=== PATIENT | female | born 1935 | race Caucasian/White ===

== ENCOUNTER → 2016-05-19 | Outpatient (CLI) | payer OTHER ==
[~2016-05-19] MED LIST: AMLO-110 PO; ASPCH81X PO; CLB/200 PO; CLOP1TAB15 PO; GLIP-199 PO; INSDGI SC; LETR2TAB PO; LORA-741 PO; METO-551 PO; METO10TA PO; OLME1TAB11 PO; PRAV40TA2 PO; QUET1TAB30 PO; VENL150C56 PO; VITAMIN B12 PO
[2016-05-19 17:28] LABS: ARTERIAL BLOOD GAS BASE EXCESS 3.7 mEq/L (-9-1.8); ARTERIAL BLOOD GAS HCO3 27 mmol/L (19-24); ARTERIAL BLOOD GAS PO2 89 mm/Hg (80-95); ARTERIAL BLOOD GAS pH 7.48 (7.35-7.45)
[2016-05-19 17:55] LABS: ALLEN TEST POS (POS); O2 ADMINISTRATION ROOM AIR
[2016-05-26 04:44] LABS: ANTI-CENTROMERE AB <1.0 NEG AI (<1.0 NEG); ANTI-SS-A <1.0 NEG AI (<1.0 NEG); ANTI-SS-B <1.0 NEG AI (<1.0 NEG); DNA ds CRITHIDIA NEGATIVE (NEGATIVE); Sm Antibody <1.0 NEG AI (<1.0 NEG)
== END | disposition home or self-care (01) ==
LOC: C.LAB 16:42
PROVIDERS: ATTEND Internal Medicine Pulmonary Disease
DX: J84.10 Pulmonary fibrosis, unspecified (principal)

== ENCOUNTER → 2016-05-25 | Outpatient (CLI) | payer OTHER ==
[2016-05-25 15:25] LABS: BASO % 0.2 %; BASO ABS # 0.02 K/uL (0-0.2); COMPLETE YES; EOS % 3.6 %; HEMATOCRIT 35.2 % (37-47); IG% 1.5 %; LYMPH % 20.7 %; LYMPH ABS # 1.74 K/uL (1.2-3.4); MEAN CELL VOLUME 86.7 fL (80-100); MEAN CORPUSCULAR HEMOGLOBIN 29.1 pg (25-34); MEAN CORPUSCULAR HGB CONC 33.5 g/dl (32-36); PLATELET COUNT 353 K/uL (130-400); RED BLOOD COUNT 4.06 M/uL (4.2-5.4); WHITE BLOOD COUNT 8.39 K/uL (4.8-10.8)
[2016-05-25 15:34] LABS: ESTIMATED AVERAGE GLUCOSE 209 mg/dl; HA1C FLAG Normal (Normal)
[2016-05-25 16:06] LABS: BLOOD UREA NITROGEN 48 mg/dl (7-18); CALCIUM 10.4 mg/dl (8.5-10.1); CARBON DIOXIDE 29 mmol/L (21-32); CHLORIDE 97 mmol/L (98-107); GLUCOSE 229 mg/dl (70-99); SODIUM 137 mmol/L (136-145)
== END | disposition home or self-care (01) ==
LOC: C.LAB1850 14:43
PROVIDERS: ATTEND Internal Medicine
DX: E11.9 Type 2 diabetes mellitus without complications (principal)

== ENCOUNTER → 2016-10-10 | Outpatient (CLI) | payer OTHER ==
[2016-10-10 14:04] LABS: RATIO 96.4 mcg/mg (0-30.0)
[2016-10-10 14:26] LABS: BLOOD UREA NITROGEN 43 mg/dl (7-18); BUN/CREATININE RATIO 18.8 (10-20); CALCIUM 9.7 mg/dl (8.5-10.1); CARBON DIOXIDE 33 mmol/L (21-32); CHLORIDE 98 mmol/L (98-107); GLUCOSE 265 mg/dl (70-99); POTASSIUM 3.9 mmol/L (3.5-5.1); SODIUM 137 mmol/L (136-145)
== END | disposition home or self-care (01) ==
LOC: C.LAB1850 11:55
PROVIDERS: ATTEND Physician Assistant
DX: N18.9 Chronic kidney disease, unspecified (principal)

== ENCOUNTER → 2017-01-29 | Outpatient (CLI) | payer OTHER ==
[2017-01-29 15:06] LABS: BASO % 0.2 %; BASO ABS # 0.02 K/uL (0-0.2); COMPLETE YES; EOS % 3.2 %; IG% 1.5 %; LYMPH % 14.7 %; LYMPH ABS # 1.45 K/uL (1.2-3.4); MEAN CELL VOLUME 87.7 fL (80-100); MEAN CORPUSCULAR HEMOGLOBIN 29.8 pg (25-34); MONO % 8.4 %; PLATELET COUNT 378 K/uL (130-400); RED BLOOD COUNT 3.99 M/uL (4.2-5.4); WHITE BLOOD COUNT 9.84 K/uL (4.8-10.8)
[2017-01-29 15:17] LABS: BLOOD UREA NITROGEN 38 mg/dl (7-18); BUN/CREATININE RATIO 17.4 (10-20); CALCIUM 9.8 mg/dl (8.5-10.1); CARBON DIOXIDE 27 mmol/L (21-32); CHLORIDE 99 mmol/L (98-107); GLUCOSE 212 mg/dl (70-99); POTASSIUM 4.2 mmol/L (3.5-5.1); SODIUM 137 mmol/L (136-145)
[2017-01-30 07:12] LABS: ESTIMATED AVERAGE GLUCOSE 189 mg/dl; HA1C FLAG Normal (Normal)
== END | disposition home or self-care (01) ==
LOC: C.LAB1850 13:44
PROVIDERS: ATTEND Physician Assistant
DX: E11.22 Type 2 diabetes mellitus with diabetic chronic kidney disease (principal); N18.9 Chronic kidney disease, unspecified

== ENCOUNTER → 2017-05-10 | Outpatient (CLI) | payer OTHER ==
[~2017-05-10] MED LIST changes: +ACET-24 PO; -AMLO-110 PO; +AMLO5TAB3 PO; +ATV5X PO; +B-COCAP2 PO; +BNC/20 PO; +CELE1CAP30 PO; +CLC100 PO; +EFF75 PO; +GLIP10TA10 PO; +INSDGIPEN PO; +INSDGIPEN SC; +LDDP5 TD; +MCRK20 PO; +METO25TA56 PO; +METO50TA16 PO; +MRLP17 PO; +NITR0.4S UT; +NRN100 PO; +NUTR-7 PO; +NYSS5 PO; +NYST100033 TOP; -OLME1TAB11 PO; +PANT1TAB3 PO; +QUET5TAB PO; +RXC5 PO; +ZRX5 PO
--- NOTE | 2017-05-11 14:36 | MAMMOGRAPHY REPORT ---
BILATERAL DIGITAL SCREENING MAMMOGRAM TOMOSYNTHESIS WITH CAD: 05/10/2017 CLINICAL HISTORY: Routine screening. Patient has no complaints. TECHNIQUE: Breast tomosynthesis in addition to standard 2D mammography was performed. The right CC and left MLO views were repeated for motion. Current study was also evaluated with a Computer Aided Detection (CAD) system. COMPARISON: Comparison is made to exams dated: 03/29/2016 mammogram, 03/22/2015 mammogram, 09/17/2014 mammogram, 03/18/2014 mammogram, 03/02/2014 mammogram, and 02/03/2013 mammogram - [facility]. BREAST COMPOSITION: There are scattered areas of fibroglandular density in both breasts. FINDINGS: There are moderate vascular calcifications in the breasts. Stable benign-appearing punctat e microcalcifications in the right breast near the surgical site. No new suspicious mass, architectu ral distortion or cluster of suspicious microcalcifications is seen. IMPRESSION: ACR BI-RADS CATEGORY 1: NEGATIVE There is no mammographic evidence of malignancy. A 1 year screening mammogram is recommended. The pa tient will receive written notification of the results. Approximately 10% of breast cancers are not detected with mammography. A negative mammographic report should not delay biopsy if a clinically suggestive mass is present. Lauryn Ruiz M.D. ay/:05/10/2017 15:38:55 Ornamental Painter: Kiersten HASTINGS(Brad)(Broderick)(BD), [facility] letter sent: Normal 1/2 BI-RADS Code: ACR BI-RADS Category 1: Negative
== END | disposition home or self-care (01) ==
LOC: C.MAMM 14:28
PROVIDERS: ATTEND Internal Medicine
DX: Z12.31 Encounter for screening mammogram for malignant neoplasm of breast (principal); Z85.3 Personal history of malignant neoplasm of breast

== ENCOUNTER 2017-05-31 14:43 | Inpatient (IN) | payer OTHER ==
[~2017-05-31] VITALS: Ht 162.6 cm; Wt 70.5 kg
[~2017-05-31 14:43] MED LIST changes: -ACET-24 PO; +AMLO-110 PO; -AMLO5TAB3 PO; -ATV5X PO; -B-COCAP2 PO; -BNC/20 PO; -CELE1CAP30 PO; -CLC100 PO; -EFF75 PO; -GLIP10TA10 PO; -INSDGIPEN PO; -INSDGIPEN SC; -LDDP5 TD; -MCRK20 PO; -METO25TA56 PO; -METO50TA16 PO; -MRLP17 PO; -NITR0.4S UT; -NRN100 PO; -NUTR-7 PO; -NYSS5 PO; -NYST100033 TOP; +OLME1TAB11 PO; -PANT1TAB3 PO; -PRAV40TA2 PO; -QUET5TAB PO; -RXC5 PO; -ZRX5 PO
--- NOTE | 2017-05-31 15:18 | EMERGENCY ROOM VISIT NOTE ---
History Report prepared by Eugenie: Trev Torres Under the Supervision of: Dr. Edison Crawford M.D. First contact with patient: 15:05 Chief Complaint: FALL Stated Complaint: FALL/L-ARM PAIN History of Present Illness The patient is an 82 year old female who presents to the Emergency Room after a fall 11 hours ago. The patient states she was rocking [id number] and then fell. She reports she was on the floor for about 5 hours because she could not get up. The patient notes she is experiencing constant left shoulder pain that radiates through her left elbow, and her pain increases with movement. She states she hit her head and nose when she fell. The patient reports she experienced a headache and pain in between her shoulders at first, but they have resolved. She notes she has a history of arthritis and diabetes. The patient states she did not take her blood sugar medication this morning, but she did take it last night. She reports she is on Plavix and wears oxygen constantly. The patient notes she has a history of a cholecystectomy and a hysterectomy. She denies feeling dizzy, tripping, chest pain, shortness of breath, and abdominal pain. Source of History: patient Onset: 11 hours ago Position: shoulder (left) Timing: constant Modifying Factors (Worsening): movement Associated Symptoms: + headache (resolved), No chest pain, No SOB, No abdominal pain Note: Associated symptoms: resolved pain in between the shoulder blades Denies: feeling dizzy, tripping Review of Systems See HPI for pertinent positives and negatives. A total of ten systems were reviewed and were otherwise negative. Past Medical & Surgical Medical Problems: (1) accelerated hypertension (2) Carcinoma of breast (3) Depression (4) Fall (5) Humeral fracture (6) MAL ELI BREAST UP-OUTER (7) renal insufficiency (8) Type 2 insulindependent diabetes Family History Patient reports no known family medical history. Social History Smoking Status: Never Smoker Alcohol Use: none Drug Use: cocaine Marital Status: single, Housing Status: lives alone Occupation Status: retired Current/Historical Medications Scheduled Aspirin (Aspirin Chewable), 81 MG PO QAM Celecoxib (Celecoxib), 200 MG PO DAILY Clopidogrel (Plavix), 75 MG PO QAM Gabapentin (Gabapentin), 100 MG PO HS Glipizide (Glipizide), 10 MG PO BID Insulin Glargine (Lantus Solostar), 20 UNITS PO QAM Insulin Glargine (Lantus Solostar), 45 UNITS SC QPM Metolazone (Metolazone), 5 MG PO QAM Metoprolol Tartrate (Lopressor) (Lopressor), 50 MG PO BID Pantoprazole (Protonix), 40 MG PO DAILY Pravastatin Sodium (Pravastatin Sodium), 40 MG PO HS Quetiapine Fumarate (Seroquel), 50 MG PO HS Venlafaxine Hcl (Effexor Extended Rel), 150 MG PO QAM Vitamin B Cmplx/Vitc/Folic Ac (Nephrocaps), 1 CAP PO DAILY Scheduled PRN Lorazepam (Lorazepam), 0.5 MG PO Q6 PRN for Anxiety Venlafaxine Hcl (Effexor), 75 MG PO HS PRN for Allergies Coded Allergies: Amoxicillin (Verified Allergy, Intermediate, RASH, 12/22/15) Clavulanic Acid (Verified Allergy, Intermediate, RASH, 12/22/15) Physical Exam Vital Signs Date Time Temp Pulse Resp B/P (MAP) Pulse Ox O2 Delivery O2 Flow Rate FiO2 05/31/17 18:39 Nasal Cannula 2.0 05/31/17 18:35 100 18 168/96 98 Nasal Cannula 2.0 05/31/17 16:55 98 16 166/80 98 Room Air 05/31/17 14:56 36.9 104 18 175/86 94 Room Air Physical Exam Physical Exam GENERAL: She is oriented to person, place, and time. She appears well- developed and well-nourished. She does not appear distressed. ____ HENT: Exam performed. Head: Normocephalic and atraumatic. Right Ear: External ear normal. No mastoid tenderness. Left Ear: External ear normal. No mastoid tenderness. Mouth/Throat: The oropharynx is clear and moist. No trismus in the jaw. No dental abscesses or uvula swelling. No oropharyngeal exudate or tonsillar abscesses. ____ UPPER EXTREMITIES: RUE: Tenderness to palpation over the left clavicle, shoulder, and humerus. Limited ROM. R elbow: No tenderness to palpation to the medial or lateral epicondyle or olecranon process. Right upper extremity has full ROM and no tenderness. ___ B/l Motor and sensation intact in radial, median, and ulnar nerve distributions. Compartments softs b/l EYES: Conjunctivae and EOM are normal. Pupils are equal, round, and reactive to light. Right eye exhibits no discharge. Left eye exhibits no discharge. No scleral icterus. ____ NECK: Neck supple. No JVD present. No spinous process tenderness present. No carotid bruit present. No rigidity. No tracheal deviation and normal range of motion present.____ CV: Normal rate, regular rhythm, normal heart sounds and intact distal pulses. There is no peripheral edema. Palpable radial pulses bue. ____ PULM/CHEST: Effort normal and breath sounds normal. No respiratory distress. No stridor. She has no wheezes. She has no rales. Chest Wall: She exhibits no tenderness. ____ ABD: The abdomen is soft. Bowel sounds are normal. She has no distension. No mass is present. There is no tenderness. There is no rebound, no guarding, no Horner's sign and no tenderness at McBurney's point. Rovsig negative BACK: Tenderness to palpation to the cervical and lumbar spine. No tenderness to palpation to the thoracic spine. ____ MUSC/SKEL: Normal range of motion. There is no peripheral edema or deformity. Tenderness to palpation to the hips bilaterally. Pelvis is stable. LYMPH: No cervical adenopathy. ____ NEURO: She is alert and oriented to person, place, and time. She has normal strength. No cranial nerve deficit or sensory deficit. Coordination and gait normal. GCS eye subscore is 4. GCS verbal subscore is 5. GCS motor subscore is 6. cerebellar tests wnl. ____ SKIN: Skin is warm and dry. She is not diaphoretic. ____ PSYCH: She has a normal mood and affect. Her behavior is normal. Judgment and thought content normal. ____ Medical Decision & Procedures ER Provider Diagnostic Interpretation: Radiology results as stated below per my review and radiologist interpretation: SINGLE VIEW PELVIS CLINICAL HISTORY: Fall. FINDINGS: An AP pelvic radiograph is compared to study dated 01/21/2015 and correlated with pelvic CT dated 08/24/2008. The skeletal structures are osteopenic. No acute fracture is seen involving the hips or bony pelvis. Mild to moderate arthritic change is noted in the hips. Sclerotic change is present in the sacroiliac joints and pubic symphysis. Lumbosacral spondylosis and scoliosis is partially visualized. The overlying soft tissues are normal in appearance. Numerous pelvic phleboliths are observed. No bowel obstruction is identified. IMPRESSION: Osteopenia and degenerative change as above. There is no radiographic evidence of acute fracture involving the hips or bony pelvis. Electronically signed by: Franklin Adame M.D. 05/31/2017 5:53 PM Dictated Date/Time: 05/31/2017 5:51 PM L-SPINE MIN 4 VIEWS ROUTINE HISTORY: 82 years-old Female fall acute back pain status post fall COMPARISON: Lumbar spine radiographs 01/21/2015 TECHNIQUE: 4 views of the lumbar spine FINDINGS: Levoscoliosis of the lumbar spine has mildly progressed. There are 5 lumbar type vertebral segments. The bones appear moderately demineralized. No acute fracture or subluxation identified. No acute compression fracture is seen. Severe multilevel intervertebral disc space narrowing, endplate spurring and facet arthrosis. Atherosclerosis of the aorta. Cholecystectomy clips noted. Moderate stool volume throughout the colon. IMPRESSION: 1. Moderate bone demineralization without acute fracture or subluxation identified. 2. Severe multilevel intervertebral disc space narrowing, endplate spurring and facet arthropathy. The above report was generated using voice recognition software. It may contain grammatical, syntax or spelling errors. Electronically signed by: Jeffery Hassan M.D. 05/31/2017 5:54 PM Dictated Date/Time: 05/31/2017 5:[address] SCAN OF THE BRAIN WITHOUT IV CONTRAST CLINICAL HISTORY: Fall. COMPARISON STUDY: CT of the brain dated 11/09/2012. TECHNIQUE: Unenhanced axial CT scan of the brain is performed from the vertex to the skull base. A dose lowering technique was utilized adhering to the principles of ALARA. FINDINGS: Brain parenchyma: There are age-related involutional changes noting moderate subcortical and periventricular microangiopathic change. There is no hemorrhage, mass effect, or evidence of acute territorial ischemia by CT criteria. Miranda-white matter is preserved. No extra-axial fluid collection is seen. Ventricles, sulci, cisterns: Prominent secondary to involutional change. Intracranial vasculature: There is atherosclerotic calcification of the cavernous carotid and vertebral arteries. Calvarium: The skeletal structures are osteopenic. No depressed calvarial fracture is seen. Sinuses and mastoids: The visualized paranasal sinuses are clear. The mastoid air cells are well pneumatized. Orbits: The bony orbits are grossly intact. There are bilateral ocular lens implants. IMPRESSION: There is no hemorrhage, mass effect, or evidence of acute territorial ischemia by CT criteria. Electronically signed by: Franklin Adame M.D. 05/31/2017 4:19 PM Dictated Date/Time: 05/31/2017 4:17 PM SINGLE VIEW CHEST CLINICAL HISTORY: Fall. FINDINGS: An AP, portable, upright chest radiograph is compared to study dated 02/23/2016 and correlated with chest CT dated 04/10/2016. The examination is degraded by portable technique and patient rotation. The heart is enlarged and there is atherosclerotic calcification of the thoracic aorta. The pulmonary vasculature is noncongested. Changes of chronic digital lung disease are similar to previous. There is no convincing radiographic evidence of superimposed airspace consolidation or pleural effusion. No pneumothorax is seen. The skeletal structures are osteopenic. There is an impacted and comminuted fracture of the left humeral head and neck with numerous distracted fragments and medial distraction of the humeral shaft. IMPRESSION: 1. Cardiomegaly with changes of chronic interstitial lung disease. This is similar to previous. 2. There is no evidence of superimposed airspace consolidation or large pleural effusion. 3. There is an acute impacted and comminuted fracture of the left humeral neck as above. Electronically signed by: Franklin Adame M.D. 05/31/2017 5:49 PM Dictated Date/Time: 05/31/2017 5:46 PM CERVICAL SPINE W/O CT DOSE: 941.98 mGy.cm CLINICAL HISTORY: 82 years-old Female with fall. Acute neck injury status post fall COMPARISON: CT head of same day. TECHNIQUE: Multiple axial CT images of the cervical spine were obtained without contrast. A dose lowering technique was utilized adhering to the principles of ALARA. FINDINGS: Sclerotic lesion of the right mandibular ramus measures up to 2.0 cm in length and demonstrates no suspicious features. Multilevel advanced facet arthropathy with intervertebral disc space narrowing and prominent posterior disc osteophyte complex formation is noted. Large posterior disc osteophyte complexes are seen most notably at the C4-C5 and C5-C6 levels which appear to cause at least mild central canal narrowing. Evaluation of the central canal and neural foramina is better evaluated by MRI. No acute cervical spine fracture or subluxation identified. Bones appear moderately demineralized. Slight reversal of the normal cervical lordosis centered at C6-C7. Mastoid air cells and middle ear cavities are clear. Imaged lung apices appear clear. Atherosclerosis of the carotid bulbs bilaterally is noted. IMPRESSION: 1. No acute cervical spine fracture or subluxation. 2. Multilevel advanced facet arthropathy with discogenic degenerative changes. Large posterior disc osteophyte complex formations are seen at the C4-C5 and C5-C6 levels. 3. Indeterminate 2.0 cm sclerotic lesion of the right mandibular ramus without aggressive features identified. No associated soft tissue mass. The above report was generated using voice recognition software. It may contain grammatical, syntax or spelling errors. Electronically signed by: Jeffery Hassan M.D. 05/31/2017 4:49 PM Dictated Date/Time: 05/31/2017 4:42 PM L UPPER EXTREMITY WITHOUT HISTORY: 82 years-old Female shoulder fracture acute left shoulder pain status post fall. COMPARISON: Chest CT 04/10/2016 TECHNIQUE: Multiple axial CT images of the left upper extremity were obtained without the use of IV contrast. Coronal and sagittal reformatted images were obtained from the axial data set and were submitted for review. A dose lowering technique was used consistent with the principals of ALARA. FINDINGS: The bones appear moderately demineralized. There is an acute comminuted, displaced, impacted and angulated fracture of the proximal left humerus with fractures involving the humeral neck, greater and lesser tuberosities. There is subluxation posteriorly of the humeral head within the glenoid fossa. There is approximately 1.7 cm medial and 2.9 cm anterior displacement of the humeral neck and proximal diaphysis in relation to the humeral head. Moderate muscular and subcutaneous edema is noted about the left shoulder with associated moderate joint effusion. Vascular calcifications are noted. The study is not tailored to assess the rotator cuff or labral anatomy. The glenoid, coracoid, acromion and imaged clavicle appear intact. There are moderate degenerative changes about the left AC joint with mild to moderate glenohumeral degenerative changes. IMPRESSION: 1. Acute comminuted , displaced, impacted and angulated fracture of the proximal left humerus with fractures involving the humeral neck, greater and lesser tuberosities. No definite humeral head fracture identified. 2. Moderate bone demineralization. 3. Moderate soft tissue swelling about the left shoulder with joint effusion. The above report was generated using voice recognition software. It may contain grammatical, syntax or spelling errors. Electronically signed by: Jeffery Hassan M.D. 05/31/2017 4:38 PM Dictated Date/Time: 05/31/2017 4:31 PM LEFT ELBOW 2 VIEWS CLINICAL HISTORY: Fall with left arm pain. FINDINGS: AP and lateral views of the left elbow are obtained. No prior studies are available for comparison at the time of dictation. The skeletal structures are osteopenic. There is no radiographic evidence of fracture. The joint spaces appear maintained. A small enthesophyte arises from the lateral humeral epicondyle. There is no joint effusion. The overlying soft tissues are within normal limits. IMPRESSION: There is no radiographic evidence of left elbow fracture. Electronically signed by: Franklin Adame M.D. 05/31/2017 5:46 PM Dictated Date/Time: 05/31/2017 5:45 PM Laboratory Results 05/31/17 15:45 Red Blood Count 4.09, Mean Corpuscular Volume 87.5, Mean Corpuscular Hemoglobin 29.6, Mean Corpuscular Hemoglobin Concent 33.8, Mean Platelet Volume 9.8, Neutrophils (%) (Auto) 85.2, Lymphocytes (%) (Auto) 5.2, Monocytes (%) (Auto) 8.7, Eosinophils (%) (Auto) 0.1, Basophils (%) (Auto) 0.1, Neutrophils # (Auto) 12.99, Lymphocytes # (Auto) 0.80, Monocytes # (Auto) 1.33, Eosinophils # (Auto) 0.01, Basophils # (Auto) 0.01 05/31/17 15:45 Test 05/31/17 15:45 05/31/17 17:45 White Blood Count 15.24 K/uL (4.8-10.8) Red Blood Count 4.09 M/uL (4.2-5.4) Hemoglobin 12.1 g/dL (12.0-16.0) Hematocrit 35.8 % (37-47) Mean Corpuscular Volume 87.5 fL (80-100) Mean Corpuscular Hemoglobin 29.6 pg (25-34) Mean Corpuscular Hemoglobin Concent 33.8 g/dl (32-36) Platelet Count 377 K/uL (130-400) Mean Platelet Volume 9.8 fL (7.4-10.4) Neutrophils (%) (Auto) 85.2 % Lymphocytes (%) (Auto) 5.2 % Monocytes (%) (Auto) 8.7 % Eosinophils (%) (Auto) 0.1 % Basophils (%) (Auto) 0.1 % Neutrophils # (Auto) 12.99 K/uL (1.4-6.5) Lymphocytes # (Auto) 0.80 K/uL (1.2-3.4) Monocytes # (Auto) 1.33 K/uL (0.11-0.59) Eosinophils # (Auto) 0.01 K/uL (0-0.5) Basophils # (Auto) 0.01 K/uL (0-0.2) RDW Standard Deviation 42.9 fL (36.4-46.3) RDW Coefficient of Variation 13.4 % (11.5-14.5) Immature Granulocyte % (Auto) 0.7 % Immature Granulocyte # (Auto) 0.10 K/uL (0.00-0.02) Prothrombin Time 10.7 SECONDS (9.0-12.0) Prothromb Time International Ratio 1.0 (0.9-1.1) Activated Partial Thromboplast Time 23.1 SECONDS (21.0-31.0) Partial Thromboplastin Ratio 0.9 Anion Gap 12.0 mmol/L (3-11) Est Creatinine Clear Calc Drug Dose 17.8 ml/min Estimated GFR () 21.4 Estimated GFR (Non- 18.5 BUN/Creatinine Ratio 20.4 (10-20) Calcium Level 9.8 mg/dl (8.5-10.1) Total Bilirubin 0.5 mg/dl (0.2-1) Aspartate Amino Transf (AST/SGOT) 25 U/L (15-37) Alanine Aminotransferase (ALT/SGPT) 25 U/L (12-78) Alkaline Phosphatase 76 U/L (45-117) Total Creatine Kinase 229 U/L (26-192) Total Protein 7.7 gm/dl (6.4-8.2) Albumin 3.4 gm/dl (3.4-5.0) Globulin 4.3 gm/dl (2.5-4.0) Albumin/Globulin Ratio 0.8 (0.9-2) Beta-Hydroxybutyric Acid 1.58 mg/dL (0.2-2.81) Urine Color YELLOW Urine Appearance CLEAR (CLEAR) Urine pH 5.0 (4.5-7.5) Urine Specific [place] 1.027 (1.000-1.030) Urine Protein TRACE (NEG) Urine Glucose (UA) 3+ (NEG) Urine Ketones NEG (NEG) Urine Occult Blood NEG (NEG) Urine Nitrite NEG (NEG) Urine Bilirubin NEG (NEG) Urine Urobilinogen NEG (NEG) Urine Leukocyte Esterase NEG (NEG) Urine WBC (Auto) 0 /hpf (0-5) Urine RBC (Auto) 0-4 /hpf (0-4) Urine Hyaline Casts (Auto) 1-5 /lpf (0-5) Urine Epithelial Cells (Auto) 0-5 /lpf (0-5) Urine Bacteria (Auto) NEG (NEG) Laboratory results reviewed by me ECG Indication: back/shoulder pain (left) Rate (beats per minute): 107 Rhythm: sinus rhythm Findings: T-wave inversion (in AVL), other (MA, QRS, QTc intervals are within normal limits, left ventricular hypertrophy, no ST elevation or depression) Comparison ECG Date: 03/31/15 Change: Change: TWI in AVL are deeper Repeat EKG at 1551: Sinus rhythm with a rate of 103. MA, QRS, QTc are within normal limits. TWI in AVL. Left ventricular hypertrophy. No significant change from EKG at 1531. Patient's electrocardiogram was interpreted by me. ED Course 1508: The patient was evaluated in room A12A. A complete history and physical exam was performed. 1615: Received a call from [employer]. Patient on weathercaster film has an obvious left- sided humeral fracture. Given this and the patient's discomfort, we'll obtain CT of the upper extremity also so she does not have to be put back on the table for future CT scan. 1645: Patient alert and oriented with nondeformed C-spine with out peripheral neurological symptoms. With C-spine inlets ability passive flexion active flexion extension and lateral range of motion were performed without midline pain or peripheral neurological complaints less changes. The cervical spine was clinically cleared and collar was removed. Patient tolerated procedure well. No complications. 180: I reevaluated the patient. Her discomfort is okay when she does not move it. The patient's family reports they are not uncomfortable sending the patient home because she lives alone. They note she will fall again, and it was difficult to get to her after she fell this morning. 180: I discussed the patient's case with Dr. Garay, Orthopedic Surgery. He states the patient should be admitted to medicine, and he will be on consult. Place in ing. 181: I reevaluated the patient and performed a FAST exam. Views were obtained in the hepatorenal, subxiphoid, splenorenal, and suprapubic views. No free fluid. No cardiac effusion. 182: I discussed the patient's case with CHIEF LEARNING OFFICER on with Dr. Saeed, [facility] Hospitalist team. The patient will be evaluated for further management and care. Medical Decision Vital signs stable. Patient was admitted to medicine with consult to orthopedics for humeral neck fracture. CT head and C-spine negative. FAST negative. Medication Reconcilliation Current Medication List: was personally reviewed by me Blood Pressure Screening Patient's blood pressure: Elevated blood pressure Monitored by hospitalist. Consults Time Called: 1801 Consulting Physician: Dr. Garay, Orthopedic Surgery Returned Call: 180 I discussed the patient's case with Dr. Garay, Orthopedic Surgery. He states the patient should be admitted to medicine, and he will be on consult. Additional Consults: Time Called: 1818 Consulted Physician: Dr. Saeed [facility] Hospitalist Returned Call: [phone] Additional Comments: I discussed the patient's case with Dr. Saeed, [facility] Hospitalist. The patient will be evaluated for further management and care. Impression Primary Impression: Humeral fracture Additional Impression: Fall Scribe Attestation The scribe's documentation has been prepared under my direction and personally reviewed by me in its entirety. I confirm that the note above accurately reflects all work, treatment, procedures, and medical decision making performed by me. The chart was completed utilizing [employer] voice recognition software. Grammatical errors, random word insertions, pronoun errors, and incomplete sentences are an occasional consequence of this system due to software limitations, ambient noise, and hardware issues. Any formal questions or concerns about the content, text, or information contained within the body of this dictation should be directly addressed to the physician for clarification. Departure Information Dispostion Being Evaluated By Hospitalist Referrals Micheal Tucker M.D. (PCP) Patient Instructions My [facility] Problem Qualifiers
[2017-05-31 16:00] LABS: BASO % 0.1 %; BASO ABS # 0.01 K/uL (0-0.2); EOS % 0.1 %; EOS ABS # 0.01 K/uL (0-0.5); HEMATOCRIT 35.8 % (37-47); HEMOGLOBIN 12.1 g/dL (12.0-16.0); LYMPH % 5.2 %; MEAN CELL VOLUME 87.5 fL (80-100); MEAN CORPUSCULAR HEMOGLOBIN 29.6 pg (25-34); MEAN CORPUSCULAR HGB CONC 33.8 g/dl (32-36); MEAN PLATELET VOLUME 9.8 fL (7.4-10.4); MONO % 8.7 %; MONO ABS # 1.33 K/uL (0.11-0.59); NEUT % 85.2 %; NEUT ABS # 12.99 K/uL (1.4-6.5); PLATELET COUNT 377 K/uL (130-400); RED CELL DISTRIBUTION WIDTH CV 13.4 % (11.5-14.5); RED CELL DISTRIBUTION WIDTH SD 42.9 fL (36.4-46.3); WHITE BLOOD COUNT 15.24 K/uL (4.8-10.8)
[2017-05-31 16:10] LABS: PTT PATIENT 23.1 SECONDS (21.0-31.0)
[2017-05-31] MEDS ORDERED: QUET5TAB PO (16:16)
[2017-05-31] MEDS ORDERED: ZRX5 PO (16:16)
[2017-05-31] MEDS ORDERED: GLIP10TA10 PO (16:16)
[2017-05-31] MEDS ORDERED: NRN100 PO (16:16)
[2017-05-31] MEDS ORDERED: EFF75 PO (16:16)
[2017-05-31] MEDS ORDERED: METO50TA16 PO (16:16)
[2017-05-31] MEDS ORDERED: INSDGIPEN PO (16:16)
--- NOTE | 2017-05-31 16:21 | DIAGNOSTIC IMAGING REPORT ---
CT SCAN OF THE BRAIN WITHOUT IV CONTRAST CLINICAL HISTORY: Fall. COMPARISON STUDY: CT of the brain dated 11/09/2012. TECHNIQUE: Unenhanced axial CT scan of the brain is performed from the vertex to the skull base. A dose lowering technique was utilized adhering to the principles of ALARA. FINDINGS: Brain parenchyma: There are age-related involutional changes noting moderate subcortical and periventricular microangiopathic change. There is no hemorrhage, mass effect, or evidence of acute territorial ischemia by CT criteria. Miranda-white matter is preserved. No extra-axial fluid collection is seen. Ventricles, sulci, cisterns: Prominent secondary to involutional change. Intracranial vasculature: There is atherosclerotic calcification of the cavernous carotid and vertebral arteries. Calvarium: The skeletal structures are osteopenic. No depressed calvarial fracture is seen. Sinuses and mastoids: The visualized paranasal sinuses are clear. The mastoid air cells are well pneumatized. Orbits: The bony orbits are grossly intact. There are bilateral ocular lens implants. IMPRESSION: There is no hemorrhage, mass effect, or evidence of acute territorial ischemia by CT criteria. Electronically signed by: Franklin Adame M.D. 05/31/2017 4:19 PM Dictated Date/Time: 05/31/2017 4:17 PM
[2017-05-31] MEDS ORDERED: B-CO1CAP17 PO (16:25)
[2017-05-31] MEDS ORDERED: PANT1TAB3 PO (16:25)
[2017-05-31] MEDS ORDERED: ATV5X PO (16:25)
[2017-05-31] MEDS ORDERED: CELE1CAP30 PO (16:25)
[2017-05-31] MEDS ORDERED: INSDGIPEN SC (16:28)
[2017-05-31 16:36] LABS: ALBUMIN 3.4 gm/dl (3.4-5.0); CALCIUM 9.8 mg/dl (8.5-10.1); CREATININE 2.38 mg/dl (0.60-1.20); POTASSIUM 3.6 mmol/L (3.5-5.1); TOTAL PROTEIN 7.7 gm/dl (6.4-8.2)
--- NOTE | 2017-05-31 16:39 | DIAGNOSTIC IMAGING REPORT ---
L UPPER EXTREMITY WITHOUT HISTORY: 82 years-old Female shoulder fracture acute left shoulder pain status post fall. COMPARISON: Chest CT 04/10/2016 TECHNIQUE: Multiple axial CT images of the left upper extremity were obtained without the use of IV contrast. Coronal and sagittal reformatted images were obtained from the axial data set and were submitted for review. A dose lowering technique was used consistent with the principals of ALARA. FINDINGS: The bones appear moderately demineralized. There is an acute comminuted, displaced, impacted and angulated fracture of the proximal left humerus with fractures involving the humeral neck, greater and lesser tuberosities. There is subluxation posteriorly of the humeral head within the glenoid fossa. There is approximately 1.7 cm medial and 2.9 cm anterior displacement of the humeral neck and proximal diaphysis in relation to the humeral head. Moderate muscular and subcutaneous edema is noted about the left shoulder with associated moderate joint effusion. Vascular calcifications are noted. The study is not tailored to assess the rotator cuff or labral anatomy. The glenoid, coracoid, acromion and imaged clavicle appear intact. There are moderate degenerative changes about the left AC joint with mild to moderate glenohumeral degenerative changes. IMPRESSION: 1. Acute comminuted , displaced, impacted and angulated fracture of the proximal left humerus with fractures involving the humeral neck, greater and lesser tuberosities. No definite humeral head fracture identified. 2. Moderate bone demineralization. 3. Moderate soft tissue swelling about the left shoulder with joint effusion. The above report was generated using voice recognition software. It may contain grammatical, syntax or spelling errors. Electronically signed by: Jeffery Hassan M.D. 05/31/2017 4:38 PM Dictated Date/Time: 05/31/2017 4:31 PM
--- NOTE | 2017-05-31 16:50 | DIAGNOSTIC IMAGING REPORT ---
CERVICAL SPINE W/O CT DOSE: 941.98 mGy.cm CLINICAL HISTORY: 82 years-old Female with fall. Acute neck injury status post fall COMPARISON: CT head of same day. TECHNIQUE: Multiple axial CT images of the cervical spine were obtained without contrast. A dose lowering technique was utilized adhering to the principles of ALARA. FINDINGS: Sclerotic lesion of the right mandibular ramus measures up to 2.0 cm in length and demonstrates no suspicious features. Multilevel advanced facet arthropathy with intervertebral disc space narrowing and prominent posterior disc osteophyte complex formation is noted. Large posterior disc osteophyte complexes are seen most notably at the C4-C5 and C5-C6 levels which appear to cause at least mild central canal narrowing. Evaluation of the central canal and neural foramina is better evaluated by MRI. No acute cervical spine fracture or subluxation identified. Bones appear moderately demineralized. Slight reversal of the normal cervical lordosis centered at C6-C7. Mastoid air cells and middle ear cavities are clear. Imaged lung apices appear clear. Atherosclerosis of the carotid bulbs bilaterally is noted. IMPRESSION: 1. No acute cervical spine fracture or subluxation. 2. Multilevel advanced facet arthropathy with discogenic degenerative changes. Large posterior disc osteophyte complex formations are seen at the C4-C5 and C5-C6 levels. 3. Indeterminate 2.0 cm sclerotic lesion of the right mandibular ramus without aggressive features identified. No associated soft tissue mass. The above report was generated using voice recognition software. It may contain grammatical, syntax or spelling errors. Electronically signed by: Jeffery Hassan M.D. 05/31/2017 4:49 PM Dictated Date/Time: 05/31/2017 4:42 PM
[2017-05-31] MEDS ORDERED: PRAV40TA2 PO (16:52)
--- NOTE | 2017-05-31 17:47 | DIAGNOSTIC IMAGING REPORT ---
LEFT ELBOW 2 VIEWS CLINICAL HISTORY: Fall with left arm pain. FINDINGS: AP and lateral views of the left elbow are obtained. No prior studies are available for comparison at the time of dictation. The skeletal structures are osteopenic. There is no radiographic evidence of fracture. The joint spaces appear maintained. A small enthesophyte arises from the lateral humeral epicondyle. There is no joint effusion. The overlying soft tissues are within normal limits. IMPRESSION: There is no radiographic evidence of left elbow fracture. Electronically signed by: Franklin Adame M.D. 05/31/2017 5:46 PM Dictated Date/Time: 05/31/2017 5:45 PM
--- NOTE | 2017-05-31 17:50 | DIAGNOSTIC IMAGING REPORT ---
SINGLE VIEW CHEST CLINICAL HISTORY: Fall. FINDINGS: An AP, portable, upright chest radiograph is compared to study dated 02/23/2016 and correlated with chest CT dated 04/10/2016. The examination is degraded by portable technique and patient rotation. The heart is enlarged and there is atherosclerotic calcification of the thoracic aorta. The pulmonary vasculature is noncongested. Changes of chronic digital lung disease are similar to previous. There is no convincing radiographic evidence of superimposed airspace consolidation or pleural effusion. No pneumothorax is seen. The skeletal structures are osteopenic. There is an impacted and comminuted fracture of the left humeral head and neck with numerous distracted fragments and medial distraction of the humeral shaft. IMPRESSION: 1. Cardiomegaly with changes of chronic interstitial lung disease. This is similar to previous. 2. There is no evidence of superimposed airspace consolidation or large pleural effusion. 3. There is an acute impacted and comminuted fracture of the left humeral neck as above. Electronically signed by: Franklin Adame M.D. 05/31/2017 5:49 PM Dictated Date/Time: 05/31/2017 5:46 PM
--- NOTE | 2017-05-31 17:54 | DIAGNOSTIC IMAGING REPORT ---
SINGLE VIEW PELVIS CLINICAL HISTORY: Fall. FINDINGS: An AP pelvic radiograph is compared to study dated 01/21/2015 and correlated with pelvic CT dated 08/24/2008. The skeletal structures are osteopenic. No acute fracture is seen involving the hips or bony pelvis. Mild to moderate arthritic change is noted in the hips. Sclerotic change is present in the sacroiliac joints and pubic symphysis. Lumbosacral spondylosis and scoliosis is partially visualized. The overlying soft tissues are normal in appearance. Numerous pelvic phleboliths are observed. No bowel obstruction is identified. IMPRESSION: Osteopenia and degenerative change as above. There is no radiographic evidence of acute fracture involving the hips or bony pelvis. Electronically signed by: Franklin Adame M.D. 05/31/2017 5:53 PM Dictated Date/Time: 05/31/2017 5:51 PM
--- NOTE | 2017-05-31 17:56 | DIAGNOSTIC IMAGING REPORT ---
L-SPINE MIN 4 VIEWS ROUTINE HISTORY: 82 years-old Female fall acute back pain status post fall COMPARISON: Lumbar spine radiographs 01/21/2015 TECHNIQUE: 4 views of the lumbar spine FINDINGS: Levoscoliosis of the lumbar spine has mildly progressed. There are 5 lumbar type vertebral segments. The bones appear moderately demineralized. No acute fracture or subluxation identified. No acute compression fracture is seen. Severe multilevel intervertebral disc space narrowing, endplate spurring and facet arthrosis. Atherosclerosis of the aorta. Cholecystectomy clips noted. Moderate stool volume throughout the colon. IMPRESSION: 1. Moderate bone demineralization without acute fracture or subluxation identified. 2. Severe multilevel intervertebral disc space narrowing, endplate spurring and facet arthropathy. The above report was generated using voice recognition software. It may contain grammatical, syntax or spelling errors. Electronically signed by: Jeffery Hassan M.D. 05/31/2017 5:54 PM Dictated Date/Time: 05/31/2017 5:52 PM
[2017-05-31] MEDS ORDERED: LORAZEPAM 0.5 MG TAB PO PRN (18:30)
[2017-05-31] MEDS ORDERED: VENLAFAXINE HCL 37.5 MG TAB PO PRN (18:30)
[2017-05-31 18:39] VITALS: BMI 26.3
[2017-05-31] MEDS ORDERED: POLYETHYLENE (MIRALAX) 17 GM PACK PO PRN (19:15)
--- NOTE | 2017-05-31 19:36 | History and Physical ---
History & Physical Date & Time of Service: May 31, 2017 at 18:29 Chief Complaint: Fall/L-Arm Pain Primary Care Physician: Micheal Tucker M.D. History of Present Illness Source: patient, family Ms. Hensley had a fall this morning at about 0400. She is unsure why she fell but did not have any loc, however she did hit her head hard and had some blurred vision and headache after which has cleared at this point. She laid on the floor for about five hours. She has had chest pain at times in the past. Last weekend she had chest pain, fatigue and headache. She has not had any chest pain today. She has sob and coughing for about a year due to pulmonary fibrosis and was put on oxygen about a year ago. She normally wears 2L of oxygen. ROS Constitutional: no chills, aches, sweats or fever Respiratory: no sob,cough, sputum, or wheezing Cardiac: no chest pain, palpitations, edema, orthopnea or lightheadedness GI: no abdominal pain, nausea, vomiting, diarrhea or constipation : no dysuria or hesitancy Extremities: no joint pain or weakness Skin: no rash All other systems reviewed and negative ROS Constitutional: no chills, aches, sweats or fever Respiratory: no sob,cough, sputum, or wheezing Cardiac: no chest pain, palpitations, edema, orthopnea or lightheadedness GI: no abdominal pain, nausea, vomiting, diarrhea or constipation : no dysuria or hesitancy Extremities: no joint pain or weakness Skin: no rash All other systems reviewed and negative Pmhx: DMII with neuropathy, renal insufficiency, pulmonary fibrosis, and breast cancer Past Medical/Surgical History Family History Patient reports no known family medical history. Social History Smoking Status: Never Smoker Smokeless Tobacco Use: No Alcohol Use: none Drug Use: none Marital Status: Housing status: lives alone Occupational Status: retired (worked in schools and the university and housecleaning) Immunizations History of Influenza Vaccine: No History of Tetanus Vaccine?: Unknown History of Pneumococcal: No History of Hepatitis B Vaccine: Unknown Multi-Drug Resistant Organisms History of MDRO: No Allergies Coded Allergies: Amoxicillin (Verified Allergy, Intermediate, RASH, 12/22/15) Clavulanic Acid (Verified Allergy, Intermediate, RASH, 12/22/15) Home Medications Scheduled Aspirin (Aspirin Chewable), 81 MG PO QAM Celecoxib (Celecoxib), 200 MG PO DAILY Clopidogrel (Plavix), 75 MG PO QAM Gabapentin (Gabapentin), 100 MG PO HS Glipizide (Glipizide), 10 MG PO BID Insulin Glargine (Lantus Solostar), 20 UNITS PO QAM Insulin Glargine (Lantus Solostar), 45 UNITS SC QPM Metolazone (Metolazone), 5 MG PO QAM Metoprolol Tartrate (Lopressor) (Lopressor), 50 MG PO BID Pantoprazole (Protonix), 40 MG PO DAILY Pravastatin Sodium (Pravastatin Sodium), 40 MG PO HS Quetiapine Fumarate (Seroquel), 50 MG PO HS Venlafaxine Hcl (Effexor Extended Rel), 150 MG PO QAM Vitamin B Cmplx/Vitc/Folic Ac (Nephrocaps), 1 CAP PO DAILY Scheduled PRN Lorazepam (Lorazepam), 0.5 MG PO Q6 PRN for Anxiety Venlafaxine Hcl (Effexor), 75 MG PO HS PRN for Physical Exam Vital Signs Date Time Temp Pulse Resp B/P (MAP) Pulse Ox O2 Delivery O2 Flow Rate FiO2 05/31/17 16:55 98 16 166/80 98 Room Air 05/31/17 14:56 36.9 104 18 175/86 94 Room Air General: no distress Eyes: normal inspection, PERLL Respiratory: chest non tender, clear to auscultation, normal breath sounds, no respiratory distress, no accessory muscle use Cardiac: regular rate and rhythm, no rub or gallop, no murmur, no edema, no jvd GI/: active bowel sounds, no abd pain or tenderness, soft, non distended Extremities: unable to test left arm due to injury, right arm without drift, normal strength, legs normals strength and equal bilaterally Neuro/Psych: alert and oriented x 3, normal mood and affect Skin: normal color, dry Diagnostics Laboratory Results Results Past 24 Hours Test 05/31/17 15:45 05/31/17 17:45 Range/Units White Blood Count 15.24 4.8-10.8 K/uL Red Blood Count 4.09 4.2-5.4 M/uL Hemoglobin 12.1 12.0-16.0 g/dL Hematocrit 35.8 37-47 % Mean Corpuscular Volume 87.5 80-100 fL Mean Corpuscular Hemoglobin 29.6 25-34 pg Mean Corpuscular Hemoglobin Concent 33.8 32-36 g/dl Platelet Count 377 130-400 K/uL Mean Platelet Volume 9.8 7.4-10.4 fL Neutrophils (%) (Auto) 85.2 % Lymphocytes (%) (Auto) 5.2 % Monocytes (%) (Auto) 8.7 % Eosinophils (%) (Auto) 0.1 % Basophils (%) (Auto) 0.1 % Neutrophils # (Auto) 12.99 1.4-6.5 K/uL Lymphocytes # (Auto) 0.80 1.2-3.4 K/uL Monocytes # (Auto) 1.33 0.11-0.59 K/uL Eosinophils # (Auto) 0.01 0-0.5 K/uL Basophils # (Auto) 0.01 0-0.2 K/uL RDW Standard Deviation 42.9 36.4-46.3 fL RDW Coefficient of Variation 13.4 11.5-14.5 % Immature Granulocyte % (Auto) 0.7 % Immature Granulocyte # (Auto) 0.10 0.00-0.02 K/uL Prothrombin Time 10.7 9.0-12.0 SECONDS Prothromb Time International Ratio 1.0 0.9-1.1 Activated Partial Thromboplast Time 23.1 21.0-31.0 SECONDS Partial Thromboplastin Ratio 0.9 Sodium Level 132 136-145 mmol/L Potassium Level 3.6 3.5-5.1 mmol/L Chloride Level 94 98-107 mmol/L Carbon Dioxide Level 26 21-32 mmol/L Anion Gap 12.0 3-11 mmol/L Blood Urea Nitrogen 49 7-18 mg/dl Creatinine 2.38 0.60-1.20 mg/dl Est Creatinine Clear Calc Drug Dose 17.8 ml/min Estimated GFR () 21.4 Estimated GFR (Non- 18.5 BUN/Creatinine Ratio 20.4 10-20 Random Glucose 409 70-99 mg/dl Calcium Level 9.8 8.5-10.1 mg/dl Total Bilirubin 0.5 0.2-1 mg/dl Aspartate Amino Transf (AST/SGOT) 25 15-37 U/L Alanine Aminotransferase (ALT/SGPT) 25 12-78 U/L Alkaline Phosphatase 76 45-117 U/L Total Creatine Kinase 229 26-192 U/L Troponin I 0.020 0-0.045 ng/ml Total Protein 7.7 6.4-8.2 gm/dl Albumin 3.4 3.4-5.0 gm/dl Globulin 4.3 2.5-4.0 gm/dl Albumin/Globulin Ratio 0.8 0.9-2 Beta-Hydroxybutyric Acid 1.58 0.2-2.81 mg/dL Urine Color YELLOW Urine Appearance CLEAR CLEAR Urine pH 5.0 4.5-7.5 Urine Specific [place] 1.027 1.000-1.030 Urine Protein TRACE NEG Urine Glucose (UA) 3+ NEG Urine Ketones NEG NEG Urine Occult Blood NEG NEG Urine Nitrite NEG NEG Urine Bilirubin NEG NEG Urine Urobilinogen NEG NEG Urine Leukocyte Esterase NEG NEG Urine WBC (Auto) 0 0-5 /hpf Urine RBC (Auto) 0-4 0-4 /hpf Urine Hyaline Casts (Auto) 1-5 0-5 /lpf Urine Epithelial Cells (Auto) 0-5 0-5 /lpf Urine Bacteria (Auto) NEG NEG Diagnostic Radiology CT SCAN OF THE BRAIN WITHOUT IV CONTRAST CLINICAL HISTORY: Fall. COMPARISON STUDY: CT of the brain dated 11/09/2012. TECHNIQUE: Unenhanced axial CT scan of the brain is performed from the vertex to the skull base. A dose lowering technique was utilized adhering to the principles of ALARA. FINDINGS: Brain parenchyma: There are age-related involutional changes noting moderate subcortical and periventricular microangiopathic change. There is no hemorrhage, mass effect, or evidence of acute territorial ischemia by CT criteria. Miranda-white matter is preserved. No extra-axial fluid collection is seen. Ventricles, sulci, cisterns: Prominent secondary to involutional change. Intracranial vasculature: There is atherosclerotic calcification of the cavernous carotid and vertebral arteries. Calvarium: The skeletal structures are osteopenic. No depressed calvarial fracture is seen. Sinuses and mastoids: The visualized paranasal sinuses are clear. The mastoid air cells are well pneumatized. Orbits: The bony orbits are grossly intact. There are bilateral ocular lens implants. IMPRESSION: There is no hemorrhage, mass effect, or evidence of acute territorial ischemia by CT criteria. EKG Possible Left atrial enlargement Left ventricular hypertrophy with repolarization abnormality Possible Inferior infarct , age undetermined Abnormal ECG When compared with ECG of 28-MAR-2015 16:14, ST now depressed in Lateral leads Inverted T waves have replaced nonspecific T wave abnormality in Lateral leads Confirmed by MIKHAIL RUIZ ([id number]) on 05/31/2017 6:29:28 PM Impression Assessment and Plan Resident Physician Supervision Note: Ms. Hensley is an 82 year old woman here for fall resulting in left humeral neck fracture Left humeral neck fracture/fall - admit tele - trend troponins, ekg with cp - consult ortho - npo after mn - patient has an RCRI of 3 putting her at 11% risk of major cardiac event during surgery - consulted cardiology for preop evaluation - last echo 2012 - repeat ordered - sling per ortho rec - pain control - morphine and acetaminophen prn - PT/OT DM II with hyperglycemia - Patient did not take any diabetic medications today due to her fall - 45 units insulin glargine now - BSGs appear suboptimally managed with A1c 8.5 in March - bsgs ac & hs, ss, home lantus doses - may need to be increased based on response - hold sulfonylurea and metformin for now Pulmonary fibrosis - 2L NC at home - titrate per protocol - CXR negative for acute process Renal insufficiency - Creat 2.38 - baseline appears to be around 2.3 - avoid nephrotoxic drugs. Dispo - patient lives by herself and has had falls in the past - will likely require rehab at discharge Quin DNR SCDs Pt evaluated independently. I discussed the case with the SENIOR TECHNICAL ANALYST and agree with the findings and plan as documented in the note. Any exceptions or clarifications are listed here: 82 y/o F Hx DM, CKD, pulmonary fibrosis dependent on 2l home 02 Presents following a fall W/O LOC - sustained a L humeral fracture OE AAO x 3 S1,2 R Poor air movement - no crackles or wheezing NT, ND No CCE P: Pt will likely require surgical repair as is intermed risk We have requested a cadriology consult therefore Fibrosis - clinically at baseline Placed on SS for DM Creat is at baseline - maintain hydration alejandra-op Pending cardio eval Documented By: Gelacio Saeed Advanced Directives Existing Advance Directive: No Existing Living Will: Yes Existing Power of [employer] Program Coordinator: No Existing Health Care Proxy: No Resuscitation Status DO NOT RESUSCITATE
[2017-05-31] MEDS ORDERED: DEXTROSE 50% 50 ML SYR IV PRN (20:15)
[2017-05-31] MEDS ORDERED: GLUCAGON FOR INJ 1 MG VIAL SQ PRN (20:15)
[2017-05-31] MEDS ORDERED: GLUCOSE 40% GEL 15 GM TUBE PO PRN (20:15)
[2017-05-31] MEDS ORDERED: GLUCOSE 10 TABS/TUBE PO PRN (20:15)
[2017-05-31 20:51] VITALS: BP 161/84; PULSE 97; TEMP 36.9; O2SAT 99
[2017-05-31] MEDS ORDERED: LANTUS PER UNIT CHARGE SC ONE (21:00)
[2017-05-31] MEDS ORDERED: PNEUMOCOCCAL ADMINISTRATION CHARGE ONE (21:00)
[2017-05-31] MEDS ORDERED: PNEUMOCOCCAL POLYSACCHARIDES 25 MCG/0.5 ML VIAL/SYR IM. ONE (21:00)
[2017-05-31] MEDS: QUETIAPINE FUMARATE 25 MG TAB PO SCH (21:05)
[2017-05-31] MEDS: PRAVASTATIN SOD 40 MG TAB PO SCH (21:05)
[2017-05-31] MEDS: METOPROLOL TARTRATE 50 MG TAB PO SCH (21:05)
[2017-05-31] MEDS: GABAPENTIN 100 MG CAP PO SCH (21:06)
[2017-05-31] MEDS: INSULIN ASPART 100 UNITS/ML 3 ML PEN SC SCH (21:07)
[2017-05-31] MEDS ORDERED: INSULIN GLARGINE SOLOSTAR 100 UNITS/ML 3 ML PEN SC STA (21:42)
[2017-05-31] MEDS ORDERED: ASPIRIN 81 MG CHEW PO STA (22:55)
[2017-05-31 23:39] VITALS: BP 107/69; PULSE 85; TEMP 36.9; O2SAT 96
[2017-05-31] MEDS: ACETAMINOPHEN 325 MG TAB PO PRN (23:43)
[2017-06-01] VITALS (8 sets, daily range): BP systolic 118–143; BP diastolic 73–81; PULSE 70–88; TEMP 36.5–37; O2SAT 96–100; Ht 162.6 cm; Wt 70.5 kg
--- NOTE | 2017-06-01 02:26 | Progress Note ---
Progress Note Date of Service Jun 01, 2017. Progress Note informed of elevated troponin,repeat pending ASA 325 mg administered and am dose of ASa and plavix held ( in case patient is acceptable candidate for surgery) no interval evolution of EKG was appreciated, deferred addition of heparin IV as unsure if patient will undergo surgery tomorrow considering results - consult [facility] and echo is already in place, on BB and statin; repeat EKG in am - Metolazone held preop
[2017-06-01 04:21] LABS: HEMATOCRIT 34.1 % (37-47); HEMOGLOBIN 11.4 g/dL (12.0-16.0); MEAN CELL VOLUME 88.1 fL (80-100); MEAN CORPUSCULAR HEMOGLOBIN 29.5 pg (25-34); MEAN CORPUSCULAR HGB CONC 33.4 g/dl (32-36); PLATELET COUNT 336 K/uL (130-400); RED CELL DISTRIBUTION WIDTH CV 13.5 % (11.5-14.5); WHITE BLOOD COUNT 10.49 K/uL (4.8-10.8)
[2017-06-01 04:48] LABS: CALCIUM 9.3 mg/dl (8.5-10.1); CREATININE 2.61 mg/dl (0.60-1.20); POTASSIUM 3.2 mmol/L (3.5-5.1)
--- NOTE | 2017-06-01 07:35 | Progress Note ---
Subjective Date of Service: Jun 01, 2017. Subjective despite her admission and fracture the pt actually looks much better than her chart, given baseline chronic hypoxic lung disease from pulmonary fibrosis and her elevated troponin with concern for type 2 OK plus acute renal failure she has opted to decline shoulder replacement surgery at this time, perhaps in the future when her operative risk reduces she may reconsider, but will attempt to heal and rehab before making that decision her pain control is good, no further chest pain Problem List Medical Problems: (1) Mood disorder Status: Acute (2) Suicidal ideation Status: Acute Review of Systems Constitutional: No fever, No chills, No weakness, No fatigue Respiratory: No cough, No shortness of breath, No dyspnea on exertion Cardiac: No chest pain, No PND, No edema Abdomen: No pain, No nausea, No diarrhea Musculoskeletal: + joint pain, + muscle pain, + swelling Neurologic: + weakness, No memory loss, No paralysis Psychiatric: No depression symptoms, No anhedonism Objective Vital Signs Date Time Temp Pulse Resp B/P (MAP) Pulse Ox O2 Delivery O2 Flow Rate FiO2 06/01/17 04:30 99 Nasal Cannula 2.0 06/01/17 03:21 36.6 76 16 119/73 (88) 99 2.0 06/01/17 00:01 96 Nasal Cannula 2.0 05/31/17 23:39 36.9 85 18 107/69 (82) 96 2.0 05/31/17 20:51 36.9 97 22 161/84 (109) 99 Nasal Cannula 2.0 05/31/17 20:26 101 18 148/79 98 05/31/17 20:09 101 18 148/79 98 Nasal Cannula 2.0 05/31/17 18:39 Nasal Cannula 2.0 05/31/17 18:35 100 18 168/96 98 Nasal Cannula 2.0 05/31/17 16:55 98 16 166/80 98 Room Air 05/31/17 14:56 36.9 104 18 175/86 94 Room Air Physical Exam General Appearance: WD/WN, + mild distress Eyes: normal inspection, sclerae normal Respiratory/Chest: chest non-tender, no respiratory distress, + rales Cardiovascular: regular rate, rhythm, no murmur Abdomen: normal bowel sounds, non tender, soft Extremities: + pertinent finding (left arm in sling, swelling to shoulder tender to touch, preserved distal sensation and abduction of thumb) Laboratory Results Last 24 Hours Test 05/31/17 14:50 05/31/17 15:45 05/31/17 17:45 05/31/17 21:02 Bedside Glucose 395 mg/dl 263 mg/dl White Blood Count 15.24 K/uL Red Blood Count 4.09 M/uL Hemoglobin 12.1 g/dL Hematocrit 35.8 % Mean Corpuscular Volume 87.5 fL Mean Corpuscular Hemoglobin 29.6 pg Mean Corpuscular Hemoglobin Concent 33.8 g/dl Platelet Count 377 K/uL Mean Platelet Volume 9.8 fL Neutrophils (%) (Auto) 85.2 % Lymphocytes (%) (Auto) 5.2 % Monocytes (%) (Auto) 8.7 % Eosinophils (%) (Auto) 0.1 % Basophils (%) (Auto) 0.1 % Neutrophils # (Auto) 12.99 K/uL Lymphocytes # (Auto) 0.80 K/uL Monocytes # (Auto) 1.33 K/uL Eosinophils # (Auto) 0.01 K/uL Basophils # (Auto) 0.01 K/uL RDW Standard Deviation 42.9 fL RDW Coefficient of Variation 13.4 % Immature Granulocyte % (Auto) 0.7 % Immature Granulocyte # (Auto) 0.10 K/uL Prothrombin Time 10.7 SECONDS Prothromb Time International Ratio 1.0 Activated Partial Thromboplast Time 23.1 SECONDS Partial Thromboplastin Ratio 0.9 Sodium Level 132 mmol/L Potassium Level 3.6 mmol/L Chloride Level 94 mmol/L Carbon Dioxide Level 26 mmol/L Anion Gap 12.0 mmol/L Blood Urea Nitrogen 49 mg/dl Creatinine 2.38 mg/dl Est Creatinine Clear Calc Drug Dose 17.8 ml/min Estimated GFR () 21.4 Estimated GFR (Non- 18.5 BUN/Creatinine Ratio 20.4 Random Glucose 409 mg/dl Calcium Level 9.8 mg/dl Total Bilirubin 0.5 mg/dl Aspartate Amino Transf (AST/SGOT) 25 U/L Alanine Aminotransferase (ALT/SGPT) 25 U/L Alkaline Phosphatase 76 U/L Total Creatine Kinase 229 U/L Troponin I 0.020 ng/ml Total Protein 7.7 gm/dl Albumin 3.4 gm/dl Globulin 4.3 gm/dl Albumin/Globulin Ratio 0.8 Beta-Hydroxybutyric Acid 1.58 mg/dL Urine Color YELLOW Urine Appearance CLEAR Urine pH 5.0 Urine Specific [place] 1.027 Urine Protein TRACE Urine Glucose (UA) 3+ Urine Ketones NEG Urine Occult Blood NEG Urine Nitrite NEG Urine Bilirubin NEG Urine Urobilinogen NEG Urine Leukocyte Esterase NEG Urine WBC (Auto) 0 /hpf Urine RBC (Auto) 0-4 /hpf Urine Hyaline Casts (Auto) 1-5 /lpf Urine Epithelial Cells (Auto) 0-5 /lpf Urine Bacteria (Auto) NEG Test 05/31/17 21:49 06/01/17 03:42 06/01/17 06:42 Troponin I 0.512 ng/ml 0.806 ng/ml White Blood Count 10.49 K/uL Red Blood Count 3.87 M/uL Hemoglobin 11.4 g/dL Hematocrit 34.1 % Mean Corpuscular Volume 88.1 fL Mean Corpuscular Hemoglobin 29.5 pg Mean Corpuscular Hemoglobin Concent 33.4 g/dl RDW Standard Deviation 43.0 fL RDW Coefficient of Variation 13.5 % Platelet Count 336 K/uL Mean Platelet Volume 10.0 fL Sodium Level 136 mmol/L Potassium Level 3.2 mmol/L Chloride Level 97 mmol/L Carbon Dioxide Level 30 mmol/L Anion Gap 9.0 mmol/L Blood Urea Nitrogen 55 mg/dl Creatinine 2.61 mg/dl Est Creatinine Clear Calc Drug Dose 16.2 ml/min Estimated GFR () 19.2 Estimated GFR (Non- 16.6 BUN/Creatinine Ratio 21.2 Random Glucose 228 mg/dl Calcium Level 9.3 mg/dl Bedside Glucose 192 mg/dl Assessment and Plan 82 F with fall and traumatic left humeral fracture, baseline pulmonary fibrosis , chronic hypoxic respiratory failure, now also acute on chronic renal failure, and elevated troponin with intermittent chest pain while laying on ground after fall Left humeral neck fracture/fall - consult ortho - patient has an RCRI of 3 putting her at 11% risk of major cardiac event during surgery - consulted cardiology for preop evaluation - last echo 2012 - repeat pending - sling per ortho rec, ortho and pt have discussed surgical risk and opted for conservative treatment at this time - pain control - morphine and acetaminophen prn - PT/OT elevated Troponin, cardiology eval, likely also influenced by renal failure, trending up will continue to follow, supplement oxygen, metoprolol, aspirin was held for concern for surgery but will likely not given rise in troponin DM II with hyperglycemia, A1c 8.5 in March. did not take meds on day of admission - bsgs ac & hs, ssi, home lantus monitor for toxic affects - hold sulfonylurea and metformin for now Pulmonary fibrosis- 2L NC at home - titrate per protocol - CXR negative for acute process Acute on chronic renal failure stage 3, likely had some dehydration while laying on floor, hydrate and follow, care with med dosing Dispo - patient lives by herself and has had falls in the past - will likely require rehab at discharge DNR SCDs
[2017-06-01] MEDS ORDERED: ASPIRIN 81 MG CHEW PO SCH (09:00)
[2017-06-01] MEDS ORDERED: CLOPIDOGREL BISULFATE 75 MG TAB PO SCH ×2 (09:00)
[2017-06-01] MEDS ORDERED: ASPIRIN 81 MG ECTAB PO SCH (09:00)
[2017-06-01] MEDS ORDERED: CeleBREX 200 MG CAP PO SCH (09:00)
[2017-06-01] MEDS ORDERED: METOLAZONE 5 MG TAB PO SCH (09:00)
[2017-06-01] MEDS ORDERED: PERFLUTREN LIPID MICROSPHERE (DEFINITY) IV ONE (09:22)
[2017-06-01] MEDS: VENLAFAXINE HCL XR 150 MG CAPXR PO SCH (09:32)
[2017-06-01] MEDS: NEPHROCAPS PO SCH (09:33)
[2017-06-01] MEDS: PANTOprazole SOD 40 MG TAB PO SCH (09:33)
[2017-06-01] MEDS: METOPROLOL TARTRATE 50 MG TAB PO SCH ×2 (09:33→21:28)
[2017-06-01] MEDS: INSULIN ASPART 100 UNITS/ML 3 ML PEN SC SCH ×4 (09:35→21:30)
--- NOTE | 2017-06-01 10:31 | ECHOCARDIOGRAM REPORT ---
*NOTICE TO RECEIVING REPUBLICAN AGENCY This information is strictly Confidential and protected under [place] law. [place] law prohibits you from making any further disclosure of this information unless further disclosure is expressly permitted by the written consent of the person to whom it pertains or is authorized by law. A general authorization for the release of medical or other information is not sufficient for this purpose. Hospital accepts no responsibility if the information is made available to any other person, INCLUDING THE PATIENT. Interpretation Summary * Name: JULES LEW Study Date: 06/01/2017 07:55 AM BP: 119/73 mmHg * Patient Location: C.2T\S\E219\S\1 HR: 74 * : 1935 (M/d/yyyy) Gender: Female Height: 64 in * Age: 82 yrs Ethnicity: CA Weight: 153 lb * Ordering Physician: Edwina Reagan * Referring Physician: Self, Referred * Performed By: Josseline Smith RDCS * * Reason For Study: Evaluation for surgery * BSA: 1.7 m2 * -- Conclusions -- * 1. Low-normal left ventricular size with hyperdynamic systolic function. EF > 70%. No regional wall motion abnormalities. Mild to moderate concentric left ventricular hypertrophy. Type 1 diastolic dysfunction. * 2. Mild biatrial dilation. * 3. Sclerotic aortic valve without significant stenosis. * 4. There is moderate to severe mitral annular calcification. * 5. Technically difficult study, enhanced with IV Definity. * 6. No significant change from prior study on 11/10/2012. Procedure Details * A complete two-dimensional transthoracic echocardiogram was performed (2D, M-mode, Doppler and color flow Doppler). * A contrast injection of Definity was performed to improve assessment of LV function. * Contrast was injected into an intravenous site in the right arm. * One vial of Definity ultrasound contrast was diluted in normal saline to a total volume of 10 ml. A total of '2' ml of solution was administered during imaging. * Lot # [id number] of Definity utilized for procedure. * Expiration date MAY 25. * The attending nurse who injected the contrast agent was Shirley Diaz RN. Left Ventricle * Low-normal left ventricular size with hyperdynamic systolic function. EF > 70%. No regional wall motion abnormalities. Mild to moderate concentric left ventricular hypertrophy. Type 1 diastolic dysfunction. Right Ventricle * The right ventricle is not well visualized. * The right ventricular systolic function is normal as assessed by tricuspid annular plane systolic excursion (TAPSE) (normal >1.5 cm). Atria * The left atrium is mildly dilated. * The right atrium is mildly dilated. * There is no evidence of atrial septal defect, but resolution does not allow assessment for a patent foramen ovale. Mitral Valve * There is moderate to severe mitral annular calcification. * There is no mitral valve stenosis. * Significant mitral regurgitation is absent. Tricuspid Valve * The tricuspid valve is not well visualized, but is grossly normal. * There is no tricuspid stenosis. * There is trace tricuspid regurgitation. Aortic Valve * The aortic valve is trileaflet. * Sclerotic aortic valve without significant stenosis. * Trace aortic regurgitation. Pulmonic Valve * The pulmonary valve is inadequately visualized, but the Doppler data is adequate for interpretation. * There is no pulmonic valvular stenosis. * Trace pulmonic valvular regurgitation. Great Vessels * The aortic root is normal size. * Ascending aorta of normal dimension Pericardium/Pleural * There is no pericardial effusion. Great Vessels * Normal inferior vena cava size and collapsability with sniff indicates a normal right atrial pressure of 3 mmHg MMode 2D Measurements and Calculations IVSd 1.4 cm LVIDd 3.3 cm LVIDs 2.0 cm LVPWd 1.2 cm IVS/LVPW 1.1 FS 39.7 % EDV(Teich) 45.7 ml ESV(Teich) 13.0 ml EF(Teich) 71.5 % EDV(cubed) 37.5 ml ESV(cubed) 8.2 ml EF(cubed) 78.1 % LV mass(C)d 141.1 grams LV mass(C)dI 80.8 grams/m\S\2 SV(Teich) 32.7 ml SI(Teich) 18.7 ml/m\S\2 SV(cubed) 29.3 ml SI(cubed) 16.8 ml/m\S\2 Ao root diam 3.0 cm Ao root area 7.0 cm\S\2 ACS 0.96 cm LA dimension 2.8 cm asc Aorta Diam 2.9 cm LA/Ao 0.94 Doppler Measurements and Calculations MV E max cinthia 80.4 cm/sec MV A max cinthia 128.0 cm/sec MV E/A 0.63 MV dec time 0.42 sec Ao V2 max 104.1 cm/sec Ao max PG 4.3 mmHg Ao max PG (full) 2.7 mmHg LV V1 max PG 1.7 mmHg LV V1 max 64.5 cm/sec PA V2 max 78.7 cm/sec PA max PG 2.5 mmHg PA acc slope 634.7 cm/sec\S\2 PA acc time 0.10 sec PA pr(Accel) 34.6 mmHg
[2017-06-01] MEDS: INSULIN GLARGINE SOLOSTAR 100 UNITS/ML 3 ML PEN SQ SCH (14:01)
--- NOTE | 2017-06-01 14:54 | CARDIOLOGY CONSULTATION ---
DATE OF CONSULTATION: 06/01/2017 TIME: 13:42 p.m. CONSULTING PHYSICIAN: NILSON Rodriguez REASON FOR CONSULTATION: Cardiac preoperative evaluation. HISTORY OF PRESENT ILLNESS: Ms. Hensley is a pleasant 82-year-old female who follows regularly with Dr. Tucker, her PCP, who was admitted to [facility] on 05/31/2017 after falling and fracturing her proximal left humerus involving the humeral neck, and greater and lesser tuberosities. She has a history significant for type 2 diabetes, hypertension, dyslipidemia and pulmonary fibrosis on supplemental oxygen 2 liters via nasal cannula. Yesterday while walking, she fell and apparently laid on the floor for approximately 5 hours. She does not exactly know why she fell, but she denies any loss of consciousness. She landed on her left arm and also hit her head and torso. While lying on the floor, she had a dull substernal chest discomfort that lasted approximately 10 minutes and then spontaneously resolved. She recalls that there was no associated shortness of breath or any other radiation of the pain. She has had this pain intermittently for approximately 1 year and has noted it while lying in bed. It has not been associated with exertion and typically resolves within 5 minutes. Following the fall, she also had a headache, which has since resolved. She was diagnosed with the left humeral fracture and is awaiting orthopedic evaluation. It has not yet been decided if she requires surgery. She has not had any further chest discomfort since her hospitalization. She denies palpitations, edema, syncope, near syncope, melena, hematochezia, hematuria, or other bleeding. She lives a rather sedentary lifestyle. REVIEW OF SYSTEMS: As above and review of systems is otherwise negative/unremarkable. PAST MEDICAL HISTORY: 1. Pulmonary fibrosis on 2 liters per nasal cannula supplemental oxygen. 2. Hypertension. 3. Type 2 diabetes. 4. Dyslipidemia. 5. Breast cancer, status post lumpectomy. 6. Benign intention tremor. 7. Chronic kidney disease. 8. Stroke several years ago. FAMILY HISTORY: Mother had coronary artery disease diagnosed in her 70s. No known premature CAD. SOCIAL HISTORY: She is a . She has children. She denies tobacco or alcohol abuse. She lives in an apartment independently. She walks with a cane or walker. PHYSICAL EXAMINATION: VITAL SIGNS: Temperature 36.8 degrees, heart rate 70 beats per minute, respiratory rate 18, blood pressure 118/81 mmHg, and oxygen saturation 99% on 1.5 liters per nasal cannula. Weight 67.7 kg. GENERAL: No acute distress. She is alert. HEENT: Anicteric sclerae. NECK: No appreciable JVD. No bruits. Normal carotid upstrokes bilaterally. CARDIAC EXAMINATION: PMI was not palpable. There was no ventricular heave. Regular, normal S1 and S2. There are no audible murmurs, rubs or gallops. LUNGS: Clear to auscultation bilaterally without wheezes, rales or rhonchi. ABDOMEN: Soft, nontender, and nondistended. Normoactive bowel sounds. No bruits noted. EXTREMITIES: No cyanosis or pitting edema. 2+ radial pulses bilaterally. 2+ dorsalis pedis pulses bilaterally. PSYCHIATRIC: Affect appears appropriate. LABORATORY DATA: Sodium 136, potassium 3.2, BUN 55, and creatinine 2.61. Peak troponin 0.806 and has since trended downward. AST 25 and ALT 25. CK 229. WBC 10.49, hemoglobin 11.4, and platelets 336. INR 1. Echocardiogram images were personally reviewed. Echo on 06/01/2017, low normal LV size with hyperdynamic systolic function. EF greater than 70%. No regional wall motion abnormalities. Mild to moderate LVH. Type 1 diastolic dysfunction. Mild biatrial dilation. Sclerotic aortic valve without significant stenosis. Moderate to severe mitral annular calcification. No significant change from 11/10/2012. ECG upon presentation, 05/31/2017 at 15:31, personally reviewed. Sinus tachycardia. LVH with repolarization abnormality and possible inferior infarct. Lateral ST/T wave abnormalities more prominent compared to prior ECG on 03/28/2015. Repeat ECG on 06/01/2017 at 06:25 a.m., sinus rhythm at 76 beats per minute. LVH with repolarization abnormality. Possible inferior infarct. Telemetry personally reviewed. No arrhythmia noted on telemetry strips. ASSESSMENT AND PLAN: 1. Non-ST elevation myocardial infarction: Her troponins are slightly elevated and are in the diagnostic range of myocardial infarction. She did have some chest discomfort while lying on the floor that lasted approximately 10 minutes and is reminiscent of the intermittent atypical pain that she has experienced over the past year. Would not classify this as acute coronary syndrome. Would recommend that she remain on aspirin therapy 81 mg daily. Recommend that she continue on beta nicole. Continue statin therapy. Could consider high intensity statin therapy for concern that she may have underlying heart disease given her cardiac risk factors. Would not pursue cardiac catheterization unless she is having significant ischemic event given her underlying kidney disease. I have already spoken with Dr. Tucker, her PCP. In the future, could consider a myocardial perfusion study to evaluate for high risk findings. 2. Hypertension: Can continue beta nicole therapy. Blood pressure is well controlled. 3. Cardiac preoperative assessment: Would assume high risk from a cardiac standpoint for surgical procedure given that she does have elevated troponins. If she requires surgery and it is necessary, we discussed the fact that all parties may have to accept a higher risk. If surgery is not necessary, would recommend treatment as per orthopedics and consider outpatient myocardial perfusion study in the future, in approximately [address] Tucker's office. Please call with any other questions or concerns. Thank you for allowing me to participate in the care of Ms. Hensley. Cardiology will otherwise sign off at this time. Please call Dr. Andersen that will be covering for [facility] over the weekend if there are any other questions or concerns. Sincerely,
--- NOTE | 2017-06-01 15:37 | ORTHOPEDIC CONSULTATION ---
DATE OF CONSULTATION: 06/01/2017 CHIEF COMPLAINT: Left proximal humerus fracture. HISTORY OF PRESENT ILLNESS: Shirley is a pleasant 82-year-old female who is a community ambulator with a cane and lives by herself. Yesterday morning, she fell in the doorway and landed on to her left shoulder. She laid on the floor for about 5 hours before being brought to the Emergency Room. A CT scan of the left shoulder was diagnostic for a comminuted left proximal humerus fracture. She was placed in an arm sling and admitted to the medical service. Orthopedics was consulted to evaluate and treat. PAST MEDICAL HISTORY: Significant for diabetes type 2 with neuropathy, renal insufficiency, pulmonary fibrosis, and breast cancer. CURRENT MEDICATIONS: Include aspirin, Celebrex, Plavix, gabapentin, glipizide, Lantus, metolazone, Lopressor, Protonix, pravastatin, Seroquel, Effexor, and Nephrocaps. SOCIAL HISTORY: She is retired, is and she lives alone. She is a community ambulator with a cane. ALLERGIES: INCLUDE AMOXICILLIN AND CLAVULANIC ACID, WHICH CAUSE A RASH. PHYSICAL EXAMINATION: Left shoulder: She is sitting with her arm in the left arm sling. She does have active dorsiflexion of her wrist and palmar flexion. She has active extension of her fingers. Her radial, median and ulnar nerves were all checked and intact at her wrist and elbow. She does have some loss of sensation over her lateral deltoid, but not complete loss. I am unable to fire her deltoid to check the axillary nerve, but that is understandable with a fracture. She has mild swelling and ecchymosis. No gross deformity. A CT scan of the left shoulder does show a 4-part left proximal humerus fracture. I do not see any split the head. There is moderate angulation. IMPRESSION: Four part left proximal humerus fracture. PLAN: The shoulder is not dislocated. It is reduced. She is not a very good surgical candidate. She recently had an echo and there is an 11% chance of major cardiac event with any surgical procedures. She is also insulin-dependent diabetic and she has poor kidney function. Taking all this into account, I do not think she is a good surgical candidate for her shoulder. The procedure of choice would be a reverse left shoulder arthroplasty. We are going to keep her in the arm sling for about 6 weeks and then she can start using her arm and doing therapy. I will see her in my office next week to get x-rays to make sure everything looks lined up okay. If she is able to tolerate 6 weeks in a sling and if things look lined up okay, I would rather treat this conservatively. If the fracture looks worse or if it dislocates or her pain is out of control, we may have to consider surgical options, but she understands the risk because of her health. She is orthopedically stable for now and I can see her in my office on Sunday or Sunday of next week. My office phone number is [phone].
[2017-06-01] MEDS: QUETIAPINE FUMARATE 25 MG TAB PO SCH (21:28)
[2017-06-01] MEDS: POTASSIUM CHLORIDE 20 MEQ TABCR PO SCH (21:28)
[2017-06-01] MEDS: PRAVASTATIN SOD 40 MG TAB PO SCH (21:28)
[2017-06-01] MEDS: INSULIN GLARGINE SOLOSTAR 100 UNITS/ML 3 ML PEN SC SCH (21:31)
[2017-06-01] MEDS: ACETAMINOPHEN 325 MG TAB PO PRN (21:36)
[2017-06-01] MEDS: GABAPENTIN 100 MG CAP PO SCH (21:36)
[2017-06-02] VITALS (9 sets, daily range): BP systolic 124–151; BP diastolic 58–81; PULSE 69–83; TEMP 36.5–37; O2SAT 93–100
[2017-06-02 05:37] LABS: HEMATOCRIT 32.9 % (37-47); HEMOGLOBIN 10.9 g/dL (12.0-16.0); MEAN CELL VOLUME 88.9 fL (80-100); MEAN CORPUSCULAR HEMOGLOBIN 29.5 pg (25-34); MEAN CORPUSCULAR HGB CONC 33.1 g/dl (32-36); MEAN PLATELET VOLUME 9.7 fL (7.4-10.4); PLATELET COUNT 317 K/uL (130-400); RED CELL DISTRIBUTION WIDTH CV 13.6 % (11.5-14.5); RED CELL DISTRIBUTION WIDTH SD 44.2 fL (36.4-46.3); WHITE BLOOD COUNT 10.21 K/uL (4.8-10.8)
[2017-06-02 06:09] LABS: CALCIUM 9.5 mg/dl (8.5-10.1); CREATININE 2.46 mg/dl (0.60-1.20); POTASSIUM 3.5 mmol/L (3.5-5.1)
[2017-06-02] MEDS: INSULIN ASPART 100 UNITS/ML 3 ML PEN SC SCH ×5 (08:14→21:12)
[2017-06-02] MEDS: INSULIN GLARGINE SOLOSTAR 100 UNITS/ML 3 ML PEN SQ SCH (08:15)
[2017-06-02] MEDS: POTASSIUM CHLORIDE 20 MEQ TABCR PO SCH ×2 (08:16→20:56)
[2017-06-02] MEDS: VENLAFAXINE HCL XR 150 MG CAPXR PO SCH (08:16)
[2017-06-02] MEDS: NEPHROCAPS PO SCH (08:17)
[2017-06-02] MEDS: METOPROLOL TARTRATE 50 MG TAB PO SCH ×2 (08:17→20:56)
[2017-06-02] MEDS: PANTOprazole SOD 40 MG TAB PO SCH (08:17)
[2017-06-02] MEDS: SODIUM CHLORIDE 0.9% 1000ML 1,000 ML IV SCH ×2 (08:20→20:54)
[2017-06-02] MEDS: MoRPHine SULFATE 2 MG/ML CARP IV PRN ×2 (11:30→22:34)
--- NOTE | 2017-06-02 12:28 | PROGRESS NOTE ---
DATE: 06/02/2017 CHIEF COMPLAINT: Left proximal humerus fracture. HISTORY OF PRESENT ILLNESS: Shirley is an 82-year-old female who fell a couple days ago sustaining a left proximal humerus fracture. She was seen and examined at bedside today. Her health is not very good. She is on blood thinners since she has a very high cardiac risk for any surgical procedure. I did discuss with her daughter and we have elected to try conservative treatment for the shoulder fracture. Overall, she is having some soreness in her shoulder. She does have a sling that she does not wear at times because she is more comfortable with it off. She has had a recent cardiology consultation and has no new complaints. PHYSICAL EXAMINATION: LEFT SHOULDER: She is not wearing her sling at this time. She has pain with any range of motion of the shoulder. Her radial, median and ulnar nerves were checked and intact at her wrist. She has a little bit of ecchymosis. No gross deformity in the area. IMPRESSION: Left proximal humerus fracture. PLAN: I would like to treat this conservatively. I want to see her in my office on Sunday of this coming week for x-rays to make sure there has been no further displacement of the fracture. Given the fact that she is on Plavix and she has at very high cardiology risks, I am trying to avoid any surgical intervention. She is also an insulin-dependent diabetic, which can lead to increased complications with the surgery. I am fairly certain that we can treat this conservatively and I have discussed this with her and her daughter at bedside. I would like to see her in my office on Sunday. She can call for an appointment. Phone number is [phone]. If she has not called by Sunday, then my office will reach out to her. If you have any questions, please feel free to contact me personally on my cell phone at [phone].
--- NOTE | 2017-06-02 14:33 | Progress Note ---
Subjective Date of Service: Jun 02, 2017. Subjective this pt is doing well, she does have a painful shoulder with any movement, we are discussing the need for snf or rehab Problem List Medical Problems: (1) Mood disorder Status: Acute (2) Suicidal ideation Status: Acute Review of Systems Constitutional: + weakness, No fever, No chills Respiratory: No cough, No shortness of breath Cardiac: No chest pain, No edema Abdomen: No pain, No nausea, No vomiting, No diarrhea Musculoskeletal: + joint pain, + muscle pain Psychiatric: No depression symptoms, No anhedonism Objective Vital Signs Date Time Temp Pulse Resp B/P (MAP) Pulse Ox O2 Delivery O2 Flow Rate FiO2 06/02/17 12:00 Nasal Cannula 2.0 06/02/17 11:39 36.5 83 19 124/77 (93) 93 Nasal Cannula 1.0 06/02/17 08:00 Nasal Cannula 2.0 06/02/17 07:54 36.5 69 18 142/81 (101) 100 Nasal Cannula 1.0 06/02/17 04:01 36.6 78 18 128/75 (92) 95 Nasal Cannula 1.0 06/02/17 04:00 Room Air 06/02/17 00:00 Room Air 06/01/17 23:40 36.6 86 18 131/79 (96) 96 Nasal Cannula 1.0 06/01/17 20:00 Room Air 06/01/17 19:31 37.0 88 20 143/79 (100) 96 Nasal Cannula 2.0 06/01/17 16:00 Nasal Cannula 2.0 06/01/17 15:29 36.9 83 20 134/81 (98) 98 Nasal Cannula 1.0 Physical Exam General Appearance: WD/WN, + mild distress Eyes: normal inspection, sclerae normal Respiratory/Chest: chest non-tender, lungs clear, normal breath sounds Cardiovascular: regular rate, rhythm, no murmur Abdomen: normal bowel sounds, non tender, soft Neurologic/Psychiatric: alert, oriented x 3 Laboratory Results Last 24 Hours Test 06/01/17 16:25 06/01/17 20:20 06/02/17 05:25 06/02/17 06:39 Bedside Glucose 248 mg/dl 176 mg/dl 187 mg/dl White Blood Count 10.21 K/uL Red Blood Count 3.70 M/uL Hemoglobin 10.9 g/dL Hematocrit 32.9 % Mean Corpuscular Volume 88.9 fL Mean Corpuscular Hemoglobin 29.5 pg Mean Corpuscular Hemoglobin Concent 33.1 g/dl RDW Standard Deviation 44.2 fL RDW Coefficient of Variation 13.6 % Platelet Count 317 K/uL Mean Platelet Volume 9.7 fL Sodium Level 135 mmol/L Potassium Level 3.5 mmol/L Chloride Level 96 mmol/L Carbon Dioxide Level 36 mmol/L Anion Gap 3.0 mmol/L Blood Urea Nitrogen 54 mg/dl Creatinine 2.46 mg/dl Est Creatinine Clear Calc Drug Dose 17.3 ml/min Estimated GFR () 20.6 Estimated GFR (Non- 17.8 BUN/Creatinine Ratio 21.8 Random Glucose 202 mg/dl Calcium Level 9.5 mg/dl Test 06/02/17 11:09 Bedside Glucose 227 mg/dl Assessment and Plan 82 F with fall and traumatic left humeral fracture, baseline pulmonary fibrosis , chronic hypoxic respiratory failure, now also acute on chronic renal failure, and elevated troponin with intermittent chest pain while laying on ground after fall Left humeral neck fracture/fall - consult ortho - patient has an RCRI of 3 putting her at 11% risk of major cardiac event during surgery - consulted cardiology for preop evaluation - last echo 2012 - repeat pending - sling per ortho rec, ortho and pt have discussed surgical risk and opted for conservative treatment at this time - pain control - morphine and acetaminophen prn, will add po oxycodone - PT/OT elevated Troponin, cardiology eval, likely also influenced by renal failure, has now fallen, supplement oxygen, metoprolol, aspirin resumed, feel not acute coronary syndrome, likely type 2 NV DM II with hyperglycemia, A1c 8.5 in March. did not take meds on day of admission - bsgs ac & hs, ssi, home lantus monitor for toxic affects had been on oral meds will keep on basal bolus for now Pulmonary fibrosis- 2L NC at home - titrate per protocol - CXR negative for acute process Acute on chronic renal failure stage 3, likely had some dehydration while laying on floor, continue to hydrate and follow, care with med dosing Dispo - patient lives by herself and has had falls in the past - will likely require rehab at discharge DNR SCDs
[2017-06-02] MEDS: OXYCODONE HCL IR 5 MG TAB (IMMEDIATE RELEASE) PO PRN (20:17)
[2017-06-02] MEDS: PRAVASTATIN SOD 40 MG TAB PO SCH (20:54)
[2017-06-02] MEDS: QUETIAPINE FUMARATE 25 MG TAB PO SCH (20:55)
[2017-06-02] MEDS: GABAPENTIN 100 MG CAP PO SCH (20:56)
[2017-06-02] MEDS: INSULIN GLARGINE SOLOSTAR 100 UNITS/ML 3 ML PEN SC SCH (21:06)
[2017-06-03] MEDS: MoRPHine SULFATE 2 MG/ML CARP IV PRN ×2 (02:19→12:08)
[2017-06-03 06:09] LABS: HEMATOCRIT 30.1 % (37-47); HEMOGLOBIN 9.8 g/dL (12.0-16.0); MEAN CELL VOLUME 90.4 fL (80-100); MEAN CORPUSCULAR HEMOGLOBIN 29.4 pg (25-34); MEAN CORPUSCULAR HGB CONC 32.6 g/dl (32-36); MEAN PLATELET VOLUME 9.7 fL (7.4-10.4); PLATELET COUNT 297 K/uL (130-400); RED CELL DISTRIBUTION WIDTH CV 13.5 % (11.5-14.5); RED CELL DISTRIBUTION WIDTH SD 44.2 fL (36.4-46.3); WHITE BLOOD COUNT 10.37 K/uL (4.8-10.8)
[2017-06-03 06:45] LABS: CALCIUM 9.1 mg/dl (8.5-10.1); CREATININE 2.12 mg/dl (0.60-1.20); POTASSIUM 3.3 mmol/L (3.5-5.1)
[2017-06-03 07:15] VITALS: BP 130/80; PULSE 72; TEMP 36.8; O2SAT 100
[2017-06-03] MEDS: INSULIN ASPART 100 UNITS/ML 3 ML PEN SC SCH ×4 (08:00→20:48)
[2017-06-03] MEDS: METOPROLOL TARTRATE 50 MG TAB PO SCH ×2 (08:32→20:46)
[2017-06-03] MEDS: PANTOprazole SOD 40 MG TAB PO SCH (08:32)
[2017-06-03] MEDS: VENLAFAXINE HCL XR 150 MG CAPXR PO SCH (08:33)
[2017-06-03] MEDS: NEPHROCAPS PO SCH (08:33)
[2017-06-03] MEDS: ASPIRIN 81 MG ECTAB PO SCH (08:33)
[2017-06-03] MEDS: INSULIN GLARGINE SOLOSTAR 100 UNITS/ML 3 ML PEN SQ SCH (08:37)
[2017-06-03] MEDS ORDERED: NON-FORMULARY MEDICATION (Glipizide 5 MG) PO SCH (09:00)
[2017-06-03] MEDS: POTASSIUM CHLORIDE 20 MEQ TABCR PO SCH (10:21)
--- NOTE | 2017-06-03 14:04 | Progress Note ---
Subjective Date of Service: Jun 03, 2017. Subjective Patient is doing well today she continues to be bothered by her brace and some pain at her fracture site she states oral opiate medications and not been helping she is looking forward to rehabilitation her daughter was updated at the bedside Problem List Medical Problems: (1) Mood disorder Status: Acute (2) Suicidal ideation Status: Acute Review of Systems Constitutional: No fever, No chills Respiratory: No cough, No wheezing Cardiac: No edema Abdomen: No pain, No nausea, No vomiting, No diarrhea Musculoskeletal: + joint pain, + muscle pain, + swelling Psychiatric: No depression symptoms, No anxiety Objective Vital Signs Date Time Temp Pulse Resp B/P (MAP) Pulse Ox O2 Delivery O2 Flow Rate FiO2 06/03/17 07:50 Room Air 06/03/17 07:15 36.8 72 17 130/80 (97) 100 Nasal Cannula 2.0 06/03/17 00:00 Nasal Cannula 2.0 06/02/17 23:06 37.0 78 16 132/74 (93) 99 Nasal Cannula 2.0 06/02/17 20:55 79 151/77 (101) 06/02/17 19:50 Nasal Cannula 2.0 06/02/17 16:15 93 Nasal Cannula 2.0 06/02/17 16:10 37.0 79 18 147/58 (87) 96 Room Air 06/02/17 15:58 36.5 83 19 93 2.0 06/02/17 15:04 74 96 Physical Exam General Appearance: WD/WN, + mild distress Eyes: normal inspection, sclerae normal Respiratory/Chest: lungs clear, normal breath sounds Cardiovascular: regular rate, rhythm, no murmur Abdomen: normal bowel sounds, non tender, soft, + pertinent finding (has a sling in place) Laboratory Results Last 24 Hours Test 06/02/17 17:09 06/02/17 20:42 06/03/17 05:48 06/03/17 08:09 Bedside Glucose 256 mg/dl 198 mg/dl 139 mg/dl White Blood Count 10.37 K/uL Red Blood Count 3.33 M/uL Hemoglobin 9.8 g/dL Hematocrit 30.1 % Mean Corpuscular Volume 90.4 fL Mean Corpuscular Hemoglobin 29.4 pg Mean Corpuscular Hemoglobin Concent 32.6 g/dl RDW Standard Deviation 44.2 fL RDW Coefficient of Variation 13.5 % Platelet Count 297 K/uL Mean Platelet Volume 9.7 fL Sodium Level 136 mmol/L Potassium Level 3.3 mmol/L Chloride Level 98 mmol/L Carbon Dioxide Level 34 mmol/L Anion Gap 4.0 mmol/L Blood Urea Nitrogen 41 mg/dl Creatinine 2.12 mg/dl Est Creatinine Clear Calc Drug Dose 20.1 ml/min Estimated GFR () 24.7 Estimated GFR (Non- 21.3 BUN/Creatinine Ratio 19.1 Random Glucose 154 mg/dl Calcium Level 9.1 mg/dl Test 06/03/17 12:11 Bedside Glucose 219 mg/dl Assessment and Plan 82 F with fall and traumatic left humeral fracture, baseline pulmonary fibrosis , chronic hypoxic respiratory failure, now also acute on chronic renal failure, and elevated troponin with intermittent chest pain while laying on ground after fall Left humeral neck fracture/fall - consult ortho - patient has an RCRI of 3 putting her at 11% risk of major cardiac event during surgery - last echo 2012 - repeat shows no new changes preserved EF and type 1 DD - sling per ortho rec, ortho and pt have discussed surgical risk and opted for conservative treatment at this time - increase doses of oral pain control - morphine and acetaminophen prn,adding lidoderm - PT/OT elevated Troponin, cardiology eval, likely also influenced by renal failure, has now fallen, supplement oxygen, metoprolol, aspirin resumed, type 2 MO not acs DM II with hyperglycemia, A1c 8.5 in March. did not take meds on day of admission - bsgs ac & hs, ssi, home lantus continue to monitor for toxic affects had been on oral meds will keep on basal bolus for now Pulmonary fibrosis- 2L NC at home - remains stable - CXR negative for acute process Acute on chronic renal failure stage 3, improving with hydration continue to follow Dispo - patient lives by herself and has had falls in the past - will likely require rehab at discharge DNR SCDs
[2017-06-03 15:23] VITALS: BP 132/58; PULSE 77; TEMP 36.8; O2SAT 90
[2017-06-03] MEDS: LIDODERM (LIDOCAINE) PATCH 5% TD SCH (15:28)
[2017-06-03] MEDS: ACETAMINOPHEN 500 MG TAB PO SCH ×2 (15:29→21:58)
[2017-06-03 15:45] VITALS: O2SAT 90
[2017-06-03 20:43] VITALS: BP 126/73; PULSE 85; O2SAT 92
[2017-06-03] MEDS: QUETIAPINE FUMARATE 25 MG TAB PO SCH (20:46)
[2017-06-03] MEDS: GABAPENTIN 100 MG CAP PO SCH (20:46)
[2017-06-03] MEDS: PRAVASTATIN SOD 40 MG TAB PO SCH (20:46)
[2017-06-03] MEDS: INSULIN GLARGINE SOLOSTAR 100 UNITS/ML 3 ML PEN SC SCH (20:48)
[2017-06-03 22:57] VITALS: BP 119/70; PULSE 72; TEMP 36.9; O2SAT 96
[2017-06-04] MEDS: OXYCODONE HCL IR 5 MG TAB (IMMEDIATE RELEASE) PO PRN ×4 (02:15→21:38)
[2017-06-04] MEDS: ACETAMINOPHEN 500 MG TAB PO SCH ×3 (05:38→21:25)
[2017-06-04 07:19] LABS: HEMATOCRIT 29.6 % (37-47); HEMOGLOBIN 9.7 g/dL (12.0-16.0); MEAN CORPUSCULAR HEMOGLOBIN 29.5 pg (25-34); MEAN CORPUSCULAR HGB CONC 32.8 g/dl (32-36); MEAN PLATELET VOLUME 9.7 fL (7.4-10.4); PLATELET COUNT 317 K/uL (130-400); RED CELL DISTRIBUTION WIDTH CV 13.4 % (11.5-14.5); RED CELL DISTRIBUTION WIDTH SD 43.8 fL (36.4-46.3); WHITE BLOOD COUNT 8.98 K/uL (4.8-10.8)
[2017-06-04 07:53] VITALS: BP 125/53; PULSE 67; TEMP 36.7; O2SAT 94
[2017-06-04 07:55] LABS: CALCIUM 9.8 mg/dl (8.5-10.1); CREATININE 2.02 mg/dl (0.60-1.20); POTASSIUM 3.5 mmol/L (3.5-5.1)
[2017-06-04] MEDS: VENLAFAXINE HCL XR 150 MG CAPXR PO SCH (08:00)
[2017-06-04] MEDS: INSULIN ASPART 100 UNITS/ML 3 ML PEN SC SCH ×4 (08:00→20:44)
[2017-06-04] MEDS: ASPIRIN 81 MG ECTAB PO SCH (08:01)
[2017-06-04] MEDS: NEPHROCAPS PO SCH (08:01)
[2017-06-04] MEDS: METOPROLOL TARTRATE 50 MG TAB PO SCH ×2 (08:01→21:25)
[2017-06-04] MEDS: POTASSIUM CHLORIDE 20 MEQ TABCR PO SCH (08:01)
[2017-06-04] MEDS: PANTOprazole SOD 40 MG TAB PO SCH (08:01)
[2017-06-04] MEDS: LIDODERM (LIDOCAINE) PATCH 5% TD SCH (08:03)
[2017-06-04] MEDS: INSULIN GLARGINE SOLOSTAR 100 UNITS/ML 3 ML PEN SQ SCH (08:32)
[2017-06-04 15:00] VITALS: O2SAT 94
[2017-06-04 15:32] VITALS: BP 119/74; PULSE 78; TEMP 36.7; O2SAT 93
[2017-06-04 15:45] VITALS: O2SAT 93
--- NOTE | 2017-06-04 16:26 | Hospitalist Progress Note ---
Hospitalist Progress Note Date of Service Jun 04, 2017. (Joy Michelle ., PA-C) Subjective Pt evaluation today including: conversation w/ patient, conversation w/ family (daughter at bedside), physical exam, chart review, lab review, review of inpatient medication list Pain: 6/10 sharp pain in left shoulder to elbow PO Intake: Tolerating PO diet Voiding: no voiding problems Patient complains of a 6/10 sharp pain from her left shoulder radiating down to her left elbow. She also notes a non-productive cough but otherwise denies complaints. The patient denies fevers, chills, sweats, chest pain, palpitations , claudication, wheezing, shortness of breath, nausea, vomiting, abdominal pain , dysuria, hematuria, urinary retention, paralysis, weakness, numbness and tingling. Additional Comments: See HPI for pertinent positives and negatives. All other systems reviewed and negative. (Joy Michelle ., PA-C) Objective Vital Signs Date Time Temp Pulse Resp B/P (MAP) Pulse Ox O2 Delivery O2 Flow Rate FiO2 06/04/17 15:32 36.7 78 18 119/74 (89) 93 Room Air 06/04/17 15:00 94 06/04/17 07:53 36.7 67 16 125/53 (77) 94 Room Air 06/04/17 07:45 Room Air 06/03/17 23:58 Room Air 06/03/17 22:57 36.9 72 16 119/70 (86) 96 Room Air 06/03/17 20:43 85 126/73 (90) 92 Nasal Cannula 1.0 (Joy Michelle, FAUSTINO-C) Physical Exam Notes: General appearance: Well-developed, well-nourished, no apparent distress Head: Normocephalic, atraumatic Eyes: Normal inspection, PERRL, EOMI ENT: Normal ENT inspection, hearing grossly normal, pharynx normal Neck: Supple, no JVD, trachea midline Respiratory/Chest: Lungs clear to auscultation, normal breath sounds, no respiratory distress Cardiovascular: Regular rate & rhythm, no gallop, no murmur Abdomen/GI: Normal bowel sounds, non-tender, soft Extremities/Musculoskeletal: +LUE in sling. L shoulder and upper arm TTP. Ecchymosis medial aspect left upper arm. No calf tenderness, no pedal edema Neurological/Psych: Alert, normal mood/affect, oriented x 3 Skin: +Ecchymosis as above. Normal color, warm/dry, no rash (Joy Michelle ., ANGELA) Laboratory Results Last 24 Hours Test 06/03/17 17:24 06/03/17 20:27 06/04/17 06:40 Bedside Glucose 214 mg/dl 216 mg/dl White Blood Count 8.98 K/uL Red Blood Count 3.29 M/uL Hemoglobin 9.7 g/dL Hematocrit 29.6 % Mean Corpuscular Volume 90.0 fL Mean Corpuscular Hemoglobin 29.5 pg Mean Corpuscular Hemoglobin Concent 32.8 g/dl RDW Standard Deviation 43.8 fL RDW Coefficient of Variation 13.4 % Platelet Count 317 K/uL Mean Platelet Volume 9.7 fL Sodium Level 138 mmol/L Potassium Level 3.5 mmol/L Chloride Level 100 mmol/L Carbon Dioxide Level 30 mmol/L Anion Gap 7.0 mmol/L Blood Urea Nitrogen 41 mg/dl Creatinine 2.02 mg/dl Est Creatinine Clear Calc Drug Dose 21.0 ml/min Estimated GFR () 26.2 Estimated GFR (Non- 22.6 BUN/Creatinine Ratio 20.2 Random Glucose 90 mg/dl Calcium Level 9.8 mg/dl (Joy Michelle ., BUCKC) Assessment and Plan 82 y/o female with a history of cerebrovascular disease, HTN, HLD, DM II w/ neuropathy, pulmonary fibrosis, h/o breast cancer, depression and anxiety who presents following a fall with a left humeral neck fracture. Left humeral neck fracture/fall--stable -Orthopedics consulted, appreciate recs: Not a good surgical candidate. Would recommend conservative treatment. Sling x 6 weeks, then physical therapy. F/u as outpatient with repeat x-rays. -Cardiology consulted for preop risk. Pt did have elevated troponin w/in diagnostic range of OH but cardio does not believe to be ACS. Continue ASA, beta nicole, statin. Consider increasing to high intensity statin. Consider perfusion study in 6 or more weeks. Would have high risk of perioperative cardiac events. -Continue morphine 2 mg IV q4h prn pain, has not received since 06/03 -Continue Lidoderm patch, oxycodone IR 10 mg PO q6h prn pain, scheduled Tylenol 1000 mg PO q8h -PT/OT--rehab Constipation -Colace 100 mg PO BID -MiraLAX scheduled q2d, h/o diarrhea w/daily MiraLAX Elevated troponin--likely demand ischemia rather than ACS -Trop trending down FERNANDO on CKD stage IV--improving -Baseline creatinine appears around 2.3, had been up to 2.61 this admission -Creatinine 2.02 on 06/04 Cerebrovascular disease, HTN, HLD--stable -Continue ASA, Plavix, Lopressor 50 mg PO BID, pravastatin 40 mg PO qd DM II w/neuropathy--HgbA1c 8.5 04/24/17 -Hold glipizide -Lantus 20 units SC qam, 45 units qpm -Insulin sliding scale -Check BSGs q ac and qhs -Continue gabapentin 100 mg PO hs Depression, anxiety -Continue Seroquel 50 mg PO hs, Ativan 0.5 mg PO q6h prn anxiety, Effexor 150 mg PO qam and 75 mg PO hs prn Pulmonary fibrosis- 2L NC at home - remains stable - CXR negative for acute process DVT prophylaxis -SCDs Code Status -Level V, DO NOT RESUSCITATE Dispo -From home, lives alone -Accepted to [facility] for rehab, awaiting auth. Likely can go tomorrow if auth goes through (Joy Michelle ., PA-C) Supervising Note Dr. Dougherty I performed a history and physical examination on the patient. I reviewed above note and agree with it. I discussed plan with APC and patient. During my face to face encounter with the patient, I answered all of the patient's questions. (Davion Dougherty M.D.)
[2017-06-04] MEDS ORDERED: POLYETHYLENE (MIRALAX) 17 GM PACK PO SCH (18:00)
[2017-06-04 21:00] VITALS: BP 169/85; PULSE 78
[2017-06-04] MEDS: INSULIN GLARGINE SOLOSTAR 100 UNITS/ML 3 ML PEN SC SCH (21:22)
[2017-06-04] MEDS: QUETIAPINE FUMARATE 25 MG TAB PO SCH (21:25)
[2017-06-04] MEDS: GABAPENTIN 100 MG CAP PO SCH (21:25)
[2017-06-04] MEDS: DOCUSATE SODIUM 100 MG CAP PO SCH (21:30)
[2017-06-04] MEDS: PRAVASTATIN SOD 40 MG TAB PO SCH (21:31)
[2017-06-04 22:37] VITALS: BP 151/78; PULSE 83; TEMP 36.8; O2SAT 93
[2017-06-05] MEDS: ACETAMINOPHEN 500 MG TAB PO SCH ×2 (05:49→13:31)
[2017-06-05 07:04] VITALS: BP 145/83; PULSE 73; TEMP 36.8; O2SAT 95
[2017-06-05 07:37] LABS: HEMATOCRIT 30.9 % (37-47); HEMOGLOBIN 10.2 g/dL (12.0-16.0); MEAN CELL VOLUME 89.6 fL (80-100); MEAN CORPUSCULAR HEMOGLOBIN 29.6 pg (25-34); MEAN PLATELET VOLUME 9.6 fL (7.4-10.4); PLATELET COUNT 365 K/uL (130-400); RED CELL DISTRIBUTION WIDTH CV 13.5 % (11.5-14.5); RED CELL DISTRIBUTION WIDTH SD 43.6 fL (36.4-46.3); WHITE BLOOD COUNT 9.79 K/uL (4.8-10.8)
[2017-06-05] MEDS: OXYCODONE HCL IR 5 MG TAB (IMMEDIATE RELEASE) PO PRN ×2 (07:50→15:37)
[2017-06-05 08:00] VITALS: O2SAT 95
[2017-06-05] MEDS: INSULIN ASPART 100 UNITS/ML 3 ML PEN SC SCH ×2 (08:00→12:34)
[2017-06-05 08:09] LABS: CALCIUM 9.7 mg/dl (8.5-10.1); CREATININE 2.03 mg/dl (0.60-1.20); POTASSIUM 3.7 mmol/L (3.5-5.1)
[2017-06-05] MEDS: INSULIN GLARGINE SOLOSTAR 100 UNITS/ML 3 ML PEN SQ SCH (08:48)
[2017-06-05] MEDS: DOCUSATE SODIUM 100 MG CAP PO SCH (09:11)
[2017-06-05] MEDS: ASPIRIN 81 MG ECTAB PO SCH (09:11)
[2017-06-05] MEDS: METOPROLOL TARTRATE 50 MG TAB PO SCH (09:12)
[2017-06-05] MEDS: NEPHROCAPS PO SCH (09:12)
[2017-06-05] MEDS: POTASSIUM CHLORIDE 20 MEQ TABCR PO SCH (09:12)
[2017-06-05] MEDS: VENLAFAXINE HCL XR 150 MG CAPXR PO SCH (09:12)
[2017-06-05] MEDS: PANTOprazole SOD 40 MG TAB PO SCH (09:13)
[2017-06-05] MEDS: LIDODERM (LIDOCAINE) PATCH 5% TD SCH (09:13)
[2017-06-05] MEDS ORDERED: RXC5 PO (14:36)
[2017-06-05] MEDS ORDERED: ACET-24 PO (14:36)
[2017-06-05] MEDS ORDERED: MRLP17 PO (14:36)
[2017-06-05] MEDS ORDERED: CLC100 PO (14:36)
[2017-06-05] MEDS ORDERED: LDDP5 TD (14:36)
[2017-06-05 14:37] VITALS: BP 145/83; PULSE 73; TEMP 36.8; O2SAT 95
--- NOTE | 2017-06-05 14:45 | Discharge Instructions ---
Discharge Instructions Date of Service Jun 05, 2017. Admission Reason for Admission: Fall, Humeral Fracture Discharge Discharge Diagnosis / Problem: Fall with left humeral neck fracture Discharge Goals Goal(s): Decrease discomfort, Improve function, Diagnostic testing, Therapeutic intervention Activity Recommendations Activity Level: Assistance Required Therapies: Physical Therapy, Occupational Therapy . Additional Information Patient informed of condition: Yes Advance Directives: Yes DNR: Yes Level of Care: Skilled (subacute rehab) Communicable Disease: No Prognosis: Stable Weiss Catheter: No Instructions / Follow-Up Instructions / Follow-Up The patient was admitted to the hospital after presenting with a left humeral neck fracture following a fall. Surgical correction was deferred at that time due to an elevated troponin and high cardiac risk. The patient was also in acute renal failure at that time. The patient is now pursuing conservative treatment with a sling and pain control. The patient's pain is well managed on oral medications and she is stable for transfer to subacute rehab at [facility]. Medications: *Scheduled Tylenol 1000 mg PO q8h, Lidoderm patch to left upper arm, oxycodone IR 10 mg PO q6h prn pain. Script with 3 days worth oxycodone provided. *Colace 100 mg PO BID, MiraLAX 17 gm PO q2d *Continue other home medications as prescribed. Follow up: *Follow up with Dr. Garay of orthopedics. Continue sling for now and rehab. *Follow up with primary care provider. Please seek medical attention if patient experiences fevers, chills, sweats, dizziness/lightheadedness, loss of consciousness, chest pain, shortness of breath, nausea, vomiting, numbness or tingling. Current Hospital Diet Patient's current hospital diet: Diabetes Type 2 Diet Discharge Diet Recommended Diet: AHA Diet (Heart Healthy), Diabetes Type 2 Diet Pending Studies Studies pending at discharge: no Physician Orders On Transfer Special Precautions: Fall precautions Vital Signs: Routine Additional Orders: Lidoderm patch to left upper arm Sling to left upper extremity Laboratory Results Hemoglobin A1c Test 04/24/17 12:47 Range/Units Estimated Average Glucose 197 mg/dl Hemoglobin A1c 8.5 H 4.5-5.6 % Medical Emergencies . Who to Call and When: Medical Emergencies: If at any time you feel your situation is an emergency, please call 911 immediately. . Non-Emergent Contact Non-Emergency issues call your: Primary Care Provider, Surgeon (orthopedics) Call Non-Emergent contact if: you have a fever, your pain is not controlled, your pain is worsening, your pain is unusual for you, your pain is concerning you, you have any medication questions . Past History Medical & Surgical History: (1) Fall (2) Humeral fracture . "Provider Documentation" section prepared by Joy Michelle. . Core Measure Problem Core Measures: None
--- NOTE | 2017-06-05 14:54 | Discharge Summary ---
Discharge Summary Date of Service Jun 05, 2017. Discharge Summary Admission Date: May 31, 2017 at 19:14 Discharge Date: Jun 05, 2017 Discharge Disposition: senior care facility (subacute rehab at [facility]) Principal Diagnosis: Fall with left humeral neck fracture Problems/Secondary Diagnoses: cerebrovascular disease, HTN, HLD, DM II w/neuropathy, pulmonary fibrosis, h/o breast cancer, depression, anxiety Immunizations: Have You Had Influenza Vaccine: No History of Tetanus Vaccine?: Unknown History of Pneumococcal: No History of Hepatitis B Vaccine: Unknown Procedures: Interpretation Summary * Name: JULES LEW Study Date: 06/01/2017 07:55 AM BP: 119/73 mmHg * Patient Location: C.2T\S\E219\S\1 HR: 74 * : 1935 (M/d/yyyy) Gender: Female Height: 64 in * Age: 82 yrs Ethnicity: ME Weight: 153 lb * Ordering Physician: Edwina Reagan * Referring Physician: Self, Referred * Performed By: Josseline Smith RDCS * * Reason For Study: Evaluation for surgery * BSA: 1.7 m2 * -- Conclusions -- * 1. Low-normal left ventricular size with hyperdynamic systolic function. EF > 70%. No regional wall motion abnormalities. Mild to moderate concentric left ventricular hypertrophy. Type 1 diastolic dysfunction. * 2. Mild biatrial dilation. * 3. Sclerotic aortic valve without significant stenosis. * 4. There is moderate to severe mitral annular calcification. * 5. Technically difficult study, enhanced with IV Definity. * 6. No significant change from prior study on 11/10/2012. Procedure Details * A complete two-dimensional transthoracic echocardiogram was performed (2D, M- mode, Doppler and color flow Doppler). * A contrast injection of Definity was performed to improve assessment of LV function. * Contrast was injected into an intravenous site in the right arm. * One vial of Definity ultrasound contrast was diluted in normal saline to a total volume of 10 ml. A total of '2' ml of solution was administered during imaging. * Lot # [id number] of Definity utilized for procedure. * Expiration date 1 MAY 25. * The attending nurse who injected the contrast agent was Shirley Diaz RN. Left Ventricle * Low-normal left ventricular size with hyperdynamic systolic function. EF > 70 %. No regional wall motion abnormalities. Mild to moderate concentric left ventricular hypertrophy. Type 1 diastolic dysfunction. Right Ventricle * The right ventricle is not well visualized. * The right ventricular systolic function is normal as assessed by tricuspid annular plane systolic excursion (TAPSE) (normal >1.5 cm). Atria * The left atrium is mildly dilated. * The right atrium is mildly dilated. * There is no evidence of atrial septal defect, but resolution does not allow assessment for a patent foramen ovale. Mitral Valve * There is moderate to severe mitral annular calcification. * There is no mitral valve stenosis. * Significant mitral regurgitation is absent. Tricuspid Valve * The tricuspid valve is not well visualized, but is grossly normal. * There is no tricuspid stenosis. * There is trace tricuspid regurgitation. Aortic Valve * The aortic valve is trileaflet. * Sclerotic aortic valve without significant stenosis. * Trace aortic regurgitation. Pulmonic Valve * The pulmonary valve is inadequately visualized, but the Doppler data is adequate for interpretation. * There is no pulmonic valvular stenosis. * Trace pulmonic valvular regurgitation. Great Vessels * The aortic root is normal size. * Ascending aorta of normal dimension Pericardium/Pleural * There is no pericardial effusion. Great Vessels * Normal inferior vena cava size and collapsability with sniff indicates a normal right atrial pressure of 3 mmHg L UPPER EXTREMITY WITHOUT HISTORY: 82 years-old Female shoulder fracture acute left shoulder pain status post fall. COMPARISON: Chest CT 04/10/2016 TECHNIQUE: Multiple axial CT images of the left upper extremity were obtained without the use of IV contrast. Coronal and sagittal reformatted images were obtained from the axial data set and were submitted for review. A dose lowering technique was used consistent with the principals of ALARA. FINDINGS: The bones appear moderately demineralized. There is an acute comminuted, displaced, impacted and angulated fracture of the proximal left humerus with fractures involving the humeral neck, greater and lesser tuberosities. There is subluxation posteriorly of the humeral head within the glenoid fossa. There is approximately 1.7 cm medial and 2.9 cm anterior displacement of the humeral neck and proximal diaphysis in relation to the humeral head. Moderate muscular and subcutaneous edema is noted about the left shoulder with associated moderate joint effusion. Vascular calcifications are noted. The study is not tailored to assess the rotator cuff or labral anatomy. The glenoid, coracoid, acromion and imaged clavicle appear intact. There are moderate degenerative changes about the left AC joint with mild to moderate glenohumeral degenerative changes. IMPRESSION: 1. Acute comminuted , displaced, impacted and angulated fracture of the proximal left humerus with fractures involving the humeral neck, greater and lesser tuberosities. No definite humeral head fracture identified. 2. Moderate bone demineralization. 3. Moderate soft tissue swelling about the left shoulder with joint effusion. Consultations: Orthopedics Cardiology Medication Reconciliation New Medications: Acetaminophen (Sb Non-Aspirin Extra Stre) 500 Mg Tab 1000 MG PO Q8 for 30 Days, #180 TAB Docusate Sodium (Docusate Sodium) 100 Mg Cap 100 MG PO BID for 30 Days, #60 CAP Lidocaine (Lidocaine) 1 Patch Tdsy 1 PATCH TD QAM for 30 Days, #30 PATCH Apply to left upper arm for 12 hours then remove for 12 hours Oxycodone HCl (Oxycodone HCl) 5 Mg Tab 10 MG PO Q6 PRN for Pain for 3 Days, #24 TAB Polyethylene (Miralax) 17 Gm Pow 17 GM PO Q2D@1800 for 30 Days, #15 DOSE Continued Medications: Aspirin (Aspirin Chewable) 81 Mg Chew 81 MG PO QAM Celecoxib (Celecoxib) 200 Mg Cap 200 MG PO DAILY Clopidogrel (Plavix) 75 Mg Tab 75 MG PO QAM, TAB Gabapentin (Gabapentin) 100 Mg Cap 100 MG PO HS Glipizide (Glipizide) 10 Mg Tab 10 MG PO BID Insulin Glargine (Lantus Solostar) 100 Unit/Ml Inj 20 UNITS PO QAM Insulin Glargine (Lantus Solostar) 100 Unit/Ml Inj 45 UNITS SC QPM, PEN Lorazepam (Lorazepam) 0.5 Mg Tab 0.5 MG PO Q6 PRN for Anxiety Metolazone (Metolazone) 5 Mg Tab 5 MG PO QAM Metoprolol Tartrate (Lopressor) (Lopressor) 50 Mg Tab 50 MG PO BID Pantoprazole (Protonix) 40 Mg Tab 40 MG PO DAILY Pravastatin Sodium (Pravastatin Sodium) 40 Mg Tab 40 MG PO HS Quetiapine Fumarate (Seroquel) 50 Mg Tab 50 MG PO HS Venlafaxine Hcl (Effexor Extended Rel) 150 Mg Cap 150 MG PO QAM, CAP Venlafaxine Hcl (Effexor) 75 Mg Tab 75 MG PO HS PRN for Vitamin B Cmplx/Vitc/Folic Ac (Nephrocaps) Cap 1 CAP PO DAILY for 90 Days, #90 CAP 3 Refills Referrals At Discharge Follow up Referrals: Orthopedics Referral - Within 1 Week with Pj Garay, DO Discharge Exam Patient reports feeling well. She does complain of 4/10 aching left upper arm pain that is worse with movement. She has a mild intermittent cough. She had a brief episode of chest pain last night that resolved on its own, no pain this morning. The patient denies fevers, chills, sweats, chest pain, palpitations, claudication, cough, wheezing, shortness of breath, nausea, vomiting, abdominal pain, dysuria, hematuria, urinary retention, paralysis, weakness, numbness and tingling. Constitutional: No fever, No chills, No sweats Eyes: No worsening of vision, No eye pain, No diplopia ENT: No hearing loss, No nasal symptoms, No trouble swallowing Respiratory: +Cough. No wheezing, No shortness of breath Cardiovascular: No chest pain, No claudication, No palpitations Abdomen: No pain, No nausea, No vomiting Musculoskeletal: +Left upper arm pain, left shoulder pain. No muscle pain, No swelling Genitourinary - Female: No dysuria, No urinary retention, No hematuria Neurologic: No paralysis, No weakness, No numbness/tingling Integumentary: No rash, No itch, No color change General appearance: Well-developed, well-nourished, no apparent distress Head: Normocephalic, atraumatic Eyes: Normal inspection, PERRL, EOMI ENT: Normal ENT inspection, hearing grossly normal, pharynx normal Neck: Supple, no JVD, trachea midline Respiratory/Chest: +Chest TTP. Coarse breath sounds. Normal breath sounds, no respiratory distress Cardiovascular: Regular rate & rhythm, no gallop, no murmur Abdomen/GI: Normal bowel sounds, non-tender, soft Extremities/Musculoskeletal: +LUE in sling. L shoulder and upper arm TTP. Ecchymosis medial aspect left upper arm. No calf tenderness, no pedal edema Neurological/Psych: Alert, normal mood/affect, oriented x 3 Skin: +Ecchymosis as above. Normal color, warm/dry, no rash Hospital Course 82 y/o female with a history of cerebrovascular disease, HTN, HLD, DM II w/ neuropathy, pulmonary fibrosis, h/o breast cancer, depression and anxiety who presents following a fall with a left humeral neck fracture. Left humeral neck fracture/fall--stable -Head CT, cervical spine CT, pelvis x-ray, lumbar spine x-ray, elbow x-ray all negative w/o acute fracture -CXR no acute disease -LUE CT w/humeral fracture -Orthopedics consulted, appreciate recs: Not a good surgical candidate. Would recommend conservative treatment. Sling x 6 weeks, then physical therapy. F/u as outpatient with repeat x-rays. -Cardiology consulted for preop risk. Pt did have elevated troponin w/in diagnostic range of [facility] but cardio does not believe to be ACS. Continue ASA, beta nicole, statin. Consider increasing to high intensity statin. Consider perfusion study in 6 or more weeks. Would have high risk of perioperative cardiac events. -Continue morphine 2 mg IV q4h prn pain, has not received since 06/03 -Continue Lidoderm patch, oxycodone IR 10 mg PO q6h prn pain, scheduled Tylenol 1000 mg PO q8h -PT/OT--rehab Constipation -Colace 100 mg PO BID -MiraLAX scheduled q2d, h/o diarrhea w/daily MiraLAX Elevated troponin--likely demand ischemia rather than ACS -Trop trending down FERNANDO on CKD stage IV--resolved -Baseline creatinine appears around 2.3, had been up to 2.61 this admission -Creatinine 2.03 on 06/05 Cerebrovascular disease, HTN, HLD--stable -Continue ASA, Plavix, Lopressor 50 mg PO BID, pravastatin 40 mg PO qd DM II w/neuropathy--HgbA1c 8.5 04/24/17 -Hold glipizide, can resume at discharge -Lantus 20 units SC qam, 45 units qpm -Insulin sliding scale -Check BSGs q ac and qhs -Continue gabapentin 100 mg PO hs Depression, anxiety -Continue Seroquel 50 mg PO hs, Ativan 0.5 mg PO q6h prn anxiety, Effexor 150 mg PO qam and 75 mg PO hs prn Pulmonary fibrosis- 2L NC at home - remains stable - CXR negative for acute process DVT prophylaxis -SCDs Code Status -Level V, DO NOT RESUSCITATE Dispo -From home, lives alone -Accepted to for rehab Supervising Note Dr. Dougherty I performed a history and physical examination on the patient. I reviewed above note and agree with it. I discussed plan with APC and patient. During my face to face encounter with the patient, I answered all of the patient's questions. Total Time Spent: Greater than 30 minutes This includes examination of the patient, discharge planning, medication reconciliation, and communication with other providers. Discharge Instructions Please refer to the electronic Patient Visit Report (Discharge Instructions) for additional information. Additional Copies To Micheal Tucker M.D.
[2017-06-05 15:25] VITALS: BP 125/74; PULSE 71; TEMP 36.9; O2SAT 98
--- NOTE | 2017-06-07 08:08 | EDITING REQUIRED CODING QUERY ---
CODING QUERY To promote full compliance with coding requirements relating to patient care, provider participation is requested in all cases of lawn care specialist uncertainty. Please assist us with the question(s) below: Coding Question(s): Please clarify below, regarding documentation of elevated troponin - likely demand ischemia rather than ACS on the Discharge Summary and documentation in the 06/02 and 06/03 Progress Notes of type 2 CO not ACS. ( x) Type 2 CO not ACS (includes CO due to Demand Ischemia) ( ) Demand Ischemia only Physician's Response(s): Thank you Magy Shelton Principal Diagnosis: "_that condition established after study, to be chiefly responsible for occasioning the admission of the patient to the hospital for care." Co-Existing Principal Diagnosis: "_when two or more diagnoses equally meet the criteria for principal diagnosis as determined by the circumstances of admission, diagnostic work up, and/or therapy provided, and the Alphabetic Index, Tabular List, or another coding guideline does not provide sequencing direction, any one of the diagnoses may be sequenced first." "When the physician has documented what appears to be a current diagnosis in the body of the record, but has not included the diagnosis in the final diagnostic statement, the physician should be asked whether the diagnosis should be added." (Source Coding [facility] 2 QTR90. p3-4)
== END 2017-06-05 16:16 | DRG 562 ==
LOC: EDBD 14:43 → C.EDA 14:45 → C.2T 19:14 → ENRESERV 19:41 → CANRESERV 19:41 → ENRESERV 19:50 → C.MSW 06-02 16:18 → ENRESERV 06-02 17:05 → CANBEDREQ 06-03 01:48
PROVIDERS: ADMIT Internal Medicine; ATTEND Internal Medicine Sports Medicine
DX: S42.292A Other displaced fracture of upper end of left humerus, initial encounter for closed fracture (principal); I21.A1 Myocardial infarction type 2; J96.11 Chronic respiratory failure with hypoxia; N17.9 Acute kidney failure, unspecified; R51 Headache; E11.65 Type 2 diabetes mellitus with hyperglycemia; K59.00 Constipation, unspecified; J84.10 Pulmonary fibrosis, unspecified; I12.9 Hypertensive chronic kidney disease with stage 1 through stage 4 chronic kidney disease, or unspecified chronic kidney disease; N18.3 Chronic kidney disease, stage 3 (moderate); E78.5 Hyperlipidemia, unspecified; E11.40 Type 2 diabetes mellitus with diabetic neuropathy, unspecified; F32.9 Major depressive disorder, single episode, unspecified; F41.9 Anxiety disorder, unspecified; Z79.899 Other long term (current) drug therapy; Z79.4 Long term (current) use of insulin; Z99.81 Dependence on supplemental oxygen; Z66 Do not resuscitate; Z91.81 History of falling; Z85.3 Personal history of malignant neoplasm of breast; Z86.73 Personal history of transient ischemic attack (TIA), and cerebral infarction without residual deficits; Z82.49 Family history of ischemic heart disease and other diseases of the circulatory system; W19.XXXA Unspecified fall, initial encounter; Y93.01 Activity, walking, marching and hiking; Y99.8 Other external cause status

== ENCOUNTER → 2017-06-21 | Outpatient (CLI) | payer OTHER ==
[~2017-06-21] MED LIST changes: +ACET-24 PO; -AMLO-110 PO; +ATV5X PO; +B-CO1CAP17 PO; +CELE1CAP30 PO; -CLB/200 PO; +CLC100 PO; +EFF75 PO; -GLIP-199 PO; +GLIP10TA10 PO; -INSDGI SC; +INSDGIPEN PO; +INSDGIPEN SC; +LDDP5 TD; -LETR2TAB PO; -LORA-741 PO; -METO-551 PO; -METO10TA PO; +METO25TA56 PO; +METO50TA16 PO; +MRLP17 PO; +NITR0.4S UT; +NRN100 PO; +NYST100033 TOP; -OLME1TAB11 PO; +PANT1TAB3 PO; +PRAV40TA2 PO; -QUET1TAB30 PO; +QUET5TAB PO; +RXC5 PO; -VITAMIN B12 PO; +ZRX5 PO
[2017-06-21 16:45] LABS: HEMATOCRIT 26.9 % (37-47); HEMOGLOBIN 8.9 g/dL (12.0-16.0); MEAN CELL VOLUME 89.4 fL (80-100); MEAN CORPUSCULAR HEMOGLOBIN 29.6 pg (25-34); MEAN CORPUSCULAR HGB CONC 33.1 g/dl (32-36); MEAN PLATELET VOLUME 9.3 fL (7.4-10.4); NUCLEATED RED BLOOD CELL ABS 0.17 K/uL (0-0); PLATELET COUNT 350 K/uL (130-400); RED CELL DISTRIBUTION WIDTH CV 15.6 % (11.5-14.5); RED CELL DISTRIBUTION WIDTH SD 47.3 fL (36.4-46.3); WHITE BLOOD COUNT 11.37 K/uL (4.8-10.8)
== END | disposition home or self-care (01) ==
LOC: C.LABSPEC 16:25
PROVIDERS: ATTEND Internal Medicine
DX: N18.9 Chronic kidney disease, unspecified (principal)

== ENCOUNTER 2017-06-30 11:53 | Inpatient (IN) | payer OTHER ==
[~2017-06-30] VITALS: Ht 162.6 cm; Wt 62.8 kg
[~2017-06-30 11:53] MED LIST changes: -METO25TA56 PO; -NITR0.4S UT; -NYST100033 TOP
[2017-06-30] MEDS ORDERED: ALBUT/IPRATROP 3MG/0.5MG NEB 3 ML VIAL INH STA (12:27)
[2017-06-30] MEDS ORDERED: SODIUM CHLORIDE 0.9% 500ML 500 ML IV STA (12:27)
--- NOTE | 2017-06-30 12:27 | EMERGENCY ROOM VISIT NOTE ---
History Report prepared by Eugenie: Mau King Under the Supervision of: Dr. Sean Rodriguez M.D. First contact with patient: 12:00 Stated Complaint: WEAKNESS History of Present Illness The patient is an 82 year old white female DNR with a past medical history of hypertension, breast carcinoma, and mood disorder who presents to the ED with a cc of persistent weakness beginning a couple days ago. Positive lack of appetite , breathing difficulties. Negative chest pain, abdominal pain. Per the patient' s family, the patient has been very run-down, and is not drinking or eating as much as usual. She has also been noted to be wheezing. The patient has been having trouble walking, and it now takes 2 people to move her. She does have in- home skilled care, but was told by her doctor that she needs 24-hour care now. Per the patient's family, the patient's hemoglobin and oxygen has been low recently. The patient was noted to have an oxygen saturation of around 82% last night, and the saturation worsens with movement. She does wear 2 liters of oxygen. She says that she does not currently feel short of breath. The patient notes that she has been taking all her medications. She says that she has not been using inhalers. She has seen a branch services manager in the past. Source of History: patient, family Onset: A couple days ago Position: other (global - weakness) Symptom Intensity: now a 2-person transfer Timing: other (persistent) Associated Symptoms: + SOB (wheezing), No chest pain, No abdominal pain Note: Associated symptoms: Lack of appetite. Review of Systems See HPI for pertinent positives and negatives. A total of ten systems were reviewed and were otherwise negative. Past Medical & Surgical Medical Problems: (1) accelerated hypertension (2) Carcinoma of breast (3) Depression (4) Fall (5) Humeral fracture (6) MAL ELI BREAST UP-OUTER (7) renal insufficiency (8) Type 2 insulindependent diabetes Family History Patient reports no known family medical history. Social History Smoking Status: Never Smoker Alcohol Use: none Drug Use: none Marital Status: Housing Status: lives alone Occupation Status: retired Current/Historical Medications Scheduled Acetaminophen (Sb Non-Aspirin Extra Stre), 1,000 MG PO Q8 Aspirin (Aspirin Chewable), 81 MG PO QAM Celecoxib (Celecoxib), 200 MG PO DAILY Clopidogrel (Plavix), 75 MG PO QAM Docusate Sodium (Docusate Sodium), 100 MG PO BID Gabapentin (Gabapentin), 100 MG PO HS Glipizide (Glipizide), 10 MG PO BID Insulin Glargine (Lantus Solostar), 30 UNITS PO QAM Insulin Glargine (Lantus Solostar), 25 UNITS SC QPM Lidocaine (Lidocaine), 1 PATCH TD QAM Metolazone (Metolazone), 5 MG PO QAM Metoprolol Tartrate (Lopressor) (Lopressor), 25 MG PO BID Nystatin (Topical) (Nystatin), 1 APPLN TOP TID Pantoprazole (Protonix), 40 MG PO DAILY Polyethylene (Miralax), 17 GM PO Q2D@1800 Pravastatin Sodium (Pravastatin Sodium), 40 MG PO HS Quetiapine Fumarate (Seroquel), 50 MG PO HS Venlafaxine Hcl (Effexor Extended Rel), 150 MG PO QAM Scheduled PRN Nitroglycerin (Nitrostat), 0.4 MG UT UD PRN for CHEST PAIN Oxycodone HCl (Oxycodone HCl), 10 MG PO Q6 PRN for Pain Venlafaxine Hcl (Effexor), 75 MG PO HS PRN for Anxiety Allergies Coded Allergies: Amoxicillin (Verified Allergy, Intermediate, RASH, 06/30/17) Clavulanic Acid (Verified Allergy, Intermediate, RASH, 06/30/17) Physical Exam Vital Signs Date Time Temp Pulse Resp B/P (MAP) Pulse Ox O2 Delivery O2 Flow Rate FiO2 06/30/17 15:36 86 22 117/60 96 Nasal Cannula 3.0 06/30/17 14:36 87 20 118/75 94 Nasal Cannula 4.0 118/75 06/30/17 13:48 85 06/30/17 13:23 86 20 133/62 91 Nasal Cannula 4.0 06/30/17 12:51 97 Nasal Cannula 4.0 06/30/17 12:23 97 Nasal Cannula 4.0 06/30/17 12:18 36.7 89 22 115/56 87 Nasal Cannula 2.0 06/30/17 12:18 87 Nasal Cannula 2.0 Physical Exam GENERAL: Awake, alert, well-appearing, NAD HENT: Normocephalic, atraumatic. EYES: Normal conjunctiva. Sclera non-icteric. NECK: Supple. No nuchal rigidity. FROM. RESPIRATORY: Bibasilar crackles. CARDIAC: RRR, no MRG ABDOMEN: Soft, NTND, BS+ MSK: Ecchymosis left upper arm. MVI distally. LUE limited for strength testing and finger to nose secondary to prior fracture. No chest wall TTP, no LE edema NEURO: CN 2-12 intact, 5/5 upper and lower extremity strength, no dysmetria, no drift, good finger to nose, no sensory deficits. SKIN: No rash or jaundice noted. Medical Decision & Procedures ER Provider Diagnostic Interpretation: Radiology results as stated below per my review and radiologist interpretation: CT OF THE HEAD WITHOUT CONTRAST CLINICAL HISTORY: Generalized weakness. COMPARISON STUDY: Head CT May 31, 2017. TECHNIQUE: Helical axial images of the head were obtained without IV contrast. Automated exposure control was utilized for the study. A dose lowering technique was utilized adhering to the principles of ALARA. FINDINGS: There is a subtle hyperdense focus within the left thalamus shown on axial image 15 of 28. This measures approximately 8 mm in size. This was not evident on previous exam. Ventricular system is stable. Basilar cisterns are patent. There are no extra-axial collections. White matter hypodensities are unchanged and suggest small vessel disease. There are no findings to suggest acute dural sinus thrombosis or acute territorial infarct. There are no significant calvarial abnormalities. Visualized portions of the sinuses and mastoid air cells are clear. A subtle hyperdense periventricular focus within the right frontal lobe is unchanged from earlier exams. IMPRESSION: Subtle 8 mm hyperdense focus within the superior left thalamus/internal capsule. Although this could be artifactual, the appearance favors a tiny hematoma, possibly subacute, with minimal edema. Short-term follow-up head CT might be considered. Electronically signed by: Bradley Rutherford M.D. 06/30/2017 2:25 PM Dictated Date/Time: 06/30/2017 2:10 PM CHEST ONE VIEW PORTABLE CLINICAL HISTORY: EVALUATE RESPIRATORY DISTRESS.DYSPNEA COMPARISON STUDY: Chest radiograph October or 2017. FINDINGS: Diffuse interstitial thickening is unchanged since previous exam. This suggests diffuse interstitial lung disease. Enlargement of the cardiac silhouette appears slightly increased since prior exam. There is no consolidation to suggest pneumonia. A comminuted, displaced impacted left humeral neck fracture is unchanged since previous exam. IMPRESSION: 1. No change in diffuse interstitial thickening which likely reflects interstitial lung disease. 2. Enlargement of the cardiac silhouette which appears slightly increased since prior exam. 3. No change in appearance of the comminuted, displaced left humeral neck fracture. Electronically signed by: Bradley Rutherford M.D. 06/30/2017 12:59 PM Dictated Date/Time: 06/30/2017 12:57 PM Laboratory Results 06/30/17 12:45 Red Blood Count 2.98, Mean Corpuscular Volume 88.9, Mean Corpuscular Hemoglobin 29.2, Mean Corpuscular Hemoglobin Concent 32.8, Mean Platelet Volume 9.2, Neutrophils (%) (Auto) 85.7, Lymphocytes (%) (Auto) 6.2, Monocytes (%) (Auto) 6.9, Eosinophils (%) (Auto) 0.0, Basophils (%) (Auto) 0.1, Neutrophils # (Auto) 13.48, Lymphocytes # (Auto) 0.98, Monocytes # (Auto) 1.08, Eosinophils # (Auto) 0.00, Basophils # (Auto) 0.01 06/30/17 12:45 Test 06/30/17 12:45 White Blood Count 15.72 K/uL (4.8-10.8) Red Blood Count 2.98 M/uL (4.2-5.4) Hemoglobin 8.7 g/dL (12.0-16.0) Hematocrit 26.5 % (37-47) Mean Corpuscular Volume 88.9 fL (80-100) Mean Corpuscular Hemoglobin 29.2 pg (25-34) Mean Corpuscular Hemoglobin Concent 32.8 g/dl (32-36) Platelet Count 428 K/uL (130-400) Mean Platelet Volume 9.2 fL (7.4-10.4) Neutrophils (%) (Auto) 85.7 % Lymphocytes (%) (Auto) 6.2 % Monocytes (%) (Auto) 6.9 % Eosinophils (%) (Auto) 0.0 % Basophils (%) (Auto) 0.1 % Neutrophils # (Auto) 13.48 K/uL (1.4-6.5) Lymphocytes # (Auto) 0.98 K/uL (1.2-3.4) Monocytes # (Auto) 1.08 K/uL (0.11-0.59) Eosinophils # (Auto) 0.00 K/uL (0-0.5) Basophils # (Auto) 0.01 K/uL (0-0.2) RDW Standard Deviation 51.6 fL (36.4-46.3) RDW Coefficient of Variation 16.8 % (11.5-14.5) Immature Granulocyte % (Auto) 1.1 % Immature Granulocyte # (Auto) 0.17 K/uL (0.00-0.02) Hypersegmented Polys 1+ Polychromasia 1+ Prothrombin Time 16.1 SECONDS (9.0-12.0) Prothromb Time International Ratio 1.5 (0.9-1.1) Activated Partial Thromboplast Time 25.7 SECONDS (21.0-31.0) Partial Thromboplastin Ratio 1.0 Anion Gap 14.0 mmol/L (3-11) Est Creatinine Clear Calc Drug Dose 11.7 ml/min Estimated GFR () 20.4 Estimated GFR (Non- 17.6 BUN/Creatinine Ratio 25.3 (10-20) Calcium Level 9.2 mg/dl (8.5-10.1) Phosphorus Level 3.6 mg/dl (2.5-4.9) Magnesium Level 2.1 mg/dl (1.8-2.4) Total Bilirubin 2.3 mg/dl (0.2-1) Aspartate Amino Transf (AST/SGOT) 54 U/L (15-37) Alanine Aminotransferase (ALT/SGPT) 166 U/L (12-78) Alkaline Phosphatase 149 U/L (45-117) Total Creatine Kinase 83 U/L (26-192) Troponin I 0.963 ng/ml (0-0.045) Pro-B-Type Natriuretic Peptide 85712 pg/ml (0-1800) Total Protein 6.9 gm/dl (6.4-8.2) Albumin 2.5 gm/dl (3.4-5.0) Globulin 4.4 gm/dl (2.5-4.0) Albumin/Globulin Ratio 0.6 (0.9-2) Laboratory results reviewed by me Medications Administered Medications (Trade) Dose Ordered Sig/Rios Route Start Time Stop Time Status Last Admin Dose Admin Albuterol/ Ipratropium (Duoneb) 3 ml NOW STAT INH 06/30/17 12:27 06/30/17 12:29 DC 06/30/17 13:36 3 ML Sodium Chloride 500 ml @ 500 mls/hr Q1H STAT IV 06/30/17 12:27 06/30/17 13:26 DC 06/30/17 13:35 500 MLS/HR ECG Per My Interpretation Indication: weakness Rate (beats per minute): 85 Rhythm: normal sinus Findings: Q waves (in V3), ST depression (in lateral and high lateral leads), other (normal intervals, normal axis) Comparison ECG Date: compared to 06/01/17, ST depressions are slightly more pronounced, Q-wave new in V3 ED Course 1217: The patient was evaluated in room A4B. A complete history and physical exam was performed. 1515: I discussed the patient with Dr. Skyler Trejo dye house vat worker - she says that she prefers that we talk to neurosurgery. 1542: I discussed the patient with Dr. Eb Trejo neurosurgery - he says to maintain the blood pressure systolic less than 50, no Keppra, hold antiplatelet medication. Repeat CT only if there are clinical changes. 1544: I reevaluated the patient and she does not want to be transferred to another facility. She says that she is DNR/DNI, and does not want any aggressive interventions. She is willing to let it ride. The patient will be evaluated for further treatment here. 1552: Discussed the patient's case with Dr. Skyler Trejo dye house vat worker. She will evaluate the patient for further treatment and disposition. Medical Decision The patient is an 82 year old white female DNR with a past medical history of hypertension, breast carcinoma, and mood disorder who presents to the ED with a cc of persistent weakness beginning a couple days ago. Positive lack of appetite , breathing difficulties. Negative abdominal pain. Differential diagnosis: Etiologies such as metabolic, infection, hypo/hyperglycemia, electrolyte abnormalities, cardiac sources, intracerebral event, toxicologic, neurologic, as well as others were entertained. Patient was seen and evaluated at the bedside. Patient does have a complicated past medical history which includes includes pulmonary fibrosis and requiring oxygen. Patient was a [facility] but no longer resides there. Patient does have a variety of in-home care but there is a concern that she now requires 24-hour care. Patient has complained of some generalized weakness. Patient denies any focal weakness. Patient denies any recent falls. Patient has had some difficulty with extending up from the commode as well as taking care of herself and even with home health care this appears to not to be enough. The home health service has discussed this with the primary care physician Dr. Tucker. I did discuss his needs with 1 of our case advocate. Patient blood work was completed. Patient does have an elevated BUN which may be related to some prerenal azotemia. This may be related to either some failure or the pulmonary fibrosis which may be resulting in pulmonary hypertension. Patient did have bibasilar crackles. Patient was given 1 DuoNeb. Patient has not any productive sputum. Patient does have some worsening hyponatremia. This again may be related to some failure although the patient does not appear overtly volume overloaded. Patient's BNP is greatly elevated greater than 20,000. Patient's troponin is positive however I believe this is likely related to either the pulmonary hypertension and/or CHF given her elevated BNP. Patient's troponin has been elevated over the last several times she has been here. Patient CT of the brain does show a small focus of possible hematoma or hemorrhage. This may be related to her previous fall several weeks prior. Patient does take aspirin Plavix. I did discuss the case with the patient stated that she was DNR, DNI, would not want to be transferred , and would not want any aggressive interventions even if this bleeding in her head got worse. I did discuss the case with neurosurgery at [facility]. They recommended keeping her systolic below 150, holding antiplatelet therapy, no Keppra, and repeat CT of the brain imaging only if the patient has a clinical status change. I did discuss all these findings with the on-call hospitalist who agreed to accept the patient. Medication Reconcilliation Current Medication List: was personally reviewed by me Blood Pressure Screening Patient's blood pressure: Normal blood pressure Consults Time Called: 1510 Consulting Physician: Dr. Skyler Trejo dye house vat worker Returned Call: 1515 I discussed the patient with Dr. Skyler Trejo dye house vat worker - she says that she prefers that we talk to neurosurgery. Additional Consults: Time Called: 1525 Consulted Physician: Dr. Eb Trejo neurosurgery Returned Call: 1542 Additional Comments: I discussed the patient with Dr. Eb Trejo neurosurgery - he says to maintain the blood pressure systolic less than 50, no Keppra, hold antiplatelet medication. Repeat CT only if there are clinical changes. Time Called: 1545 Consulted Physician: Dr. Skyler Trejo dye house vat worker Returned Call: 1552 Additional Comments: Discussed the patient's case with Dr. Skyler Trejo dye house vat worker. She will evaluate the patient for further treatment and disposition. Impression Primary Impression: Intracranial hematoma Additional Impressions: Pulmonary hypertension CHF (congestive heart failure) Critical Care I have personally spent greater than 35 minutes of critical care time in the direct management of this patient. This includes bedside care, interpretation of diagnostic studies, and testing, discussion with consultants, patient, and family members, and other required patient management activities. This 35 minutes is in excess of all separately billable procedures. Scribe Attestation The scribe's documentation has been prepared under my direction and personally reviewed by me in its entirety. I confirm that the note above accurately reflects all work, treatment, procedures, and medical decision making performed by me. Departure Information Dispostion Being Evaluated By Hospitalist Referrals Micheal Tucker M.D. (PCP) Problem Qualifiers Primary Impression: Intracranial hematoma Encounter type: initial encounter Laterality: unspecified laterality Loss of consciousness presence/duration: with LOC of unspecified duration Qualified Codes: S06.369A - Traumatic hemorrhage of cerebrum, unspecified, with loss of consciousness of unspecified duration, initial encounter Additional Impressions: CHF (congestive heart failure) Heart failure type: unspecified Heart failure chronicity: unspecified Qualified Codes: I50.9 - Heart failure, unspecified
[2017-06-30 13:00] LABS: BASO % 0.1 %; BASO ABS # 0.01 K/uL (0-0.2); HEMATOCRIT 26.5 % (37-47); HEMOGLOBIN 8.7 g/dL (12.0-16.0); IG# 0.17 K/uL (0.00-0.02); LYMPH % 6.2 %; LYMPH ABS # 0.98 K/uL (1.2-3.4); MEAN CELL VOLUME 88.9 fL (80-100); MEAN CORPUSCULAR HEMOGLOBIN 29.2 pg (25-34); MEAN CORPUSCULAR HGB CONC 32.8 g/dl (32-36); MEAN PLATELET VOLUME 9.2 fL (7.4-10.4); MONO % 6.9 %; MONO ABS # 1.08 K/uL (0.11-0.59); NEUT % 85.7 %; NEUT ABS # 13.48 K/uL (1.4-6.5); PLATELET COUNT 428 K/uL (130-400); RED CELL DISTRIBUTION WIDTH CV 16.8 % (11.5-14.5); RED CELL DISTRIBUTION WIDTH SD 51.6 fL (36.4-46.3); WHITE BLOOD COUNT 15.72 K/uL (4.8-10.8)
--- NOTE | 2017-06-30 13:01 | DIAGNOSTIC IMAGING REPORT ---
CHEST ONE VIEW PORTABLE CLINICAL HISTORY: EVALUATE RESPIRATORY DISTRESS.DYSPNEA COMPARISON STUDY: Chest radiograph October or 2017. FINDINGS: Diffuse interstitial thickening is unchanged since previous exam. This suggests diffuse interstitial lung disease. Enlargement of the cardiac silhouette appears slightly increased since prior exam. There is no consolidation to suggest pneumonia. A comminuted, displaced impacted left humeral neck fracture is unchanged since previous exam. IMPRESSION: 1. No change in diffuse interstitial thickening which likely reflects interstitial lung disease. 2. Enlargement of the cardiac silhouette which appears slightly increased since prior exam. 3. No change in appearance of the comminuted, displaced left humeral neck fracture. Electronically signed by: Bradley Rutherford M.D. 06/30/2017 12:59 PM Dictated Date/Time: 06/30/2017 12:57 PM
[2017-06-30 13:12] LABS: INR 1.5 (0.9-1.1); PTT PATIENT 25.7 SECONDS (21.0-31.0)
[2017-06-30 13:20] LABS: ALBUMIN 2.5 gm/dl (3.4-5.0); CALCIUM 9.2 mg/dl (8.5-10.1); CREATININE 2.48 mg/dl (0.60-1.20); POTASSIUM 3.5 mmol/L (3.5-5.1)
[2017-06-30 13:27] LABS: PHOSPHORUS 3.6 mg/dl (2.5-4.9); TOTAL PROTEIN 6.9 gm/dl (6.4-8.2)
[2017-06-30] MEDS ORDERED: NYST100033 TOP (13:44)
[2017-06-30] MEDS ORDERED: ASPIRIN 324 MG CHEW PO STA (13:49)
[2017-06-30] MEDS ORDERED: NITR0.4S UT (13:56)
[2017-06-30] MEDS ORDERED: METO25TA56 PO (13:56)
--- NOTE | 2017-06-30 14:27 | DIAGNOSTIC IMAGING REPORT ---
CT OF THE HEAD WITHOUT CONTRAST CLINICAL HISTORY: Generalized weakness. COMPARISON STUDY: Head CT May 31, 2017. TECHNIQUE: Helical axial images of the head were obtained without IV contrast. Automated exposure control was utilized for the study. A dose lowering technique was utilized adhering to the principles of ALARA. FINDINGS: There is a subtle hyperdense focus within the left thalamus shown on axial image 15 of 28. This measures approximately 8 mm in size. This was not evident on previous exam. Ventricular system is stable. Basilar cisterns are patent. There are no extra-axial collections. White matter hypodensities are unchanged and suggest small vessel disease. There are no findings to suggest acute dural sinus thrombosis or acute territorial infarct. There are no significant calvarial abnormalities. Visualized portions of the sinuses and mastoid air cells are clear. A subtle hyperdense periventricular focus within the right frontal lobe is unchanged from earlier exams. IMPRESSION: Subtle 8 mm hyperdense focus within the superior left thalamus/internal capsule. Although this could be artifactual, the appearance favors a tiny hematoma, possibly subacute, with minimal edema. Short-term follow-up head CT might be considered. Electronically signed by: Bradley Rutherford M.D. 06/30/2017 2:25 PM Dictated Date/Time: 06/30/2017 2:10 PM
[2017-06-30] MEDS ORDERED: GLUCOSE 10 TABS/TUBE PO PRN (16:45)
[2017-06-30] MEDS ORDERED: ACETAMINOPHEN 325 MG TAB PO PRN (16:45)
[2017-06-30] MEDS ORDERED: ONDANSETRON INJ 2 MG/ML 2 ML VIAL IV PRN (16:45)
[2017-06-30] MEDS ORDERED: NITROGLYCERIN 0.4 MG SL PER TAB CHARGE UT PRN (16:45)
[2017-06-30] MEDS ORDERED: VENLAFAXINE HCL 50 MG TAB PO PRN (16:45)
[2017-06-30] MEDS ORDERED: GLUCAGON FOR INJ 1 MG VIAL SQ PRN (16:45)
[2017-06-30] MEDS ORDERED: MAGNESIUM HYDROXIDE SUSP 30 ML UDC PO PRN (16:45)
--- NOTE | 2017-06-30 17:10 | History and Physical ---
History & Physical Date & Time of Service: Jun 30, 2017 at 16:52 Chief Complaint: Weakness Primary Care Physician: Micheal Tucker M.D. History of Present Illness Source: patient 82 y/o F c/o weakness. Pt was d/c'd from [facility] to [facility] on 06/05 after being admitted for a fall that resulted in a L humeral fracture. It was decided that the fracture should be managed conservatively given pt's other health issues. She was to wear a sling for 6 weeks and then start PT after that time. She was sent to for rehab and was d/c'd from there to her daughter's home with services. Pt feels that she still has pain to her L UE and that she thought she would have more use of her arm by this point. She has been weak in general. She gets SOB with ambulation. No chest pain. She tolerates what she eats, but her PO intake is overall decreased due to appetite. She feels she is eating small meals and snacks but family does not think she is getting enough to eat. They are interested in permanent placement at this time. Pt and family report ongoing bruising issues with L UE. She is to f/u with ortho on Sunday. Denies blood in stool or other new bruising. Pt has had no focal neuro issues. She has limited use of her L UE related to the fracture, but can still move her UE if needed. Denies facial droop, confusion, slurred speech, issues with R UE or b/l LE. Family agrees that she has had none of these changes. Pt denies fever, abd pain, n/v/c/d, LE pain or swelling. CT head in the ED was noted for a hematoma, possibly subacute. ED physician spoke with [facility] neuro[place], Dr. Parson, regarding this pt given the unclear findings. Pt feels that she would not pursue surgical intervention even in the event of an acute bleed and would rather not be transferred to [facility]. Recs from Dr. Parson include holding aspirin/plavix, maintaining systolic BP <150, no need for keppra, and no need for repeat imaging unless pt develops neuro sx. He is willing to accept the pt at a later date if there is a change in decision regarding intervention. Past Medical/Surgical History CKD baseline cr 2.3 Pulmonary fibrosis, 2-3L O2 continuous DM Depression HTN CVA, on aspirin plavix Hx of breast cancer Recent fall with humeral fracture Family History Family history was reviewed; no changes noted. Social History Smoking Status: Never Smoker Alcohol Use: none Drug Use: none Marital Status: Housing status: lives alone Occupational Status: retired Immunizations History of Influenza Vaccine: No History of Tetanus Vaccine?: Unknown History of Pneumococcal: No History of Hepatitis B Vaccine: Unknown Multi-Drug Resistant Organisms History of MDRO: No Allergies Coded Allergies: Amoxicillin (Verified Allergy, Intermediate, RASH, 06/30/17) Clavulanic Acid (Verified Allergy, Intermediate, RASH, 06/30/17) Home Medications Scheduled Acetaminophen (Sb Non-Aspirin Extra Stre), 1,000 MG PO Q8 Aspirin (Aspirin Chewable), 81 MG PO QAM Celecoxib (Celecoxib), 200 MG PO DAILY Clopidogrel (Plavix), 75 MG PO QAM Docusate Sodium (Docusate Sodium), 100 MG PO BID Gabapentin (Gabapentin), 100 MG PO HS Glipizide (Glipizide), 10 MG PO BID Insulin Glargine (Lantus Solostar), 30 UNITS PO QAM Insulin Glargine (Lantus Solostar), 25 UNITS SC QPM Lidocaine (Lidocaine), 1 PATCH TD QAM Metolazone (Metolazone), 5 MG PO QAM Metoprolol Tartrate (Lopressor) (Lopressor), 25 MG PO BID Nystatin (Topical) (Nystatin), 1 APPLN TOP TID Pantoprazole (Protonix), 40 MG PO DAILY Polyethylene (Miralax), 17 GM PO Q2D@1800 Pravastatin Sodium (Pravastatin Sodium), 40 MG PO HS Quetiapine Fumarate (Seroquel), 50 MG PO HS Venlafaxine Hcl (Effexor Extended Rel), 150 MG PO QAM Scheduled PRN Nitroglycerin (Nitrostat), 0.4 MG UT UD PRN for CHEST PAIN Oxycodone HCl (Oxycodone HCl), 10 MG PO Q6 PRN for Pain Venlafaxine Hcl (Effexor), 75 MG PO HS PRN for Anxiety Review of Systems Pertinent positives and negatives reviewed in HPI--all others negative Physical Exam Vital Signs Date Time Temp Pulse Resp B/P (MAP) Pulse Ox O2 Delivery O2 Flow Rate FiO2 06/30/17 15:36 86 22 117/60 96 Nasal Cannula 3.0 06/30/17 14:36 87 20 118/75 94 Nasal Cannula 4.0 118/75 06/30/17 13:48 85 06/30/17 13:23 86 20 133/62 91 Nasal Cannula 4.0 06/30/17 12:51 97 Nasal Cannula 4.0 06/30/17 12:23 97 Nasal Cannula 4.0 06/30/17 12:18 36.7 89 22 115/56 87 Nasal Cannula 2.0 06/30/17 12:18 87 Nasal Cannula 2.0 General Appearance: WD/WN, no apparent distress Head: normocephalic, atraumatic Eyes: normal inspection, sclerae normal Respiratory/Chest: normal breath sounds, no respiratory distress Cardiovascular: regular rate, rhythm, no edema Abdomen/GI: non tender, soft Extremities/Musculoskelatal: no calf tenderness, no pedal edema 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, alert, normal mood/affect, oriented x 3 Skin: normal color, warm/dry Diagnostics Laboratory Results Results Past 24 Hours Test 06/30/17 12:45 Range/Units White Blood Count 15.72 4.8-10.8 K/uL Red Blood Count 2.98 4.2-5.4 M/uL Hemoglobin 8.7 12.0-16.0 g/dL Hematocrit 26.5 37-47 % Mean Corpuscular Volume 88.9 80-100 fL Mean Corpuscular Hemoglobin 29.2 25-34 pg Mean Corpuscular Hemoglobin Concent 32.8 32-36 g/dl Platelet Count 428 130-400 K/uL Mean Platelet Volume 9.2 7.4-10.4 fL Neutrophils (%) (Auto) 85.7 % Lymphocytes (%) (Auto) 6.2 % Monocytes (%) (Auto) 6.9 % Eosinophils (%) (Auto) 0.0 % Basophils (%) (Auto) 0.1 % Neutrophils # (Auto) 13.48 1.4-6.5 K/uL Lymphocytes # (Auto) 0.98 1.2-3.4 K/uL Monocytes # (Auto) 1.08 0.11-0.59 K/uL Eosinophils # (Auto) 0.00 0-0.5 K/uL Basophils # (Auto) 0.01 0-0.2 K/uL RDW Standard Deviation 51.6 36.4-46.3 fL RDW Coefficient of Variation 16.8 11.5-14.5 % Immature Granulocyte % (Auto) 1.1 % Immature Granulocyte # (Auto) 0.17 0.00-0.02 K/uL Hypersegmented Polys 1+ Polychromasia 1+ Prothrombin Time 16.1 9.0-12.0 SECONDS Prothromb Time International Ratio 1.5 0.9-1.1 Activated Partial Thromboplast Time 25.7 21.0-31.0 SECONDS Partial Thromboplastin Ratio 1.0 Sodium Level 128 136-145 mmol/L Potassium Level 3.5 3.5-5.1 mmol/L Chloride Level 87 98-107 mmol/L Carbon Dioxide Level 27 21-32 mmol/L Anion Gap 14.0 3-11 mmol/L Blood Urea Nitrogen 63 7-18 mg/dl Creatinine 2.48 0.60-1.20 mg/dl Est Creatinine Clear Calc Drug Dose 11.7 ml/min Estimated GFR () 20.4 Estimated GFR (Non- 17.6 BUN/Creatinine Ratio 25.3 10-20 Random Glucose 91 70-99 mg/dl Calcium Level 9.2 8.5-10.1 mg/dl Phosphorus Level 3.6 2.5-4.9 mg/dl Magnesium Level 2.1 1.8-2.4 mg/dl Total Bilirubin 2.3 0.2-1 mg/dl Aspartate Amino Transf (AST/SGOT) 54 15-37 U/L Alanine Aminotransferase (ALT/SGPT) 166 12-78 U/L Alkaline Phosphatase 149 45-117 U/L Total Creatine Kinase 83 26-192 U/L Troponin I 0.963 0-0.045 ng/ml Pro-B-Type Natriuretic Peptide 60151 0-1800 pg/ml Total Protein 6.9 6.4-8.2 gm/dl Albumin 2.5 3.4-5.0 gm/dl Globulin 4.4 2.5-4.0 gm/dl Albumin/Globulin Ratio 0.6 0.9-2 Diagnostic Radiology CXR neg for acute CT head: : Subtle 8 mm hyperdense focus within the superior left thalamus/internal capsule. Although this could be artifactual, the appearance favors a tiny hematoma, possibly subacute, with minimal edema. Short-term follow-up head CT might be considered. Impression Assessment and Plan 82 y/o F who was admitted on 06/30 for weakness Brain hematoma, possibly subacute: Pt feels that she would not pursue surgical intervention even in the event of an acute bleed and would rather not be transferred to [facility] [place]. Recs from Dr. Parson include holding aspirin/plavix, maintaining systolic BP < 150, no need for keppra, and no need for repeat imaging unless pt develops neuro sx. He is willing to accept the pt at a later date if there is a change in decision regarding intervention. Hb on prior admission was 12.1, today it is 8.7 Monitor Anemia: ? related to hematoma, although not noted on CT ? related to humeral fracture/bruising Send stool for hemoccult Elevated trop: noted on last admission and similar value at 0.963 Serials pending ECHO on last admission was WNL, will not repeat unless trop becomes more elevated Possible related to CKD CKD: baseline cr 2.3, at 2.4 now Monitor HypoNa: likely nutritional given decreased PO intake per family Monitor DM: Lantus + SSI PRN A1c 04/2017 was 8.5, will not recheck HTN: continue home meds Maintain systolic BP <150 per neurosurg recs CVA: holding aspirin/plavix as above Other: DNR/DNI SCDs for DVT proph given hematoma DM diet Advised family that changes with the hematoma might cause sx similar to stroke. If there is ongoing concerns for bleeding related to hematoma, may benefit from palliative care c/s CM notified for possible placement. PT/OT Level of Care Telemetry Resuscitation Status DO NOT RESUSCITATE VTE Prophylaxis VTE Risk Assessment Done? Y/N: Yes Risk Level: Low
[2017-06-30 17:45] VITALS: BP 92/51; PULSE 83; PULSE 88; TEMP 36.5; O2SAT 85; O2SAT 92; Ht 162.6 cm; Wt 62.8 kg
[2017-06-30 17:50] VITALS: O2SAT 94
[2017-06-30] MEDS: POLYETHYLENE (MIRALAX) 17 GM PACK PO SCH (18:58)
[2017-06-30 20:30] VITALS: BP 110/69; PULSE 83; O2SAT 91
[2017-06-30] MEDS: METOPROLOL TARTRATE 25 MG TAB PO SCH (20:32)
[2017-06-30] MEDS: PRAVASTATIN SOD 40 MG TAB PO SCH (20:33)
[2017-06-30] MEDS: QUETIAPINE FUMARATE 25 MG TAB PO SCH (20:33)
[2017-06-30] MEDS: DOCUSATE SODIUM 100 MG CAP PO SCH (20:33)
[2017-06-30] MEDS: GABAPENTIN 100 MG CAP PO SCH (20:34)
[2017-06-30] MEDS: NYSTATIN POWDER 15GM BTL EXT SCH (20:35)
[2017-06-30] MEDS ORDERED: INSULIN GLARGINE SOLOSTAR 100 UNITS/ML 3 ML PEN SC SCH (21:00)
[2017-06-30] MEDS: INSULIN ASPART 100 UNITS/ML 3 ML PEN SC SCH (21:13)
[2017-06-30] MEDS: ACETAMINOPHEN 500 MG TAB PO SCH (21:54)
[2017-06-30 23:49] VITALS: BP 108/69; PULSE 82; TEMP 36.8; O2SAT 92
[2017-07-01] VITALS (9 sets, daily range): BP systolic 87–141; BP diastolic 53–81; PULSE 71–89; TEMP 36.3–36.4; O2SAT 90–95
[2017-07-01 04:55] LABS: HEMATOCRIT 27.5 % (37-47); HEMOGLOBIN 8.8 g/dL (12.0-16.0); MEAN CELL VOLUME 88.1 fL (80-100); MEAN CORPUSCULAR HEMOGLOBIN 28.2 pg (25-34); MEAN PLATELET VOLUME 8.8 fL (7.4-10.4); NUCLEATED RED BLOOD CELL ABS 0.06 K/uL (0-0); PLATELET COUNT 476 K/uL (130-400); RED CELL DISTRIBUTION WIDTH CV 16.7 % (11.5-14.5); RED CELL DISTRIBUTION WIDTH SD 50.6 fL (36.4-46.3); WHITE BLOOD COUNT 17.97 K/uL (4.8-10.8)
[2017-07-01 05:29] LABS: CREATININE 2.31 mg/dl (0.60-1.20); POTASSIUM 3.1 mmol/L (3.5-5.1)
[2017-07-01] MEDS: GLUCOSE 40% GEL 15 GM TUBE PO PRN (05:50)
[2017-07-01] MEDS: DEXTROSE 50% 50 ML SYR IV PRN ×2 (05:57→14:12)
[2017-07-01] MEDS: ACETAMINOPHEN 500 MG TAB PO SCH ×3 (06:04→21:31)
[2017-07-01] MEDS ORDERED: NSS + 20MEQ KCL 1000ML 1,000 ML IV SCH (08:00)
[2017-07-01] MEDS: OXYCODONE HCL IR 5 MG TAB (IMMEDIATE RELEASE) PO PRN (08:40)
[2017-07-01] MEDS: POTASSIUM CHLORIDE 20 MEQ TABCR PO SCH ×2 (08:40→20:33)
[2017-07-01] MEDS: CEFTRIAXONE SOD INJ 1 GM in DEXTROSE 5% ADD-VANTAGE 50ML 50 ML IV SCH (08:40)
[2017-07-01] MEDS: METOPROLOL TARTRATE 25 MG TAB PO SCH ×2 (08:41→20:33)
[2017-07-01] MEDS: CeleBREX 200 MG CAP PO SCH (08:41)
[2017-07-01] MEDS: VENLAFAXINE HCL XR 150 MG CAPXR PO SCH (08:41)
[2017-07-01] MEDS: LIDODERM (LIDOCAINE) PATCH 5% TD SCH (08:42)
[2017-07-01] MEDS: PANTOprazole SOD 40 MG TAB PO SCH (08:42)
[2017-07-01] MEDS: METOLAZONE 5 MG TAB PO SCH (08:42)
[2017-07-01] MEDS: NYSTATIN POWDER 15GM BTL EXT SCH ×3 (08:43→20:34)
[2017-07-01] MEDS: DOCUSATE SODIUM 100 MG CAP PO SCH ×2 (08:43→20:33)
[2017-07-01] MEDS: INSULIN ASPART 100 UNITS/ML 3 ML PEN SC SCH ×4 (08:47→21:00)
[2017-07-01] MEDS ORDERED: INSULIN GLARGINE SOLOSTAR 100 UNITS/ML 3 ML PEN SC SCH ×2 (09:00→21:00)
--- NOTE | 2017-07-01 09:33 | Progress Note ---
Subjective Date of Service: Jul 01, 2017. Subjective Pt evaluation today including: conversation w/ patient, physical exam, lab review, review of studies, review of inpatient medication list Pain: left shoulder PO Intake: adequate, ate entire breakfast Voiding: no voiding problems patient feeling a little better, a little stronger c/o pain in left shoulder after being up, using walker no neuro deficits, thinking clearly had some urinary retention but was then able to have a full void reviewed labs, WBC up to 17k from 15k, UA with signs of UTI ordered blood and urine cultures and then start Rocephin Cr is stable hypoglycemic this AM, stop Glipizide and held Lantus, sugars up again Problem List Medical Problems: (1) CHF (congestive heart failure) Status: Acute (2) Elevated troponin Status: Acute (3) Intracranial hematoma Status: Acute (4) Mood disorder Status: Acute (5) Pulmonary fibrosis Status: Acute (6) Pulmonary hypertension Status: Acute (7) Suicidal ideation Status: Acute (8) Weakness Status: Acute Review of Systems Constitutional: + weakness, + fatigue Musculoskeletal: + joint pain (left shoulder from previous fracture) Neurologic: + weakness, + balance problems All Other Systems: Reviewed and Negative Medications Current Inpatient Medications Medications (Trade) Dose Ordered Sig/Rios Route Start Time Stop Time Status Last Admin Dose Admin Acetaminophen (Tylenol Tab) 650 mg Q4H PRN PO 06/30/17 16:45 07/30/17 16:44 Future Hold Magnesium Hydroxide (Milk Of Magnesia Susp) 30 ml Q12H PRN PO 06/30/17 16:45 07/30/17 16:44 Ondansetron HCl (Zofran Inj) 4 mg Q6H PRN IV 06/30/17 16:45 07/30/17 16:44 Insulin Aspart (novoLOG ASPART) SLIDING SCALE If C... ACHS SC 06/30/17 21:00 07/30/17 20:59 07/01/17 08:47 15 UNITS Glucose (Glucose 40% Gel) 15-30 GRAMS 15 GRAMS... UD PRN PO 06/30/17 16:45 07/30/17 16:44 Glucose (Glucose Chew Tab) 4-8 Tablets 4 Tabl... UD PRN PO 06/30/17 16:45 07/30/17 16:44 Dextrose (Dextrose 50% 50ML Syringe) 25-50ML OF 50% DW IV FOR... UD PRN IV 06/30/17 16:45 07/30/17 16:44 07/01/17 05:57 50 ML Glucagon (Glucagon Inj) 1 mg UD PRN SQ 06/30/17 16:45 07/30/17 16:44 Acetaminophen (Tylenol Tab) 1,000 mg Q8 PO 06/30/17 22:00 07/30/17 21:59 07/01/17 06:04 1,000 MG Celecoxib (CeleBREX CAP) 200 mg DAILY PO 07/01/17 09:00 07/31/17 08:59 07/01/17 08:41 200 MG Docusate Sodium (coLACE CAP) 100 mg BID PO 06/30/17 21:00 07/30/17 20:59 07/01/17 08:43 100 MG Gabapentin (Neurontin Cap) 100 mg HS PO 06/30/17 21:00 07/30/17 20:59 06/30/17 20:34 100 MG Insulin Glargine (Lantus Solostar Pen) 25 units QPM SC 06/30/17 21:00 07/30/17 20:59 06/30/17 21:14 25 UNITS Insulin Glargine (Lantus Solostar Pen) 30 units QAM SC 07/01/17 09:00 07/31/17 08:59 Lidocaine (Lidoderm Patch 5%) 1 patch QAM TD 07/01/17 09:00 07/31/17 08:59 07/01/17 08:42 1 PATCH Metolazone (Zaroxolyn Tab) 5 mg QAM PO 07/01/17 09:00 07/31/17 08:59 07/01/17 08:42 5 MG Metoprolol Tartrate (Lopressor Tab) 25 mg BID PO 06/30/17 21:00 07/30/17 20:59 07/01/17 08:41 25 MG Nitroglycerin (Nitrostat Tab) 0.4 mg UD PRN UT 06/30/17 16:45 07/30/17 16:44 Nystatin (Mycostatin Powder) 1 appln TID EXT 06/30/17 21:00 07/30/17 20:59 07/01/17 08:43 1 APPLN Oxycodone HCl (Roxicodone Immediate Rel Tab) 10 mg Q6 PRN PO 06/30/17 16:45 07/14/17 16:44 07/01/17 08:40 10 MG Pantoprazole Sodium (Protonix Tab) 40 mg DAILY PO 07/01/17 09:00 07/31/17 08:59 07/01/17 08:42 40 MG Polyethylene (Miralax Powder Packet) 17 gm Q2D@1800 PO 06/30/17 18:00 07/30/17 17:59 Pravastatin Sodium (Pravachol Tab) 40 mg HS PO 06/30/17 21:00 07/30/17 20:59 06/30/17 20:33 40 MG Quetiapine Fumarate (seroQUEL TAB) 50 mg HS PO 06/30/17 21:00 07/30/17 20:59 06/30/17 20:33 50 MG Venlafaxine HCl (effeXOR EXTENDED REL CAP) 150 mg QAM PO 07/01/17 09:00 07/31/17 08:59 07/01/17 08:41 150 MG Venlafaxine HCl (effeXOR TAB) 75 mg HS PRN PO 06/30/17 16:45 07/30/17 16:44 Glipizide (Glucotrol Tab) 10 mg BIDM PO 07/01/17 07:30 07/31/17 07:29 Miscellaneous (Remove Lidoderm Patch) 1 ea DAILY@21 N/A 06/30/17 21:00 07/30/17 20:59 Potassium Chloride (Klor-Con Tab) 20 meq BID PO 07/01/17 09:00 07/31/17 08:59 07/01/17 08:40 20 MEQ Ceftriaxone Sodium 1 gm/ Dextrose 50 ml @ 100 mls/hr DAILY IV 07/01/17 09:00 07/11/17 08:59 07/01/17 08:40 100 MLS/HR Potassium Chloride/Sodium Chloride 1,000 ml @ 75 mls/hr [id number] IV 07/01/17 08:00 07/31/17 07:59 07/01/17 08:40 75 MLS/HR Objective Vital Signs Date Time Temp Pulse Resp B/P (MAP) Pulse Ox O2 Delivery O2 Flow Rate FiO2 07/01/17 08:49 78 109/70 (83) 07/01/17 07:40 36.4 78 18 96/61 (73) 91 07/01/17 04:00 Nasal Cannula 4.0 07/01/17 03:47 36.4 89 20 141/81 (101) 90 Nasal Cannula 4.0 06/30/17 23:59 Nasal Cannula 4.0 06/30/17 23:49 36.8 82 18 108/69 (82) 92 Nasal Cannula 4.0 06/30/17 20:30 83 110/69 (83) 91 Nasal Cannula 4.0 06/30/17 17:50 94 Oxymask 5.0 06/30/17 17:49 85 24 118/68 95 06/30/17 17:45 36.5 88 22 92/51 (65) 85 Nasal Cannula 4.0 06/30/17 17:45 36.5 83 24 92/51 92 Nasal Cannula 4.0 06/30/17 17:00 85 20 127/65 96 Nasal Cannula 4.0 06/30/17 15:36 86 22 117/60 96 Nasal Cannula 3.0 06/30/17 14:36 87 20 118/75 94 Nasal Cannula 4.0 118/75 06/30/17 13:48 85 06/30/17 13:23 86 20 133/62 91 Nasal Cannula 4.0 06/30/17 12:51 97 Nasal Cannula 4.0 06/30/17 12:23 97 Nasal Cannula 4.0 06/30/17 12:18 36.7 89 22 115/56 87 Nasal Cannula 2.0 06/30/17 12:18 87 Nasal Cannula 2.0 Physical Exam General Appearance: WD/WN, no apparent distress Eyes: normal inspection, EOMI, sclerae normal ENT: normal ENT inspection, hearing grossly normal, pharynx normal Neck: supple, no adenopathy, no JVD, trachea midline Respiratory/Chest: chest non-tender, lungs clear, normal breath sounds, no respiratory distress, no accessory muscle use Cardiovascular: regular rate, rhythm, no edema, no gallop, no JVD, no murmur Abdomen: normal bowel sounds, non tender, soft, no organomegaly Extremities: no pedal edema, no calf tenderness, pelvis stable, + pertinent finding (left shoulder tender, in sling, decreased ROM) Neurologic/Psychiatric: qa specialist II-XII nml as tested, no motor/sensory deficits, alert, normal mood/affect, oriented x 3 Skin: normal color, warm/dry, no rash Laboratory Results Last 24 Hours Test 06/30/17 12:45 06/30/17 15:53 06/30/17 17:45 06/30/17 18:55 White Blood Count 15.72 K/uL Red Blood Count 2.98 M/uL Hemoglobin 8.7 g/dL Hematocrit 26.5 % Mean Corpuscular Volume 88.9 fL Mean Corpuscular Hemoglobin 29.2 pg Mean Corpuscular Hemoglobin Concent 32.8 g/dl Platelet Count 428 K/uL Mean Platelet Volume 9.2 fL Neutrophils (%) (Auto) 85.7 % Lymphocytes (%) (Auto) 6.2 % Monocytes (%) (Auto) 6.9 % Eosinophils (%) (Auto) 0.0 % Basophils (%) (Auto) 0.1 % Neutrophils # (Auto) 13.48 K/uL Lymphocytes # (Auto) 0.98 K/uL Monocytes # (Auto) 1.08 K/uL Eosinophils # (Auto) 0.00 K/uL Basophils # (Auto) 0.01 K/uL RDW Standard Deviation 51.6 fL RDW Coefficient of Variation 16.8 % Immature Granulocyte % (Auto) 1.1 % Immature Granulocyte # (Auto) 0.17 K/uL Hypersegmented Polys 1+ Polychromasia 1+ Prothrombin Time 16.1 SECONDS Prothromb Time International Ratio 1.5 Activated Partial Thromboplast Time 25.7 SECONDS Partial Thromboplastin Ratio 1.0 Sodium Level 128 mmol/L Potassium Level 3.5 mmol/L Chloride Level 87 mmol/L Carbon Dioxide Level 27 mmol/L Anion Gap 14.0 mmol/L Blood Urea Nitrogen 63 mg/dl Creatinine 2.48 mg/dl Est Creatinine Clear Calc Drug Dose 11.7 ml/min Estimated GFR () 20.4 Estimated GFR (Non- 17.6 BUN/Creatinine Ratio 25.3 Random Glucose 91 mg/dl Calcium Level 9.2 mg/dl Phosphorus Level 3.6 mg/dl Magnesium Level 2.1 mg/dl Total Bilirubin 2.3 mg/dl Aspartate Amino Transf (AST/SGOT) 54 U/L Alanine Aminotransferase (ALT/SGPT) 166 U/L Alkaline Phosphatase 149 U/L Total Creatine Kinase 83 U/L Troponin I 0.963 ng/ml Pro-B-Type Natriuretic Peptide 70317 pg/ml Total Protein 6.9 gm/dl Albumin 2.5 gm/dl Globulin 4.4 gm/dl Albumin/Globulin Ratio 0.6 Bedside Glucose 89 mg/dl 82 mg/dl Urine Color DK YELLOW Urine Appearance CLOUDY Urine pH 5.0 Urine Specific [place] 1.020 Urine Protein NEG Urine Glucose (UA) NEG Urine Ketones NEG Urine Occult Blood NEG Urine Nitrite NEG Urine Bilirubin NEG Urine Urobilinogen NEG Urine Leukocyte Esterase MODERATE Urine WBC (Auto) >30 /hpf Urine RBC (Auto) 10-30 /hpf Urine Hyaline Casts (Auto) 5-10 /lpf Urine Epithelial Cells (Auto) >30 /lpf Urine Bacteria (Auto) 4+ Test 06/30/17 19:55 06/30/17 22:35 07/01/17 04:44 07/01/17 05:46 Bedside Glucose 105 mg/dl 42 mg/dl Troponin I 0.867 ng/ml 0.777 ng/ml White Blood Count 17.97 K/uL Red Blood Count 3.12 M/uL Hemoglobin 8.8 g/dL Hematocrit 27.5 % Mean Corpuscular Volume 88.1 fL Mean Corpuscular Hemoglobin 28.2 pg Mean Corpuscular Hemoglobin Concent 32.0 g/dl RDW Standard Deviation 50.6 fL RDW Coefficient of Variation 16.7 % Platelet Count 476 K/uL Mean Platelet Volume 8.8 fL Nucleated RBC Absolute Count (auto) 0.06 K/uL Nucleated Red Blood Cells % 0.3 % Sodium Level 129 mmol/L Potassium Level 3.1 mmol/L Chloride Level 90 mmol/L Carbon Dioxide Level 27 mmol/L Anion Gap 12.0 mmol/L Blood Urea Nitrogen 77 mg/dl Creatinine 2.31 mg/dl Est Creatinine Clear Calc Drug Dose 12.6 ml/min Estimated GFR () 22.2 Estimated GFR (Non- 19.2 BUN/Creatinine Ratio 33.3 Random Glucose 32 mg/dl Calcium Level 9.0 mg/dl Test 07/01/17 06:09 07/01/17 06:45 Bedside Glucose 165 mg/dl 147 mg/dl Assessment and Plan 82 y/o F who was admitted on 06/30 for weakness, CT head showed possible subacute hematoma in thalamus, UA showed signs of infection, WBC 15k Brain hematoma, possibly subacute, thalamus case d/w Dr. Parson (neurosurgeon) at time of admission recommends holding aspirin/plavix, maintaining systolic BP <150, no need for keppra, and no need for repeat imaging unless pt develops neuro sx. no neuro deficits today He is willing to accept the pt at a later date if there is a change in decision regarding intervention. UTI with sepsis, present on arrival no signs of organ failure or shock start Rocephin 1000mg IV daily, urine and blood cultures sent prior to antibiotics follow up cultures, repeat CBC tomorrow keep on tele today Elevated trop: noted on last admission and similar value at 0.963, trended down to 0.777 no chest pain or pressure ECHO on last admission was WNL, will not repeat unless trop becomes more elevated CKD stage III/IV: stable this AM at 2.3, will start some maintenance IV fluid given UTI and low normal BP HypoNa: likely nutritional given decreased PO intake per family up to 129 today from 128 on admission, repeat tomorrow AM DM: Lantus + SSI PRN A1c 04/2017 was 8.5, will not recheck hypoglycemia this AM, stop Glipizide, held Lantus, continue to monitor closely HTN: continue home meds Maintain systolic BP <150 per neurosurg recs CVA: holding aspirin/plavix as above due to hematoma Anemia: stable, Hb is 8.8 this AM, 8.7 on admission no signs of bleeding monitor left humerus fracture: occurred prior to last admission not doing well at home, looking into rehab supposed to see Orthopedic surgery this week will ask them to see while here for follow up, repeat x-ray? Other: DNR/DNI SCDs for DVT proph given hematoma DM diet keep on tele due to UTI sepsis
--- NOTE | 2017-07-01 11:04 | DIAGNOSTIC IMAGING REPORT ---
L SHOULDER MIN 2 VIEWS ROUTINE CLINICAL HISTORY: Left shoulder pain COMPARISON: Chest x-ray dated 06/30/2017 DISCUSSION: There is a displaced comminuted fracture of the humeral head and neck. There is been no change in alignment when compared the preceding study. Left upper lobe airspace opacities are visualized, a finding described on the prior chest x-ray. IMPRESSION: No change in the alignment of the comminuted displaced fracture of the humeral head and neck Electronically signed by: Tylor Burnett M.D. 07/01/2017 11:02 AM Dictated Date/Time: 07/01/2017 11:00 AM
--- NOTE | 2017-07-01 11:04 | DIAGNOSTIC IMAGING REPORT ---
L SCAPULA CLINICAL HISTORY: Left scapular pain COMPARISON: None. DISCUSSION: There is a comminuted displaced fracture of the humeral neck and head. There is no dislocation. No scapular fractures are visualized. Left lung airspace opacities are visualized IMPRESSION: Displaced comminuted left humeral head and neck fracture. Electronically signed by: Tylor Burnett M.D. 07/01/2017 11:03 AM Dictated Date/Time: 07/01/2017 11:02 AM
--- NOTE | 2017-07-01 11:31 | Orthopedic Consultation ---
Orthopedic Consultation Date of Consultation: Jul 01, 2017. Attending Physician: Terry Long D.O. Reason for Consultation: Left proximal humerus fracture History of Present Illness Mrs. Hensley is an 82-year-old female with past medical history significant for pulmonary fibrosis insulin-dependent diabetes and congestive heart failure with the elevated troponins on her admission today who fell back on May 30 2017 sustaining a left proximal humerus fracture. Dr. Garay with [facility] was consult it at that time. He recommended nonoperative treatment in a sling. Patient was discharged from the hospital on 06/05/2017. She was readmitted last night with weakness. Head CT was done showing a small hematoma. She continues to have pain in her left shoulder and therefore orthopedics was reconsulted. Patient reports the sling is fitting her well. She feels like she has to hold the arm into her body however. Pain medication has been satisfactorily controlling her pain. She reports some dysesthesias in the entire left arm. Past Medical/Surgical History Medical Problems: (1) CHF (congestive heart failure) Status: Acute (2) Elevated troponin Status: Acute (3) Intracranial hematoma Status: Acute (4) Mood disorder Status: Acute (5) Pulmonary fibrosis Status: Acute (6) Pulmonary hypertension Status: Acute (7) Suicidal ideation Status: Acute (8) Weakness Status: Acute Family History Patient reports no known family medical history. Social History Smoking Status: Unknown if Ever Smoked Alcohol Use: none Drug Use: none Marital Status: Housing Status: lives alone Occupation Status: retired Allergies Coded Allergies: Amoxicillin (Verified Allergy, Intermediate, RASH, 06/30/17) Clavulanic Acid (Verified Allergy, Intermediate, RASH, 06/30/17) Home Medications Scheduled Acetaminophen (Sb Non-Aspirin Extra Stre), 1,000 MG PO Q8 Aspirin (Aspirin Chewable), 81 MG PO QAM Celecoxib (Celecoxib), 200 MG PO DAILY Clopidogrel (Plavix), 75 MG PO QAM Docusate Sodium (Docusate Sodium), 100 MG PO BID Gabapentin (Gabapentin), 100 MG PO HS Glipizide (Glipizide), 10 MG PO BID Insulin Glargine (Lantus Solostar), 30 UNITS PO QAM Insulin Glargine (Lantus Solostar), 25 UNITS SC QPM Lidocaine (Lidocaine), 1 PATCH TD QAM Metolazone (Metolazone), 5 MG PO QAM Metoprolol Tartrate (Lopressor) (Lopressor), 25 MG PO BID Nystatin (Topical) (Nystatin), 1 APPLN TOP TID Pantoprazole (Protonix), 40 MG PO DAILY Polyethylene (Miralax), 17 GM PO Q2D@1800 Pravastatin Sodium (Pravastatin Sodium), 40 MG PO HS Quetiapine Fumarate (Seroquel), 50 MG PO HS Venlafaxine Hcl (Effexor Extended Rel), 150 MG PO QAM Scheduled PRN Nitroglycerin (Nitrostat), 0.4 MG UT UD PRN for CHEST PAIN Oxycodone HCl (Oxycodone HCl), 10 MG PO Q6 PRN for Pain Venlafaxine Hcl (Effexor), 75 MG PO HS PRN for Anxiety Current Inpatient Medications Current Inpatient Medications Medications (Trade) Dose Ordered Sig/Rios Route Start Time Stop Time Status Last Admin Dose Admin Acetaminophen (Tylenol Tab) 650 mg Q4H PRN PO 06/30/17 16:45 07/30/17 16:44 Future Hold Magnesium Hydroxide (Milk Of Magnesia Susp) 30 ml Q12H PRN PO 06/30/17 16:45 07/30/17 16:44 Ondansetron HCl (Zofran Inj) 4 mg Q6H PRN IV 06/30/17 16:45 07/30/17 16:44 Insulin Aspart (novoLOG ASPART) SLIDING SCALE If C... ACHS SC 06/30/17 21:00 07/30/17 20:59 07/01/17 08:47 15 UNITS Glucose (Glucose 40% Gel) 15-30 GRAMS 15 GRAMS... UD PRN PO 06/30/17 16:45 07/30/17 16:44 Glucose (Glucose Chew Tab) 4-8 Tablets 4 Tabl... UD PRN PO 06/30/17 16:45 07/30/17 16:44 Dextrose (Dextrose 50% 50ML Syringe) 25-50ML OF 50% DW IV FOR... UD PRN IV 06/30/17 16:45 07/30/17 16:44 07/01/17 05:57 50 ML Glucagon (Glucagon Inj) 1 mg UD PRN SQ 06/30/17 16:45 07/30/17 16:44 Acetaminophen (Tylenol Tab) 1,000 mg Q8 PO 06/30/17 22:00 07/30/17 21:59 07/01/17 06:04 1,000 MG Celecoxib (CeleBREX CAP) 200 mg DAILY PO 07/01/17 09:00 07/31/17 08:59 07/01/17 08:41 200 MG Docusate Sodium (coLACE CAP) 100 mg BID PO 06/30/17 21:00 07/30/17 20:59 07/01/17 08:43 100 MG Gabapentin (Neurontin Cap) 100 mg HS PO 06/30/17 21:00 07/30/17 20:59 06/30/17 20:34 100 MG Insulin Glargine (Lantus Solostar Pen) 25 units QPM SC 06/30/17 21:00 07/30/17 20:59 06/30/17 21:14 25 UNITS Insulin Glargine (Lantus Solostar Pen) 30 units QAM SC 07/01/17 09:00 07/31/17 08:59 Lidocaine (Lidoderm Patch 5%) 1 patch QAM TD 07/01/17 09:00 07/31/17 08:59 07/01/17 08:42 1 PATCH Metolazone (Zaroxolyn Tab) 5 mg QAM PO 07/01/17 09:00 07/31/17 08:59 07/01/17 08:42 5 MG Metoprolol Tartrate (Lopressor Tab) 25 mg BID PO 06/30/17 21:00 07/30/17 20:59 07/01/17 08:41 25 MG Nitroglycerin (Nitrostat Tab) 0.4 mg UD PRN UT 06/30/17 16:45 07/30/17 16:44 Nystatin (Mycostatin Powder) 1 appln TID EXT 06/30/17 21:00 07/30/17 20:59 07/01/17 08:43 1 APPLN Oxycodone HCl (Roxicodone Immediate Rel Tab) 10 mg Q6 PRN PO 06/30/17 16:45 07/14/17 16:44 07/01/17 08:40 10 MG Pantoprazole Sodium (Protonix Tab) 40 mg DAILY PO 07/01/17 09:00 07/31/17 08:59 07/01/17 08:42 40 MG Polyethylene (Miralax Powder Packet) 17 gm Q2D@1800 PO 06/30/17 18:00 07/30/17 17:59 Pravastatin Sodium (Pravachol Tab) 40 mg HS PO 06/30/17 21:00 07/30/17 20:59 06/30/17 20:33 40 MG Quetiapine Fumarate (seroQUEL TAB) 50 mg HS PO 06/30/17 21:00 07/30/17 20:59 06/30/17 20:33 50 MG Venlafaxine HCl (effeXOR EXTENDED REL CAP) 150 mg QAM PO 07/01/17 09:00 07/31/17 08:59 07/01/17 08:41 150 MG Venlafaxine HCl (effeXOR TAB) 75 mg HS PRN PO 06/30/17 16:45 07/30/17 16:44 Glipizide (Glucotrol Tab) 10 mg BIDM PO 07/01/17 07:30 07/31/17 07:29 Miscellaneous (Remove Lidoderm Patch) 1 ea DAILY@21 N/A 06/30/17 21:00 07/30/17 20:59 Potassium Chloride (Klor-Con Tab) 20 meq BID PO 07/01/17 09:00 07/31/17 08:59 07/01/17 08:40 20 MEQ Ceftriaxone Sodium 1 gm/ Dextrose 50 ml @ 100 mls/hr DAILY IV 07/01/17 09:00 07/11/17 08:59 07/01/17 08:40 100 MLS/HR Potassium Chloride/Sodium Chloride 1,000 ml @ 75 mls/hr [id number] IV 07/01/17 08:00 07/31/17 07:59 07/01/17 08:40 75 MLS/HR Physical Exam Date Time Temp Pulse Resp B/P (MAP) Pulse Ox O2 Delivery O2 Flow Rate FiO2 07/01/17 08:49 78 109/70 (83) 07/01/17 07:40 36.4 78 18 96/61 (73) 91 07/01/17 04:00 Nasal Cannula 4.0 07/01/17 03:47 36.4 89 20 141/81 (101) 90 Nasal Cannula 4.0 06/30/17 23:59 Nasal Cannula 4.0 06/30/17 23:49 36.8 82 18 108/69 (82) 92 Nasal Cannula 4.0 06/30/17 20:30 83 110/69 (83) 91 Nasal Cannula 4.0 06/30/17 17:50 94 Oxymask 5.0 06/30/17 17:49 85 24 118/68 95 06/30/17 17:45 36.5 88 22 92/51 (65) 85 Nasal Cannula 4.0 06/30/17 17:45 36.5 83 24 92/51 92 Nasal Cannula 4.0 06/30/17 17:00 85 20 127/65 96 Nasal Cannula 4.0 06/30/17 15:36 86 22 117/60 96 Nasal Cannula 3.0 06/30/17 14:36 87 20 118/75 94 Nasal Cannula 4.0 118/75 06/30/17 13:48 85 06/30/17 13:23 86 20 133/62 91 Nasal Cannula 4.0 06/30/17 12:51 97 Nasal Cannula 4.0 06/30/17 12:23 97 Nasal Cannula 4.0 06/30/17 12:18 36.7 89 22 115/56 87 Nasal Cannula 2.0 06/30/17 12:18 87 Nasal Cannula 2.0 General Appearance: no apparent distress Eyes: normal inspection Respiratory/Chest: no respiratory distress Extremities/Musculoskelatal: + pertinent finding (examination of the left upper extremity reveals the patient to have bruising over the lateral aspect of the upper arm. She reports decreased sensation to light touch in the median ulnar radial and axillary nerve distributions. Unable to assess deltoid firing secondary to pain. She is able to fire [employer] interossei wrist extensors and wrist flexors however. The sling appears to be snug against her chest. She is also splinting and firing her shoulder musculature.) Laboratory Results Last 24 Hours Test 06/30/17 12:45 06/30/17 15:53 06/30/17 17:45 06/30/17 18:55 White Blood Count 15.72 K/uL Red Blood Count 2.98 M/uL Hemoglobin 8.7 g/dL Hematocrit 26.5 % Mean Corpuscular Volume 88.9 fL Mean Corpuscular Hemoglobin 29.2 pg Mean Corpuscular Hemoglobin Concent 32.8 g/dl Platelet Count 428 K/uL Mean Platelet Volume 9.2 fL Neutrophils (%) (Auto) 85.7 % Lymphocytes (%) (Auto) 6.2 % Monocytes (%) (Auto) 6.9 % Eosinophils (%) (Auto) 0.0 % Basophils (%) (Auto) 0.1 % Neutrophils # (Auto) 13.48 K/uL Lymphocytes # (Auto) 0.98 K/uL Monocytes # (Auto) 1.08 K/uL Eosinophils # (Auto) 0.00 K/uL Basophils # (Auto) 0.01 K/uL RDW Standard Deviation 51.6 fL RDW Coefficient of Variation 16.8 % Immature Granulocyte % (Auto) 1.1 % Immature Granulocyte # (Auto) 0.17 K/uL Hypersegmented Polys 1+ Polychromasia 1+ Prothrombin Time 16.1 SECONDS Prothromb Time International Ratio 1.5 Activated Partial Thromboplast Time 25.7 SECONDS Partial Thromboplastin Ratio 1.0 Sodium Level 128 mmol/L Potassium Level 3.5 mmol/L Chloride Level 87 mmol/L Carbon Dioxide Level 27 mmol/L Anion Gap 14.0 mmol/L Blood Urea Nitrogen 63 mg/dl Creatinine 2.48 mg/dl Est Creatinine Clear Calc Drug Dose 11.7 ml/min Estimated GFR () 20.4 Estimated GFR (Non- 17.6 BUN/Creatinine Ratio 25.3 Random Glucose 91 mg/dl Calcium Level 9.2 mg/dl Phosphorus Level 3.6 mg/dl Magnesium Level 2.1 mg/dl Total Bilirubin 2.3 mg/dl Aspartate Amino Transf (AST/SGOT) 54 U/L Alanine Aminotransferase (ALT/SGPT) 166 U/L Alkaline Phosphatase 149 U/L Total Creatine Kinase 83 U/L Troponin I 0.963 ng/ml Pro-B-Type Natriuretic Peptide 32833 pg/ml Total Protein 6.9 gm/dl Albumin 2.5 gm/dl Globulin 4.4 gm/dl Albumin/Globulin Ratio 0.6 Bedside Glucose 89 mg/dl 82 mg/dl Urine Color DK YELLOW Urine Appearance CLOUDY Urine pH 5.0 Urine Specific Fitzwilliam 1.020 Urine Protein NEG Urine Glucose (UA) NEG Urine Ketones NEG Urine Occult Blood NEG Urine Nitrite NEG Urine Bilirubin NEG Urine Urobilinogen NEG Urine Leukocyte Esterase MODERATE Urine WBC (Auto) >30 /hpf Urine RBC (Auto) 10-30 /hpf Urine Hyaline Casts (Auto) 5-10 /lpf Urine Epithelial Cells (Auto) >30 /lpf Urine Bacteria (Auto) 4+ Test 06/30/17 19:55 06/30/17 22:35 07/01/17 04:44 07/01/17 05:46 Bedside Glucose 105 mg/dl 42 mg/dl Troponin I 0.867 ng/ml 0.777 ng/ml White Blood Count 17.97 K/uL Red Blood Count 3.12 M/uL Hemoglobin 8.8 g/dL Hematocrit 27.5 % Mean Corpuscular Volume 88.1 fL Mean Corpuscular Hemoglobin 28.2 pg Mean Corpuscular Hemoglobin Concent 32.0 g/dl RDW Standard Deviation 50.6 fL RDW Coefficient of Variation 16.7 % Platelet Count 476 K/uL Mean Platelet Volume 8.8 fL Nucleated RBC Absolute Count (auto) 0.06 K/uL Nucleated Red Blood Cells % 0.3 % Sodium Level 129 mmol/L Potassium Level 3.1 mmol/L Chloride Level 90 mmol/L Carbon Dioxide Level 27 mmol/L Anion Gap 12.0 mmol/L Blood Urea Nitrogen 77 mg/dl Creatinine 2.31 mg/dl Est Creatinine Clear Calc Drug Dose 12.6 ml/min Estimated GFR () 22.2 Estimated GFR (Non- 19.2 BUN/Creatinine Ratio 33.3 Random Glucose 32 mg/dl Calcium Level 9.0 mg/dl Test 07/01/17 06:09 07/01/17 06:45 07/01/17 11:06 Bedside Glucose 165 mg/dl 147 mg/dl Assessment & Plan Results reviewed x-rays done today are compared with prior. She has a four- part proximal humerus fracture with significant displacement of the shaft relative to the humeral head, greater and lesser tuberosities. The shaft is displaced anteriorly where the humeral head is located in the glenohumeral joint. The shaft displacement is likely secondary to pectoralis major firing. Impression 82-year-old female with multiple medical comorbidities making her a high risk operative candidate with displaced left four-part proximal humerus fracture Plan: I loosen up her sling to allow gravity to hopefully improve the alignment of her fracture, however the sling should continue to be worn at all times except to shower. I told the patient to do her best to let the arm relax as her muscle spasms are going to worsen the alignment of her fracture. Appropriate pain control given her medical comorbidities will also help in this regard. She appears relatively comfortable at present. She will keep her follow-up appointment with Dr. Garay this upcoming week. If she is still on the hospital next week, all calls regarding her left humerus can be directed to Dr. Garay starting Sunday at 8 AM.
[2017-07-01 13:32] LABS: BASO % 0.1 %; BASO ABS # 0.01 K/uL (0-0.2); EOS % 0.2 %; EOS ABS # 0.03 K/uL (0-0.5); HEMATOCRIT 26.2 % (37-47); HEMOGLOBIN 8.4 g/dL (12.0-16.0); IG# 0.28 K/uL (0.00-0.02); LYMPH % 3.7 %; LYMPH ABS # 0.66 K/uL (1.2-3.4); MEAN CELL VOLUME 88.2 fL (80-100); MEAN CORPUSCULAR HEMOGLOBIN 28.3 pg (25-34); MEAN CORPUSCULAR HGB CONC 32.1 g/dl (32-36); MEAN PLATELET VOLUME 9.1 fL (7.4-10.4); MONO % 7.9 %; MONO ABS # 1.42 K/uL (0.11-0.59); NEUT % 86.5 %; NEUT ABS # 15.53 K/uL (1.4-6.5); NUCLEATED RED BLOOD CELL ABS 0.08 K/uL (0-0); PLATELET COUNT 406 K/uL (130-400); RED CELL DISTRIBUTION WIDTH CV 16.8 % (11.5-14.5); RED CELL DISTRIBUTION WIDTH SD 51.4 fL (36.4-46.3); WHITE BLOOD COUNT 17.93 K/uL (4.8-10.8)
[2017-07-01 14:09] LABS: CALCIUM 8.6 mg/dl (8.5-10.1); CREATININE 2.33 mg/dl (0.60-1.20); POTASSIUM 3.8 mmol/L (3.5-5.1)
[2017-07-01] MEDS: D5NSS + 20MEQ KCL 1,000 ML IV SCH (16:17)
[2017-07-01] MEDS ORDERED: NURSING VERBAL MED ORDER ONE (16:45)
[2017-07-01] MEDS: QUETIAPINE FUMARATE 25 MG TAB PO SCH (20:33)
[2017-07-01] MEDS: GABAPENTIN 100 MG CAP PO SCH (20:33)
[2017-07-01] MEDS: PRAVASTATIN SOD 40 MG TAB PO SCH (20:34)
[2017-07-02] VITALS (13 sets, daily range): BP systolic 86–123; BP diastolic 48–79; PULSE 67–92; TEMP 36.4–36.7; O2SAT 90–96
[2017-07-02] MEDS: GLUCOSE 40% GEL 15 GM TUBE PO PRN (03:33)
[2017-07-02] MEDS: D5NSS + 20MEQ KCL 1,000 ML IV SCH (05:53)
[2017-07-02] MEDS: ACETAMINOPHEN 500 MG TAB PO SCH ×3 (05:54→20:23)
[2017-07-02 06:19] LABS: BASO % 0.1 %; BASO ABS # 0.01 K/uL (0-0.2); EOS % 0.2 %; EOS ABS # 0.03 K/uL (0-0.5); HEMOGLOBIN 8.2 g/dL (12.0-16.0); IG# 0.26 K/uL (0.00-0.02); LYMPH % 4.9 %; LYMPH ABS # 0.68 K/uL (1.2-3.4); MEAN CORPUSCULAR HEMOGLOBIN 28.4 pg (25-34); MEAN CORPUSCULAR HGB CONC 31.5 g/dl (32-36); MEAN PLATELET VOLUME 9.3 fL (7.4-10.4); MONO % 7.1 %; MONO ABS # 0.99 K/uL (0.11-0.59); NEUT % 85.8 %; NEUT ABS # 12.05 K/uL (1.4-6.5); NUCLEATED RED BLOOD CELL ABS 0.11 K/uL (0-0); PLATELET COUNT 369 K/uL (130-400); RED CELL DISTRIBUTION WIDTH SD 52.5 fL (36.4-46.3); WHITE BLOOD COUNT 14.02 K/uL (4.8-10.8)
[2017-07-02] MEDS: OXYCODONE HCL IR 5 MG TAB (IMMEDIATE RELEASE) PO PRN (06:22)
[2017-07-02 06:56] LABS: ALBUMIN 2.1 gm/dl (3.4-5.0); CALCIUM 8.4 mg/dl (8.5-10.1); CREATININE 2.92 mg/dl (0.60-1.20); POTASSIUM 4.8 mmol/L (3.5-5.1)
[2017-07-02 06:57] LABS: TOTAL PROTEIN 6.1 gm/dl (6.4-8.2)
[2017-07-02] MEDS: INSULIN ASPART 100 UNITS/ML 3 ML PEN SC SCH ×4 (07:00→20:18)
[2017-07-02] MEDS ORDERED: NURSING VERBAL MED ORDER ONE (08:30)
[2017-07-02] MEDS ORDERED: PHARMACY GLYCEMIC MGMT CONSULT PRN (08:45)
[2017-07-02] MEDS ORDERED: D5W AND NSS 1,000 ML IV SCH (08:45)
[2017-07-02] MEDS: POTASSIUM CHLORIDE 20 MEQ TABCR PO SCH ×2 (09:00→20:19)
[2017-07-02] MEDS: METOLAZONE 5 MG TAB PO SCH (09:09)
[2017-07-02] MEDS: CEFTRIAXONE SOD INJ 1 GM in DEXTROSE 5% ADD-VANTAGE 50ML 50 ML IV SCH (09:09)
[2017-07-02] MEDS: METOPROLOL TARTRATE 25 MG TAB PO SCH ×2 (09:10→20:20)
[2017-07-02] MEDS: DOCUSATE SODIUM 100 MG CAP PO SCH ×2 (09:10→20:23)
[2017-07-02] MEDS: CeleBREX 200 MG CAP PO SCH (09:11)
[2017-07-02] MEDS: PANTOprazole SOD 40 MG TAB PO SCH (09:11)
[2017-07-02] MEDS: VENLAFAXINE HCL XR 150 MG CAPXR PO SCH (09:11)
[2017-07-02] MEDS: NYSTATIN POWDER 15GM BTL EXT SCH ×3 (09:11→20:18)
[2017-07-02] MEDS: LIDODERM (LIDOCAINE) PATCH 5% TD SCH (09:12)
--- NOTE | 2017-07-02 09:28 | Hospitalist Progress Note ---
Hospitalist Progress Note Date of Service Jul 02, 2017. (Patience Cuellar PA-C) Subjective Pt evaluation today including: conversation w/ patient, physical exam, chart review, lab review, review of studies The patient was seen and examined this morning. Pt reports doing better today but still feels fatigued Left arm pain around the IV site this morning - IV site replaced last evening Eating an improved PO diet Has walked from bed to bathroom and was slightly lightheaded last night, has not yet attempted today. Overnight on tele: Burst of atach at 0438 which lasted for a few seconds. Pt denies any symptoms. ROS: Constitutional: No fever, sweats or chills Eyes: No diplopia, no worsening or blurred vision ENT: normal hearing, no trouble swallowing Respiratory: No cough, sputum, dyspnea at rest or on exertion Cardiovascular: No chest pain, tightness or palpitations Abdomen: No pain, nausea, vomiting, diarrhea or constipation Musculoskeletal: L sided arm/shoulder pain, no calf pain, swelling Neurologic: No weakness, numbness/tingling, or balance problems Psychiatric: No anxiety or depression Skin: No rash or itch (Patience Cuellar PA-C) Objective Vital Signs Date Time Temp Pulse Resp B/P (MAP) Pulse Ox O2 Delivery O2 Flow Rate FiO2 07/02/17 07:42 36.4 67 18 102/65 (77) 91 Nasal Cannula 4.0 07/02/17 04:02 Nasal Cannula 4.0 07/02/17 03:10 36.4 71 19 86/52 (63) 90 Nasal Cannula 4.0 07/02/17 00:00 Nasal Cannula 4.0 07/01/17 23:06 36.3 71 19 87/53 (64) 92 Nasal Cannula 4.0 07/01/17 20:00 Nasal Cannula 4.0 07/01/17 19:51 36.3 72 16 107/72 (84) 93 Nasal Cannula 4.0 07/01/17 16:34 36.3 73 18 97/53 (68) 95 4.0 07/01/17 16:00 95 Nasal Cannula 4.0 07/01/17 15:53 36.3 73 18 97/53 (68) 95 Nasal Cannula 4.0 07/01/17 12:00 Nasal Cannula 4.0 07/01/17 11:34 36.4 76 18 104/68 (80) 94 (Patience Cuellar PA-C) Physical Exam General Appearance: WD/WN, no apparent distress, + obese Eyes: PERRL, EOMI ENT: hearing grossly normal, pharynx normal, + pertinent finding (MMM) Neck: supple, no JVD Respiratory/Chest: chest non-tender, lungs clear, no respiratory distress, no accessory muscle use, + pertinent finding (on 2 L via NC) Cardiovascular: regular rate, rhythm, no murmur Abdomen: normal bowel sounds, non tender, soft Extremities: no calf tenderness, + pedal edema, + slow capillary refill (+1 pitting edema BLE), + pertinent finding (Left arm in sling, + ecchymosis overlying upper arm. ) Neurologic/Psychiatric: no motor/sensory deficits, alert, normal mood/affect, oriented x 3, + pertinent finding (no motor deficits, no sensory deficits) Skin: normal color, warm/dry (Patience Cuellar PA-C) Laboratory Results Last 24 Hours Test 07/01/17 11:06 07/01/17 11:22 07/01/17 13:18 07/01/17 14:10 Troponin I 0.713 ng/ml Bedside Glucose 100 mg/dl 34 mg/dl White Blood Count 17.93 K/uL Red Blood Count 2.97 M/uL Hemoglobin 8.4 g/dL Hematocrit 26.2 % Mean Corpuscular Volume 88.2 fL Mean Corpuscular Hemoglobin 28.3 pg Mean Corpuscular Hemoglobin Concent 32.1 g/dl Platelet Count 406 K/uL Mean Platelet Volume 9.1 fL Neutrophils (%) (Auto) 86.5 % Lymphocytes (%) (Auto) 3.7 % Monocytes (%) (Auto) 7.9 % Eosinophils (%) (Auto) 0.2 % Basophils (%) (Auto) 0.1 % Neutrophils # (Auto) 15.53 K/uL Lymphocytes # (Auto) 0.66 K/uL Monocytes # (Auto) 1.42 K/uL Eosinophils # (Auto) 0.03 K/uL Basophils # (Auto) 0.01 K/uL RDW Standard Deviation 51.4 fL RDW Coefficient of Variation 16.8 % Immature Granulocyte % (Auto) 1.6 % Immature Granulocyte # (Auto) 0.28 K/uL Nucleated RBC Absolute Count (auto) 0.08 K/uL Nucleated Red Blood Cells % 0.5 % Polychromasia 1+ Sodium Level 129 mmol/L Potassium Level 3.8 mmol/L Chloride Level 91 mmol/L Carbon Dioxide Level 26 mmol/L Anion Gap 12.0 mmol/L Blood Urea Nitrogen 74 mg/dl Creatinine 2.33 mg/dl Est Creatinine Clear Calc Drug Dose 12.5 ml/min Estimated GFR () 22.0 Estimated GFR (Non- 19.0 BUN/Creatinine Ratio 31.8 Random Glucose 23 mg/dl Calcium Level 8.6 mg/dl Test 07/01/17 14:27 07/01/17 15:37 07/01/17 16:43 07/01/17 20:20 Bedside Glucose 195 mg/dl 121 mg/dl 100 mg/dl Troponin I 0.704 ng/ml Test 07/02/17 03:28 07/02/17 03:47 07/02/17 05:37 07/02/17 06:33 Bedside Glucose 66 mg/dl 83 mg/dl 83 mg/dl White Blood Count 14.02 K/uL Red Blood Count 2.89 M/uL Hemoglobin 8.2 g/dL Hematocrit 26.0 % Mean Corpuscular Volume 90.0 fL Mean Corpuscular Hemoglobin 28.4 pg Mean Corpuscular Hemoglobin Concent 31.5 g/dl Platelet Count 369 K/uL Mean Platelet Volume 9.3 fL Neutrophils (%) (Auto) 85.8 % Lymphocytes (%) (Auto) 4.9 % Monocytes (%) (Auto) 7.1 % Eosinophils (%) (Auto) 0.2 % Basophils (%) (Auto) 0.1 % Neutrophils # (Auto) 12.05 K/uL Lymphocytes # (Auto) 0.68 K/uL Monocytes # (Auto) 0.99 K/uL Eosinophils # (Auto) 0.03 K/uL Basophils # (Auto) 0.01 K/uL RDW Standard Deviation 52.5 fL RDW Coefficient of Variation 17.0 % Immature Granulocyte % (Auto) 1.9 % Immature Granulocyte # (Auto) 0.26 K/uL Nucleated RBC Absolute Count (auto) 0.11 K/uL Nucleated Red Blood Cells % 0.8 % Polychromasia 1+ Hypochromasia PRESENT Sodium Level 128 mmol/L Potassium Level 4.8 mmol/L Chloride Level 93 mmol/L Carbon Dioxide Level 23 mmol/L Anion Gap 12.0 mmol/L Blood Urea Nitrogen 86 mg/dl Creatinine 2.92 mg/dl Est Creatinine Clear Calc Drug Dose 10.0 ml/min Estimated GFR () 16.7 Estimated GFR (Non- 14.5 BUN/Creatinine Ratio 29.5 Random Glucose 67 mg/dl Calcium Level 8.4 mg/dl Magnesium Level 2.3 mg/dl Total Bilirubin 1.5 mg/dl Direct Bilirubin 0.9 mg/dl Aspartate Amino Transf (AST/SGOT) 362 U/L Alanine Aminotransferase (ALT/SGPT) 318 U/L Alkaline Phosphatase 179 U/L Total Protein 6.1 gm/dl Albumin 2.1 gm/dl (Patience Cuellar, ANGELA) Assessment and Plan 82 y/o F who was admitted on 06/30 for weakness, CT head showed possible subacute hematoma in thalamus, UA showed signs of infection, WBC 15k Brain hematoma, possibly subacute, thalamus d/t fall - case d/w Dr. Parson (neurosurgeon) at time of admission - recommends holding aspirin/plavix, maintaining systolic BP <150, no need for keppra, and no need for repeat imaging unless pt develops neuro sx. no neuro deficits today - He is willing to accept the pt at a later date if there is a change in decision regarding intervention. UTI with sepsis, present on arrival - no signs of organ failure or shock - start Rocephin 1000mg IV daily, urine and blood cultures sent prior to antibiotics - UCx and BCx still in process, WBC trending downward Elevated trop: noted on last admission and similar value at 0.963, trended down to 0.704 - no chest pain or pressure - ECHO on last admission was WNL, will not repeat unless trop becomes more elevated CKD stage III/IV: - increased this AM at 2.92, continue IV fluid given UTI and low normal BP - likely due to poor oral intake in past few days. Pt reports her appetite is improved at this time. HypoNa: likely nutritional given decreased PO intake per family - remains around 128, follow prp - pt reports her appetite is improved today DM: Lantus + SSI PRN - A1c 04/2017 was 8.5, will not recheck - hypoglycemia this AM, stop Glipizide, held Lantus, continue to monitor closely HTN: continue home meds - Maintain systolic BP <150 per neurosurg recs CVA: holding aspirin/plavix as above due to hematoma Anemia: stable, Hgb is 8.2 today, pt with some worsening lightheadedness, dizziness last evening. She reporting fatigue as well. Pts baseline hgb seems to be around 12 so likely would benefit from 1 U PRBCs. Will transfuse today. - Pt has not had a bm today, no obvious signs of bleeding. Left humerus fracture: occurred prior to last admission - not doing well at home, looking into rehab - supposed to see Orthopedic surgery this week will ask them to see while here for follow up, repeat x-ray? Severe Albuminemia, Protein calorie malnutrition - 2.1 on labs, encourage increase in nutrition to promote healing. Will add boost breeze BID Pulmonary Fibrosis, chronic hypoxic respiratory failure. - Continue on home O2 of 3 L DVT ppx: SCDs for DVT proph given hematoma Code Status: DNR/DNI Disposition: From home, was living with sister, will need PT/OT and likely acute rehab stay (Patience Cuellar, PA-C) Supervising Note Dr. Dougherty I performed a history and physical examination on the patient. I reviewed above note and agree with it. I discussed plan with APC and patient. During my face to face encounter with the patient, I answered all of the patient's questions. (Davion Dougherty M.D.)
--- NOTE | 2017-07-02 09:53 | Clinical Documentation Query ---
QUERY 1 OF 3 CLINICAL DOCUMENTATION QUERY Ms. HOLDEN, In your clinical opinion is this patient being managed for: ( x ) Traumatic thalamic brain hematoma ( ) Not Agree ( ) Other explanation of clinical findings (Please Explain) ( ) Unable to determine (Please Define) ( ) Need to Discuss The medical record reflects the following clinical findings, treatment, and risk factors. Clinical Indicators: 82 yo female presenting with weakness and difficulty walking. Per recent history in May 2017, pt had fallen, striking head and nose that initially caused a headache. CT head: appearance favors a tiny hematoma, possibly subacute, with minimal edema. This is a new finding compared to May 2017 CT head. Treatment: telephone consult with [facility] neurosurgery services, hold ASA/plavix, maintain BP < 150 systolic, neurochecks q 4 hrs, tele Risk Factors: recent fall in May 2017, chronic anticoagulant therapy QUERY 2 OF 3 In your clinical opinion is this patient being managed for: ( x ) Acute kidney failure ( ) Not Agree ( ) Other explanation of clinical findings (Please Explain) ( ) Unable to determine (Please Define) ( ) Need to Discuss The medical record reflects the following clinical findings, treatment, and risk factors. Clinical Indicators: Pt presented with Cr 2.48 which is in pt's baseline range. Cr has trended up to 2.92. Pt has also had episodes of hypotension (86/52 thru the night) Treatment: IV fluids, monitor PRP's Risk Factors: hypotension, CKD stage III-IV QUERY 3 OF 3 In your clinical opinion is this patient being managed for: (x ) Chronic hypoxic respiratory failure ( ) Not Agree ( ) Other explanation of clinical findings (Please Explain) ( ) Unable to determine (Please Define) ( ) Need to Discuss The medical record reflects the following clinical findings, treatment, and risk factors. Clinical Indicators: pt noted to wear chronic home O2 support Treatment:chronic O2 support Risk Factors:pulmonary fibrosis Please clarify and document your clinical opinion in the progress notes and discharge summary. Terms such as "probable", "suspected", "likely", "questionable", "possible", or "still to be ruled out" are acceptable. IF IN AGREEMENT, YOU MUST DOCUMENT ABOVE DIAGNOSTIC STATEMENT IN DAILY PROGRESS NOTES AND DISCHARGE SUMMARY. This document is not part of the patient's record. Thank You, Shelbie Umanzor RN [phone]
--- NOTE | 2017-07-02 09:58 | Clinical Documentation Query ---
QUERY 1 OF [address] GOMEZ, In your clinical opinion is this patient being managed for: ( ) Traumatic thalamic brain hematoma ( ) Not Agree ( ) Other explanation of clinical findings (Please Explain) ( ) Unable to determine (Please Define) ( ) Need to Discuss The medical record reflects the following clinical findings, treatment, and risk factors. Clinical Indicators: 82 yo female presenting with weakness and difficulty walking. Per recent history in May 2017, pt had fallen, striking head and nose that initially caused a headache. CT head: appearance favors a tiny hematoma, possibly subacute, with minimal edema. This is a new finding compared to May 2017 CT head. Treatment: telephone consult with [facility] neurosurgery services, hold ASA/plavix, maintain BP < 150 systolic, neurochecks q 4 hrs Risk Factors: recent fall in May 2017, chronic anticoagulant therapy QUERY 2 OF 3 In your clinical opinion is this patient being managed for: ( ) Acute kidney failure ( ) Not Agree ( ) Other explanation of clinical findings (Please Explain) ( ) Unable to determine (Please Define) ( ) Need to Discuss The medical record reflects the following clinical findings, treatment, and risk factors. Clinical Indicators: Pt presented with Cr 2.48 which is in pt's baseline range. Cr has trended up to 2.92. Pt has also had episodes of hypotension (86/52 thru the night) Treatment: IV fluids, monitor PRP's Risk Factors: hypotension, CKD stage III-IV QUERY 3 OF 3 In your clinical opinion is this patient being managed for: ( ) Chronic hypoxic respiratory failure ( ) Not Agree ( ) Other explanation of clinical findings (Please Explain) ( ) Unable to determine (Please Define) ( ) Need to Discuss The medical record reflects the following clinical findings, treatment, and risk factors. Clinical Indicators: pt noted to wear chronic home O2 support Treatment:chronic O2 support Risk Factors:pulmonary fibrosis Please clarify and document your clinical opinion in the progress notes and discharge summary. Terms such as "probable", "suspected", "likely", "questionable", "possible", or "still to be ruled out" are acceptable. IF IN AGREEMENT, YOU MUST DOCUMENT ABOVE DIAGNOSTIC STATEMENT IN DAILY PROGRESS NOTES AND DISCHARGE SUMMARY. This document is not part of the patient's record. Thank You, Shelbie Umanzor RN [phone]
--- NOTE | 2017-07-02 13:30 | Pharmacy Progress Note ---
Glycemic Control Intl Consult Date of Service Jul 02, 2017. Scope Glycemic Pharmacist consulted by Dr Dougherty on 07/02/17 for glycemic control and to write orders per [facility] inpatient glycemic control protocol Objective Weight (Kilograms): 74.200 Accuchecks BSG (last 24hrs): Test 07/01/17 13:18 07/01/17 14:10 07/01/17 14:27 07/01/17 15:37 Random Glucose 23 mg/dl (70-99) Bedside Glucose 34 mg/dl (70-90) 195 mg/dl (70-90) 121 mg/dl (70-90) Test 07/01/17 20:20 07/02/17 03:28 07/02/17 03:47 07/02/17 05:37 Bedside Glucose 100 mg/dl (70-90) 66 mg/dl (70-90) 83 mg/dl (70-90) Random Glucose 67 mg/dl (70-99) Test 07/02/17 06:33 07/02/17 09:08 07/02/17 11:23 Bedside Glucose 83 mg/dl (70-90) 93 mg/dl (70-90) 131 mg/dl (70-90) Laboratory Data (last 24hrs) Test 07/01/17 13:18 07/02/17 05:37 Anion Gap 12.0 mmol/L 12.0 mmol/L BUN/Creatinine Ratio 31.8 29.5 Blood Urea Nitrogen 74 mg/dl 86 mg/dl Creatinine 2.33 mg/dl 2.92 mg/dl Potassium Level 3.8 mmol/L 4.8 mmol/L Sodium Level 129 mmol/L 128 mmol/L White Blood Count 17.93 K/uL 14.02 K/uL Red Blood Count 2.97 M/uL 2.89 M/uL Hemoglobin 8.4 g/dL 8.2 g/dL Hematocrit 26.2 % 26.0 % Mean Corpuscular Volume 88.2 fL 90.0 fL Mean Corpuscular Hemoglobin 28.3 pg 28.4 pg Mean Corpuscular Hemoglobin Concent 32.1 g/dl 31.5 g/dl Platelet Count 406 K/uL 369 K/uL Mean Platelet Volume 9.1 fL 9.3 fL Neutrophils (%) (Auto) 86.5 % 85.8 % Lymphocytes (%) (Auto) 3.7 % 4.9 % Monocytes (%) (Auto) 7.9 % 7.1 % Eosinophils (%) (Auto) 0.2 % 0.2 % Basophils (%) (Auto) 0.1 % 0.1 % Neutrophils # (Auto) 15.53 K/uL 12.05 K/uL Lymphocytes # (Auto) 0.66 K/uL 0.68 K/uL Monocytes # (Auto) 1.42 K/uL 0.99 K/uL Eosinophils # (Auto) 0.03 K/uL 0.03 K/uL Basophils # (Auto) 0.01 K/uL 0.01 K/uL Recent Pertinent Medications Outpatient Anti-diabetic Regimen: * Lantus 30 units in the morning plus 25 units in the PM, glipizide 10 mg BID * A1c = 8.5 % 04/2017 The patient is currently receiving: * Basal insulin: Lantus 30 units SQ in the morning and 12 units in the PM (Lantus 30 units held yesterday) * Correctional Insulin: Novolog Correction per scale ACHS Goal Range: Low 110 mg/dL - High 120 mg/dL Correction Factor: 15 mg/dL/unit * Prandial insulin: Per carb ratio of 1 unit per 5 grams CHO consumed Risk Factors for Insulin Resistance: * IVs: D5NS@ 75 mLs/hr * Infection: possible UTI on Rocephin * Diet: type 2 diabetic diet Assessment & Plan ASSESSMENT: * Ms Hensley is an 82 y/o F with a PMH of pulmonary fibrosis on chronic oxygen , CVA with hematoma, CKD with baseline creatinine of 2.0 mg/dL, recent fall with humerus fx, HTN, depression and well controlled type 2 diabetes (HbA1C goal for Ms Hensley is 8-8.5% per the Elements of Diabetes Care Scoring Guide) . She presents with fatigue on 06/30/17. Prior to admission, the patient took Lantus 25 units on 06/29/17 and glipizide on 06/30/17. Yesterday (07/01/17) the patient's blood sugars were 32 (treated with glucose)- [phone] (treated)- 121-100 and received 28 units of insulin (includes 12 units of Lantus yesterday evening). The patient has FERNANDO with creatinine of 2.48 mg/dL on admission and 2.92 mg/dL today. * This morning, the patient's blood sugar was 67 mg/dL then 83 mg/dL after treatment with glucose gel. She is 131 mg/dL. The patient has had dextrose infusing at 75 mLs/hr since 1500 yesterday. The patient's diet has greatly improved. The patient most likely has had several low blood sugars yesterday and today secondary to residual glipizide in the patient's system. Aggressive Novolog yesterday and Lantus also contributed. * For the Lantus, pharmacy will hold today since the patient was still low this morning. Consider restarting at 5-10 units tomorrow morning if blood sugars are rebounded sufficiently. For Novolog, will utilize a very loose weight-based stress of 1-2 scale. Also, goal range set at 140-180 mg/dL. Concerned for additional hypoglycemia with insulin administration although the risk decreases as we move further from last glipizide administration. * In terms of the future, I would hesitate in restarting glipizide in this patient secondary to kidney dysfunction and age/co-morbidities. PLAN FOR INPATIENT GLYCEMIC CONTROL: * Holding outpatient oral diabetes medications * Basal insulin with LANTUS -- units SQ BID * Correctional Insulin with NOVOLOG per scale ACHS or Q6hrs while NPO * Goal Range: Low 140 mg/dL - High 180 mg/dL * Correction Factor: 45 mg/dL/unit * Nutritional / Prandial insulin per carb ratio of 1 unit per 20 grams CHO consumed * Please note that the plan above was derived based on current level of insulin resistance and hospital stress. These recommendations are appropriate for inpatient admission only. Plan of care upon discharge will need to be reassessed to avoid potential outpatient hypo/hyperglycemia. Thank you.
[2017-07-02] MEDS: SODIUM CHLORIDE 0.9% 1000ML 1,000 ML IV SCH (13:37)
[2017-07-02] MEDS: POLYETHYLENE (MIRALAX) 17 GM PACK PO SCH (18:09)
[2017-07-02] MEDS: BOOST GLUCOSE CONTROL PO SCH (20:16)
[2017-07-02] MEDS: GABAPENTIN 100 MG CAP PO SCH (20:19)
[2017-07-02] MEDS: PRAVASTATIN SOD 40 MG TAB PO SCH (20:20)
[2017-07-02] MEDS: QUETIAPINE FUMARATE 25 MG TAB PO SCH (20:21)
[2017-07-03 03:55] VITALS: BP 111/66; PULSE 75; TEMP 36.7; O2SAT 92
[2017-07-03] MEDS: ACETAMINOPHEN 500 MG TAB PO SCH ×3 (05:38→21:36)
[2017-07-03] MEDS: INSULIN ASPART 100 UNITS/ML 3 ML PEN SC SCH ×4 (07:00→21:00)
[2017-07-03 08:03] VITALS: BP 118/62; PULSE 76; TEMP 36.5; O2SAT 91
[2017-07-03 08:10] LABS: HEMATOCRIT 32.3 % (37-47); HEMOGLOBIN 10.5 g/dL (12.0-16.0); MEAN CELL VOLUME 88.3 fL (80-100); MEAN CORPUSCULAR HEMOGLOBIN 28.7 pg (25-34); MEAN CORPUSCULAR HGB CONC 32.5 g/dl (32-36); MEAN PLATELET VOLUME 9.8 fL (7.4-10.4); NUCLEATED RED BLOOD CELL ABS 0.23 K/uL (0-0); PLATELET COUNT 368 K/uL (130-400); RED CELL DISTRIBUTION WIDTH CV 17.7 % (11.5-14.5); WHITE BLOOD COUNT 17.13 K/uL (4.8-10.8)
[2017-07-03] MEDS: SODIUM CHLORIDE 0.9% 1000ML 1,000 ML IV SCH (08:25)
[2017-07-03] MEDS: CEFTRIAXONE SOD INJ 1 GM in DEXTROSE 5% ADD-VANTAGE 50ML 50 ML IV SCH (08:25)
[2017-07-03] MEDS: DOCUSATE SODIUM 100 MG CAP PO SCH ×2 (08:41→21:36)
[2017-07-03] MEDS: VENLAFAXINE HCL XR 150 MG CAPXR PO SCH (08:41)
[2017-07-03] MEDS: METOLAZONE 5 MG TAB PO SCH (08:41)
[2017-07-03] MEDS: METOPROLOL TARTRATE 25 MG TAB PO SCH ×2 (08:41→21:36)
[2017-07-03] MEDS: PANTOprazole SOD 40 MG TAB PO SCH (08:41)
[2017-07-03] MEDS: LIDODERM (LIDOCAINE) PATCH 5% TD SCH (08:43)
[2017-07-03] MEDS: NYSTATIN POWDER 15GM BTL EXT SCH ×3 (08:43→21:35)
[2017-07-03] MEDS: CeleBREX 200 MG CAP PO SCH (08:43)
[2017-07-03] MEDS: BOOST GLUCOSE CONTROL PO SCH ×2 (08:44→21:34)
[2017-07-03 09:00] LABS: CALCIUM 8.8 mg/dl (8.5-10.1); CREATININE 3.22 mg/dl (0.60-1.20); POTASSIUM 5.6 mmol/L (3.5-5.1)
[2017-07-03] MEDS ORDERED: INSULIN GLARGINE SOLOSTAR 100 UNITS/ML 3 ML PEN SC SCH (09:00)
[2017-07-03] MEDS ORDERED: SODIUM POLYST. SULF SUSP 15G/60ML PO ONE (11:30)
[2017-07-03 11:45] VITALS: BP 132/77; PULSE 79; TEMP 36.4; O2SAT 91
--- NOTE | 2017-07-03 12:20 | Pharmacy Progress Note ---
Pharmacy Glycemic Short Note 2 Date of Service Jul 03, 2017. OUTPATIENT ANTIDIABETIC REGIMEN: * Lantus 30 units in the morning plus 25 units in the PM, glipizide 10 mg BID * A1c = 8.5 % 04/2017 ASSESSMENT: * See progress note from 07/02/16 for background info, in short: * Patient receiving SQ basal/bolus regimen for baseline DM (outpatient regimen on hold). Insulin dosing decreased on 07/01 and 07/02 due to hypoglycemia. Patient is on significantly less insulin compared to outpatient dose of 55 units /day. * Fasting BSG improved today (127 mg/dL). Lantus was held yesterday. I will resume today at low dose of 5 units daily. * Prandial BSGs at goal. No change to bolus insulin. PLAN FOR INPATIENT GLYCEMIC CONTROL: * Hold outpatient oral diabetes medications * Basal insulin * Lantus 5 units SQ daily * Bolus insulin * NovoLog per scale ACHS or Q6hrs while NPO * Goal Range: Low 140 mg/dL - High 180 mg/dL * Correction Factor: 45 mg/dL/unit * Nutritional / Prandial insulin per carb ratio of 1 unit per 20 grams CHO consumed PLAN FOR DISCHARGE: * A1c 8.5% on 04/22/17 * Recommend discontinuation of glipizide secondary to kidney dysfunction and age /co-morbidities. * Uncertain of Lantus needs at this time.
--- NOTE | 2017-07-03 13:35 | Hospitalist Progress Note ---
Hospitalist Progress Note Date of Service Jul 03, 2017. (Patience Cuellar PA-C) Subjective Pt evaluation today including: conversation w/ patient, physical exam, chart review, lab review, review of studies Pain: none PO Intake: fair Voiding: no voiding problems The patient was seen and examined this morning. Pt reports doing ok today. She feels her breathing is about the same today compared to yesterday, but she seems to be breathing through her mouth more, and feels she's really dry. She denies any acute pain or other complaints. ROS: Constitutional: No fever, sweats or chills Eyes: No diplopia, no worsening or blurred vision ENT: normal hearing, no trouble swallowing Respiratory: No cough, sputum, dyspnea at rest or on exertion Cardiovascular: No chest pain, tightness or palpitations Abdomen: No pain, nausea, vomiting, diarrhea or constipation Musculoskeletal: L sided arm/shoulder pain resolved, no calf pain, swelling Neurologic: No weakness, numbness/tingling, or balance problems Psychiatric: No anxiety or depression Skin: No rash or itch (Patience Cuellar PA-C) Objective Vital Signs Date Time Temp Pulse Resp B/P (MAP) Pulse Ox O2 Delivery O2 Flow Rate FiO2 07/03/17 12:00 Oxymask 6.0 07/03/17 11:45 36.4 79 18 132/77 (95) 91 07/03/17 08:03 36.5 76 20 118/62 (80) 91 5.0 07/03/17 08:00 Nasal Cannula 6.0 07/03/17 04:00 Nasal Cannula 5.0 07/03/17 03:55 36.7 75 20 111/66 (81) 92 Nasal Cannula 5.0 07/03/17 00:00 Nasal Cannula 5.0 07/02/17 23:13 36.4 92 20 119/58 (78) 92 Nasal Cannula 5.0 07/02/17 20:38 36.7 86 19 121/79 93 5.0 07/02/17 20:00 Nasal Cannula 5.0 07/02/17 19:30 36.6 80 20 123/74 92 5.0 07/02/17 18:30 36.5 80 16 115/71 92 5.0 07/02/17 18:15 36.5 79 18 100/51 93 5.0 07/02/17 18:00 36.5 75 16 110/70 92 07/02/17 17:45 36.4 75 16 113/70 95 5.0 07/02/17 16:00 92 Nasal Cannula 5.0 07/02/17 15:51 36.5 75 20 104/48 (66) 96 Nasal Cannula 6.0 (Patience Cuellar PA-C) Physical Exam Notes: General Appearance: WD/WN, no apparent distress, + obese Eyes: PERRL, EOMI ENT: hearing grossly normal, pharynx normal, + pertinent finding (MMD, mouth breathing) Neck: supple, no JVD Respiratory/Chest: chest non-tender, lungs clear, no respiratory distress, no accessory muscle use, + pertinent finding (on 6 L via NC) Cardiovascular: regular rate, rhythm, no murmur Abdomen: normal bowel sounds, non tender, soft Extremities: no calf tenderness, + pedal edema (+1 pitting edema BLE), + pertinent finding (Left arm in sling, + ecchymosis overlying upper arm. ) Neurologic/Psychiatric: no motor/sensory deficits, alert, normal mood/affect, oriented x 3, + pertinent finding (no motor deficits, no sensory deficits) Skin: normal color, warm/dry (Patience Cuellar, ANGELA) Laboratory Results Last 24 Hours Test 07/02/17 16:09 07/02/17 20:09 07/03/17 00:03 07/03/17 06:39 Bedside Glucose 105 mg/dl 72 mg/dl 84 mg/dl 127 mg/dl Test 07/03/17 07:52 07/03/17 11:09 White Blood Count 17.13 K/uL Red Blood Count 3.66 M/uL Hemoglobin 10.5 g/dL Hematocrit 32.3 % Mean Corpuscular Volume 88.3 fL Mean Corpuscular Hemoglobin 28.7 pg Mean Corpuscular Hemoglobin Concent 32.5 g/dl RDW Standard Deviation 53.0 fL RDW Coefficient of Variation 17.7 % Platelet Count 368 K/uL Mean Platelet Volume 9.8 fL Nucleated RBC Absolute Count (auto) 0.23 K/uL Nucleated Red Blood Cells % 1.3 % Sodium Level 127 mmol/L Potassium Level 5.6 mmol/L Chloride Level 94 mmol/L Carbon Dioxide Level 21 mmol/L Anion Gap 13.0 mmol/L Blood Urea Nitrogen 97 mg/dl Creatinine 3.22 mg/dl Est Creatinine Clear Calc Drug Dose 9.3 ml/min Estimated GFR () 14.9 Estimated GFR (Non- 12.8 BUN/Creatinine Ratio 30.0 Random Glucose 111 mg/dl Calcium Level 8.8 mg/dl Bedside Glucose 119 mg/dl (Patience Cuellar, PALukasz) Assessment and Plan 82 y/o F who was admitted on 06/30 for weakness, CT head showed possible subacute hematoma in thalamus, UA showed signs of infection, WBC 15k Brain hematoma, possibly subacute, thalamus d/t fall - case d/w Dr. Parson (neurosurgeon) at time of admission - recommends holding aspirin/plavix, maintaining systolic BP <150, no need for keppra, and no need for repeat imaging unless pt develops neuro sx. no neuro deficits x 48 hrs - no acute intervention required at this time - Dr. Parson willing to re-eval if any plans for changes in intervention. UTI with sepsis, present on arrival- dupree catheter in place - no signs of organ failure or shock - start Rocephin 1000mg IV daily- started on 07/01 - UCx growing lactobacillus - no other sensitivity to follow. BCx NGTD - WBC trending downward Elevated trop: noted on last admission and similar value at 0.963, trended down to 0.704 - no chest pain or pressure - ECHO on last admission was WNL, will not repeat unless trop becomes more elevated FERNANDO on CKD stage III/IV: - increased this AM at 3.22 acutely despite maintenance fluids. Will hold metolazone today. - likely due to poor oral intake in past few days. Pt reports her appetite is slowly improving - Due to increased breathing and requirements for 6L on NC, along with bibasilar crackles will hold fluids this morning. - Repeat PRP at 1400 Hyperkalemia - Lactulose ordered this morning x 1 dose - recheck prp - will also help to provide BM as hasn't had one in several days. HypoNa: likely nutritional given decreased PO intake per family - Today at 127, follow prp - remains between 127-129 throughout admission - Will consult nephrology DM: Lantus + SSI PRN - A1c 04/2017 was 8.5, will not recheck - hypoglycemia this AM, stop Glipizide, held Lantus, continue to monitor closely HTN: continue home meds - Maintain systolic BP <150 per neurosurg recs CVA: holding aspirin/plavix as above due to hematoma Anemia: stable, Hgb improved to 10.5 s/p 1 U PRBCs on 07/02- denies lightheadedness, dizziness and fatigue. Pts baseline hgb seems to be around 12 - Pt has not had a bm today, no obvious signs of bleeding. Left humerus fracture: occurred prior to last admission - not doing well at home, looking into rehab - supposed to see Orthopedic surgery this week Consider repeat Xray once other medical issues improving. Severe Albuminemia, Protein calorie malnutrition - 2.1 on labs, encourage increase in nutrition to promote healing. Continue boost breeze BID Pulmonary Fibrosis, chronic hypoxic respiratory failure. - Continue on home O2 of 3 L DVT ppx: SCDs for DVT proph given hematoma Code Status: DNR/DNI Disposition: From home, was living with sister, will need PT/OT and likely acute rehab stay (Patience Cuellar, ANGELA) Supervising Note Dr. Dougherty I performed a history and physical examination on the patient. I reviewed above note and agree with it. I discussed plan with APC and patient. During my face to face encounter with the patient, I answered all of the patient's questions. Patient states that she feels worse today, and has told family she feels like dying. Family agrees that patient appears to be deteriorating gradually. We had an at length conversation with family, updating them on her condition. At this point, unsure as to why patient's creatinine continues to worsen. Patient also is requiring more oxygen. Will obtain a nephrology consult. Family is also considering palliative care. will revisit this topic likely soon if patient continues to worsen. (Davion Dougherty M.D.)
--- NOTE | 2017-07-03 14:08 | DIAGNOSTIC IMAGING REPORT ---
CHEST ONE VIEW PORTABLE CLINICAL HISTORY: 82 years-old Female presenting with desaturation. TECHNIQUE: Portable upright AP view of the chest was obtained. COMPARISON: 06/30/2017. FINDINGS: Atherosclerosis of aortic arch. Cardiac silhouette enlarged. Partial obscuration of the left heart border as on prior exam. Heterogeneous lung markings. Stable to slight interval increase in patchy central and basilar predominant opacities, left greater than right. No large pneumothorax. Redemonstration of the comminuted displaced left humeral neck fracture. Upper abdomen normal. IMPRESSION: 1. Cardiomegaly with findings suggestive of pulmonary edema, which is stable slightly worsened from prior. Infection is difficult to exclude. 2. This may be superimposed on chronic lung disease, such as emphysema. 3. Comminuted left humeral neck fracture. Electronically signed by: Sorin Cadena M.D. 07/03/2017 2:06 PM Dictated Date/Time: 07/03/2017 2:04 PM
[2017-07-03 14:36] LABS: CALCIUM 8.7 mg/dl (8.5-10.1); CREATININE 3.25 mg/dl (0.60-1.20); POTASSIUM 5.4 mmol/L (3.5-5.1)
[2017-07-03 16:02] VITALS: BP 140/54; PULSE 84; TEMP 36.8; O2SAT 92
[2017-07-03] MEDS: FUROSEMIDE INJ 80 MG in SYRINGE 0 ML IV SCH (18:57)
--- NOTE | 2017-07-03 19:04 | NEPHROLOGY CONSULTATION ---
DATE OF CONSULTATION: 07/03/2017 RENAL CONSULTATION FOR: [facility] Hospitalist Service. SUBJECTIVE: Mrs. Hensley is an 82-year-old woman that I have followed for many years. She has a longstanding history of type 2 diabetes mellitus which has been insulin-dependent within recent years. Her regimen before her recent acute illness included glipizide 10 mg twice daily, and Lantus insulin 35 units in the morning and 15 units in the evening. She said that she was checking her blood sugars regularly. However, apparently that only meant once a day. She had not checked her blood sugars after the holidays. She denies having had any recent polyuria, polydipsia or specific target organ symptoms of diabetes. She denies having episodes of hypoglycemia at least before her admissions. She says her blood sugars generally range between 40 and 118 in the morning. She will sporadically check blood sugars throughout the remainder of the day and she said that she rarely sees blood sugars in excess of 168. However, hemoglobin A1c done on May 02 was 8.5%. Despite her denials, complications of her diabetes appear to include a peripheral neuropathy which has been fairly well controlled with the use of gabapentin 100 mg taken at bedtime. She also has a longstanding history of hypertension. For the most part that has been fairly well controlled with a combination of metolazone 5 mg daily and metoprolol tartrate 50 mg twice daily. She has had no specific recent target organ symptoms of hypertension nor she had any symptoms of cardiovascular, cerebrovascular or peripheral vascular disease. In addition to her antihypertensive medications, she does take an 81 mg aspirin a day and clopidogrel 75 mg daily. These were started in November of 2012 after she had an admission complaining of chest discomfort. Further evaluation was not felt to be necessary at that time, however, but nonetheless the medications were prescribed by cardiology. Additionally, she has a history of hypercholesterolemia. That has been managed with the use of pravastatin 40 mg taken at bedtime. Mrs. Hensley has a history of chronic renal insufficiency. Her serum creatinine within recent years has been approximately 2.3. That was the level when last checked in April of 2017. Renal insufficiency; however, had been present for quite some time. Her workup in the past has been unremarkable with an unremarkable urine sediment. Renal artery Dopplers have shown less than a 60% stenosis bilaterally. She also has a history of breast cancer. That appears to be in remission and she is being followed by oncology. Finally, she has a history of restrictive lung disease. She is being followed for that by Dr. Sae Baldwin. She has an occasional cough and some minimal dyspnea with exertion. However, she does not get much in the way of any regular exercise. Dr. Baldwin has felt that she is progressing slowly with the problem. At home, she does use oxygen at a flow rate of 2 liters per minute. With the above history, Mrs. Hensley had a fall on the morning of May 31 at about 4:00 a.m. She is unsure exactly why she fell. However, she did hit her head hard and had some transient blurred vision, which cleared within a few minutes. She said that she laid on the floor for about 5 hours. She was brought to the hospital by family members who found her. At that time, she did mention that she had had some occasional chest discomfort about a week before her fall. Nonetheless, she denied having any lightheadedness or dizziness. Her evaluation during that time showed that her creatinine was basically at her baseline level. Imaging studies showed an acute comminuted displaced, impacted and angulated fracture of the proximal left humerus with fractures involving the humeral neck greater and lesser tuberosities. She had no definite humeral head fracture noted. She had a moderate degree of bone demineralization. There was moderate soft tissue swelling at that time. Initially, surgical repair was considered, but it was ultimately decided that she should be treated conservatively using a sling. During that hospitalization, her hemoglobin was initially 12.1. However, it gradually fell throughout the several days of her hospitalization to about 10.2 at the time of her discharge. She was transferred to [facility]. She was to have worn the sling for 6 weeks and then start physical therapy. She was discharged from a [facility] shortly before her readmission here. However, when she returned home, she was continuing to have left arm pain and was weak. She was dyspneic with ambulation but there were multiple reasons for that, most notably her pulmonary fibrosis. Her oral intake was poor. She did not have a particularly good appetite. She was eating small meals and snacks. The family did notice increasing ecchymoses involving her left upper extremity. She did not have any specific neurologic symptoms or problems. However, the family did note to be weak and occasionally confused. Because of those symptoms, she was brought back to the Emergency Room. She was noted to have a left upper arm hematoma. A CT scan of her head was done which did show evidence of a "subtle" 8 mm hyperdense focus within the superior left thalamus/internal capsule. It was felt that this might be an artifact, but radiology felt that the appearance was consistent with a small hematoma, possibly subacute. They recommended only a follow up CT, particularly if she had any progressive neurologic symptoms or problems. At the time of her admission on the , her BUN was 63 and her creatinine 2.48. Her serum albumin was 2.5. A BNP was 22,795. Her troponin was minimally elevated at 0.963. It remained fairly stable in that range. Since she was admitted to the hospital, she has persistently been short of breath. She is receiving oxygen by mask. Oxygen saturations have been in the low 90s. Her urine output has been scanty and her intake has exceeded her output by about 2-1/2 liters. Her weight has gone up from 74.2 kilograms to 77.3 kilograms. She remained short of breath. A chest x-ray has shown increasing evidence of pulmonary vascular congestion. She does have the changes of pulmonary fibrosis noted. Her appetite remains poor. She says she cannot taste food and her mouth is somewhat sore. MEDICATIONS: Her medications immediately prior to this admission included acetaminophen 1 gram q. 8 hours p.r.n. pain and 81 mg aspirin, Celebrex 200 mg daily, clopidogrel 75 mg daily, docusate sodium 100 mg daily, gabapentin 100 mg at bedtime, glipizide 10 mg b.i.d., Lantus insulin 30 units in the morning and 25 units in the evening; lidocaine patch to her left upper arm, on for 12 hours then off for 12 hours; metolazone 5 mg daily, metoprolol tartrate 25 mg b.i.d., nitroglycerin 0.4 mg sublingual p.r.n., Nystatin to the left underarm area t.i.d., oxycodone 5 mg q. 6 hours p.r.n. pain, Protonix 40 mg daily, MiraLax 17 grams every other day p.r.n., pravastatin 40 mg daily, Seroquel 50 mg daily, venlafaxine 150 mg in the morning and 75 mg at night on a p.r.n. basis only for anxiety. ALLERGIES: AUGMENTIN, APPARENTLY GIVES HER ALLERGIES OR SIDE EFFECTS. The remainder of her past medical history, family history, social history and review of systems appears on her prior admission notes and will not be repeated. There is nothing significant to add. DATA: Her hospital course has shown a steady rise in her BUN and creatinine to their levels today of a BUN of 97 and a creatinine of 3.25. Electrolytes show a sodium of 126 mmol/L, potassium 5.4 mmol/L, chloride of 94 mmol/L, and CO2 content of 20 mmol/L. Her blood sugars have varied from 84-141. Her serum calcium is 8.7. Urinalysis showed a specific gravity of 1.020. She had a moderate amount of leukocyte esterase and greater than 30 white cells per high power field and 10-30 red cells per high power field as well as 5-10 hyalin casts and greater than 30 epithelial cells per low power field. She had 4+ bacteria in her urine. A urine culture shows only a lactobacillus species. Blood cultures x2 have been negative. OBJECTIVE: GENERAL: On physical examination at the current time, Mrs. Hensley appears as an acutely and chronically ill woman of about her stated age of 82. VITAL SIGNS: Her blood pressure this evening is 140/54 with a pulse of 84 and regular. Respiratory rate is 18, her pulse ox 92% with oxygen administered by an OxyMask at 6 liters per minute. She is afebrile (36.8). SKIN: Shows essentially normal skin turgor. She has a scar at the site of her right breast from her lumpectomy. Her skin turgor seems normal. She has other scars from prior procedures. She has no palpable lymphadenopathy. HEAD: Normal. EYES: Grossly normal. The ocular fundi were not examined. EARS, NOSE, MOUTH AND THROAT: Remarkable for dry oral mucous membranes and patchy white spots over her tongue consistent with moniliasis. NECK: Supple. She does have jugular venous distention at about 60 degrees. I hear no carotid bruits and there is no thyromegaly. CHEST: Shows bibasilar crackles more prominent on the left than on the right. These are consistent with her pulmonary fibrosis. I hear no wheezes or rhonchi. CARDIAC: Shows a regular rhythm. S1 and S2 are normal. There is no murmur or gallop. ABDOMEN: Nontender. She has no organomegaly or mass. There is no CVA tenderness. I hear no abdominal bruits. EXTREMITIES: Show no cyanosis, clubbing or peripheral edema. Peripheral pulses are intact, but diminished. BACK: Her examination of her back shows no tenderness over the dorsal spine. She has significant skin creasing and 1+ pitting of her lumbar area. NEUROLOGIC: Shows no obvious lateralizing changes. ASSESSMENT: Mrs. Hensley was admitted to the hospital with some confusion. She has had worsening anemia. She was transfused in the hospital with 1 unit of packed cells and her hemoglobin does appear to be somewhat improved. Nonetheless, probably because of the bleeding as well as a poor oral intake and her chronic medical illnesses, her serum albumin is quite low. She is obviously edematous, particularly in her left arm and upper back. Her left arm shows significant ecchymoses. Currently, she appears to have a normal blood pressure. Her chest exam is difficult to interpret as to whether or not there are changes of volume overload or if the rales are purely from her pulmonary fibrosis. Nonetheless, she does have normal skin turgor, jugular veins appear to be distended, her chest x-ray shows changes of pulmonary vascular congestion and possible early pulmonary edema. Her BNP is significantly elevated as well. Therefore, despite her low serum albumin, I still think that she is significantly intravascularly volume overloaded. To a great extent, this may be mostly right-sided heart failure. However, I would still be concerned that there is a left-sided component leading to decreased renal perfusion and prerenal azotemia superimposed on her chronic renal disease. I do think she has oral thrush at this time. RECOMMENDATIONS: Would give her Lasix 80 mg IV tonight and tomorrow. Follow basic metabolic profile and serum albumin on a daily basis. We will make further recommendations as we see how she does. I would be reluctant to give her albumin despite her low serum albumin, particularly if she appears to be in some degree of congestive heart failure at this time. Strict I and O's should be enforced. No other immediate recommendation at this time, but I will make further recommendations as her clinical course unfolds.
[2017-07-03 20:03] VITALS: BP 120/78; PULSE 87; TEMP 36.6; O2SAT 90
[2017-07-03] MEDS: PRAVASTATIN SOD 40 MG TAB PO SCH (21:37)
[2017-07-03] MEDS: QUETIAPINE FUMARATE 25 MG TAB PO SCH (21:37)
[2017-07-03] MEDS: GABAPENTIN 100 MG CAP PO SCH (21:38)
[2017-07-03 23:15] VITALS: BP 125/79; PULSE 86; TEMP 36.6; O2SAT 91
[2017-07-04] VITALS (7 sets, daily range): BP systolic 125–134; BP diastolic 69–82; PULSE 80–92; TEMP 36.5–36.9; O2SAT 90–94
[2017-07-04] MEDS: ACETAMINOPHEN 500 MG TAB PO SCH ×3 (06:01→21:48)
[2017-07-04 06:25] LABS: HEMATOCRIT 31.3 % (37-47); HEMOGLOBIN 10.3 g/dL (12.0-16.0); MEAN CELL VOLUME 87.7 fL (80-100); MEAN CORPUSCULAR HEMOGLOBIN 28.9 pg (25-34); MEAN CORPUSCULAR HGB CONC 32.9 g/dl (32-36); MEAN PLATELET VOLUME 9.3 fL (7.4-10.4); NUCLEATED RED BLOOD CELL ABS 0.18 K/uL (0-0); PLATELET COUNT 351 K/uL (130-400); RED CELL DISTRIBUTION WIDTH SD 53.2 fL (36.4-46.3); WHITE BLOOD COUNT 15.07 K/uL (4.8-10.8)
[2017-07-04 07:00] LABS: ALBUMIN 2.2 gm/dl (3.4-5.0); CALCIUM 8.6 mg/dl (8.5-10.1); CREATININE 3.15 mg/dl (0.60-1.20); POTASSIUM 4.2 mmol/L (3.5-5.1)
[2017-07-04] MEDS: CEFTRIAXONE SOD INJ 1 GM in DEXTROSE 5% ADD-VANTAGE 50ML 50 ML IV SCH (08:04)
[2017-07-04] MEDS: FUROSEMIDE INJ 80 MG in SYRINGE 0 ML IV SCH ×2 (08:04→17:07)
[2017-07-04] MEDS: NYSTATIN POWDER 15GM BTL EXT SCH ×3 (08:04→21:47)
[2017-07-04] MEDS: CeleBREX 200 MG CAP PO SCH (08:05)
[2017-07-04] MEDS: PANTOprazole SOD 40 MG TAB PO SCH (08:05)
[2017-07-04] MEDS: VENLAFAXINE HCL XR 150 MG CAPXR PO SCH (08:05)
[2017-07-04] MEDS: LIDODERM (LIDOCAINE) PATCH 5% TD SCH (08:06)
[2017-07-04] MEDS: METOPROLOL TARTRATE 25 MG TAB PO SCH ×2 (08:06→22:41)
[2017-07-04] MEDS: DOCUSATE SODIUM 100 MG CAP PO SCH ×2 (08:06→22:40)
[2017-07-04] MEDS: BOOST GLUCOSE CONTROL PO SCH ×2 (08:08→21:47)
[2017-07-04] MEDS: INSULIN ASPART 100 UNITS/ML 3 ML PEN SC SCH ×4 (08:12→21:53)
[2017-07-04] MEDS: INSULIN GLARGINE SOLOSTAR 100 UNITS/ML 3 ML PEN SC SCH (08:13)
--- NOTE | 2017-07-04 08:43 | Hospitalist Progress Note ---
Hospitalist Progress Note Date of Service Jul 04, 2017. (Patience Cuellar PA-C) Subjective Pt evaluation today including: conversation w/ patient, physical exam, chart review, lab review, review of studies Pain: None PO Intake: Poor Voiding: dupree catheter in place The patient was seen and examined this morning. Pt seems more confused this morning and initially has difficulty answering my questions. She is only oriented to place, not date, time or president. She remembers family being here yesterday. Pt denies any acute complaints and states "I think my breathing is better today ". She denies feeling any chest pain or shortness of breath. Pt thinks today overall is a better day than yesterday. Constitutional: + fatigue, No fever, No chills, No sweats Eyes: No redness, No diplopia ENT: No nasal symptoms, No trouble swallowing Respiratory: No cough, No wheezing, No dyspnea at rest Cardiovascular: No chest pain, No PND, No palpitations Abdomen: No pain, No nausea, No vomiting, No diarrhea, No constipation Musculoskeletal: + joint pain (Left shoulder pain with movement), No muscle pain, No calf pain Neurologic: + weakness Endo: + fatigue (Patience Cuellar PA-C) Objective Vital Signs Date Time Temp Pulse Resp B/P (MAP) Pulse Ox O2 Delivery O2 Flow Rate FiO2 07/04/17 07:44 36.6 87 20 134/69 (90) 90 Oxymask 6.0 07/04/17 04:00 Oxymask 6.0 07/04/17 03:37 36.5 92 20 133/76 (95) 92 Oxymask 6.0 07/04/17 00:02 Oxymask 6.0 07/03/17 23:15 36.6 86 20 125/79 (94) 91 Oxymask 6.0 07/03/17 20:04 Oxymask 6.0 07/03/17 20:03 36.6 87 22 120/78 (92) 90 Oxymask 6.0 07/03/17 16:02 36.8 84 18 140/54 (82) 92 Oxymask 6.0 07/03/17 16:00 Oxymask 6.0 07/03/17 12:00 Oxymask 6.0 07/03/17 11:45 36.4 79 18 132/77 (95) 91 (Patience Cuellar PA-C) Physical Exam Notes: General Appearance: WD/WN, no apparent distress, + obese Eyes: PERRL, EOMI ENT: hearing grossly normal, pharynx normal, + pertinent finding (MMD, mouth breathing on oximask) Neck: supple, no JVD Respiratory/Chest: chest non-tender, no respiratory distress, no accessory muscle use, + pertinent finding (on 6 L via oximask, bibasilar rales, no wheeze) Cardiovascular: regular rate, rhythm, no murmur Abdomen: normal bowel sounds, non tender, soft Extremities: no calf tenderness, + pedal edema (+1 pitting edema BLE ), + pertinent finding (Left arm in sling, + ecchymosis overlying upper arm. ) Neurologic/Psychiatric: no motor/sensory deficits, alert, normal mood/affect, oriented only to place, not time date or president, (no motor deficits, no sensory deficits) Skin: normal color, warm/dry (Patience Cuellar PA-C) Laboratory Results Last 24 Hours Test 07/03/17 11:09 07/03/17 14:04 07/03/17 20:37 07/04/17 05:21 Bedside Glucose 119 mg/dl 157 mg/dl Sodium Level 126 mmol/L 129 mmol/L Potassium Level 5.4 mmol/L 4.2 mmol/L Chloride Level 94 mmol/L 92 mmol/L Carbon Dioxide Level 20 mmol/L 22 mmol/L Anion Gap 12.0 mmol/L 15.0 mmol/L Blood Urea Nitrogen 97 mg/dl 101 mg/dl Creatinine 3.25 mg/dl 3.15 mg/dl Est Creatinine Clear Calc Drug Dose 9.2 ml/min 9.4 ml/min Estimated GFR () 14.7 15.3 Estimated GFR (Non- 12.7 13.2 BUN/Creatinine Ratio 30.0 32.0 Random Glucose 141 mg/dl 171 mg/dl Calcium Level 8.7 mg/dl 8.6 mg/dl White Blood Count 15.07 K/uL Red Blood Count 3.57 M/uL Hemoglobin 10.3 g/dL Hematocrit 31.3 % Mean Corpuscular Volume 87.7 fL Mean Corpuscular Hemoglobin 28.9 pg Mean Corpuscular Hemoglobin Concent 32.9 g/dl RDW Standard Deviation 53.2 fL RDW Coefficient of Variation 18.0 % Platelet Count 351 K/uL Mean Platelet Volume 9.3 fL Nucleated RBC Absolute Count (auto) 0.18 K/uL Nucleated Red Blood Cells % 1.2 % Albumin 2.2 gm/dl Test 07/04/17 06:34 Bedside Glucose 172 mg/dl (Patience Cuellar, ANGELA) Assessment and Plan 82 y/o F who was admitted on 06/30 for weakness, CT head showed possible subacute hematoma in thalamus, UA showed signs of infection, WBC 15k 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 Will reinitiate metalazone for diuresis - ? Cardiorenal syndrome since Cr improved with diuresis - will continue with strict I/Os. Pt is out ~ 2L, will also watch daily weights. - Still requiring 6L on NC/oximask, typically wears 2 L at home, but her O2 sats have improved from high 80s to mid 90s - Repeat PRP with am labs Hyperkalemia - Improved after dose of Lactulose x 1 dose and aggressive diuresis, follow prp HypoNa: likely nutritional given decreased PO intake per family - Today at 129 due to diuresis, follow prp - remains between 127-129 throughout admission - Nephrology on board- appreciate recs Sore mouth - Mouth swabbed for monilia - if positive then treat with nystatin. - Pt does not have white plaque on exam however does look erythematous and dry. - Will order mouth care and encourage fluid intake. Metabolic Encephalopathy - AMS seems to wax and wane- oriented only to place and says "[facility]". Answers are sometimes uninterpretable due to low speaking voice. - ABG done this morning showing acidosis - appears to be similar to previous abg done in mid May. Brain hematoma, possibly subacute, thalamus - d/t fall - this was the reason for admission - case d/w Dr. Parson (neurosurgeon) at time of admission - continue to hold aspirin/plavix, maintaining systolic BP <150, no need for keppra, and no need for repeat imaging unless pt develops neuro sx. no neuro deficits x 72 hrs no acute intervention - Dr. Parson willing to re-eval if any plans for changes in intervention. UTI with sepsis, present at time of admission- dupree catheter in place - Resolving - no signs of organ failure or shock - start Rocephin 1000mg IV daily- started on 07/01 and continue for now - UCx growing lactobacillus - no other sensitivity to follow. BCx NGTD - WBC trending downward Elevated trop: noted on last admission and similar value at 0.963, trended down to 0.704 - no chest pain or pressure - ECHO on last admission was WNL, will not repeat unless trop becomes more elevated DM: Lantus + SSI PRN - A1c 04/2017 was 8.5, will not recheck - hypoglycemia this AM, stop Glipizide, held Lantus, continue to monitor closely HTN: continue home meds - Maintain systolic BP <150 per neurosurg recs CVA: holding aspirin/plavix as above due to hematoma Anemia: stable, Hgb improved to 10.5 s/p 1 U PRBCs on 07/02- denies lightheadedness, dizziness and fatigue. - Remains stable around 10.3 today - baseline hgb seems to be around 12 Left humerus fracture: occurred prior to last admission - not doing well at home, looking into rehab - supposed to see Orthopedic surgery this week Consider repeat Xray once other medical issues improving. - PT/OT on board - she will need rehab at the time of discharge. Severe Albuminemia, Protein calorie malnutrition - 2.2 on labs, encourage increase in nutrition to promote healing. Continue boost breeze BID Pulmonary Fibrosis, chronic hypoxic respiratory failure. - Continue on home O2 of 3 L DVT ppx: SCDs for DVT proph given hematoma Code Status: DNR/DNI Disposition: From home, was living with sister, will need PT/OT and rehab vs SNF stay Discussion held with family at bedside on 07/03 regarding her slow decline - pt noted that she wanted to yesterday afternoon. Discussion about palliative care consultation was held and at this time the family seems agreeable if this is needed. (Patience Cuellar, ANGELA) Supervising Note Dr. Dougherty I performed a history and physical examination on the patient. I reviewed above note and agree with it. I discussed plan with APC and patient. During my face to face encounter with the patient, I answered all of the patient's questions. Spoke with son who was at bedside and I updated him on her status. Will continue to closely monitor her. Continue diuretics and monitoring her renal function. (Davion Dougherty M.D.)
--- NOTE | 2017-07-04 11:36 | NEPHROLOGY PROGRESS NOTE ---
DATE: 07/04/2017 SUBJECTIVE: Mrs. Hensley seems quite weak and fatigued. She says that she can barely move. Her speech is soft and sometimes barely intelligible. She denies being short of breath at rest. She is now using nasal oxygen. She continues to complain of her mouth being somewhat sore. OBJECTIVE: GENERAL: On physical exam, Mrs. Hensley appears as an acutely and chronically ill woman of about her stated age of 82. She is weak and lethargic. Her voice is soft and as noted sometimes unintelligible. VITAL SIGNS: Her temperature is 36.6, her blood pressure 134/69, her pulse 87 and regular, respiratory rate 20, her pulse ox 90%-92% on 6 liters of oxygen. SKIN: Continues to show normal skin turgor. She has marked ecchymoses of her left upper arm. She has scars from prior surgical procedures. She has no palpable adenopathy. HEAD: Grossly normal. EYES: Grossly normal. The ocular fundi were not examined. Extraocular movements are intact and her pupils respond to light. EARS, NOSE, MOUTH AND THROAT: Unremarkable, although her oral mucous membranes seem a bit dry, particularly her tongue. She continues to have a few small white patches on her tongue consistent with thrush. NECK: Supple. She still has jugular venous distention at about 45 degrees. I hear no carotid bruit and there is no thyromegaly. CHEST: Shows bibasilar coarse rales consistent with her pulmonary fibrosis. Breath sounds otherwise seem clear. CARDIAC: Shows a regular rhythm. S1 and S2 are normal. I do not hear a definite murmur or gallop. ABDOMEN: Nontender. There is no organomegaly or mass. Bowel sounds are normal. EXTREMITIES: Show no cyanosis, clubbing or peripheral edema. She still has some significant creasing and minimal edema in her lumbosacral area. NEUROLOGIC: Shows her to be globally weak, but she has no lateralizing findings. Since the administration of Lasix last night and today, her urine output has been quite good. She put out 2250 mL of urine yesterday and 1750 already today. Her cumulative I&O since admission is that she has negative 560 mL. Her laboratory work from today shows a white count down slightly to 15,070. A differential was not done and her hemoglobin is stable at 10.3 with a hematocrit of 31.3. Her platelet count is 351,000. Her clinical chemistries show a sodium up to 129 mEq/L, potassium 4.2 mEq/L, chloride is 92 mEq/L, and CO2 content 22 mEq/L. Her BUN is relatively stable at 101. Her creatinine is down slightly to 3.15. Blood sugars range from 141-172. Her serum calcium is 2.2. ASSESSMENT: Purely from the standpoint of her renal function, it appears that she is stable or slightly improved. Certainly, her urine output has significantly improved in response to Lasix. Of note, is the fact however, that her anion gap seems to be higher at 15. Taking into account her serum albumin, her anion gap may be as high as 20, which should be of concern for worsening metabolic acidosis. That coupled with her underlying pulmonary disease may give her an even more significant acidemia. The blood gases would be helpful in that regard. Her total CO2 is up slightly as I would have expected with the diuresis that she had with Lasix. RECOMMENDATIONS: 1. Continue with Lasix for now. 2. We would check arterial blood gases to see not only how she is oxygenating, but whether or not she has a significant acidemia. 3. We would watch her laboratory work closely. If she continues to diurese, we would expect a gradual fall off of her BUN and creatinine. However, since I believe that her right-sided heart failure may be worse than her left-sided heart failure and because she is hypoalbuminemic, it may be that we will see an upward trend in her BUN and creatinine from intravascular volume depletion once we get to that level. When that occurs, we will need to back off her diuretics. Hopefully, that will not happen for another day or two. 4. Wait to see if her potassium hydroxide prep of her mouth swab is positive for monilia. If so, treatment with oral Nystatin or Mycelex would probably help with her symptoms. No other immediate recommendations, but I will continue to follow her with you.
[2017-07-04] MEDS ORDERED: INSULIN GLARGINE SOLOSTAR 100 UNITS/ML 3 ML PEN SC SCH (16:45)
[2017-07-04] MEDS: POLYETHYLENE (MIRALAX) 17 GM PACK PO SCH (17:08)
[2017-07-04] MEDS: QUETIAPINE FUMARATE 25 MG TAB PO SCH (21:47)
[2017-07-04] MEDS: GABAPENTIN 100 MG CAP PO SCH (21:48)
[2017-07-04] MEDS: PRAVASTATIN SOD 40 MG TAB PO SCH (22:40)
[2017-07-05 03:45] VITALS: BP 127/76; PULSE 81; TEMP 36.9; O2SAT 94
[2017-07-05] MEDS: ACETAMINOPHEN 500 MG TAB PO SCH ×3 (05:34→21:54)
[2017-07-05 05:56] LABS: HEMATOCRIT 33.4 % (37-47); HEMOGLOBIN 10.7 g/dL (12.0-16.0); MEAN CELL VOLUME 88.4 fL (80-100); MEAN CORPUSCULAR HEMOGLOBIN 28.3 pg (25-34); MEAN PLATELET VOLUME 9.6 fL (7.4-10.4); NUCLEATED RED BLOOD CELL ABS 0.12 K/uL (0-0); PLATELET COUNT 349 K/uL (130-400); RED CELL DISTRIBUTION WIDTH CV 17.8 % (11.5-14.5); RED CELL DISTRIBUTION WIDTH SD 53.8 fL (36.4-46.3); WHITE BLOOD COUNT 12.77 K/uL (4.8-10.8)
[2017-07-05 06:33] LABS: ALBUMIN 2.1 gm/dl (3.4-5.0); CALCIUM 8.9 mg/dl (8.5-10.1); CREATININE 2.93 mg/dl (0.60-1.20); POTASSIUM 3.4 mmol/L (3.5-5.1)
[2017-07-05 07:35] VITALS: BP 125/68; PULSE 86; TEMP 36.7; O2SAT 94
[2017-07-05] MEDS: FUROSEMIDE INJ 80 MG in SYRINGE 0 ML IV SCH ×2 (07:55→16:32)
[2017-07-05] MEDS: BOOST GLUCOSE CONTROL PO SCH ×2 (07:55→21:07)
[2017-07-05] MEDS: DOCUSATE SODIUM 100 MG CAP PO SCH ×2 (07:56→20:59)
[2017-07-05] MEDS: CeleBREX 200 MG CAP PO SCH (07:56)
[2017-07-05] MEDS: METOPROLOL TARTRATE 25 MG TAB PO SCH ×2 (07:56→20:59)
[2017-07-05] MEDS: LIDODERM (LIDOCAINE) PATCH 5% TD SCH (07:57)
[2017-07-05] MEDS: NYSTATIN POWDER 15GM BTL EXT SCH ×3 (07:57→20:58)
[2017-07-05] MEDS: INSULIN ASPART 100 UNITS/ML 3 ML PEN SC SCH ×4 (08:04→21:07)
[2017-07-05] MEDS: INSULIN GLARGINE SOLOSTAR 100 UNITS/ML 3 ML PEN SC SCH (08:05)
[2017-07-05] MEDS: CEFTRIAXONE SOD INJ 1 GM in DEXTROSE 5% ADD-VANTAGE 50ML 50 ML IV SCH (08:06)
[2017-07-05] MEDS: VENLAFAXINE HCL XR 150 MG CAPXR PO SCH (09:30)
[2017-07-05] MEDS: PANTOprazole SOD 40 MG TAB PO SCH (09:30)
[2017-07-05 10:49] VITALS: BP 126/65; PULSE 82; O2SAT 94
--- NOTE | 2017-07-05 10:49 | PROGRESS NOTE ---
DATE: 07/05/2017 RENAL PROGRESS NOTE SUBJECTIVE: Mrs. Hensley remains weak and fatigued. She is short of breath from time to time but is wearing oxygen by mask. She continues to complain of her mouth being sore and dry. She denies having any chest pain. She denies having a cough productive or otherwise. She does complain of some discomfort in the right hip area. She has had no shaking chills or fevers. She has no symptoms of uremia or volume overload at this point. OBJECTIVE: GENERAL: On physical exam, she appears as an acutely and chronically ill woman of about her stated age of 82. She was lying in bed. Her voice was quite weak. VITAL SIGNS: She is afebrile (36.7), her blood pressure 125/68, her pulse 86 and regular, respiratory rate 18 with a pulse ox of 94% on 6 liters of oxygen via nasal cannula. SKIN: Shows normal skin turgor. She has marked ecchymoses around her left upper arm. There is no other rash or infiltrative skin disease. She has scars from prior surgical procedures. LYMPHATICS: Show no palpable adenopathy. HEAD: Normal. EYES: Grossly normal. The ocular fundi were not examined. Extraocular movements are intact and her pupils respond to light. EARS, NOSE, MOUTH AND THROAT: Unremarkable other than dry oral mucous membranes, particularly her tongue. She continues to show small white patches on her tongue consistent with thrush. NECK: Supple. She still has some minimal jugular venous distention at about 60 degrees. There is no carotid bruit or thyromegaly. CHEST: Shows coarse bibasilar rales consistent with her pulmonary fibrosis. Breath sounds are otherwise clear. CARDIAC: Shows a regular rhythm. S1 and S2 are normal. There is no definite murmur or gallop. ABDOMEN: Nontender. She has no organomegaly or mass. Bowel sounds are normal. EXTREMITIES: Show no cyanosis, clubbing or peripheral edema, other than her left upper arm which is swollen and ecchymotic. It remains in a sling. She has a minimal area of skin breakdown in the presacral area. NEUROLOGIC: Shows her to be globally weak, but there are no lateralizing neurologic changes. Her output yesterday exceeded her intake by more than 5 liters. In total, thus far in her hospitalization, her output has exceeded her intake by 5275 mL as recorded. Her weight is down from a peak of 77.3 kilograms to 69.88 kilograms. It is still at least down 4.5 kilograms from her admission weight. PERTINENT LABORATORY WORK: From today shows a sodium of 131 mmol/L, potassium 3.4 mmol/L, chloride is 90 mmol/L, and CO2 content 29 mmol/L. Her anion gap is 12, but factoring in her albumin is 2.1, her anion gap is more in the range of 17. Her BUN is down to 100, her creatinine is down to 2.93. Blood sugars vary from a low of 159 to a high of 201. Her serum calcium is 8.9. Arterial blood gases done on July 04 showed a pH of 7.48 with a pCO2 of 35 and a pO2 of 81 on oxygen at 6 liters a minute. Fungal smear of her tongue did demonstrate a yeast forms and a culture is consistent with a Magda albicans. ASSESSMENT: Some improvement in her renal function with diuresis. There did seem to be components of biventricular heart failure present. Currently, with her brisk diuresis of more than 5 liters, she has what appears to be a contraction alkalosis based on her blood gases. Her hypokalemia is at least to a significant degree related to her alkalosis. I would be concerned that soon we may see a turn around and a repeat rise in both her BUN and creatinine, if she get over diuresed. We will have to watch that carefully. She has oral moniliasis which is her major complaint. RECOMMENDATIONS: At least for now, would continue with the current dose of Lasix. However, should her BUN and creatinine rise, I would discontinue it. I have taken the liberty of ordering Nystatin suspension. No other recommendations for now, but I will continue to follow her and make further recommendations as needed.
[2017-07-05 11:34] VITALS: BP 115/65; PULSE 85; TEMP 36.6; O2SAT 91
--- NOTE | 2017-07-05 11:55 | Pharmacy Progress Note ---
Pharmacy Glycemic Short Note 2 Date of Service Jul 05, 2017. OUTPATIENT ANTIDIABETIC REGIMEN: * Lantus 30 units in the morning plus 25 units in the PM, glipizide 10 mg BID * A1c = 8.5 % 04/2017 ASSESSMENT: * See progress note from 07/02/16 for background info, in short: * Patient receiving SQ basal/bolus regimen for baseline DM (outpatient regimen on hold). Insulin dosing decreased on 07/01 and 07/02 due to hypoglycemia. Patient remains on significantly less insulin compared to outpatient dose of 55 units/day. * Fasting BSG improved today (159 mg/dL). Current Lantus dose is not at steady state - continue same for now. * Prandial BSGs became elevated yesterday (two values greater than 200 mg/dL) - will tighten CF/CR. PLAN FOR INPATIENT GLYCEMIC CONTROL: * Hold outpatient oral diabetes medications * Basal insulin * Lantus 10 units SQ daily * Bolus insulin - tighten * NovoLog per scale ACHS or Q6hrs while NPO * Goal Range: Low 120 mg/dL - High 140 mg/dL * Correction Factor: 25 mg/dL/unit * Nutritional / Prandial insulin per carb ratio of 1 unit per 9 grams CHO consumed PLAN FOR DISCHARGE: * A1c 8.5% on 04/22/17 * Recommend discontinuation of glipizide secondary to kidney dysfunction and age /co-morbidities. * It seems reasonable to continue home Lantus dosing on discharge as long as the patient will have prompt f/u with outpatient provider. Lantus dose will likely need increased if glipizide is discontinued.
--- NOTE | 2017-07-05 12:02 | Hospitalist Progress Note ---
Hospitalist Progress Note Date of Service Jul 05, 2017. (Patience Cuellar PA-C) Subjective Pt evaluation today including: conversation w/ patient, conversation w/ family , physical exam, chart review, lab review, review of studies Pain: L shoulder, well controlled most of the time PO Intake: Fair, slightly improved today Voiding: dupree catheter in place The patient was seen and examined this morning. Pt reports feeling a little more with it today. She is able to answer orientation questions and respond more appropriately than yesterday. One of her daughters is present at bedside and also agrees she has been more conversational and appears to have better ability to respond in a way that makes sense. She is not 100% able to convey what she is thinking per the daughter. The patient reports her breathing is about the same as yesterday, she denies feeling short of breath, chest tightness, or chest pain. ROS: Constitutional: + fatigue, No fever, No chills, No sweats Eyes: No redness, No diplopia ENT: No nasal symptoms, No trouble swallowing Respiratory: No cough, No wheezing, No dyspnea at rest Cardiovascular: No chest pain, No PND, No palpitations Abdomen: No pain, No nausea, No vomiting, No diarrhea, No constipation Musculoskeletal: + joint pain (Left shoulder pain with movement), No muscle pain, No calf pain Neurologic: + weakness Endo: + fatigue (Patience Cuellar PA-C) Objective Vital Signs Date Time Temp Pulse Resp B/P (MAP) Pulse Ox O2 Delivery O2 Flow Rate FiO2 07/05/17 11:34 36.6 85 18 115/65 (82) 91 Oxymask 4.0 07/05/17 08:00 Oxymask 6.0 07/05/17 07:35 36.7 86 18 125/68 (87) 94 07/05/17 04:00 Oxymask 6.0 07/05/17 03:45 36.9 81 20 127/76 (93) 94 Nasal Cannula 6.0 07/05/17 00:01 Oxymask 6.0 07/04/17 23:34 36.8 83 20 125/72 (89) 91 Oxymask 5.0 07/04/17 20:00 Oxymask 6.0 07/04/17 19:35 36.6 80 20 126/74 (91) 93 Oxymask 6.0 07/04/17 16:00 Oxymask 6.0 07/04/17 15:32 36.6 81 20 134/82 (99) 93 Oxymask 6.0 07/04/17 12:00 Oxymask 6.0 (Patience Cuellar PA-C) Physical Exam Notes: General Appearance: WD/WN, no apparent distress, + obese Eyes: PERRL, EOMI ENT: hearing grossly normal, pharynx normal, + pertinent finding (MMM, mouth breathing on oximask, + erythema of tongue, no white plaque) Neck: supple, no JVD Respiratory/Chest: chest non-tender, no respiratory distress, no accessory muscle use, + pertinent finding (on 6 L via NC eating lunch and sats around 85% . Once on oximask sats improve to 92%, bibasilar rales, no wheeze) Cardiovascular: regular rate, rhythm, no murmur Abdomen: normal bowel sounds, non tender, soft Extremities: no calf tenderness, + pedal edema (+1 pitting edema BLE ), + pertinent finding (Left arm in sling, + ecchymosis overlying upper arm. ) Neurologic/Psychiatric: no motor/sensory deficits, alert, normal mood/affect, oriented only to place, month and calls the president "Getachew" (no motor deficits , no sensory deficits) Skin: normal color, warm/dry (Patience Cuellar, ANGELA) Laboratory Results Last 24 Hours Test 07/04/17 16:15 07/04/17 20:21 07/05/17 05:33 07/05/17 06:46 Bedside Glucose 174 mg/dl 201 mg/dl 159 mg/dl White Blood Count 12.77 K/uL Red Blood Count 3.78 M/uL Hemoglobin 10.7 g/dL Hematocrit 33.4 % Mean Corpuscular Volume 88.4 fL Mean Corpuscular Hemoglobin 28.3 pg Mean Corpuscular Hemoglobin Concent 32.0 g/dl RDW Standard Deviation 53.8 fL RDW Coefficient of Variation 17.8 % Platelet Count 349 K/uL Mean Platelet Volume 9.6 fL Nucleated RBC Absolute Count (auto) 0.12 K/uL Nucleated Red Blood Cells % 0.9 % Sodium Level 131 mmol/L Potassium Level 3.4 mmol/L Chloride Level 90 mmol/L Carbon Dioxide Level 29 mmol/L Anion Gap 12.0 mmol/L Blood Urea Nitrogen 100 mg/dl Creatinine 2.93 mg/dl Est Creatinine Clear Calc Drug Dose 9.5 ml/min Estimated GFR () 16.7 Estimated GFR (Non- 14.4 BUN/Creatinine Ratio 34.0 Random Glucose 163 mg/dl Calcium Level 8.9 mg/dl Albumin 2.1 gm/dl Test 07/05/17 11:17 Bedside Glucose 185 mg/dl (Patience Cuellar, ANGELA) Assessment and Plan 82 y/o F who was admitted on 06/30 for weakness, CT head showed possible subacute hematoma in thalamus, UA showed signs of infection, WBC 15k 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 Will reinitiate metalazone for diuresis - ? Cardiorenal syndrome since Cr improved with diuresis - will continue with strict I/Os. Pt is out ~ 2L, will also watch daily weights. - Still requiring 5-6L on NC/oximask, typically wears 2 L at home, but her O2 sats have improved from high 80s to low 90s. - Repeat PRP with am labs Hyperkalemia - Improved after dose of Lactulose x 1 dose and aggressive diuresis, follow prp - Will resume potassium supplementation today - K 3.4 HypoNa: likely nutritional given decreased PO intake per family - Today at 131 due to diuresis, follow prp -this is the best it has been since admission - Nephrology on board- appreciate recs Magda Albicans, oral thrush - + cultures, will start swish and swallow nystatin. - Pt does not have white plaque on exam however does look erythematous. - Continue mouth care and encourage PO intake. Metabolic Encephalopathy - AMS seems to wax and wane- oriented today to place, can name the month, and calls the president "Getachew" and laughs. Her daughter notes she seems more oriented today compared to yesterday. - ABG done 07/04 showing acidosis - appears to be similar to previous abg done in mid May. - Continue oximask for now. Repeat if worsening mentation and labs are continuing to improve. Brain hematoma, possibly subacute, thalamus - d/t fall - this was the reason for admission - case d/w Dr. Parson (neurosurgeon) at time of admission - continue to hold aspirin/plavix - will ask neuro to determine when to resume maintaining systolic BP <150, no need for keppra, and no need for repeat imaging unless pt develops neuro sx. no neuro deficits in over 4 days. no acute intervention - Dr. Parson willing to re-eval if any plans for changes in intervention. UTI with sepsis, present at time of admission- dupree catheter in place - Resolving - no signs of organ failure or shock - start Rocephin 1000mg IV daily- started on 07/01 and continue for now - would continue x a 7 day course since there is improvement in her mentation. - UCx growing lactobacillus - no other sensitivity to follow. BCx NGTD - WBC trending downward Elevated trop: noted on last admission and similar value at 0.963, trended down to 0.704 - no chest pain or pressure - ECHO on last admission was WNL, will not repeat unless trop becomes more elevated DM: Lantus + SSI PRN - A1c 04/2017 was 8.5, will not recheck - Hold Glipizide, continue Lantus as diet continues to improve, continue to monitor closely HTN: continue home meds - Maintain systolic BP <150 per neurosurg recs CVA: holding aspirin/plavix as above due to hematoma - will ask neurology when safe to resume. Anemia: stable, Hgb improved to 10.5 s/p 1 U PRBCs on 07/02- denies lightheadedness, dizziness and fatigue. - Remains stable around 10.3 today - baseline hgb seems to be around 12 Left humerus fracture: occurred prior to last admission - not doing well at home, looking into rehab - supposed to see Orthopedic surgery this week Consider repeat Xray once other medical issues improving. - PT/OT on board - she will need rehab at the time of discharge. Severe Albuminemia, Protein calorie malnutrition - 2.1 on labs, encourage increase in nutrition to promote healing. Continue boost breeze BID Pulmonary Fibrosis, chronic hypoxic respiratory failure. - Continue on home O2 of 3 L DVT ppx: SCDs for DVT proph given hematoma Code Status: DNR/DNI Disposition: From home, was living with sister, will need PT/OT and rehab vs SNF stay Discussion held with family at bedside today and all their questions and concerns were addressed. (Patience Cuellar, ANGELA) Supervising Note Dr. Dougherty I performed a history and physical examination on the patient. I reviewed above note and agree with it. I discussed plan with APC and patient. During my face to face encounter with the patient, I answered all of the patient's questions. Patient mental status appears to be improved as compared to yesterday. will continue to monitor. Creatinine continues to improve with furosemide. (Davion Dougherty M.D.)
[2017-07-05] MEDS: NYSTATIN SUSP 500,000 U/5 ML UDC PO SCH ×3 (13:11→20:59)
[2017-07-05 15:17] VITALS: BP 123/73; PULSE 81; TEMP 36.6; O2SAT 90
[2017-07-05] MEDS: POTASSIUM CHLORIDE 20 MEQ TABCR PO SCH ×2 (16:50→21:02)
[2017-07-05 19:09] VITALS: BP 111/69; PULSE 78; TEMP 36.8; O2SAT 92
[2017-07-05] MEDS: PRAVASTATIN SOD 40 MG TAB PO SCH (21:00)
[2017-07-05] MEDS: QUETIAPINE FUMARATE 25 MG TAB PO SCH (21:00)
[2017-07-05] MEDS: GABAPENTIN 100 MG CAP PO SCH (21:01)
[2017-07-06] VITALS (8 sets, daily range): BP systolic 112–136; BP diastolic 54–77; PULSE 77–87; TEMP 36.4–36.8; O2SAT 91–97
[2017-07-06] MEDS: ACETAMINOPHEN 500 MG TAB PO SCH ×3 (06:10→22:26)
[2017-07-06 06:12] LABS: HEMATOCRIT 33.9 % (37-47); HEMOGLOBIN 11.1 g/dL (12.0-16.0); MEAN CELL VOLUME 89.2 fL (80-100); MEAN CORPUSCULAR HEMOGLOBIN 29.2 pg (25-34); MEAN CORPUSCULAR HGB CONC 32.7 g/dl (32-36); MEAN PLATELET VOLUME 9.7 fL (7.4-10.4); NUCLEATED RED BLOOD CELL ABS 0.09 K/uL (0-0); PLATELET COUNT 336 K/uL (130-400); RED CELL DISTRIBUTION WIDTH SD 54.2 fL (36.4-46.3); WHITE BLOOD COUNT 10.81 K/uL (4.8-10.8)
[2017-07-06 06:42] LABS: ALBUMIN 1.9 gm/dl (3.4-5.0); CALCIUM 9.1 mg/dl (8.5-10.1); CREATININE 2.75 mg/dl (0.60-1.20); POTASSIUM 3.2 mmol/L (3.5-5.1)
[2017-07-06] MEDS: INSULIN ASPART 100 UNITS/ML 3 ML PEN SC SCH ×4 (08:23→21:44)
[2017-07-06] MEDS: CEFTRIAXONE SOD INJ 1 GM in DEXTROSE 5% ADD-VANTAGE 50ML 50 ML IV SCH (08:24)
[2017-07-06] MEDS: NYSTATIN POWDER 15GM BTL EXT SCH ×3 (08:24→21:14)
[2017-07-06] MEDS: FUROSEMIDE INJ 80 MG in SYRINGE 0 ML IV SCH ×2 (08:24→18:16)
[2017-07-06] MEDS: NYSTATIN SUSP 500,000 U/5 ML UDC PO SCH ×4 (08:24→21:14)
[2017-07-06] MEDS: METOLAZONE 5 MG TAB PO SCH (08:25)
[2017-07-06] MEDS: VENLAFAXINE HCL XR 150 MG CAPXR PO SCH (08:25)
[2017-07-06] MEDS: METOPROLOL TARTRATE 25 MG TAB PO SCH ×2 (08:25→21:16)
[2017-07-06] MEDS: DOCUSATE SODIUM 100 MG CAP PO SCH ×2 (08:25→21:15)
[2017-07-06] MEDS: PANTOprazole SOD 40 MG TAB PO SCH (08:26)
[2017-07-06] MEDS: CeleBREX 200 MG CAP PO SCH (08:26)
[2017-07-06] MEDS: LIDODERM (LIDOCAINE) PATCH 5% TD SCH (08:27)
[2017-07-06] MEDS: INSULIN GLARGINE SOLOSTAR 100 UNITS/ML 3 ML PEN SC SCH (08:28)
[2017-07-06] MEDS: BOOST GLUCOSE CONTROL PO SCH ×2 (09:00→21:14)
--- NOTE | 2017-07-06 09:16 | Hospitalist Progress Note ---
Hospitalist Progress Note Date of Service Jul 06, 2017. (Patience Cuellar PA-C) Subjective Pt evaluation today including: conversation w/ patient, conversation w/ family , physical exam, chart review, lab review, review of studies Pain: Left shoulder pain much improved PO Intake: Good, improving Voiding: dupree catheter in place The patient was seen and examined this morning. Pt reports doing much better today. She is awake and alert during my exam. Her left shoulder feels much better today. Appetite has also increased. Her daughter is present at bedside and reports she has been "quite talkative" today and is making much more sense to her. Pt is able to answer almost all orientation questions for me today except the presidents name. ROS: 6 point ROS reviewed and otherwise negative. (Patience Cuellar PA-C) Objective Vital Signs Date Time Temp Pulse Resp B/P (MAP) Pulse Ox O2 Delivery O2 Flow Rate FiO2 07/06/17 08:00 36.4 80 22 114/70 (85) 91 07/06/17 04:29 36.6 87 20 136/77 (96) 95 07/06/17 04:00 Oxymask 6.0 07/06/17 00:29 36.7 77 22 114/71 (85) 93 Oxymask 6.0 Humidified Oxygen 07/06/17 00:01 Oxymask 6.0 07/05/17 20:00 Oxymask 6.0 07/05/17 19:09 36.8 78 20 111/69 (83) 92 Nasal Cannula 6.0 07/05/17 16:00 Oxymask 6.0 07/05/17 15:17 36.6 81 22 123/73 (90) 90 Oxymask 6.0 07/05/17 12:00 Oxymask 6.0 07/05/17 11:34 36.6 85 18 115/65 (82) 91 Oxymask 4.0 07/05/17 10:49 82 94 (Ptaience Cuellar PA-C) Physical Exam Notes: General Appearance: WD/WN, no apparent distress, + obese Eyes: PERRL, EOMI ENT: hearing grossly normal, pharynx normal, + pertinent finding (MMM, mouth breathing on oximask, + erythema of tongue, no white plaque) Neck: supple, no JVD Respiratory/Chest: chest non-tender, no respiratory distress, no accessory muscle use, + pertinent finding (on 6 L via NC eating lunch and sats around 94%. + bibasilar rales ongoing, no wheeze) Cardiovascular: regular rate, rhythm, no murmur Abdomen: normal bowel sounds, non tender, soft Extremities: no calf tenderness, no pitting edema, + pertinent finding (Left arm in sling, + ecchymosis overlying upper arm. ) Neurologic/Psychiatric: no motor/sensory deficits, alert, normal mood/affect, oriented to place, time, date, month, but cannot recall the presidents name(no motor deficits, no sensory deficits) Skin: normal color, warm/dry (Patience Cuellar PA-C) Laboratory Results Last 24 Hours Test 07/05/17 11:17 07/05/17 16:10 07/05/17 16:17 07/05/17 20:11 Bedside Glucose 185 mg/dl 311 mg/dl 284 mg/dl 157 mg/dl Test 07/06/17 05:47 07/06/17 06:32 White Blood Count 10.81 K/uL Red Blood Count 3.80 M/uL Hemoglobin 11.1 g/dL Hematocrit 33.9 % Mean Corpuscular Volume 89.2 fL Mean Corpuscular Hemoglobin 29.2 pg Mean Corpuscular Hemoglobin Concent 32.7 g/dl RDW Standard Deviation 54.2 fL RDW Coefficient of Variation 18.0 % Platelet Count 336 K/uL Mean Platelet Volume 9.7 fL Nucleated RBC Absolute Count (auto) 0.09 K/uL Nucleated Red Blood Cells % 0.9 % Sodium Level 134 mmol/L Potassium Level 3.2 mmol/L Chloride Level 88 mmol/L Carbon Dioxide Level 34 mmol/L Anion Gap 12.0 mmol/L Blood Urea Nitrogen 97 mg/dl Creatinine 2.75 mg/dl Est Creatinine Clear Calc Drug Dose 10.2 ml/min Estimated GFR () 18.0 Estimated GFR (Non- 15.5 BUN/Creatinine Ratio 35.4 Random Glucose 161 mg/dl Calcium Level 9.1 mg/dl Albumin 1.9 gm/dl Bedside Glucose 166 mg/dl (Patience Cuellar PA-C) Assessment and Plan 82 y/o F who was admitted on 06/30 for weakness, CT head showed possible subacute hematoma in thalamus, UA showed signs of infection, WBC 15k 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 - She is likely near euvolemic- i also would expect her Cr to start to bump back up if we've reached euvolemia tomorrow. - edema in BLE resolved, bibasilar rales but this is due to pulmonary fibrosis and unchanged. Breathing improved, saturations improved, attempt to titrate O2 down as able. - Appreciate nephrology recs. - Continue metalazone for diuresis - Cardiorenal syndrome with worse right sided heart failure since Cr improved with diuresis - strict I/Os. Pt is out ~ 9.7L so far, daily weight decreasing. - Still requiring 5-6L on NC/oximask, typically wears 2 L at home, but her O2 sats have improved from high 80s to mid 90s. - Repeat PRP with am labs Hyperkalemia - Improved after dose of Lactulose x 1 dose and aggressive diuresis, follow prp - Continue potassium supplementation 20 meq daily, gave extra 20 meq this morning with K 3.4 HypoNa: likely nutritional given decreased PO intake per family - Today at 134 - continue to diuresis as above, follow prp -this is the best it has been since admission - Nephrology on board- appreciate recs Magda Albicans, oral thrush - + cultures, will start swish and swallow nystatin. - Pt does not have white plaque on exam however does look erythematous. - Continue mouth care and encourage PO intake. Metabolic Encephalopathy - AMS seems to wax and wane- oriented more today than since I have seen her this week. Her daughter notes she seems more oriented today compared to yesterday. - ABG done 07/04 showing acidosis - appears to be similar to previous abg done in mid May. - Continue oximask for now. Repeat if worsening mentation and labs are continuing to improve. Brain hematoma, possibly subacute, thalamus - d/t fall - this was the reason for admission - case d/w Dr. Parson (neurosurgeon) at time of admission - - continue to hold aspirin/plavix - I discussed possibility of resuming asa/plavix with our neurology team today since I was unable to contact Dr. Parson as above. They recommend continuing to hold until hematoma resolved, which should be followed with CT in about 2-3 weeks. maintaining systolic BP <150, no need for keppra, and no need for repeat imaging unless pt develops neuro sx. no neuro deficits in over 4 days. no acute intervention - Dr. Parson willing to re-eval if any plans for changes in intervention. UTI with sepsis, present at time of admission- dupree catheter in place - Resolving - no signs of organ failure or shock - start Rocephin 1000mg IV daily- started on 07/01 and continue for now - would continue x a 7 day course since there is improvement in her mentation. - UCx growing lactobacillus - no other sensitivity to follow. BCx NGTD - WBC trending downward Elevated trop: noted on last admission and similar value at 0.963, trended down to 0.704 - no chest pain or pressure - ECHO on last admission was WNL, will not repeat unless trop becomes more elevated DM: Lantus + SSI PRN - A1c 04/2017 was 8.5, will not recheck - Hold Glipizide, continue Lantus as diet continues to improve, continue to monitor closely HTN: continue home meds - Maintain systolic BP <150 per neurosurg recs CVA: holding aspirin/plavix as above due to hematoma - ask neurology when safe to resume. Anemia: stable, Hgb improved to 11.1 today - s/p 1 U PRBCs on 07/02- denies lightheadedness, dizziness and fatigue. - baseline hgb seems to be around 12 Left humerus fracture: occurred prior to last admission - not doing well at home, looking into rehab - supposed to see Orthopedic surgery this week Consider repeat Xray once other medical issues improving. - PT/OT on board - she will need rehab at the time of discharge. Severe Albuminemia, Protein calorie malnutrition - 2.1 on labs, encourage increase in nutrition to promote healing. Continue boost breeze BID Pulmonary Fibrosis, chronic hypoxic respiratory failure. - Home O2 of 3 L DVT ppx: SCDs for DVT proph given hematoma Code Status: DNR/DNI Disposition: From home, was living with sister, will need PT/OT and rehab vs SNF stay, CM assisting Discussion held with family at bedside today and all their questions and concerns were addressed. (Patience Cuellar, ANGELA) Supervising Note Dr. Dougherty I performed a history and physical examination on the patient. I reviewed above note and agree with it. I discussed plan with APC and patient. During my face to face encounter with the patient, I answered all of the patient's questions. Patient appears to be improving with lasix administration. Will continue to monitor her bmp. (Davion Dougherty M.D.)
[2017-07-06] MEDS ORDERED: POTASSIUM CHLORIDE 20 MEQ TABCR PO ONE (10:45)
--- NOTE | 2017-07-06 11:35 | NEPHROLOGY PROGRESS NOTE ---
DATE: 07/06/2017 SUBJECTIVE: Mrs. Hensley says that she is feeling somewhat better. She denies being particularly short of breath at rest. She was able to eat her breakfast. Her major complaint has been a sore mouth, but even that seems to be improved this morning and she was able to eat breakfast. She has continued to diurese. OBJECTIVE: GENERAL: On physical exam, she certainly appears much more awake, alert and spontaneous. She is nonetheless somewhat confused. VITAL SIGNS: She is afebrile (36.4), her blood pressure 114/70 with a pulse of 80 and regular, respiratory rate 20-22 and her pulse ox 91%-95% with oxygen via nasal cannula. SKIN: Still shows normal skin turgor. There is no rash or infiltrative skin disease. She has scars from prior surgical procedures. LYMPHATICS: Shows no palpable lymphadenopathy. HEAD: Grossly normal. EYES: Normal. The ocular fundi were not examined. Extraocular movements are intact. Her pupils react to light. EARS, NOSE, MOUTH AND THROAT: Unremarkable other than the fact that her tongue and oral mucous membranes seem slightly dry. However, I do not note the small patches of white on her tongue that she had had in the past. She is edentulous with dentures. NECK: Supple. At about 60 degrees, she has some minimal jugular venous distention. She has no carotid bruit or thyromegaly. CHEST: Continues to show bibasilar rales consistent with her pulmonary fibrosis. Her chest is otherwise clear. CARDIAC: Shows a regular rhythm. S1 and S2 are normal. She has no definite murmur or gallop. ABDOMEN: Nontender. There is no organomegaly or mass. Bowel sounds are normal. EXTREMITIES: Show no cyanosis, clubbing or peripheral edema, other than some continued swelling and ecchymoses of her left upper arm. It is in a sling. She has a minimal area of skin breakdown in the presacral area. NEUROLOGIC: Continues to show her to be globally weak, but there are no lateralizing changes and her mentation seems to be somewhat improved. LABORATORY DATA: Pertinent laboratory work from today shows a white count down to 10,810. Her hemoglobin 11.1, hematocrit 33.9, and her platelet count 336,000. Her clinical chemistries show a sodium of 134 mmol/L, potassium 3.2 mmol/L, chloride is 88 mmol/L, and CO2 content 34 mmol/L. Her BUN is 97 and her creatinine is down to 2.75. Blood sugars ranged from 157-284. Her serum albumin remains low at 1.9. ASSESSMENT: Mrs. Hensley does appear to be somewhat better today. Her BUN and creatinine are trending downward. She seems to be much more alert and spontaneous, but still obviously globally weak. RECOMMENDATIONS: Would continue with her Lasix 80 mg b.i.d. Metolazone has been added as well by ____. I would expect that soon her BUN and creatinine might start to trend upward. When that occurs, I would cut back on her Lasix, perhaps to 80 mg every other day, but continue with her metolazone. The probability of that change in the direction of her BUN and creatinine occurring is quite likely given the fact that she has significant right-sided heart failure and her serum albumin is low. No other immediate recommendations.
[2017-07-06] MEDS: POTASSIUM CHLORIDE 20 MEQ TABCR PO SCH ×2 (11:47→21:15)
[2017-07-06] MEDS: POLYETHYLENE (MIRALAX) 17 GM PACK PO SCH (18:16)
[2017-07-06] MEDS ORDERED: TRAMADOL HCL 50 MG TAB PO STA (20:42)
[2017-07-06] MEDS: PRAVASTATIN SOD 40 MG TAB PO SCH (21:16)
[2017-07-06] MEDS: QUETIAPINE FUMARATE 25 MG TAB PO SCH (21:16)
[2017-07-06] MEDS: GABAPENTIN 100 MG CAP PO SCH (21:16)
[2017-07-06] MEDS ORDERED: INSULIN GLARGINE SOLOSTAR 100 UNITS/ML 3 ML PEN SC ONE (21:45)
[2017-07-07] VITALS (7 sets, daily range): BP systolic 129–151; BP diastolic 74–85; PULSE 77–86; TEMP 36.3–37.1; O2SAT 92–97
[2017-07-07] MEDS: INSULIN ASPART 100 UNITS/ML 3 ML PEN SC SCH ×6 (00:15→21:00)
[2017-07-07] MEDS: ACETAMINOPHEN 500 MG TAB PO SCH ×3 (06:00→21:48)
[2017-07-07] MEDS: DOCUSATE SODIUM 100 MG CAP PO SCH ×2 (08:31→21:49)
[2017-07-07] MEDS: CEFTRIAXONE SOD INJ 1 GM in DEXTROSE 5% ADD-VANTAGE 50ML 50 ML IV SCH (08:31)
[2017-07-07] MEDS: NYSTATIN SUSP 500,000 U/5 ML UDC PO SCH ×4 (08:31→21:47)
[2017-07-07] MEDS: POTASSIUM CHLORIDE 20 MEQ TABCR PO SCH ×2 (08:32→21:49)
[2017-07-07] MEDS: VENLAFAXINE HCL XR 150 MG CAPXR PO SCH (08:32)
[2017-07-07] MEDS: CeleBREX 200 MG CAP PO SCH (08:32)
[2017-07-07] MEDS: PANTOprazole SOD 40 MG TAB PO SCH (08:33)
[2017-07-07] MEDS: METOLAZONE 5 MG TAB PO SCH (08:33)
[2017-07-07] MEDS: NYSTATIN POWDER 15GM BTL EXT SCH ×3 (08:33→21:47)
[2017-07-07] MEDS: METOPROLOL TARTRATE 25 MG TAB PO SCH ×2 (08:33→21:52)
[2017-07-07] MEDS: LIDODERM (LIDOCAINE) PATCH 5% TD SCH (08:34)
[2017-07-07] MEDS: INSULIN GLARGINE SOLOSTAR 100 UNITS/ML 3 ML PEN SC SCH (08:43)
[2017-07-07] MEDS ORDERED: FUROSEMIDE INJ 80 MG in SYRINGE 0 ML IV SCH (09:00)
[2017-07-07] MEDS: BOOST GLUCOSE CONTROL PO SCH ×2 (09:50→16:45)
[2017-07-07 11:01] LABS: CALCIUM 9.4 mg/dl (8.5-10.1); CREATININE 2.45 mg/dl (0.60-1.20)
[2017-07-07 11:02] LABS: PHOSPHORUS 3.9 mg/dl (2.5-4.9)
--- NOTE | 2017-07-07 11:04 | Pharmacy Progress Note ---
Pharmacy Glycemic Short Note 2 Date of Service Jul 07, 2017. OUTPATIENT ANTIDIABETIC REGIMEN: * Lantus 30 units in the morning plus 25 units in the PM, glipizide 10 mg BID * A1c = 8.5 % 04/2017 ASSESSMENT: * See progress note from 07/02/16 for background info, in short: * Patient receiving SQ basal/bolus regimen for baseline DM (outpatient regimen on hold). Insulin dosing initially decreased due to hypoglycemia and has been titrated daily based on BSG trends. Patient remains on significantly less insulin compared to outpatient dose of 55 units/day. * Pt with sustained moderate hyperglycemia (BSGs 166, 271, 253, 252) * Gave additional dose of Lantus 5 units and changed Accuchecks.coverage to Q4hrs overnight. * Hyperglycemia resolved nicely with additional basal & correctional insulin * Suspect that CHO are not being covered from Boost supplement which is causing the rise in BSGs * Fasting BSG improved today (136 mg/dL) with additional dose of Lantus * Will change daily Lantus order to 10-15 units based on BSG * Prandial BSGs became elevated yesterday (three values greater than 250 mg/dL) - will tighten CR only and update orders for nursing to include CHO from boost in meal carb counts. PLAN FOR INPATIENT GLYCEMIC CONTROL: * Hold outpatient oral diabetes medications * Basal insulin * Lantus 10-15 units SQ daily based on BSG * 10 units for BSG below 140mg/dl * 15 units for BSG 140mg/dl or above * Bolus insulin - tighten CR * NovoLog per scale ACHS or Q6hrs while NPO * Goal Range: Low 120 mg/dL - High 140 mg/dL * Correction Factor: 25 mg/dL/unit * Nutritional / Prandial insulin per carb ratio of 1 unit per 8 grams CHO consumed PLAN FOR DISCHARGE: * A1c 8.5% on 04/22/17 * Recommend discontinuation of glipizide secondary to kidney dysfunction and age /co-morbidities. * It seems reasonable to continue home Lantus dosing on discharge as long as the patient will have prompt f/u with outpatient provider. Lantus dose will likely need increased if glipizide is discontinued.
--- NOTE | 2017-07-07 11:31 | Nephrology Progress Note ---
Nephrology Progress Note Date of Service Jul 07, 2017. Chief Complaint Follow-up for acute kidney injury and volume overload with history of chronic kidney disease Subjective Mrs. Hensley was seen and examined in her room this morning. She has been otherwise feeling well. Has been diuresing with furosemide, has been net negative more than 3 liters per day. Renal function continues to improve creatinine 2.5 however electrolyte panel is suggestive of significant diuresis with volume contraction. Blood pressure stable. Review of Systems A complete review of systems was performed. Pertinent positives are noted above. All other systems are negative. Vital Signs Last 8 Hrs Date Time Temp Pulse Resp B/P (MAP) Pulse Ox O2 Delivery O2 Flow Rate FiO2 07/07/17 07:32 36.7 77 20 147/84 (105) 95 Nasal Cannula 6.0 07/07/17 04:00 97 Nasal Cannula 6.0 07/07/17 03:28 36.4 79 20 145/74 (97) 96 Nasal Cannula 6.0 Last Recorded Weight Weight (Kilograms): 64.000 Physical Exam GENERAL: Elderly female, AAA x 3, pleasant, healthy-appearing, not in any distress. NECK: Supple, no JVD. RESPIRATORY: Normal breathing efforts, no accessory muscle use, clear to auscultation bilaterally, no wheezes or rales. CARDIOVASCULAR: S1, S2 normal, rate rhythm regular. EXTREMITY: No lower extremity edema NEURO: speech fluent. PSYCHIATRY: Normal mood and judgment Family History Patient reports no known family medical history. Social History Smoking Status: Former smoker Alcohol Use: none Drug Use: none Marital Status: Housing Status: lives alone Occupation: retired Laboratory Results Past 24 Hours Test 07/06/17 11:32 07/06/17 16:11 07/06/17 20:37 07/07/17 00:02 Bedside Glucose 271 mg/dl (70-90) 253 mg/dl (70-90) 252 mg/dl (70-90) 184 mg/dl (70-90) Test 07/07/17 04:16 07/07/17 05:55 07/07/17 06:44 Bedside Glucose 133 mg/dl (70-90) 136 mg/dl (70-90) Albumin 2.2 gm/dl (3.4-5.0) Allergies Coded Allergies: Amoxicillin (Verified Allergy, Intermediate, RASH, 06/30/17) Clavulanic Acid (Verified Allergy, Intermediate, RASH, 06/30/17) Medications Current Inpatient Medications Medications (Trade) Dose Ordered Sig/Rios Route Start Time Stop Time Status Last Admin Dose Admin Acetaminophen (Tylenol Tab) 650 mg Q4H PRN PO 06/30/17 16:45 07/30/17 16:44 Future Hold Magnesium Hydroxide (Milk Of Magnesia Susp) 30 ml Q12H PRN PO 06/30/17 16:45 07/30/17 16:44 Ondansetron HCl (Zofran Inj) 4 mg Q6H PRN IV 06/30/17 16:45 07/30/17 16:44 Insulin Aspart (novoLOG ASPART) SLIDING SCALE If C... ACHS SC 06/30/17 21:00 07/30/17 20:59 07/07/17 08:43 5 UNITS Glucose (Glucose 40% Gel) 15-30 GRAMS 15 GRAMS... UD PRN PO 06/30/17 16:45 07/30/17 16:44 07/02/17 03:33 15 GM Glucose (Glucose Chew Tab) 4-8 Tablets 4 Tabl... UD PRN PO 06/30/17 16:45 07/30/17 16:44 Dextrose (Dextrose 50% 50ML Syringe) 25-50ML OF 50% DW IV FOR... UD PRN IV 06/30/17 16:45 07/30/17 16:44 07/01/17 14:12 50 ML Glucagon (Glucagon Inj) 1 mg UD PRN SQ 06/30/17 16:45 07/30/17 16:44 Acetaminophen (Tylenol Tab) 1,000 mg Q8 PO 06/30/17 22:00 07/30/17 21:59 07/06/17 22:26 1,000 MG Celecoxib (CeleBREX CAP) 200 mg DAILY PO 07/01/17 09:00 07/31/17 08:59 07/07/17 08:32 200 MG Docusate Sodium (coLACE CAP) 100 mg BID PO 06/30/17 21:00 07/30/17 20:59 07/07/17 08:31 100 MG Gabapentin (Neurontin Cap) 100 mg HS PO 06/30/17 21:00 07/30/17 20:59 07/06/17 21:16 100 MG Lidocaine (Lidoderm Patch 5%) 1 patch QAM TD 07/01/17 09:00 07/31/17 08:59 07/07/17 08:34 1 PATCH Metolazone (Zaroxolyn Tab) 5 mg QAM PO 07/01/17 09:00 07/31/17 08:59 Future hold 07/07/17 08:33 5 MG Metoprolol Tartrate (Lopressor Tab) 25 mg BID PO 06/30/17 21:00 07/30/17 20:59 07/07/17 08:33 25 MG Nitroglycerin (Nitrostat Tab) 0.4 mg UD PRN UT 06/30/17 16:45 07/30/17 16:44 Nystatin (Mycostatin Powder) 1 appln TID EXT 06/30/17 21:00 07/30/17 20:59 07/07/17 08:33 1 APPLN Oxycodone HCl (Roxicodone Immediate Rel Tab) 10 mg Q6 PRN PO 06/30/17 16:45 07/14/17 16:44 07/02/17 06:22 10 MG Pantoprazole Sodium (Protonix Tab) 40 mg DAILY PO 07/01/17 09:00 07/31/17 08:59 07/07/17 08:33 40 MG Polyethylene (Miralax Powder Packet) 17 gm Q2D@1800 PO 06/30/17 18:00 07/30/17 17:59 07/06/17 18:16 17 GM Pravastatin Sodium (Pravachol Tab) 40 mg HS PO 06/30/17 21:00 07/30/17 20:59 07/06/17 21:16 40 MG Quetiapine Fumarate (seroQUEL TAB) 50 mg HS PO 06/30/17 21:00 07/30/17 20:59 07/06/17 21:16 50 MG Venlafaxine HCl (effeXOR EXTENDED REL CAP) 150 mg QAM PO 07/01/17 09:00 07/31/17 08:59 07/07/17 08:32 150 MG Venlafaxine HCl (effeXOR TAB) 75 mg HS PRN PO 06/30/17 16:45 07/30/17 16:44 Miscellaneous (Remove Lidoderm Patch) 1 ea DAILY@21 N/A 06/30/17 21:00 07/30/17 20:59 07/06/17 21:14 1 EA Potassium Chloride (Klor-Con Tab) 20 meq BID PO 07/01/17 09:00 07/31/17 08:59 Future hold 07/07/17 08:32 20 MEQ Ceftriaxone Sodium 1 gm/ Dextrose 50 ml @ 100 mls/hr DAILY IV 07/01/17 09:00 07/11/17 08:59 07/07/17 08:31 100 MLS/HR Miscellaneous Information (Consult Glycemic Management Pharmacy) 1 ea UD PRN N/A 07/02/17 08:45 08/01/17 08:44 Enteral Nutritional Formula (Boost Glucose Control) 1 can BID PO 07/02/17 21:00 08/01/17 20:59 07/06/17 21:14 1 CAN Insulin Glargine (Lantus Solostar Pen) SEE PROTOCOL TEXT QAM SC 07/04/17 09:00 08/03/17 08:59 07/07/17 08:43 10 UNITS Nystatin (Mycostatin Susp) 5 ml QID PO 07/05/17 13:00 07/15/17 12:59 07/07/17 08:31 5 ML Furosemide 80 mg/ Syringe 8 ml @ 4 mls/min DAILY IV 07/07/17 09:00 08/06/17 08:59 07/07/17 08:31 4 MLS/MIN Impression (1) renal insufficiency (2) accelerated hypertension (3) Pulmonary fibrosis (4) Pulmonary hypertension (5) CHF (congestive heart failure) 82-year-old female admitted with CHF with biventricular failure. Has baseline advanced CKD. Developed acute kidney injury with the aggressive diuresis. Currently Lasix decreased to 80 milligram daily renal function improved and remained stable. She has been diuresing a with net-3 to 4 liters per day. Recommendations --hold Lasix for now as patient has been 3-4 liters net negative daily and monitor intake and output, aim for net negative 0.5-1 liter --start on acetazolamide 250 milligram twice a day for 3 days --avoid IV fluid --check magnesium and phosphate every other day Will follow
[2017-07-07] MEDS ORDERED: INSULIN GLARGINE SOLOSTAR 100 UNITS/ML 3 ML PEN SC ONE (12:45)
[2017-07-07] MEDS: AcetaZOLAMIDE 250 MG TAB PO SCH (17:35)
[2017-07-07] MEDS: GABAPENTIN 100 MG CAP PO SCH (21:48)
[2017-07-07] MEDS: PRAVASTATIN SOD 40 MG TAB PO SCH (21:49)
[2017-07-07] MEDS: QUETIAPINE FUMARATE 25 MG TAB PO SCH (21:50)
[2017-07-08] VITALS (8 sets, daily range): BP systolic 110–138; BP diastolic 67–84; PULSE 77–84; TEMP 36.2–37.2; O2SAT 91–97
[2017-07-08] MEDS: INSULIN ASPART 100 UNITS/ML 3 ML PEN SC SCH ×6 (04:00→21:49)
[2017-07-08] MEDS: ACETAMINOPHEN 500 MG TAB PO SCH ×3 (05:49→22:01)
[2017-07-08] MEDS: LIDODERM (LIDOCAINE) PATCH 5% TD SCH (08:14)
[2017-07-08] MEDS: AcetaZOLAMIDE 250 MG TAB PO SCH ×2 (08:15→17:26)
[2017-07-08] MEDS: METOPROLOL TARTRATE 25 MG TAB PO SCH ×2 (08:15→21:44)
[2017-07-08] MEDS: CEFTRIAXONE SOD INJ 1 GM in DEXTROSE 5% ADD-VANTAGE 50ML 50 ML IV SCH (08:15)
[2017-07-08] MEDS: PANTOprazole SOD 40 MG TAB PO SCH (08:15)
[2017-07-08] MEDS: DOCUSATE SODIUM 100 MG CAP PO SCH ×2 (08:16→21:39)
[2017-07-08] MEDS: VENLAFAXINE HCL XR 150 MG CAPXR PO SCH (08:16)
[2017-07-08] MEDS: POTASSIUM CHLORIDE 20 MEQ TABCR PO SCH ×3 (08:16→21:46)
[2017-07-08] MEDS: CeleBREX 200 MG CAP PO SCH (08:16)
[2017-07-08] MEDS: METOLAZONE 5 MG TAB PO SCH (08:17)
[2017-07-08] MEDS: NYSTATIN POWDER 15GM BTL EXT SCH ×3 (08:17→21:40)
[2017-07-08] MEDS: BOOST GLUCOSE CONTROL PO SCH ×2 (08:17→17:25)
[2017-07-08] MEDS: NYSTATIN SUSP 500,000 U/5 ML UDC PO SCH ×4 (08:17→21:40)
[2017-07-08] MEDS: INSULIN GLARGINE SOLOSTAR 100 UNITS/ML 3 ML PEN SC SCH (08:23)
[2017-07-08 08:26] LABS: CREATININE 2.09 mg/dl (0.60-1.20); POTASSIUM 3.1 mmol/L (3.5-5.1)
--- NOTE | 2017-07-08 08:27 | Progress Note ---
Subjective Date of Service: Jul 07, 2017. Subjective Pt evaluation today including: conversation w/ patient No change from day prior. No new complaints. Patient feels better today. Problem List Medical Problems: (1) CHF (congestive heart failure) Status: Acute (2) Elevated troponin Status: Acute (3) Intracranial hematoma Status: Acute (4) Mood disorder Status: Acute (5) Pulmonary fibrosis Status: Acute (6) Pulmonary hypertension Status: Acute (7) Suicidal ideation Status: Acute (8) Weakness Status: Acute Review of Systems All Other Systems: Reviewed and Negative Objective Vital Signs Date Time Temp Pulse Resp B/P (MAP) Pulse Ox O2 Delivery O2 Flow Rate FiO2 07/08/17 07:08 36.2 78 16 131/79 (96) 97 Nasal Cannula 4.0 07/08/17 04:15 36.6 80 18 138/81 (100) 96 Nasal Cannula 6.0 07/08/17 04:00 Nasal Cannula 6.0 07/08/17 00:34 36.7 81 20 130/84 (99) 94 Nasal Cannula 6.0 07/08/17 00:15 36.9 81 16 119/74 (89) 96 Nasal Cannula 6.0 07/08/17 00:00 Nasal Cannula 6.0 07/07/17 21:54 86 148/79 (102) 07/07/17 19:30 36.3 83 16 151/85 (107) 95 Nasal Cannula 6.0 07/07/17 18:15 Nasal Cannula 6.0 07/07/17 15:04 37.1 82 16 147/81 (103) 92 Nasal Cannula 6.0 07/07/17 13:59 36.7 84 20 129/76 (93) 94 Nasal Cannula 6.0 07/07/17 12:00 Nasal Cannula 6.0 Physical Exam Comments: General Appearance: WD/WN, no apparent distress, + obese Eyes: PERRL, EOMI ENT: hearing grossly normal, pharynx normal, + pertinent finding (MMM, mouth breathing on oximask, + erythema of tongue, no white plaque) Neck: supple, no JVD Respiratory/Chest: chest non-tender, no respiratory distress, no accessory muscle use, + pertinent finding (on 6 L via NC eating lunch and sats around 94%. + bibasilar rales ongoing, no wheeze) Cardiovascular: regular rate, rhythm, no murmur Abdomen: normal bowel sounds, non tender, soft Extremities: no calf tenderness, no pitting edema, + pertinent finding (Left arm in sling, + ecchymosis overlying upper arm. ) Neurologic/Psychiatric: no motor/sensory deficits, alert, normal mood/affect, oriented to place, time, date, month, but cannot recall the presidents name(no motor deficits, no sensory deficits) Skin: normal color, warm/dry Laboratory Results Last 24 Hours Test 07/07/17 09:59 07/07/17 12:33 07/07/17 16:37 07/07/17 20:42 Sodium Level 134 mmol/L Potassium Level 3.0 mmol/L Chloride Level 86 mmol/L Carbon Dioxide Level 40 mmol/L Anion Gap 9.0 mmol/L Blood Urea Nitrogen 85 mg/dl Creatinine 2.45 mg/dl Est Creatinine Clear Calc Drug Dose 10.7 ml/min Estimated GFR () 20.7 Estimated GFR (Non- 17.9 BUN/Creatinine Ratio 34.8 Random Glucose 254 mg/dl Calcium Level 9.4 mg/dl Phosphorus Level 3.9 mg/dl Magnesium Level 1.8 mg/dl Bedside Glucose 302 mg/dl 154 mg/dl 114 mg/dl Test 07/08/17 00:21 07/08/17 04:19 07/08/17 06:35 07/08/17 07:26 Bedside Glucose 113 mg/dl 114 mg/dl 122 mg/dl Sodium Level 133 mmol/L Potassium Level 3.1 mmol/L Chloride Level 85 mmol/L Carbon Dioxide Level 37 mmol/L Anion Gap 10.0 mmol/L Blood Urea Nitrogen 77 mg/dl Creatinine 2.09 mg/dl Est Creatinine Clear Calc Drug Dose 12.2 ml/min Estimated GFR () 25.1 Estimated GFR (Non- 21.7 BUN/Creatinine Ratio 37.0 Random Glucose 120 mg/dl Calcium Level 10.0 mg/dl Assessment and Plan 82 y/o F who was admitted on 06/30 for weakness, CT head showed possible subacute hematoma in thalamus, UA showed signs of infection, WBC 15k 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 Breathing improved, saturations improved, attempt to titrate O2 down as able. - Appreciate nephrology recs. - Continue metalazone for diuresis - Cardiorenal syndrome with worse right sided heart failure since Cr improved with diuresis - strict I/Os. Pt is out ~ 13L so far, daily weight decreasing. - Still requiring 5-6L on NC/oximask, typically wears 2 L at home, but her O2 sats have improved from high 80s to mid 90s. - Repeat PRP with am labs Hyperkalemia - Improved after dose of Lactulose x 1 dose and aggressive diuresis, follow prp - Continue potassium supplementation 20 meq daily, gave extra 20 meq this morning with K 3.2 HypoNa: likely nutritional given decreased PO intake per family - Today at 134 - continue to diuresis as above, follow prp -this is the best it has been since admission - Nephrology on board- appreciate recs Magda Albicans, oral thrush - + cultures, will start swish and swallow nystatin. - Pt does not have white plaque on exam however does look erythematous. - Continue mouth care and encourage PO intake. Metabolic Encephalopathy - AMS seems to wax and wane- oriented more today than since I have seen her this week. More awake for past 2-3 days - ABG done 07/04 showing acidosis - appears to be similar to previous abg done in mid May. - Continue oximask for now. Repeat if worsening mentation and labs are continuing to improve. Brain hematoma, possibly subacute, thalamus - d/t fall - this was the reason for admission - case d/w Dr. Parson (neurosurgeon) at time of admission - - continue to hold aspirin/plavix - I discussed possibility of resuming asa/plavix with our neurology team today since I was unable to contact Dr. Parson as above. They recommend continuing to hold until hematoma resolved, which should be followed with CT in about 2-3 weeks. maintaining systolic BP <150, no need for keppra, and no need for repeat imaging unless pt develops neuro sx. no neuro deficits in over 4 days. no acute intervention - Dr. Parson willing to re-eval if any plans for changes in intervention. UTI with sepsis, present at time of admission- dupree catheter in place - Resolving - no signs of organ failure or shock - start Rocephin 1000mg IV daily- started on 07/01 and continue for now - would continue x a 7 day course since there is improvement in her mentation. - UCx growing lactobacillus - no other sensitivity to follow. BCx NGTD - WBC trending downward Elevated trop: noted on last admission and similar value at 0.963, trended down to 0.704 - no chest pain or pressure - ECHO on last admission was WNL, will not repeat unless trop becomes more elevated DM: Lantus + SSI PRN - A1c 04/2017 was 8.5, will not recheck - Hold Glipizide, continue Lantus as diet continues to improve, continue to monitor closely HTN: continue home meds - Maintain systolic BP <150 per neurosurg recs CVA: holding aspirin/plavix as above due to hematoma - ask neurology when safe to resume. Anemia: stable, Hgb improved to 11.1 today - s/p 1 U PRBCs on 07/02- denies lightheadedness, dizziness and fatigue. - baseline hgb seems to be around 12 Left humerus fracture: occurred prior to last admission - not doing well at home, looking into rehab - supposed to see Orthopedic surgery this week Consider repeat Xray once other medical issues improving. - PT/OT on board - she will need rehab at the time of discharge. Severe Albuminemia, Protein calorie malnutrition - 2.1 on labs, encourage increase in nutrition to promote healing. Continue boost breeze BID Pulmonary Fibrosis, chronic hypoxic respiratory failure. - Home O2 of 3 L DVT ppx: SCDs for DVT proph given hematoma Code Status: DNR/DNI Disposition: From home, was living with sister, will need PT/OT and rehab vs SNF stay, CM assisting Discussion held with family at bedside today and all their questions and concerns were addressed. Continued [facility] stay due to: multiple IV medications needed Discharge planning: uncertain
[2017-07-08] MEDS ORDERED: POTASSIUM CHLORIDE 10 MEQ TABCR PO STA (08:49)
[2017-07-08] MEDS ORDERED: INSULIN GLARGINE SOLOSTAR 100 UNITS/ML 3 ML PEN SC ONE (09:00)
--- NOTE | 2017-07-08 12:01 | Nephrology Progress Note ---
Nephrology Progress Note Date of Service Jul 08, 2017. Chief Complaint Follow-up for acute kidney injury and volume overload with history of chronic kidney disease Subjective Mrs. Hensley was seen and examined in her room this morning. She has not been feeling well, over last 1 h , has been feeling dizzy and lightheaded, HR >140. Off of diuretics since yesterday. has been net negative.. Renal function continues to improve creatinine 2.51 toady , K was low at 3.1 Review of Systems A complete review of systems was performed. Pertinent positives are noted above. All other systems are negative. Vital Signs Last 8 Hrs Date Time Temp Pulse Resp B/P (MAP) Pulse Ox O2 Delivery O2 Flow Rate FiO2 07/08/17 07:08 36.2 78 16 131/79 (96) 97 Nasal Cannula 4.0 07/08/17 04:15 36.6 80 18 138/81 (100) 96 Nasal Cannula 6.0 07/08/17 04:00 Nasal Cannula 6.0 Last Recorded Weight Weight (Kilograms): 61.500 Physical Exam GENERAL: Elderly female, AAA x 3, pleasant, healthy-appearing, not in any distress. NECK: Supple, no JVD. RESPIRATORY: Normal breathing efforts, no accessory muscle use, clear to auscultation bilaterally, no wheezes or rales. CARDIOVASCULAR: S1, S2 normal, rate rhythm regular. EXTREMITY: No lower extremity edema NEURO: speech fluent. PSYCHIATRY: Normal mood and judgment Family History Patient reports no known family medical history. Social History Smoking Status: Former smoker Alcohol Use: none Drug Use: none Marital Status: Housing Status: lives alone Occupation: retired Laboratory Results Past 24 Hours 07/08/17 06:35 Test 07/07/17 12:33 07/07/17 16:37 07/07/17 20:42 07/08/17 00:21 Bedside Glucose 302 mg/dl (70-90) 154 mg/dl (70-90) 114 mg/dl (70-90) 113 mg/dl (70-90) Test 07/08/17 04:19 07/08/17 06:35 07/08/17 07:26 Bedside Glucose 114 mg/dl (70-90) 122 mg/dl (70-90) Anion Gap 10.0 mmol/L (3-11) Est Creatinine Clear Calc Drug Dose 12.2 ml/min Estimated GFR () 25.1 Estimated GFR (Non- 21.7 BUN/Creatinine Ratio 37.0 (10-20) Calcium Level 10.0 mg/dl (8.5-10.1) Allergies Coded Allergies: Amoxicillin (Verified Allergy, Intermediate, RASH, 06/30/17) Clavulanic Acid (Verified Allergy, Intermediate, RASH, 06/30/17) Medications Current Inpatient Medications Medications (Trade) Dose Ordered Sig/Rios Route Start Time Stop Time Status Last Admin Dose Admin Acetaminophen (Tylenol Tab) 650 mg Q4H PRN PO 06/30/17 16:45 07/30/17 16:44 Future Hold Magnesium Hydroxide (Milk Of Magnesia Susp) 30 ml Q12H PRN PO 06/30/17 16:45 07/30/17 16:44 Ondansetron HCl (Zofran Inj) 4 mg Q6H PRN IV 06/30/17 16:45 07/30/17 16:44 Insulin Aspart (novoLOG ASPART) SLIDING SCALE If C... ACHS SC 06/30/17 21:00 07/30/17 20:59 07/08/17 08:14 4 UNITS Glucose (Glucose 40% Gel) 15-30 GRAMS 15 GRAMS... UD PRN PO 06/30/17 16:45 07/30/17 16:44 07/02/17 03:33 15 GM Glucose (Glucose Chew Tab) 4-8 Tablets 4 Tabl... UD PRN PO 06/30/17 16:45 07/30/17 16:44 Dextrose (Dextrose 50% 50ML Syringe) 25-50ML OF 50% DW IV FOR... UD PRN IV 06/30/17 16:45 07/30/17 16:44 07/01/17 14:12 50 ML Glucagon (Glucagon Inj) 1 mg UD PRN SQ 06/30/17 16:45 07/30/17 16:44 Acetaminophen (Tylenol Tab) 1,000 mg Q8 PO 06/30/17 22:00 07/30/17 21:59 07/08/17 05:49 1,000 MG Celecoxib (CeleBREX CAP) 200 mg DAILY PO 07/01/17 09:00 07/31/17 08:59 07/08/17 08:16 200 MG Docusate Sodium (coLACE CAP) 100 mg BID PO 06/30/17 21:00 07/30/17 20:59 07/08/17 08:16 100 MG Gabapentin (Neurontin Cap) 100 mg HS PO 06/30/17 21:00 07/30/17 20:59 07/07/17 21:48 100 MG Lidocaine (Lidoderm Patch 5%) 1 patch QAM TD 07/01/17 09:00 07/31/17 08:59 07/08/17 08:14 1 PATCH Metolazone (Zaroxolyn Tab) 5 mg QAM PO 07/01/17 09:00 07/31/17 08:59 Future hold 07/08/17 08:17 5 MG Metoprolol Tartrate (Lopressor Tab) 25 mg BID PO 06/30/17 21:00 07/30/17 20:59 07/08/17 08:15 25 MG Nitroglycerin (Nitrostat Tab) 0.4 mg UD PRN UT 06/30/17 16:45 07/30/17 16:44 Nystatin (Mycostatin Powder) 1 appln TID EXT 06/30/17 21:00 07/30/17 20:59 07/08/17 08:17 1 APPLN Oxycodone HCl (Roxicodone Immediate Rel Tab) 10 mg Q6 PRN PO 06/30/17 16:45 07/14/17 16:44 07/02/17 06:22 10 MG Pantoprazole Sodium (Protonix Tab) 40 mg DAILY PO 07/01/17 09:00 07/31/17 08:59 07/08/17 08:15 40 MG Polyethylene (Miralax Powder Packet) 17 gm Q2D@1800 PO 06/30/17 18:00 07/30/17 17:59 07/06/17 18:16 17 GM Pravastatin Sodium (Pravachol Tab) 40 mg HS PO 06/30/17 21:00 07/30/17 20:59 07/07/17 21:49 40 MG Quetiapine Fumarate (seroQUEL TAB) 50 mg HS PO 06/30/17 21:00 07/30/17 20:59 07/07/17 21:50 50 MG Venlafaxine HCl (effeXOR EXTENDED REL CAP) 150 mg QAM PO 07/01/17 09:00 07/31/17 08:59 07/08/17 08:16 150 MG Venlafaxine HCl (effeXOR TAB) 75 mg HS PRN PO 06/30/17 16:45 07/30/17 16:44 Miscellaneous (Remove Lidoderm Patch) 1 ea DAILY@21 N/A 06/30/17 21:00 07/30/17 20:59 07/07/17 21:00 1 EA Potassium Chloride (Klor-Con Tab) 20 meq BID PO 07/01/17 09:00 07/31/17 08:59 Future hold 07/08/17 08:16 20 MEQ Ceftriaxone Sodium 1 gm/ Dextrose 50 ml @ 100 mls/hr DAILY IV 07/01/17 09:00 07/11/17 08:59 07/08/17 08:15 100 MLS/HR Miscellaneous Information (Consult Glycemic Management Pharmacy) 1 ea UD PRN N/A 07/02/17 08:45 08/01/17 08:44 Nystatin (Mycostatin Susp) 5 ml QID PO 07/05/17 13:00 07/15/17 12:59 07/08/17 08:17 5 ML Enteral Nutritional Formula (Boost Glucose Control) 1 can BIDM PO 07/07/17 16:45 08/06/17 16:44 07/08/17 08:17 1 CAN Acetazolamide (Diamox Tab) 250 mg BID17 PO 07/07/17 17:00 07/10/17 17:01 07/08/17 08:15 250 MG Insulin Glargine (Lantus Solostar Pen) 15 units QAM SC 07/09/17 09:00 08/08/17 08:59 Impression (1) renal insufficiency (2) accelerated hypertension (3) Pulmonary fibrosis (4) Pulmonary hypertension (5) CHF (congestive heart failure) 82-year-old female admitted with CHF with biventricular failure. Has baseline advanced CKD. Developed acute kidney injury with the aggressive diuresis. Currently Lasix decreased to 80 milligram daily renal function improved and remained stable. She has been diuresing a with net-3 to 4 liters per day. Recommendations --NS 250 ML bolus stat, suggest stat EKG, Mg, K as K was low this am,KCL 40 was given this am. discussed with primary team and pts nurse --Continue to hold diuretics as patient has been > 3-4 liters net negative daily and monitor intake and output. --on acetazolamide 250 milligram twice a day for 3 days, bicarb improving --check magnesium and phosphate every other day Will follow
--- NOTE | 2017-07-08 14:05 | Pharmacy Progress Note ---
Pharmacy Glycemic Short Note 2 Date of Service Jul 08, 2017. OUTPATIENT ANTIDIABETIC REGIMEN: * Lantus 30 units in the morning plus 25 units in the PM, glipizide 10 mg BID * A1c = 8.5 % 04/2017 ASSESSMENT: * See progress note from 07/02/16 for background info, in short: * Patient receiving SQ basal/bolus regimen for baseline DM (outpatient regimen on hold). Insulin dosing initially decreased due to hypoglycemia and has been titrated daily based on BSG trends. Patient remains on significantly less insulin compared to outpatient dose of 55 units/day. * BSGs improving with insulin dose titrations * BSGs over the past 24hrs: 136, 302, 154, 114, 113, 114, 122, 231 * Suspect that CHO are not being covered from [employer] supplement which is causing the rise in BSGs. Spoke with nursing and they are now covering CHO from [employer]. Nursing believes that her family may be bringing in additional food that is not being covered. * Fasting BSG improved today (122 mg/dL) with additional dose of Lantus yesterday. Will continue Lantus 15 units SQ daily * More prandial coverage is needed PLAN FOR INPATIENT GLYCEMIC CONTROL: * Hold outpatient oral diabetes medications * Basal insulin * Lantus 15 units Sq daily in AM * Bolus insulin - tighten CR * NovoLog per scale ACHS or Q6hrs while NPO * Goal Range: Low 120 mg/dL - High 140 mg/dL * Correction Factor: 25 mg/dL/unit * Nutritional / Prandial insulin per carb ratio of 1 unit per 7 grams CHO consumed PLAN FOR DISCHARGE: * A1c 8.5% on 04/22/17 * Recommend discontinuation of glipizide secondary to kidney dysfunction and age /co-morbidities. * It seems reasonable to continue home Lantus dosing on discharge as long as the patient will have prompt f/u with outpatient provider. Lantus dose will likely need increased if glipizide is discontinued.
[2017-07-08] MEDS: POLYETHYLENE (MIRALAX) 17 GM PACK PO SCH (17:29)
[2017-07-08] MEDS: PRAVASTATIN SOD 40 MG TAB PO SCH (21:39)
[2017-07-08] MEDS: GABAPENTIN 100 MG CAP PO SCH (21:40)
[2017-07-08] MEDS: QUETIAPINE FUMARATE 25 MG TAB PO SCH (21:40)
--- NOTE | 2017-07-08 23:45 | Progress Note ---
Subjective Date of Service: Jul 08, 2017. Subjective Pt evaluation today including: conversation w/ patient Patient states that she is more weaker today than she did feel yesterday. Patient denies any shortness of breath at this time. Problem List Medical Problems: (1) CHF (congestive heart failure) Status: Acute (2) Elevated troponin Status: Acute (3) Intracranial hematoma Status: Acute (4) Mood disorder Status: Acute (5) Pulmonary fibrosis Status: Acute (6) Pulmonary hypertension Status: Acute (7) Suicidal ideation Status: Acute (8) Weakness Status: Acute Review of Systems All Other Systems: Reviewed and Negative Medications Current Inpatient Medications Medications (Trade) Dose Ordered Sig/Rios Route Start Time Stop Time Status Last Admin Dose Admin Acetaminophen (Tylenol Tab) 650 mg Q4H PRN PO 06/30/17 16:45 07/30/17 16:44 Future Hold Magnesium Hydroxide (Milk Of Magnesia Susp) 30 ml Q12H PRN PO 06/30/17 16:45 07/30/17 16:44 Ondansetron HCl (Zofran Inj) 4 mg Q6H PRN IV 06/30/17 16:45 07/30/17 16:44 Insulin Aspart (novoLOG ASPART) SLIDING SCALE If C... ACHS SC 06/30/17 21:00 07/30/17 20:59 07/08/17 21:49 2 UNITS Glucose (Glucose 40% Gel) 15-30 GRAMS 15 GRAMS... UD PRN PO 06/30/17 16:45 07/30/17 16:44 07/02/17 03:33 15 GM Glucose (Glucose Chew Tab) 4-8 Tablets 4 Tabl... UD PRN PO 06/30/17 16:45 07/30/17 16:44 Dextrose (Dextrose 50% 50ML Syringe) 25-50ML OF 50% DW IV FOR... UD PRN IV 06/30/17 16:45 07/30/17 16:44 07/01/17 14:12 50 ML Glucagon (Glucagon Inj) 1 mg UD PRN SQ 06/30/17 16:45 07/30/17 16:44 Acetaminophen (Tylenol Tab) 1,000 mg Q8 PO 06/30/17 22:00 07/30/17 21:59 07/09/17 05:33 1,000 MG Celecoxib (CeleBREX CAP) 200 mg DAILY PO 07/01/17 09:00 07/31/17 08:59 07/08/17 08:16 200 MG Docusate Sodium (coLACE CAP) 100 mg BID PO 06/30/17 21:00 07/30/17 20:59 07/08/17 21:39 100 MG Gabapentin (Neurontin Cap) 100 mg HS PO 06/30/17 21:00 07/30/17 20:59 07/08/17 21:40 100 MG Lidocaine (Lidoderm Patch 5%) 1 patch QAM TD 07/01/17 09:00 07/31/17 08:59 07/08/17 08:14 1 PATCH Metolazone (Zaroxolyn Tab) 5 mg QAM PO 07/01/17 09:00 07/31/17 08:59 Future hold 07/08/17 08:17 5 MG Metoprolol Tartrate (Lopressor Tab) 25 mg BID PO 06/30/17 21:00 07/30/17 20:59 07/08/17 21:44 25 MG Nitroglycerin (Nitrostat Tab) 0.4 mg UD PRN UT 06/30/17 16:45 07/30/17 16:44 Nystatin (Mycostatin Powder) 1 appln TID EXT 06/30/17 21:00 07/30/17 20:59 07/08/17 21:40 1 APPLN Oxycodone HCl (Roxicodone Immediate Rel Tab) 10 mg Q6 PRN PO 06/30/17 16:45 07/14/17 16:44 07/09/17 00:46 10 MG Pantoprazole Sodium (Protonix Tab) 40 mg DAILY PO 07/01/17 09:00 07/31/17 08:59 07/08/17 08:15 40 MG Polyethylene (Miralax Powder Packet) 17 gm Q2D@1800 PO 06/30/17 18:00 07/30/17 17:59 07/08/17 17:29 17 GM Pravastatin Sodium (Pravachol Tab) 40 mg HS PO 06/30/17 21:00 07/30/17 20:59 07/08/17 21:39 40 MG Quetiapine Fumarate (seroQUEL TAB) 50 mg HS PO 06/30/17 21:00 07/30/17 20:59 3/4/18 21:40 50 MG Venlafaxine HCl (effeXOR EXTENDED REL CAP) 150 mg QAM PO 07/01/17 09:00 07/31/17 08:59 07/08/17 08:16 150 MG Venlafaxine HCl (effeXOR TAB) 75 mg HS PRN PO 06/30/17 16:45 07/30/17 16:44 Miscellaneous (Remove Lidoderm Patch) 1 ea DAILY@21 N/A 06/30/17 21:00 07/30/17 20:59 07/08/17 21:44 1 EA Potassium Chloride (Klor-Con Tab) 20 meq BID PO 07/01/17 09:00 07/31/17 08:59 Future hold 07/08/17 21:45 20 MEQ Ceftriaxone Sodium 1 gm/ Dextrose 50 ml @ 100 mls/hr DAILY IV 07/01/17 09:00 07/11/17 08:59 07/08/17 08:15 100 MLS/HR Miscellaneous Information (Consult Glycemic Management Pharmacy) 1 ea UD PRN N/A 07/02/17 08:45 08/01/17 08:44 Nystatin (Mycostatin Susp) 5 ml QID PO 07/05/17 13:00 07/15/17 12:59 07/08/17 21:40 5 ML Enteral Nutritional Formula (Boost Glucose Control) 1 can BIDM PO 07/07/17 16:45 08/06/17 16:44 07/08/17 17:25 1 CAN Acetazolamide (Diamox Tab) 250 mg BID17 PO 07/07/17 17:00 07/10/17 17:01 07/08/17 17:26 250 MG Insulin Glargine (Lantus Solostar Pen) 15 units QAM SC 07/09/17 09:00 08/08/17 08:59 Potassium Chloride (Klor-Con Tab) 40 meq BID PO 07/08/17 21:00 07/09/17 09:01 07/08/17 21:46 40 MEQ Objective Vital Signs Date Time Temp Pulse Resp B/P (MAP) Pulse Ox O2 Delivery O2 Flow Rate FiO2 07/08/17 22:00 Nasal Cannula 4.0 07/08/17 19:29 36.8 84 16 115/67 (83) 92 Nasal Cannula 4.0 07/08/17 15:30 Nasal Cannula 4.0 07/08/17 15:16 36.5 84 16 112/72 (85) 93 Nasal Cannula 4.0 07/08/17 12:20 36.6 84 20 120/73 (89) 94 Nasal Cannula 4.0 07/08/17 12:05 Nasal Cannula 6.0 07/08/17 08:05 Nasal Cannula 6.0 07/08/17 07:08 36.2 78 16 131/79 (96) 97 Nasal Cannula 4.0 07/08/17 04:15 36.6 80 18 138/81 (100) 96 Nasal Cannula 6.0 07/08/17 04:00 Nasal Cannula 6.0 07/08/17 00:34 36.7 81 20 130/84 (99) 94 Nasal Cannula 6.0 07/08/17 00:15 36.9 81 16 119/74 (89) 96 Nasal Cannula 6.0 07/08/17 00:00 Nasal Cannula 6.0 Physical Exam Comments: General Appearance: WD/WN, no apparent distress, + obese Eyes: PERRL, EOMI ENT: hearing grossly normal, pharynx normal, + pertinent finding (MMM, on 4l NC , + erythema of tongue, no white plaque) Neck: supple, no JVD Respiratory/Chest: chest non-tender, no respiratory distress, no accessory muscle use, + pertinent finding (on 4 L via NC eating lunch and sats around 94%. + bibasilar rales ongoing, no wheeze) Cardiovascular: regular rate, rhythm, no murmur Abdomen: normal bowel sounds, non tender, soft Extremities: no calf tenderness, no pitting edema, + pertinent finding (Left arm in sling, + ecchymosis overlying upper arm. ) Neurologic/Psychiatric: no motor/sensory deficits, alert, normal mood/affect, oriented to place, time, date, month, but cannot recall the presidents name(no motor deficits, no sensory deficits) Skin: normal color, warm/dry Laboratory Results Last 24 Hours Test 07/08/17 00:21 07/08/17 04:19 07/08/17 06:35 07/08/17 07:26 Bedside Glucose 113 mg/dl 114 mg/dl 122 mg/dl Sodium Level 133 mmol/L Potassium Level 3.1 mmol/L Chloride Level 85 mmol/L Carbon Dioxide Level 37 mmol/L Anion Gap 10.0 mmol/L Blood Urea Nitrogen 77 mg/dl Creatinine 2.09 mg/dl Est Creatinine Clear Calc Drug Dose 12.2 ml/min Estimated GFR () 25.1 Estimated GFR (Non- 21.7 BUN/Creatinine Ratio 37.0 Random Glucose 120 mg/dl Calcium Level 10.0 mg/dl Magnesium Level 1.7 mg/dl Test 07/08/17 11:43 07/08/17 16:27 07/08/17 20:28 Bedside Glucose 231 mg/dl 287 mg/dl 182 mg/dl Assessment and Plan 82 y/o F who was admitted on 06/30 for weakness, CT head showed possible subacute hematoma in thalamus, UA showed signs of infection, WBC 15k Sinus tachycardia in the 130s. I was called by [facility] [employer]. When I saw patient her rate improved. will hold lasix as she is likely becoming hypovolemic. will give some fluid today as well. 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 Breathing improved, saturations improved, attempt to titrate O2 down as able. - Appreciate nephrology recs. - Continue metalazone for diuresis - Cardiorenal syndrome with worse right sided heart failure since Cr improved with diuresis - strict I/Os. Pt is out ~ 15L so far, daily weight decreasing. - Improved on 4L on NC/oximask, typically wears 2 L at home, but her O2 sats have improved from high 80s to mid 90s. - Repeat PRP with am labs Hyperkalemia - Improved after dose of Lactulose x 1 dose and aggressive diuresis, follow prp - Continue potassium supplementation 20 meq daily, gave extra 20 meq this morning with K 3.2 HypoNa: likely nutritional given decreased PO intake per family - Today at 134 - continue to diuresis as above, follow prp -this is the best it has been since admission - Nephrology on board- appreciate recs Magda Albicans, oral thrush - + cultures, will start swish and swallow nystatin. - Pt does not have white plaque on exam however does look erythematous. - Continue mouth care and encourage PO intake. Metabolic Encephalopathy - AMS seems to wax and wane- oriented more today than since I have seen her this week. More awake for past 2-3 days - ABG done 07/04 showing acidosis - appears to be similar to previous abg done in mid May. - Continue oximask for now. Repeat if worsening mentation and labs are continuing to improve. Brain hematoma, possibly subacute, thalamus - d/t fall - this was the reason for admission - case d/w Dr. Parson (neurosurgeon) at time of admission - - continue to hold aspirin/plavix - I discussed possibility of resuming asa/plavix with our neurology team today since I was unable to contact Dr. Parson as above. They recommend continuing to hold until hematoma resolved, which should be followed with CT in about 2-3 weeks. maintaining systolic BP <150, no need for keppra, and no need for repeat imaging unless pt develops neuro sx. no neuro deficits in over 4 days. no acute intervention - Dr. Parson willing to re-eval if any plans for changes in intervention. UTI with sepsis, present at time of admission- dupree catheter in place - Resolving - no signs of organ failure or shock - start Rocephin 1000mg IV daily- started on 07/01 and continue for now - would continue x a 7 day course since there is improvement in her mentation. - UCx growing lactobacillus - no other sensitivity to follow. BCx NGTD - WBC trending downward Elevated trop: noted on last admission and similar value at 0.963, trended down to 0.704 - no chest pain or pressure - ECHO on last admission was WNL, will not repeat unless trop becomes more elevated DM: Lantus + SSI PRN - A1c 04/2017 was 8.5, will not recheck - Hold Glipizide, continue Lantus as diet continues to improve, continue to monitor closely HTN: continue home meds - Maintain systolic BP <150 per neurosurg recs CVA: holding aspirin/plavix as above due to hematoma - ask neurology when safe to resume. Anemia: stable, Hgb improved to 11.1 today - s/p 1 U PRBCs on 07/02- denies lightheadedness, dizziness and fatigue. - baseline hgb seems to be around 12 Left humerus fracture: occurred prior to last admission - not doing well at home, looking into rehab - supposed to see Orthopedic surgery this week Consider repeat Xray once other medical issues improving. - PT/OT on board - she will need rehab at the time of discharge. Severe Albuminemia, Protein calorie malnutrition - 2.1 on labs, encourage increase in nutrition to promote healing. Continue boost breeze BID Pulmonary Fibrosis, chronic hypoxic respiratory failure. - Home O2 of 3 L DVT ppx: SCDs for DVT proph given hematoma Code Status: DNR/DNI Disposition: From home, was living with sister, will need PT/OT and rehab vs SNF stay, CM assisting Discussion held with family at bedside today and all their questions and concerns were addressed.
[2017-07-09] VITALS (13 sets, daily range): BP systolic 96–124; BP diastolic 51–68; PULSE 78–84; TEMP 36.3–36.7; O2SAT 84–97
[2017-07-09] MEDS: OXYCODONE HCL IR 5 MG TAB (IMMEDIATE RELEASE) PO PRN ×2 (00:46→12:55)
[2017-07-09] MEDS: ACETAMINOPHEN 500 MG TAB PO SCH ×3 (05:33→21:26)
[2017-07-09] MEDS: BOOST GLUCOSE CONTROL PO SCH ×2 (07:30→16:49)
--- NOTE | 2017-07-09 07:46 | Progress Note ---
Subjective Date of Service: Jul 09, 2017. Problem List Medical Problems: (1) CHF (congestive heart failure) Status: Acute (2) Elevated troponin Status: Acute (3) Intracranial hematoma Status: Acute (4) Mood disorder Status: Acute (5) Pulmonary fibrosis Status: Acute (6) Pulmonary hypertension Status: Acute (7) Suicidal ideation Status: Acute (8) Weakness Status: Acute Objective Vital Signs Date Time Temp Pulse Resp B/P (MAP) Pulse Ox O2 Delivery O2 Flow Rate FiO2 07/09/17 05:05 36.6 78 18 124/68 (86) 94 Nasal Cannula 4.0 07/09/17 04:00 92 Nasal Cannula 4.0 07/09/17 00:00 92 Nasal Cannula 4.0 07/08/17 23:01 37.2 77 20 110/71 (84) 91 Nasal Cannula 4.0 07/08/17 22:00 Nasal Cannula 4.0 07/08/17 19:29 36.8 84 16 115/67 (83) 92 Nasal Cannula 4.0 07/08/17 15:30 Nasal Cannula 4.0 07/08/17 15:16 36.5 84 16 112/72 (85) 93 Nasal Cannula 4.0 07/08/17 12:20 36.6 84 20 120/73 (89) 94 Nasal Cannula 4.0 07/08/17 12:05 Nasal Cannula 6.0 07/08/17 08:05 Nasal Cannula 6.0 Laboratory Results Last 24 Hours Test 07/08/17 11:43 07/08/17 16:27 07/08/17 20:28 07/09/17 07:11 Bedside Glucose 231 mg/dl 287 mg/dl 182 mg/dl Assessment and Plan 82 y/o F who was admitted on 06/30 for weakness Brain hematoma, possibly subacute: Pt feels that she would not pursue surgical intervention even in the event of an acute bleed and would rather not be transferred to [facility]. Recs from Dr. Parson include holding aspirin/plavix, maintaining systolic BP < 150, no need for keppra, and no need for repeat imaging unless pt develops neuro sx. He is willing to accept the pt at a later date if there is a change in decision regarding intervention. Hb on prior admission was 12.1, today it is 8.7 Monitor Anemia: ? related to hematoma, although not noted on CT ? related to humeral fracture/bruising Send stool for hemoccult Elevated trop: noted on last admission and similar value at 0.963 Serials pending ECHO on last admission was WNL, will not repeat unless trop becomes more elevated Possible related to CKD CKD: baseline cr 2.3, at 2.4 now Monitor HypoNa: likely nutritional given decreased PO intake per family Monitor DM: Lantus + SSI PRN A1c 04/2017 was 8.5, will not recheck HTN: continue home meds Maintain systolic BP <150 per neurosurg recs CVA: holding aspirin/plavix as above Other: DNR/DNI SCDs for DVT proph given hematoma DM diet Advised family that changes with the hematoma might cause sx similar to stroke. If there is ongoing concerns for bleeding related to hematoma, may benefit from palliative care c/s CM notified for possible placement. PT/OT 82 y/o F who was admitted on 06/30 for weakness, CT head showed possible subacute hematoma in thalamus, UA showed signs of infection, WBC 15k Sinus tachycardia in the 130s. I was called by exhaust and muffler fitter. When I saw patient her rate improved. will hold lasix as she is likely becoming hypovolemic. will give some fluid today as well. 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 Breathing improved, saturations improved, attempt to titrate O2 down as able. - Appreciate nephrology recs. - Continue metalazone for diuresis - Cardiorenal syndrome with worse right sided heart failure since Cr improved with diuresis - strict I/Os. Pt is out ~ 15L so far, daily weight decreasing. - Improved on 4L on NC/oximask, typically wears 2 L at home, but her O2 sats have improved from high 80s to mid 90s. - Repeat PRP with am labs Hyperkalemia - Improved after dose of Lactulose x 1 dose and aggressive diuresis, follow prp - Continue potassium supplementation 20 meq daily, gave extra 20 meq this morning with K 3.2 HypoNa: likely nutritional given decreased PO intake per family - Today at 134 - continue to diuresis as above, follow prp -this is the best it has been since admission - Nephrology on board- appreciate recs Magda Albicans, oral thrush - + cultures, will start swish and swallow nystatin. - Pt does not have white plaque on exam however does look erythematous. - Continue mouth care and encourage PO intake. Metabolic Encephalopathy - AMS seems to wax and wane- oriented more today than since I have seen her this week. More awake for past 2-3 days - ABG done 07/04 showing acidosis - appears to be similar to previous abg done in mid May. - Continue oximask for now. Repeat if worsening mentation and labs are continuing to improve. Brain hematoma, possibly subacute, thalamus - d/t fall - this was the reason for admission - case d/w Dr. Parson (neurosurgeon) at time of admission - - continue to hold aspirin/plavix - I discussed possibility of resuming asa/plavix with our neurology team today since I was unable to contact Dr. Parson as above. They recommend continuing to hold until hematoma resolved, which should be followed with CT in about 2-3 weeks. maintaining systolic BP <150, no need for keppra, and no need for repeat imaging unless pt develops neuro sx. no neuro deficits in over 4 days. no acute intervention - Dr. Parson willing to re-eval if any plans for changes in intervention. UTI with sepsis, present at time of admission- dupree catheter in place - Resolving - no signs of organ failure or shock - start Rocephin 1000mg IV daily- started on 07/01 and continue for now - would continue x a 7 day course since there is improvement in her mentation. - UCx growing lactobacillus - no other sensitivity to follow. BCx NGTD - WBC trending downward Elevated trop: noted on last admission and similar value at 0.963, trended down to 0.704 - no chest pain or pressure - ECHO on last admission was WNL, will not repeat unless trop becomes more elevated DM: Lantus + SSI PRN - A1c 04/2017 was 8.5, will not recheck - Hold Glipizide, continue Lantus as diet continues to improve, continue to monitor closely HTN: continue home meds - Maintain systolic BP <150 per neurosurg recs CVA: holding aspirin/plavix as above due to hematoma - ask neurology when safe to resume. Anemia: stable, Hgb improved to 11.1 today - s/p 1 U PRBCs on 07/02- denies lightheadedness, dizziness and fatigue. - baseline hgb seems to be around 12 Left humerus fracture: occurred prior to last admission - not doing well at home, looking into rehab - supposed to see Orthopedic surgery this week Consider repeat Xray once other medical issues improving. - PT/OT on board - she will need rehab at the time of discharge. Severe Albuminemia, Protein calorie malnutrition - 2.1 on labs, encourage increase in nutrition to promote healing. Continue boost breeze BID Pulmonary Fibrosis, chronic hypoxic respiratory failure. - Home O2 of 3 L DVT ppx: SCDs for DVT proph given hematoma Code Status: DNR/DNI Disposition: From home, was living with sister, will need PT/OT and rehab vs SNF stay, CM assisting Discussion held with family at bedside today and all their questions and concerns were addressed. Continued [facility] stay due to: multiple IV medications needed Discharge planning: uncertain
[2017-07-09 08:20] LABS: CALCIUM 9.6 mg/dl (8.5-10.1); CREATININE 2.01 mg/dl (0.60-1.20); POTASSIUM 4.1 mmol/L (3.5-5.1)
--- NOTE | 2017-07-09 08:22 | Hospitalist Progress Note ---
Hospitalist Progress Note Date of Service Jul 09, 2017. (Patience Cuellar PA-C) Subjective Pt evaluation today including: conversation w/ patient, conversation w/ family , physical exam, chart review, lab review, review of studies Pain: None PO Intake: Fair Voiding: dupree catheter in place The patient was seen and examined this morning. Pt reports doing pretty well currently. PT is in the room working with her, and states she is only able to take two step to the front and side, and was becoming hypoxic on 5L via NC at 79 -80%. She remains in the mid 90s at rest on oximask at 4L after taking a break. The patient reports feeling better overall compared to last week. Her daughter, Erika, is present at bedside and all her questions and concerns were addressed. Constitutional: + fatigue, No fever, No chills, No sweats Eyes: No redness, No problem reported ENT: No nasal symptoms, No trouble swallowing Respiratory: + cough, + dyspnea on exertion, No wheezing, No dyspnea at rest Cardiovascular: No chest pain, No edema, No palpitations Abdomen: No pain, No nausea, No vomiting, No diarrhea, No constipation Musculoskeletal: No joint pain, No swelling Neurologic: + weakness Endo: + fatigue (Patience Cuellar PA-C) Objective Vital Signs Date Time Temp Pulse Resp B/P (MAP) Pulse Ox O2 Delivery O2 Flow Rate FiO2 07/09/17 07:38 36.7 83 20 118/68 (85) 94 Nasal Cannula 4.0 07/09/17 05:05 36.6 78 18 124/68 (86) 94 Nasal Cannula 4.0 07/09/17 04:00 92 Nasal Cannula 4.0 07/09/17 00:00 92 Nasal Cannula 4.0 07/08/17 23:01 37.2 77 20 110/71 (84) 91 Nasal Cannula 4.0 07/08/17 22:00 Nasal Cannula 4.0 07/08/17 19:29 36.8 84 16 115/67 (83) 92 Nasal Cannula 4.0 07/08/17 15:30 Nasal Cannula 4.0 07/08/17 15:16 36.5 84 16 112/72 (85) 93 Nasal Cannula 4.0 07/08/17 12:20 36.6 84 20 120/73 (89) 94 Nasal Cannula 4.0 07/08/17 12:05 Nasal Cannula 6.0 (Patience Cuellar PA-C) Physical Exam General Appearance: WD/WN, no apparent distress Eyes: PERRL, EOMI ENT: hearing grossly normal, pharynx normal, + pertinent finding (Tongue remains erythematous and appears sore, no white plaque. Posterior pharynx minimally erythematous. ) Neck: supple, no JVD Respiratory/Chest: + pertinent finding (On 4 L via oximask, O2 sats=95%, breath sounds with minimal bibasilar rhonchi, sounds improved) Cardiovascular: regular rate, rhythm, no JVD, no murmur Abdomen: normal bowel sounds, non tender, soft Extremities: non-tender, no pedal edema, no calf tenderness Neurologic/Psychiatric: alert, normal mood/affect, oriented x 3 Skin: normal color, warm/dry (Patience Cuellar PA-C) Laboratory Results Last 24 Hours Test 07/08/17 11:43 07/08/17 16:27 07/08/17 20:28 07/09/17 07:11 Bedside Glucose 231 mg/dl 287 mg/dl 182 mg/dl (Patience Cuellar PA-C) Assessment and Plan 82 y/o F who was admitted on 06/30 for weakness, CT head showed possible subacute hematoma in thalamus, UA showed signs of infection, WBC 15k 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 Breathing improved, saturations improved, attempt to titrate O2 down as able. - Appreciate nephrology recs. - Continue metalazone for diuresis - Cardiorenal syndrome with worse right sided heart failure since Cr improved with diuresis - strict I/Os. Pt is out ~15.8L so far, daily weight decreasing. - Repeat PRP with am labs Acute Hypoxic Respiratory failure due to volume overload - Improving - Titrated down to 4L on NC/oximask with sats in mid 90s, typically wears 2 L at home - improved with diuresis Hyperkalemia - Improved after dose of Lactulose x 1 dose and aggressive diuresis, follow prp - Continue potassium supplementation 20 meq daily HypoNa: likely nutritional given decreased PO intake per family - Today 134 - continue to diuresis as above, follow prp -this is the best it has been since admission - Nephrology on board- appreciate recs Magda Albicans, oral thrush - Nystatin swish and swallow started / - Pt does not have white plaque on exam however does look erythematous. - Continue mouth care and encourage PO intake. Metabolic Encephalopathy - AMS seems to wax and wane- oriented x 3 - Resolved Brain hematoma, possibly subacute, thalamus - d/t fall - this was the reason for admission - case d/w Dr. Parson (neurosurgeon) at time of admission - - continue to hold aspirin/plavix - I discussed possibility of resuming asa/plavix with our neurology team today since I was unable to contact Dr. Parson as above. They recommend continuing to hold until hematoma resolved, which should be followed with CT in about 2-3 weeks. maintaining systolic BP <150, no need for keppra, and no need for repeat imaging unless pt develops neuro sx. no neuro deficits since time of admission no acute intervention - Dr. Parson willing to re-eval if any plans for changes in intervention. UTI with sepsis, present at time of admission- dupree catheter in place - Resolving - no signs of organ failure or shock - Finished Rocephin 1000mg IV daily- started on 07/01 x a 7 day course - UCx growing lactobacillus - no other sensitivity to follow. BCx NGTD - WBC trending downward Elevated trop: noted on last admission and similar value at 0.963, trended down to 0.704 - no chest pain or pressure - ECHO on last admission was WNL DM: Lantus + SSI PRN - A1c 04/2017 was 8.5, will not recheck - Hold Glipizide, continue Lantus as diet continues to improve, continue to monitor closely HTN: continue home meds - Maintain systolic BP <150 per neurosurg recs CVA: holding aspirin/plavix as above due to hematoma - holding for another 2-3 wks as above Anemia: stable, Hgb improved to 11.1 today - s/p 1 U PRBCs on 07/02- denies lightheadedness, dizziness and fatigue. - baseline hgb seems to be around 12 Left humerus fracture: occurred prior to last admission - not doing well at home - CM to assist with DC planning for rehab - supposed to see Orthopedic surgery this week Consider repeat Xray once other medical issues improving. - PT/OT on board - she will need rehab at the time of discharge. Severe Albuminemia, Protein calorie malnutrition - 2.1 on labs, encourage increase in nutrition to promote healing. Continue boost breeze BID Pulmonary Fibrosis, chronic hypoxic respiratory failure. - Home O2 of 3 L DVT ppx: SCDs for DVT proph given hematoma Code Status: DNR/DNI Disposition: From home, was living with sister, will need PT/OT and rehab vs SNF stay, CM assisting - referral to [facility] has been made Discussion held with family at bedside today and all their questions and concerns were addressed. (Patience Cuellar PA-C) Reviewed: Pt Seen/Exam by Me (Nathalia Holland, ) History Concerns from family regarding confusion today. This has been worse than prior and she had been doing better this AM. She did receive oxy this afternoon. No specific complaints other than ongoing pain her her L shoulder. Agree with HPI/ROS as noted by PA (Nathalia Holland, DO) General Appearance: WD/WN, no apparent distress Eye Exam: bilateral eye normal inspection, bilateral eye other (nml sclera) Respiratory: normal breath sounds, no respiratory distress Cardiovascular: normal peripheral pulses, regular rate, rhythm Gastrointestinal: non tender, soft Extremities: non-tender, no pedal edema Neurologic/Psychiatric: alert (to person, answers questions but is groggy) Skin Characteristics: normal color, warm/dry (Nathalia Holland, DO) Assessment/Plan 82 y/o F who was admitted on 06/30 for weakness Agree with plan as outlined above Confusion, possibly related to oxy dosing. d/c oxy and monitor t/c CT head given hematoma, however family feels that this would be uncomfortable to her and she does not want intervention if the hematoma had worsened, as discussed on admission Puree diet Planning on d/c to [facility] when stable (Nathalia Holland, DO)
[2017-07-09] MEDS: CEFTRIAXONE SOD INJ 1 GM in DEXTROSE 5% ADD-VANTAGE 50ML 50 ML IV SCH (08:55)
[2017-07-09] MEDS: METOLAZONE 5 MG TAB PO SCH (08:56)
[2017-07-09] MEDS: POTASSIUM CHLORIDE 20 MEQ TABCR PO SCH ×3 (08:56→21:27)
[2017-07-09] MEDS: VENLAFAXINE HCL XR 150 MG CAPXR PO SCH (08:56)
[2017-07-09] MEDS: PANTOprazole SOD 40 MG TAB PO SCH (08:56)
[2017-07-09] MEDS: AcetaZOLAMIDE 250 MG TAB PO SCH ×2 (08:57→16:50)
[2017-07-09] MEDS: NYSTATIN POWDER 15GM BTL EXT SCH ×3 (08:57→21:27)
[2017-07-09] MEDS: METOPROLOL TARTRATE 25 MG TAB PO SCH ×2 (08:57→20:34)
[2017-07-09] MEDS: CeleBREX 200 MG CAP PO SCH (08:57)
[2017-07-09] MEDS: DOCUSATE SODIUM 100 MG CAP PO SCH ×2 (08:57→21:28)
[2017-07-09] MEDS: NYSTATIN SUSP 500,000 U/5 ML UDC PO SCH ×4 (08:59→21:27)
[2017-07-09] MEDS ORDERED: INSULIN GLARGINE SOLOSTAR 100 UNITS/ML 3 ML PEN SC SCH (09:00)
[2017-07-09] MEDS: INSULIN GLARGINE SOLOSTAR 100 UNITS/ML 3 ML PEN SC SCH (09:02)
[2017-07-09] MEDS: INSULIN ASPART 100 UNITS/ML 3 ML PEN SC SCH ×4 (09:03→21:30)
[2017-07-09] MEDS: LIDODERM (LIDOCAINE) PATCH 5% TD SCH (09:19)
--- NOTE | 2017-07-09 10:43 | NEPHROLOGY PROGRESS NOTE ---
DATE: 07/09/2017 SUBJECTIVE: Mrs. Hensley says that she is feeling somewhat better. She is still slightly short of breath with any type of movement. She is receiving oxygen via nasal mask at 4 liters a minute. At rest, she is not particularly short of breath. She says that her appetite is fair, but seems to be improving somewhat. She has no other specific complaint other than discomfort in her left upper arm. OBJECTIVE: GENERAL: On physical exam at the current time, she appears as a chronically ill and somewhat acutely ill woman who was in no significant distress when seen. She is receiving oxygen by mask at 4 liters a minute. VITAL SIGNS: She is afebrile (36.7), her blood pressure 118/68, her pulse 83 and regular, respiratory rate is 20, and her pulse ox 91%-94% on oxygen. SKIN: Shows essentially normal skin turgor. There is no rash or infiltrative skin disease, but she continues to demonstrate some ecchymoses and swelling of the left upper arm. She has scars from prior surgical procedures. LYMPHATICS: Show no palpable adenopathy. HEAD: Grossly normal. EYES: Grossly normal. Extraocular movements are intact. Pupils are reactive to light. She has no conjunctival icterus. EARS, NOSE, MOUTH AND THROAT: Unremarkable. Her oral mucous membranes still seem slightly dry. She has no changes of white patches on her tongue. NECK: Supple. Sitting at about 90 degrees. One can still notice some minimal jugular venous distention on the right side. She has no carotid bruit or thyromegaly. CHEST: Shows some bibasilar crackles, a bit more prominent on the left than on the right. These are consistent with her known pulmonary fibrosis. CARDIAC: Shows a regular rhythm. S1 and S2 are normal. I hear no definite murmur or gallop. ABDOMEN: Nontender. She has no organomegaly or mass. Bowel sounds are normal. EXTREMITIES: Show no cyanosis, clubbing or peripheral edema other than the swelling of her left upper arm, which is less than it had been. Her left arm is in a sling. NEUROLOGIC: Shows her to be globally weak. She has no lateralizing changes. PERTINENT LABORATORY WORK: From today shows a sodium of 135 mmol/L, potassium 4.1 mmol/L, chloride is 96 mmol/L, and CO2 content 32 mmol/L. Her BUN is 75 and creatinine down to 2.01. Her blood sugars vary from 160-231. Her current diuretic therapy includes metolazone 5 mg daily and acetazolamide at 250 mg twice daily. Lasix has been held. Her cumulative I&O shows that she is -15.8 liters since her admission here. ASSESSMENT: Her renal function is improved. It appears from her electrolytes that her alkalosis is probably improved and with that, her serum potassium is a bit higher. She may be somewhat volume depleted at the current time. Her BUN remains disproportionally elevated to her creatinine. RECOMMENDATIONS: No immediate change. I would consider discontinuing her acetazolamide tomorrow. Certainly, I would not want to see her on it on a long-term basis. Can continue the metolazone at least for now. I would recommend that orthostatic blood pressures be checked with her blood pressure lying and standing. Certainly, a significant drop would be consistent with some degree of volume depletion. It might be helpful as well to check another serum albumin. Her last was done 2 days ago and was back up to 2.2. No other immediate recommendations. I will continue to follow her with you.
--- NOTE | 2017-07-09 13:15 | Pharmacy Progress Note ---
Pharmacy Glycemic Short Note 2 Date of Service Jul 09, 2017. OUTPATIENT ANTIDIABETIC REGIMEN: * Lantus 30 units in the morning plus 25 units in the PM, glipizide 10 mg BID * A1c = 8.5 % 04/2017 ASSESSMENT: * Ms Hensley is an 82 y/o F with a PMH of pulmonary fibrosis on chronic oxygen , CVA with hematoma, CKD with baseline creatinine of 2.0 mg/dL, recent fall with humerus fx, HTN, depression and well controlled type 2 diabetes (HbA1C goal for Ms Hensley is 8-8.5% per the Elements of Diabetes Care Scoring Guide) . She presented back on 07/02/17 with fatigue and weakness. Currently, the patient is being treated for a UTI and waxing/waning mental status. * Yesterday, the patient's blood sugars were [phone] mg/dL. She received 38 units of insulin (15 units of basal and 18 units of bolus)- nurses believe that the patient's family is giving her food. Today's fasting blood sugar is 160 mg/dL (significantly higher than yesterday's). Increase Lantus by 20%. Throughout the day yesterday, the patient's blood sugars marcos ... this may have been because the patient's carbohydrates were not covered or because the family gave the patient food. Carbohydrate ratio was tightened yesterday. Blood sugars today at lunch were 268 mg/dL (not even 2 hours after morning Novolog given). Still suspect patient requires Novolog tightening- will do so for lunch. PLAN FOR INPATIENT GLYCEMIC CONTROL: * Hold outpatient oral diabetes medications * Basal insulin * Lantus 18 units Sq daily in AM * Bolus insulin * NovoLog per scale ACHS or Q6hrs while NPO * Goal Range: Low 120 mg/dL - High 140 mg/dL * Correction Factor: 20 mg/dL/unit * Nutritional / Prandial insulin per carb ratio of 1 unit per 6 grams CHO consumed PLAN FOR DISCHARGE: * A1c 8.5% on 04/22/17 * Recommend discontinuation of glipizide secondary to kidney dysfunction and age /co-morbidities. * It seems reasonable to continue home Lantus dosing on discharge as long as the patient will have prompt f/u with outpatient provider. Lantus dose will likely need increased if glipizide is discontinued.
[2017-07-09] MEDS: GABAPENTIN 100 MG CAP PO SCH (21:27)
[2017-07-09] MEDS: QUETIAPINE FUMARATE 25 MG TAB PO SCH (21:28)
[2017-07-09] MEDS: PRAVASTATIN SOD 40 MG TAB PO SCH (21:28)
[2017-07-10] VITALS (7 sets, daily range): BP systolic 104–144; BP diastolic 64–78; PULSE 67–110; TEMP 36.5–36.9; O2SAT 93–97
[2017-07-10] MEDS ORDERED: INSULIN ASPART 100 UNITS/ML 3 ML PEN SC SCH
[2017-07-10] MEDS: ACETAMINOPHEN 500 MG TAB PO SCH ×3 (05:37→20:51)
[2017-07-10] MEDS: DOCUSATE SODIUM 100 MG CAP PO SCH ×2 (07:49→20:50)
[2017-07-10] MEDS: NYSTATIN POWDER 15GM BTL EXT SCH ×3 (07:49→20:49)
[2017-07-10] MEDS: CEFTRIAXONE SOD INJ 1 GM in DEXTROSE 5% ADD-VANTAGE 50ML 50 ML IV SCH (07:49)
[2017-07-10] MEDS: CeleBREX 200 MG CAP PO SCH (07:50)
[2017-07-10] MEDS: POTASSIUM CHLORIDE 20 MEQ TABCR PO SCH ×2 (07:50→20:50)
[2017-07-10] MEDS: AcetaZOLAMIDE 250 MG TAB PO SCH (07:50)
[2017-07-10] MEDS: VENLAFAXINE HCL XR 150 MG CAPXR PO SCH (07:50)
[2017-07-10] MEDS: NYSTATIN SUSP 500,000 U/5 ML UDC PO SCH ×4 (07:51→20:50)
[2017-07-10] MEDS: PANTOprazole SOD 40 MG TAB PO SCH (07:51)
[2017-07-10] MEDS: METOPROLOL TARTRATE 25 MG TAB PO SCH ×2 (07:51→20:50)
[2017-07-10] MEDS: METOLAZONE 5 MG TAB PO SCH (07:52)
[2017-07-10] MEDS: INSULIN GLARGINE SOLOSTAR 100 UNITS/ML 3 ML PEN SC SCH (07:54)
[2017-07-10] MEDS: INSULIN ASPART 100 UNITS/ML 3 ML PEN SC SCH ×4 (07:56→20:53)
[2017-07-10] MEDS: BOOST GLUCOSE CONTROL PO SCH ×2 (07:58→17:06)
[2017-07-10] MEDS: LIDODERM (LIDOCAINE) PATCH 5% TD SCH (08:01)
[2017-07-10 09:06] LABS: HEMATOCRIT 39.4 % (37-47); HEMOGLOBIN 12.4 g/dL (12.0-16.0); MEAN CELL VOLUME 92.9 fL (80-100); MEAN CORPUSCULAR HEMOGLOBIN 29.2 pg (25-34); MEAN CORPUSCULAR HGB CONC 31.5 g/dl (32-36); MEAN PLATELET VOLUME 9.6 fL (7.4-10.4); NUCLEATED RED BLOOD CELL ABS 0.02 K/uL (0-0); PLATELET COUNT 444 K/uL (130-400); RED CELL DISTRIBUTION WIDTH CV 17.6 % (11.5-14.5); RED CELL DISTRIBUTION WIDTH SD 58.9 fL (36.4-46.3); WHITE BLOOD COUNT 13.76 K/uL (4.8-10.8)
[2017-07-10 09:25] LABS: CALCIUM 9.6 mg/dl (8.5-10.1); CREATININE 1.91 mg/dl (0.60-1.20); POTASSIUM 4.2 mmol/L (3.5-5.1)
--- NOTE | 2017-07-10 11:20 | NEPHROLOGY PROGRESS NOTE ---
DATE: 07/10/2017 SUBJECTIVE: Mrs. Hensley says that she is feeling relatively well. However, she does seem somewhat more lethargic to me today. Her speech is a bit slurred, but she is not wearing her teeth at the current time of my interview and exam. She denies significant shortness of breath at rest, wearing her oxygen. She did spend some time out of bed yesterday. She denied having significant lightheadedness or dizziness. No other particular complaints. She says that her appetite is fair, but slightly improved. Her tongue is less sore. OBJECTIVE: GENERAL: On physical exam when seen, she seems more lethargic than she was yesterday and her speech is slurred, but again she was not wearing her dentures. PHYSICAL EXAMINATION: VITAL SIGNS: She is afebrile (36.9), her blood pressure 121/69, her pulse 67-84 and regular, respiratory rate 16, and her pulse ox 93%-97% on 5 liters of oxygen via mask. SKIN: Shows normal skin turgor. She has some residual ecchymoses over her left upper arm. She has some scars from prior surgical procedures. LYMPHATICS: Show no palpable adenopathy. HEAD: Normal. EYES: Grossly normal. The ocular fundi were not examined. Extraocular movements are intact and her pupils respond to light. EARS, NOSE, MOUTH AND THROAT: Unremarkable except for oral mucous membranes do seem slightly dry and she does have a few small patches of white on her tongue. NECK: Supple. Lying flat, she still has some jugular venous distention. She has no carotid bruit or thyromegaly. CHEST: Shows some bibasilar crackles more prominent on the left than on the right consistent with her pulmonary fibrosis. She has no other wheezes, rales or rhonchi. CARDIAC: Shows a regular rhythm. S1 and S2 are normal. There is no definite murmur or gallop. ABDOMEN: Nontender. There is no organomegaly or mass. Bowel sounds are present. I hear no abdominal bruits. EXTREMITIES: Show no cyanosis, clubbing or peripheral edema other than the left upper arm swelling, which continues to slowly improve. Her left arm is in a sling. NEUROLOGIC: Shows her to be globally weak and somewhat lethargic, but no lateralizing or focal changes are noted. Her output exceeds her intake by about 16 liters. Her weight since admission is down 12 kilograms, but it is down 15 kilograms from her maximum weight on July 03. PERTINENT LABORATORY WORK: From today shows a white count of 13,760, her hemoglobin is up to 12.4, her hematocrit 39.4, and her platelet count 444,000. Her clinical chemistries show a sodium of 133 mmol/L, potassium 4.2 mmol/L, chlorides 98 mmol/L, and CO2 content 28 mmol/L. Her anion gap calculates at 7, but taking into account her most recent albumin, it would probably be more in the range of 12. Her BUN is 71 and her creatinine down to 1.91. Her serum calcium is 9.6. ASSESSMENT: Mrs. Hensley is somewhat improved. She is a bit more lethargic today, but again there are a little other objective findings to suggest that things are deteriorating. Her anion gap is rising and therefore, I suspect that she may be getting somewhat of a metabolic acidosis secondary to the use of acetazolamide. That drug has been discontinued. She may be somewhat volume depleted. Although her creatinine continues to slowly improve, her BUN remains disproportionally elevated consistent with some degree of volume reduction. RECOMMENDATIONS: Diamox has already been held. Would recheck arterial blood gases. Check orthostatic blood pressure and pulse. No other immediate recommendations. We may have to discontinue metolazone as well, particularly if there is a dramatic orthostatic drop in her blood pressure. No other recommendations for now, but I will continue to follow her. ERIN
--- NOTE | 2017-07-10 14:23 | Hospitalist Progress Note ---
Hospitalist Progress Note Date of Service Jul 10, 2017. (Patience Cuellar PA-C) Subjective Pt evaluation today including: conversation w/ patient, physical exam, chart review, lab review, review of studies Pain: Left shoulder PO Intake: Fair Voiding: dupree catheter in place The patient was seen and examined this morning. Pt seems much more lethargic this morning. Her family is not at bedside. Patient is able to answer simple questions but unable to participate in prolonged conversation. She reports she is having some left-sided shoulder pain. Yesterday oxycodone had been held due to increased lethargy in the afternoon. Patient reports she is eating and drinking without difficulty. Physical therapy has been and work with the patient but she was unable to participate at large. Additional Comments: ROS: ROS mostly unobtainable due to lethargy Respiratory: No cough, sputum, dyspnea at rest or on exertion -patient feels breathing has improved. Cardiovascular: No chest pain, tightness or palpitations Abdomen: No pain, nausea, vomiting, diarrhea or constipation Musculoskeletal: No joint pain, calf pain, swelling Neurologic: + Generalized weakness, no numbness/tingling, or balance problems (Patience Cuellar, ANGELA) Objective Vital Signs Date Time Temp Pulse Resp B/P (MAP) Pulse Ox O2 Delivery O2 Flow Rate FiO2 07/10/17 12:00 Oxymask 5.0 07/10/17 11:00 80 121/64 (83) 110 144/76 (98) 07/10/17 08:00 Oxymask 5.0 07/10/17 07:55 36.9 67 16 121/69 (86) 96 07/10/17 04:04 93 Oxymask 5.0 07/10/17 02:47 36.6 84 21 107/66 (80) 97 Oxymask 5.0 07/09/17 23:20 95 Oxymask 5.0 07/09/17 23:17 36.6 83 21 96/59 (71) 94 Oxymask 5.0 07/09/17 20:05 93 Oxymask 4.0 07/09/17 19:13 36.5 84 16 96/56 (69) 95 Nasal Cannula 4.0 07/09/17 15:30 97 Mask 4.0 07/09/17 15:05 36.6 80 16 106/68 (81) 97 Oxymask 4.0 (Patience Cuellar PA-C) Physical Exam Notes: General Appearance: WD/WN, no apparent distress, + lethargic, slightly confused. Eyes: PERRL, EOMI ENT: hearing grossly normal, pharynx normal, + pertinent finding (Tongue remains erythematous and appears sore, no white plaque. Posterior pharynx minimally erythematous. ) Neck: supple, no JVD Respiratory/Chest: + pertinent finding (On 5 L via oximask, O2 sats=95%, breath sounds with minimal bibasilar rhonchi) Cardiovascular: regular rate, rhythm, no JVD, no murmur Abdomen: normal bowel sounds, non tender, soft Extremities: non-tender, no pedal edema, no calf tenderness Neurologic/Psychiatric: alert, normal mood/affect, disoriented Skin: normal color, warm/dry (Patience Cuellar PA-C) Laboratory Results Last 24 Hours Test 07/09/17 14:56 07/09/17 16:16 07/09/17 20:45 07/10/17 00:10 Bedside Glucose 142 mg/dl 169 mg/dl 265 mg/dl 175 mg/dl Test 07/10/17 06:26 07/10/17 08:49 07/10/17 11:27 07/10/17 11:31 Bedside Glucose 129 mg/dl 145 mg/dl White Blood Count 13.76 K/uL Red Blood Count 4.24 M/uL Hemoglobin 12.4 g/dL Hematocrit 39.4 % Mean Corpuscular Volume 92.9 fL Mean Corpuscular Hemoglobin 29.2 pg Mean Corpuscular Hemoglobin Concent 31.5 g/dl RDW Standard Deviation 58.9 fL RDW Coefficient of Variation 17.6 % Platelet Count 444 K/uL Mean Platelet Volume 9.6 fL Nucleated RBC Absolute Count (auto) 0.02 K/uL Nucleated Red Blood Cells % 0.1 % Sodium Level 133 mmol/L Potassium Level 4.2 mmol/L Chloride Level 98 mmol/L Carbon Dioxide Level 28 mmol/L Anion Gap 7.0 mmol/L Blood Urea Nitrogen 71 mg/dl Creatinine 1.91 mg/dl Est Creatinine Clear Calc Drug Dose 13.5 ml/min Estimated GFR () 28.0 Estimated GFR (Non- 24.1 BUN/Creatinine Ratio 37.2 Random Glucose 149 mg/dl Calcium Level 9.6 mg/dl Arterial Blood pH 7.44 Arterial Blood Partial Pressure CO2 40 mmHg Arterial Blood Partial Pressure O2 62 mm/Hg Arterial Blood HCO3 26 mmol/L Arterial Blood Oxygen Saturation 90.4 % Arterial Blood Base Excess 2.0 mEq/L Arterial Blood Gas Delivery 5 L Mark Test POS (Patience Cuellar PA-C) Assessment and Plan 82 y/o F who was admitted on 06/30 for weakness, CT head showed possible subacute hematoma in thalamus, UA showed signs of infection, WBC 15k 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 - edema in BLE resolved, bibasilar rales but this is due to pulmonary fibrosis - lungs are dry. Breathing improved, saturations improved, attempt to titrate O2 down as able. - Appreciate nephrology recs. - Cardiorenal syndrome with worse right sided heart failure since Cr improved with diuresis - strict I/Os. Pt is out ~16.2 L so far, daily weight decreasing. - trend PRP with am labs Acute Hypoxic Respiratory failure due to volume overload - Improving - Titrated down as able, remains on 4-5 L on NC/oximask with sats in mid 90s, typically wears 2 L at home. She appears to be mouth breathing during this hospital stay. - improved with diuresis Hyperkalemia - Improved after dose of Lactulose x 1 dose and aggressive diuresis, follow prp - Continue potassium supplementation 20 meq daily HypoNa: likely nutritional given decreased PO intake per family - Today 133 - continue to diuresis as above, follow prp - Nephrology on board- appreciate recs Magda Albicans, oral thrush - Nystatin swish and swallow started 07/06 - Pt does not have white plaque on exam however does look erythematous. - Continue mouth care and encourage PO intake. Metabolic Encephalopathy - AMS seems to wax and wane-patient appears more lethargic and confused today. Brain hematoma, possibly subacute, thalamus - d/t fall - this was the reason for admission - case d/w Dr. Parson (neurosurgeon) at time of admission - - continue to hold aspirin/plavix - I discussed possibility of resuming asa/plavix with our neurology team on since I was unable to contact Dr. Parson as above. They recommend continuing to hold until hematoma resolved, which should be followed with CT in about 2-3 weeks. maintaining systolic BP <150, no need for keppra, and no need for repeat imaging unless pt develops neuro sx. no neuro deficits since time of admission no acute intervention - Dr. Parson willing to re-eval if any plans for changes in intervention. - Caution with increased lethargy -may consider repeat CT scan of the head earlier if mental status remains the same continues to be progressively more altered. UTI with sepsis, present at time of admission- dupree catheter in place - Resolving - no signs of organ failure or shock - Finished Rocephin 1000mg IV daily- started on 07/01 - will stop this today as her WBC remains around her baseline. - UCx growing lactobacillus - no other sensitivity to follow. BCx NGTD - WBC trending downward Elevated trop: noted on last admission and similar value at 0.963, trended down to 0.704 - no chest pain or pressure - ECHO on last admission was WNL DM: Lantus + SSI PRN - A1c 04/2017 was 8.5, will not recheck - Hold Glipizide, continue Lantus as diet continues to improve, continue to monitor closely HTN: continue home meds - Maintain systolic BP <150 per neurosurg recs CVA: holding aspirin/plavix as above due to hematoma - holding for another 2-3 wks as above Anemia: stable, Hgb improved 12.4 today - s/p 1 U PRBCs on 07/02- denies lightheadedness, dizziness and fatigue. - baseline hgb seems to be around 12 Left humerus fracture: occurred prior to last admission - not doing well at home - CM to assist with DC planning for rehab - supposed to see Orthopedic surgery this week Consider repeat Xray once other medical issues improving. - PT/OT on board - she will need rehab at the time of discharge. Severe Albuminemia, Protein calorie malnutrition - 2.1 on labs, encourage increase in nutrition to promote healing. Continue boost breeze BID Pulmonary Fibrosis, chronic hypoxic respiratory failure. - Home O2 of 3 L DVT ppx: SCDs for DVT proph given hematoma Code Status: DNR/DNI Disposition: From home, was living with sister, will need PT/OT and rehab vs SNF stay, CM assisting - referral to [facility] has been made and she has a bed there. Will transition off tele today. (Patience Cuellar PA-C) Reviewed: Pt Seen/Exam by Me (Nathalia Holland, ) History Pt is more alert today, but still not fully at her usual. She did eat a bit more today. No new concerns from family. Agree with HPI/ROS as noted by PA (Nathalia Holland, DO) General Appearance: WD/WN, no apparent distress Eye Exam: bilateral eye normal inspection, bilateral eye other (nml sclera) Respiratory: no respiratory distress Cardiovascular: regular rate, rhythm Gastrointestinal: non tender, soft Extremities: non-tender, no pedal edema Neurologic/Psychiatric: alert, other (answering questions with sentences and more than just yes/no. More interactive today than yesterday) Skin Characteristics: normal color, warm/dry (Nathalia Holland, DO) Assessment/Plan 82 y/o F who was admitted on 06/30 for weakness Agree with plan as outlined above Confusion, possibly related to oxy dosing and it is improved today s/p d/c oxy Pt received 20mg total in 14 hours t/c CT head given hematoma, however family feels that this would be uncomfortable to her and she does not want intervention if the hematoma had worsened, as discussed on admission Puree diet Planning on d/c to [facility] when stable Informed by family today that pt has a strawberry allergy. Diet changed (Nathalia Holland, DO)
[2017-07-10] MEDS: GABAPENTIN 100 MG CAP PO SCH (20:50)
[2017-07-10] MEDS: POLYETHYLENE (MIRALAX) 17 GM PACK PO SCH (20:50)
[2017-07-10] MEDS: PRAVASTATIN SOD 40 MG TAB PO SCH (20:50)
[2017-07-10] MEDS: QUETIAPINE FUMARATE 25 MG TAB PO SCH (20:50)
[2017-07-11] VITALS (9 sets, daily range): BP systolic 113–141; BP diastolic 61–82; PULSE 78–96; TEMP 36.6–37; O2SAT 91–98
[2017-07-11] MEDS: ACETAMINOPHEN 500 MG TAB PO SCH ×3 (05:27→21:02)
[2017-07-11] MEDS: BOOST GLUCOSE CONTROL PO SCH ×2 (07:30→17:00)
[2017-07-11] MEDS: CeleBREX 200 MG CAP PO SCH (08:17)
[2017-07-11] MEDS: POTASSIUM CHLORIDE 20 MEQ TABCR PO SCH ×2 (08:17→21:04)
[2017-07-11] MEDS: METOLAZONE 5 MG TAB PO SCH (08:17)
[2017-07-11] MEDS: DOCUSATE SODIUM 100 MG CAP PO SCH ×2 (08:18→21:03)
[2017-07-11] MEDS: NYSTATIN SUSP 500,000 U/5 ML UDC PO SCH ×4 (08:18→21:01)
[2017-07-11] MEDS: METOPROLOL TARTRATE 25 MG TAB PO SCH ×2 (08:18→21:06)
[2017-07-11] MEDS: PANTOprazole SOD 40 MG TAB PO SCH (08:18)
[2017-07-11] MEDS: VENLAFAXINE HCL XR 150 MG CAPXR PO SCH (08:18)
[2017-07-11] MEDS: LIDODERM (LIDOCAINE) PATCH 5% TD SCH (08:19)
[2017-07-11] MEDS: INSULIN ASPART 100 UNITS/ML 3 ML PEN SC SCH ×4 (08:31→21:00)
[2017-07-11] MEDS: INSULIN GLARGINE SOLOSTAR 100 UNITS/ML 3 ML PEN SC SCH (08:31)
[2017-07-11] MEDS: NYSTATIN POWDER 15GM BTL EXT SCH ×3 (08:32→21:04)
--- NOTE | 2017-07-11 10:47 | NEPHROLOGY PROGRESS NOTE ---
DATE: 07/11/2017 SUBJECTIVE: Mrs. Hensley seems quite confused today. She denies being significantly short of breath. She is getting oxygen via nasal cannula. She says that she is not having any chest pain. She does not answer many of my other questions specifically. OBJECTIVE: GENERAL: On physical exam, she appears chronically ill. She is obviously confused. When asked about what day it is, she says 18. Whether or not she is implying the year is hard to say, but when I asked her specifically for the month, she answers with an answer that does not make any sense to the question. She is disoriented to place. VITAL SIGNS: Her blood pressure is 141/82, her pulse 96 and regular, respiratory rate 20, and her pulse ox 93 on 6 liters of oxygen via nasal cannula. She is afebrile. SKIN: Shows minimally reduced skin turgor. She has no obvious rash or infiltrative skin disease. I did not examine the presacral area today. LYMPHATICS: Show no palpable adenopathy or evidence of lymphangitis. HEAD: Normal. EYES: Grossly normal. There is no conjunctival icterus. EARS, NOSE, MOUTH AND THROAT: Unremarkable. Her oral mucous membranes are slightly dry. NECK: Supple. She has some very minimal jugular venous distention lying at about 20 degrees. I hear no carotid bruit and there is no thyromegaly. CHEST: Shows coarse bibasilar rales consistent with her pulmonary fibrosis. Otherwise, her chest seems clear. CARDIAC: Shows a regular rhythm. S1 and S2 are normal. I do not definitely hear a murmur or gallop. ABDOMEN: Nontender. There is no organomegaly or mass. Bowel sounds are normal. She has no abdominal bruits. EXTREMITIES: Show no cyanosis, clubbing or peripheral edema, other than the swelling of her left upper arm. She still has some residual ecchymoses of the left upper arm. NEUROLOGIC: Shows her to be weak and confused and somewhat lethargic. Her I&O over the course of the past 24 hours shows that she is negative another liter. LABORATORY WORK: Today is limited to a blood sugar of 140-159. Blood gases done yesterday show an arterial blood pH of 7.44 with a pCO2 of 40 and a pO2 of 62 on 5 liters of oxygen. ASSESSMENT: At the current time, I think that Mrs. Hensley is moving backwards. She is somewhat confused today. Her speech is more garbled and she appears weak. RECOMMENDATIONS: Would hold all diuretics for now and recheck her basic metabolic profile and serum albumin. No other immediate intervention. If it appears as if her BUN and creatinine are increasing at this point, I would consider giving her a slow infusion of saline. No other immediate recommendations.
[2017-07-11 11:39] LABS: ALBUMIN 2.4 gm/dl (3.4-5.0); CALCIUM 9.6 mg/dl (8.5-10.1); CREATININE 1.95 mg/dl (0.60-1.20); POTASSIUM 4.6 mmol/L (3.5-5.1)
--- NOTE | 2017-07-11 11:51 | Hospitalist Progress Note ---
Hospitalist Progress Note Date of Service Jul 11, 2017. (Patience Cuellar PA-C) Subjective Pt evaluation today including: conversation w/ patient, physical exam, chart review, lab review, review of studies Pain: none PO Intake: Poor Voiding: no voiding problems The patient was seen and examined this morning. Pt reports feeling ok today. When I asked her the year, she says 18, but then repeats it. She is able to participate in discussion with yes or no answers, and tells me her family was in to see her today (however they were not). She did not eat any of breakfast, but is takings sips of water throughout the day. She is able to follow commands and do things like sit up in bed for me to auscultate her lungs. Denies any acute complaints. Additional Comments: Respiratory: No cough, sputum, dyspnea at rest or on exertion -patient feels breathing has improved, feels better with oximask on but nursing states pt is pulling it off. Cardiovascular: No chest pain, tightness or palpitations Abdomen: No pain, nausea, vomiting, diarrhea or constipation Musculoskeletal: No joint pain, shoulder pain well controlled, calf pain, swelling Neurologic: + Generalized weakness, no numbness/tingling, or balance problems (Patience Cuellar, ANGELA) Objective Vital Signs Date Time Temp Pulse Resp B/P (MAP) Pulse Ox O2 Delivery O2 Flow Rate FiO2 07/11/17 08:06 37.0 96 20 141/82 (101) 93 07/11/17 08:00 92 Nasal Cannula 6.0 07/11/17 04:00 94 Oxymask 6.0 Ambu-Bag 07/11/17 03:11 37.0 78 20 113/61 (78) 98 Nasal Cannula 6.0 07/11/17 00:00 94 Oxymask 6.0 Ambu-Bag 07/10/17 23:20 36.5 81 18 104/69 (81) 94 Oxymask 6.0 07/10/17 20:00 Nasal Cannula 4.0 07/10/17 19:30 36.7 85 20 124/78 (93) 95 Nasal Cannula 5.0 07/10/17 16:00 Nasal Cannula 4.0 07/10/17 15:05 36.6 87 18 129/66 (87) 94 Oxymask 5.0 07/10/17 12:00 Oxymask 5.0 (Patience Cuellar PA-C) Physical Exam Notes: General Appearance: WD/WN, no apparent distress, +slightly confused, not lethargic. Eyes: PERRL, EOMI ENT: hearing grossly normal, pharynx normal, + pertinent finding (Tongue remains erythematous and appears sore, no white plaque. Posterior pharynx minimally erythematous. ) Neck: supple, no JVD Respiratory/Chest: + pertinent finding (On 5 L via oximask, O2 sats=94%, breath sounds with minimal bibasilar rhonchi) Cardiovascular: regular rate, rhythm, no JVD, no murmur Abdomen: normal bowel sounds, non tender, soft Extremities: non-tender, no pedal edema, no calf tenderness Neurologic/Psychiatric: alert, normal mood/affect, disoriented Skin: normal color, warm/dry (Patience Cuellar PA-C) Laboratory Results Last 24 Hours Test 07/10/17 16:06 07/10/17 20:05 07/11/17 00:52 07/11/17 06:34 Bedside Glucose 176 mg/dl 181 mg/dl 140 mg/dl 159 mg/dl Test 07/11/17 11:03 Sodium Level 133 mmol/L Potassium Level 4.6 mmol/L Chloride Level 100 mmol/L Carbon Dioxide Level 22 mmol/L Anion Gap 11.0 mmol/L Blood Urea Nitrogen 69 mg/dl Creatinine 1.95 mg/dl Est Creatinine Clear Calc Drug Dose 19.5 ml/min Estimated GFR () 27.3 Estimated GFR (Non- 23.5 BUN/Creatinine Ratio 35.5 Random Glucose 249 mg/dl Calcium Level 9.6 mg/dl Albumin 2.4 gm/dl (Patience Cuellar PA-C) Assessment and Plan 82 y/o F who was admitted on 06/30 for weakness, CT head showed possible subacute hematoma in thalamus, UA showed signs of infection, WBC 15k 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 At this point she may be a little too dry. Will start 24 hrs of NSS @ 50ml /hr - edema in BLE resolved, bibasilar rales but this is due to pulmonary fibrosis - lungs are dry. Breathing improved, saturations improved, attempt to titrate O2 down as able. - Appreciate nephrology recs. - Cardiorenal syndrome with worse right sided heart failure since Cr improved with diuresis - strict I/Os. Pt is out ~16.9 L so far, daily weight decreasing. - Dupree cath in place was placed due to aggressive diuresis, hopeful that this can be dc'd soon. Urine is slightly darker today. - trend PRP with am labs Acute Hypoxic Respiratory failure due to volume overload - Improving - Titrated down as able, remains on 4-5 L on NC/oximask with sats in mid 90s, typically wears 2 L via NC at home. She appears to be mouth breathing during this hospital stay. - improved with diuresis Hyperkalemia - Improved after dose of Lactulose x 1 dose and aggressive diuresis, follow prp - Continue potassium supplementation 20 meq daily HypoNa: likely nutritional given decreased PO intake per family - Today 133 - continue to diuresis as above, follow prp - Nephrology on board- appreciate recs Magda Albicans, oral thrush - Nystatin swish and swallow started 07/06 - Pt does not have white plaque on exam however does look erythematous. - Continue mouth care and encourage PO intake. Metabolic Encephalopathy - AMS seems to wax and wane-patient appears slightly confused today - may have been from oxycodone in past 24 hours, this has been discontinued since 07/10. Pain in shoulder seems controlled. - Speech consulted for oral pocketing - transition to mechanical soft diet. Brain hematoma, possibly subacute, thalamus - d/t fall - this was the reason for admission - case d/w Dr. Parson (neurosurgeon) at time of admission - - continue to hold aspirin/plavix - I discussed possibility of resuming asa/plavix with our neurology team on since I was unable to contact Dr. Parson as above. They recommend continuing to hold until hematoma resolved, which should be followed with CT in about 2-3 weeks. maintaining systolic BP <150, no need for keppra, and no need for repeat imaging unless pt develops neuro sx. no neuro deficits since time of admission no acute intervention - Dr. Parson willing to re-eval if any plans for changes in intervention. - Caution with increased lethargy -may consider repeat CT scan of the head earlier if mental status remains the same continues to be progressively more altered. UTI with sepsis, present at time of admission- dupree catheter in place - Resolving - no signs of organ failure or shock - Finished Rocephin 1000mg IV daily- started on 07/01 - will stop on 07/10. WBC remains around her baseline. - UCx growing lactobacillus - no other sensitivity to follow. BCx NGTD - WBC trending downward Elevated trop: noted on last admission and similar value at 0.963, trended down to 0.704 - no chest pain or pressure - ECHO on last admission was WNL DM: Lantus + SSI PRN - A1c 04/2017 was 8.5, will not recheck - Hold Glipizide, continue Lantus, continue to monitor closely with labile oral intake due to lethargy/confusion HTN: continue home meds - Maintain systolic BP <150 per neurosurg recs CVA: holding aspirin/plavix as above due to hematoma - holding for another 2-3 wks (possibly repeat early next week) as above Anemia: stable, Hgb improved 12.4 today - s/p 1 U PRBCs on 07/02- denies lightheadedness, dizziness and fatigue. - baseline hgb seems to be around 12 Left humerus fracture: occurred prior to last admission - not doing well at home - CM to assist with DC planning for rehab - supposed to see Orthopedic surgery this week Consider repeat Xray once other medical issues improving. - PT/OT on board - she will need rehab at the time of discharge. Severe Albuminemia, Protein calorie malnutrition - 2.1 on labs, encourage increase in nutrition to promote healing. Continue boost breeze BID Pulmonary Fibrosis, chronic hypoxic respiratory failure. - Home O2 of 3 L DVT ppx: SCDs for DVT proph given hematoma Code Status: DNR/DNI Disposition: From home, was living with sister, will need PT/OT and rehab vs SNF stay, CM assisting - referral to [facility] has been made and she has a bed there. Will transition off tele today. (Filipowicz,Patience G., PA-C) Reviewed: Pt Seen/Exam by Me (Nathalia Holland DO) History More alert today. Has been more interactive, although still not at baseline. Pt has no complaints. She has not taken much PO other than frequent requests for water. Tolerating PO that she does take without issue. Denies chest pain, SOB. Agree with HPI/ROS as noted by PA. (Nathalia Holland DO) Comments General Appearance: WD/WN, no apparent distress Eye Exam: bilateral eye normal inspection, bilateral eye other (nml sclera) Respiratory: no respiratory distress Cardiovascular: regular rate, rhythm Gastrointestinal: non tender, soft Extremities: non-tender, no pedal edema Neurologic/Psychiatric: alert, other (answering questions with sentences and more than just yes/no. More interactive today than yesterday) Skin Characteristics: normal color, warm/dry (Nathalia Holland DO) Assessment/Plan 82 y/o F who was admitted on 06/30 for weakness Agree with plan as outlined above Confusion, possibly related to oxy dosing and it is improved today s/p d/c oxy Pt received 20mg total in 14 hours t/c CT head given hematoma, however family feels that this would be uncomfortable to her and she does not want intervention if the hematoma had worsened, as discussed on admission Speech recs for mechanical soft and moist diet with thin liquids Planning on d/c to [facility] when stable, daughters planning to look at [facility] in person today or tomorrow Stable for transfer to floor (Nathalia Holland DO)
[2017-07-11] MEDS: SODIUM CHLORIDE 0.9% 1000ML 1,000 ML IV SCH (12:49)
--- NOTE | 2017-07-11 13:52 | Pharmacy Progress Note ---
Pharmacy Glycemic Short Note 2 Date of Service Jul 11, 2017. OUTPATIENT ANTIDIABETIC REGIMEN: * Lantus 30 units in the morning plus 25 units in the PM, glipizide 10 mg BID * A1c = 8.5 % 04/2017 ASSESSMENT: * Ms Hensley is an 82 y/o F with a PMH of pulmonary fibrosis on chronic oxygen , CVA with hematoma, CKD with baseline creatinine of 2.0 mg/dL, recent fall with humerus fx, HTN, depression and well controlled type 2 diabetes (HbA1C goal for Ms Hensley is 8-8.5% per the Elements of Diabetes Care Scoring Guide) . She presented back on 07/02/17 with fatigue and weakness. Currently, the patient is being treated for a UTI and waxing/waning mental status. * Yesterday, the patient's blood sugars were [phone] mg/dL. She received 29 units of insulin (18 units of basal and 11 units of bolus)- nurses believe that the patient's family is giving her food. Today's fasting blood sugar is 159 mg/dL (30 points higher than yesterday's). Yesterday, the patient received carbohydrate coverage only for breakfast. She ate her boost with dinner BUT received no carbohydrate coverage. Blood sugar remained stable. Suspect that Lantus is providing some carbohydrate coverage. Did not increase Lantus today - will monitor and most likely will require decreased. * Only the patient's correction factor could be evaluated yesterday. It appears reasonable. Lunch blood sugar was elevated at 336 mg/dL... it appears that carbohydrates are not appropriately covered. Tightened carbohydrate coverage. PLAN FOR INPATIENT GLYCEMIC CONTROL: * Hold outpatient oral diabetes medications * Basal insulin * Lantus 18 units Sq daily in AM * Bolus insulin * NovoLog per scale ACHS or Q6hrs while NPO * Goal Range: Low 120 mg/dL - High 140 mg/dL * Correction Factor: 20 mg/dL/unit * Nutritional / Prandial insulin per carb ratio of 1 unit per 5 grams CHO consumed PLAN FOR DISCHARGE: * A1c 8.5% on 04/22/17 * Recommend discontinuation of glipizide secondary to kidney dysfunction and age /co-morbidities. * It seems reasonable to continue home Lantus dosing on discharge as long as the patient will have prompt f/u with outpatient provider. Lantus dose will likely need increased if glipizide is discontinued.
[2017-07-11] MEDS: GABAPENTIN 100 MG CAP PO SCH (21:01)
[2017-07-11] MEDS: QUETIAPINE FUMARATE 25 MG TAB PO SCH (21:03)
[2017-07-11] MEDS: PRAVASTATIN SOD 40 MG TAB PO SCH (21:03)
[2017-07-12] MEDS: SODIUM CHLORIDE 0.9% 1000ML 1,000 ML IV SCH (05:35)
[2017-07-12] MEDS: ACETAMINOPHEN 500 MG TAB PO SCH ×2 (05:36→13:48)
[2017-07-12 06:53] VITALS: BP 149/85; PULSE 99; TEMP 36.6; O2SAT 95
[2017-07-12] MEDS: BOOST GLUCOSE CONTROL PO SCH (08:03)
[2017-07-12] MEDS: POTASSIUM CHLORIDE 20 MEQ TABCR PO SCH (08:03)
[2017-07-12] MEDS: PANTOprazole SOD 40 MG TAB PO SCH (08:03)
[2017-07-12] MEDS: METOPROLOL TARTRATE 25 MG TAB PO SCH (08:04)
[2017-07-12] MEDS: NYSTATIN SUSP 500,000 U/5 ML UDC PO SCH ×2 (08:04→13:00)
[2017-07-12] MEDS: CeleBREX 200 MG CAP PO SCH (08:04)
[2017-07-12] MEDS: DOCUSATE SODIUM 100 MG CAP PO SCH (08:04)
[2017-07-12] MEDS: LIDODERM (LIDOCAINE) PATCH 5% TD SCH (08:05)
[2017-07-12] MEDS: VENLAFAXINE HCL XR 150 MG CAPXR PO SCH (08:05)
[2017-07-12 08:08] LABS: ALBUMIN 2.4 gm/dl (3.4-5.0); CALCIUM 9.3 mg/dl (8.5-10.1); CREATININE 1.64 mg/dl (0.60-1.20); POTASSIUM 4.4 mmol/L (3.5-5.1)
[2017-07-12] MEDS: NYSTATIN POWDER 15GM BTL EXT SCH ×2 (08:08→13:50)
[2017-07-12] MEDS: INSULIN ASPART 100 UNITS/ML 3 ML PEN SC SCH ×2 (08:21→12:34)
[2017-07-12 08:30] VITALS: O2SAT 95
[2017-07-12] MEDS ORDERED: INSULIN GLARGINE SOLOSTAR 100 UNITS/ML 3 ML PEN SC SCH (09:00)
--- NOTE | 2017-07-12 10:55 | NEPHROLOGY PROGRESS NOTE ---
DATE: 07/12/2017 SUBJECTIVE: Mrs. Hensley says that she is feeling somewhat better today. Certainly, her communication seems to be better. She is still slightly confused. She is wearing her oxygen. With the oxygen, she denies shortness of breath. She says that she has had a little bit to eat. Her mouth is less sore than it had been. She has no specific symptoms of uremia or volume overload. OBJECTIVE: GENERAL: On exam, she appears as an elderly woman who was obviously somewhat acutely and chronically ill. She was lying quietly in bed. She answered questions relatively appropriately. She seemed to be somewhat confused as to the time, but not to place. VITAL SIGNS: She is afebrile (36.6), her blood pressure 149/85, her pulse 99 and regular, respiratory rate 20, and her pulse ox 91%-95% on 6 liters of oxygen via nasal cannula or mask. SKIN: Shows normal skin turgor. She has no rash or infiltrative skin disease. She has some residual ecchymoses of her left upper arm at the site of her fracture. LYMPHATICS: Show no palpable adenopathy. HEAD: Normal. EYES: Grossly normal. The ocular fundi were not examined. EARS, NOSE, MOUTH AND THROAT: Unremarkable. Her oral mucous membranes remain slightly dry. NECK: Supple. At about 20 degrees, she still has some jugular venous distention. I hear no carotid bruit and there is no thyromegaly. CHEST: Shows fibrotic rales at the bases. CARDIAC: Shows a regular rhythm. S1 and S2 are normal. She has no definite murmur or gallop. ABDOMEN: Nontender. She has no organomegaly or mass. EXTREMITIES: Show no cyanosis, clubbing or peripheral edema other than the swelling of her left upper arm, which seems less than it had been. NEUROLOGIC: Shows her to be weak and slightly confused and lethargic. No focal changes are noted. Yesterday, her output still exceeded her intake by 725 mL if accurate. PERTINENT LABORATORY WORK: From today shows a sodium of 136 mmol/L, potassium 4.4 mmol/L, chlorides 103 mmol/L, and CO2 content 24 mmol/L. Her BUN is down to 55. Her creatinine down to 1.64. Blood sugars vary from 111 to as high as 336. Her serum albumin is 2.4. ASSESSMENT: Continued improvement with her renal function. It is apparent that her diuresis that was accomplished last week did lead to some improvement in her renal function, but I do think that she became somewhat intravascularly volume depleted. That slowed the improvement in her renal function. With IV fluids, she has clearly improved. RECOMMENDATIONS: Would continue with gentle IV fluids over the next 24 hours. No other intervention. I think there needs to be an emphasis on nutrition and physical therapy for her. Hopefully, she can be transitioned to a residential facility in the not too distant future.
--- NOTE | 2017-07-12 11:38 | Discharge Instructions ---
Discharge Instructions Date of Service Jul 12, 2017. Admission Reason for Admission: Weakness Discharge Discharge Diagnosis / Problem: Thalmic hematoma, FERNANDO on CKD, Discharge Goals Goal(s): Decrease discomfort, Improve function, Increase independence, Improve disease control Activity Recommendations Activity Level: Assistance Required Therapies: Physical Therapy, Occupational Therapy Lifting Limitations: none Exercise/Sports Limitations: as tolerated Shower/Bathe: no limitations (with assistance) . Additional Information Patient informed of condition: Yes Advance Directives: Yes DNR: Yes Level of Care: Acute Rehab Communicable Disease: No Prognosis: Stable Dupree Catheter: Yes Instructions / Follow-Up Instructions / Follow-Up You were admitted to [facility] with weakness and confusion and diagnosed with a thalamic hematoma and a urinary tract infection, and low sodium. CT imaging will need to be repeated 3 weeks after initial imaging ( 1 week after discharge) to show resolvement of the hematoma per neurology. Follow up with Dr. Parson within 1-2 weeks. Discuss restarting aspirin and plavix at that time for your history of CVA ( stroke). maintaining systolic BP <150 During your stay you were found to be volume overloaded with fluid due to chronic congestive heart failure and had acute kidney injury secondary to the amount of fluid in your body. This improved with diuresis (getting rid of extra volume through urine) A dupree catheter was placed due to increased weakness and needs for strict input and output. Urinary Tract infection was treated with ceftriaxone (antibiotic) x 10 days. Confusion waxed and waned during admission and was found to be due to electrolyte abnormalities which were corrected. Sodium level was low at the beginning of admission and was corrected. You also had increased confusion with use of oxycodone for left shoulder fracture/pain. Your pain was maintained with tylenol alone. You required oxygen during your stay and should continue to use the oximask at 4 -5 L to maintain O2 saturations in the mid 90s. Prior to this hospitalization you were on 3L at baseline for pulmonary fibrosis. This mask works better due to mouth breathing. Titrate as able. Encourage incentive spirometry. You had a fungal infection of the mouth, called shayy albicans which was treated with fluconazole. Continue this as directed. Speech was consulted and you should maintain on a pureed diet. Monitor for oral pocketing. Anemia:you were given 1 Unit of blood on 07/02 and your hemoglobin improved. Medications: Continue taking your medications as prescribed. Your lantus has been adjusted - take 20 U QAM. You may take 5 U QPM if blood glucose is greater than 180. This may need to be adjusted depending on oral intake. Appointments: Follow up with PCP within 1 week. Follow up with neurosurgery within 1-2 weeks. Current Hospital Diet Patient's current hospital diet: Diabetes Type 2 Diet Discharge Diet Recommended Diet: Diabetes Type 2 Diet Pending Studies Studies pending at discharge: no Laboratory Results Hemoglobin A1c Test 04/24/17 12:47 Range/Units Estimated Average Glucose 197 mg/dl Hemoglobin A1c 8.5 H 4.5-5.6 % Medical Emergencies . Who to Call and When: Medical Emergencies: If at any time you feel your situation is an emergency, please call 911 immediately. . Non-Emergent Contact Non-Emergency issues call your: Primary Care Provider Call Non-Emergent contact if: you have a fever, temperature is above 100.5, your pain is not controlled, your pain is worsening, your pain is unusual for you, your pain is concerning you, you have any medication questions other concerns with your health. Call 911 or go directly to the Emergency Department if you experience any of the following: Chest pain, chest tightness, shortness of breath, abdominal pain , lightheadedness, dizziness, gastrointestinal bleeding, or have any other concerns regarding your health. . Past History Medical & Surgical History: (1) Intracranial hematoma (2) Hyponatremia (3) Urinary tract infection (4) Anemia (5) Acute exacerbation of CHF (congestive heart failure) (6) Weakness (7) Humeral fracture (8) Pulmonary fibrosis . "Provider Documentation" section prepared by Radha Cuellar. . Core Measure Problem Core Measures: None
[2017-07-12] MEDS ORDERED: MCRK20 PO (11:44)
[2017-07-12] MEDS ORDERED: NUTR-7 PO (11:44)
[2017-07-12] MEDS ORDERED: NYSS5 PO (11:44)
[2017-07-12] MEDS ORDERED: INSDGIPEN PO (12:22)
--- NOTE | 2017-07-12 12:24 | Pharmacy Progress Note ---
Pharmacy Glycemic Short Note 2 Date of Service Jul 12, 2017. OUTPATIENT ANTIDIABETIC REGIMEN: * Lantus 30 units in the morning plus 25 units in the PM, glipizide 10 mg BID * A1c = 8.5 % 04/2017 ASSESSMENT: * Ms Hensley is an 82 y/o F with a PMH of pulmonary fibrosis on chronic oxygen , CVA with hematoma, CKD with baseline creatinine of 2.0 mg/dL, recent fall with humerus fx, HTN, depression and well controlled type 2 diabetes (HbA1C goal for Ms Hensley is 8-8.5% per the Elements of Diabetes Care Scoring Guide) . She presented back on 07/02/17 with fatigue and weakness. Currently, the patient's mentation has improved with decrease of oxycodone. The patient's diet has been poor and requires feeding. * Yesterday, the patient's blood sugars were [phone] mg/dL. She received 34 units of insulin (18 units of basal and 14 units of bolus)- nurses believe that the patient's family is giving her food. Today's fasting blood sugar is 156 mg/dL (same as yesterday's). The patient's blood sugar increased from 137 mg/dL yesterday to 156 mg/dL this morning therefore increased Lantus by 22 units. The patient has a poor diet per Radha's note and the nursing documentation. * The patient's Novolog was continued from yesterday... the blood sugar spike at lunch is unexplained. Per Radha's note the patient did not eat breakfast ( Boost is documented as not given, nursing covered 10 carbohydrates). The subsequent blood sugars were within goal range. Slightly tightened carbohydrate ratio yesterday so will attempt to evaluate that today. PLAN FOR INPATIENT GLYCEMIC CONTROL: * Hold outpatient oral diabetes medications * Basal insulin * Lantus 22 units Sq daily in AM * Bolus insulin * NovoLog per scale ACHS or Q6hrs while NPO * Goal Range: Low 120 mg/dL - High 140 mg/dL * Correction Factor: 20 mg/dL/unit * Nutritional / Prandial insulin per carb ratio of 1 unit per 5 grams CHO consumed PLAN FOR DISCHARGE: * A1c 8.5% on 04/22/17 * Recommend discontinuation of glipizide secondary to kidney dysfunction and age /co-morbidities. * For Lantus, reasonable to continue Lantus 20 units in the morning and Lantus 5 units at night IF BLOOD SUGAR GREATER THAN 180 mg/dL * I would hold off on Novolog until patient has more consistent PO intake.
--- NOTE | 2017-07-12 13:19 | Discharge Summary ---
Discharge Summary Date of Service Jul 12, 2017. 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 Although this could be artifactual, the appearance favors a tiny hematoma, possibly subacute, with minimal edema. Short-term follow-up head CT might be considered. CXR 1 view portable 06/30/17 IMPRESSION: 1. No change in diffuse interstitial thickening which likely reflects interstitial lung disease. 2. Enlargement of the cardiac silhouette which appears slightly increased since prior exam. 3. No change in appearance of the comminuted, displaced left humeral neck fracture. L SHOULDER MIN 2 VIEWS ROUTINE 07/01/17 IMPRESSION: No change in the alignment of the comminuted displaced fracture of the humeral head and neck L SCAPULA 07/01/17 IMPRESSION: Displaced comminuted left humeral head and neck fracture. CXR 1 view portable 07/03/17 IMPRESSION: 1. Cardiomegaly with findings suggestive of pulmonary edema, which is stable slightly worsened from prior. Infection is difficult to exclude. 2. This may be superimposed on chronic lung disease, such as emphysema. 3. Comminuted left humeral neck fracture. Medication Reconciliation New Medications: Nutritional Supplements (Boost) 1 Liq Liq 1 CAN PO BIDM for 30 Days, #60 DOSE Nystatin (Nystatin) 5 Ml Susp 5 ML PO QID for 2 Days, #8 DOSE Potassium Chloride (Klor-Con M20) 20 Meq Tabcr 20 MEQ PO BID for 30 Days, #60 DOSE Changed Medications: Insulin Glargine (Lantus Solostar) 100 Unit/Ml Inj 20 UNITS PO QAM for 30 Days, #30 DOSE (Changed from: 30 UNITS) May take 5 U in the evening if glucose greater than 180. Continued Medications: Acetaminophen (Sb Non-Aspirin Extra Stre) 500 Mg Tab 1000 MG PO Q8 for 30 Days, #180 TAB Celecoxib (Celecoxib) 200 Mg Cap 200 MG PO DAILY Docusate Sodium (Docusate Sodium) 100 Mg Cap 100 MG PO BID for 30 Days, #60 CAP Gabapentin (Gabapentin) 100 Mg Cap 100 MG PO HS Lidocaine (Lidocaine) 1 Patch Tdsy 1 PATCH TD QAM for 30 Days, #30 PATCH Apply to left upper arm for 12 hours then remove for 12 hours Metoprolol Tartrate (Lopressor) (Lopressor) 25 Mg Tab 25 MG PO BID, TAB Nitroglycerin (Nitrostat) 0.4 Mg Sub 0.4 MG UT UD PRN for CHEST PAIN, BTL Nystatin (Topical) (Nystatin) 100,000 Unit/Gm Pow 1 APPLN TOP TID APPLY TO THE LEFT UNDERARM AREA Pantoprazole (Protonix) 40 Mg Tab 40 MG PO DAILY Polyethylene (Miralax) 17 Gm Pow 17 GM PO Q2D@1800 for 30 Days, #15 DOSE Pravastatin Sodium (Pravastatin Sodium) 40 Mg Tab 40 MG PO HS Quetiapine Fumarate (Seroquel) 50 Mg Tab 50 MG PO HS Venlafaxine Hcl (Effexor Extended Rel) 150 Mg Cap 150 MG PO QAM, CAP Venlafaxine Hcl (Effexor) 75 Mg Tab 75 MG PO HS PRN for Anxiety Discontinued Medications: Aspirin (Aspirin Chewable) 81 Mg Chew 81 MG PO QAM Clopidogrel (Plavix) 75 Mg Tab 75 MG PO QAM, TAB Glipizide (Glipizide) 10 Mg Tab 10 MG PO BID Insulin Glargine (Lantus Solostar) 100 Unit/Ml Inj 25 UNITS SC QPM, PEN Metolazone (Metolazone) 5 Mg Tab 5 MG PO QAM Oxycodone HCl (Oxycodone HCl) 5 Mg Tab 10 MG PO Q6 PRN for Pain for 3 Days, #24 TAB Discharge Exam The patient was seen and examined this morning. Pt reports doing ok today. She reports her breathing is ok, feels better than yesterday. She is oriented to place alone. She reports her shoulder pain is well controlled. Pt has been working with PT/OT. Additional Comments: Respiratory: No cough, sputum, dyspnea at rest or on exertion -patient feels breathing has improved, feels better with oximask on. Cardiovascular: No chest pain, tightness or palpitations Abdomen: No pain, nausea, vomiting, diarrhea or constipation Musculoskeletal: No joint pain, shoulder pain well controlled, calf pain, swelling Neurologic: + Generalized weakness, no numbness/tingling, or balance problems PE: General Appearance: WD/WN, no apparent distress, +slightly confused, not lethargic. Eyes: PERRL, EOMI ENT: hearing grossly normal, pharynx normal, + pertinent finding (Tongue remains erythematous and appears sore, no white plaque. Posterior pharynx minimally erythematous. 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 At this point she may be a little too dry. Given 24 hrs of NSS @ 50ml/hr on 07/11. - edema in BLE resolved, bibasilar rales but this is due to pulmonary fibrosis - lungs are dry. Breathing improved, saturations improved, attempt to titrate O2 down as able. - Appreciate nephrology recs. - Cardiorenal syndrome with worse right sided heart failure since Cr improved with diuresis - will not resume diuretics at time of discharge due to poor oral intake. Will ask PCP to resume diuretics if felt appropriate at follow up appointment within 1 week. - strict I/Os. Pt is out ~17 L so far, daily weight remains fairly stable. - Dupree cath in place was placed due to aggressive diuresis, dc today. Acute Hypoxic Respiratory failure due to volume overload - Improving - Titrated down as able, remains on 4-5 L on NC/oximask with sats in mid 90s, typically wears 3 L via NC at home. She appears to be mouth breathing during this hospital stay. Will continue on oximask after discharge and can continue to titrate to NC. - improved with diuresis Hyperkalemia - Improved after dose of Lactulose x 1 dose and aggressive diuresis, follow prp - Continue potassium supplementation 20 meq daily HypoNa: likely nutritional given decreased PO intake. encourage oral intake - Today 136 - resolved. - Nephrology on board- appreciate recs Shayy Albicans, oral thrush - Nystatin swish and swallow started 07/06 - continue x 2 more days to complete a 1 week course. - Pt does not have white plaque on exam, erythema improving. - Continue mouth care and encourage PO intake. Metabolic Encephalopathy - AMS seems to wax and wane-patient confusion appears to be baseline - may have been from oxycodone administered on 07/09. this has been discontinued since 07/10. Pain in shouldercontrolled. - Speech consulted for oral pocketing - transition to mechanical soft diet. Brain hematoma, possibly subacute, thalamus - d/t fall - this was the reason for admission - case d/w Dr. Parson (neurosurgeon) at time of admission - - continue to hold aspirin/plavix - I discussed possibility of resuming asa/plavix with our neurology team on since I was unable to contact Dr. Parson as above. They recommend continuing to hold until hematoma resolved, which should be followed with CT in about 2-3 weeks. - Can repeat end of next week maintaining systolic BP <150, no need for keppra, and no need for repeat imaging unless pt develops neuro sx. no neuro deficits since time of admission no acute intervention - Dr. Parson willing to re-eval if any plans for changes in intervention. - Caution with increased lethargy -may consider repeat CT scan of the head earlier if mental status remains the same continues to be progressively more altered. UTI with sepsis, present at time of admission- Resolved - Dc dupree cath prior to discharge - no signs of organ failure or shock - Finished Rocephin 1000mg IV daily- started on 2/25 - stopped on 07/10. WBC remains around her baseline. - UCx growing lactobacillus - no other sensitivity to follow. BCx NGTD - WBC trending downward Elevated trop: noted on last admission and similar value at 0.963, trended down to 0.704 - no chest pain or pressure - ECHO on last admission was WNL DM: Lantus + SSI PRN - A1c 04/2017 was 8.5, will not recheck - Hold Glipizide indefinitely, continue Lantus 20 U QAM and may administer 5 U qpm if blood glucose > 180. This will need to be titrated depending on oral intake. continue to monitor closely with labile oral intake due to lethargy/ confusion HTN: continue home meds - Maintain systolic BP <150 per neurosurg recs CVA: holding aspirin/plavix as above due to hematoma - holding for another 2-3 wks (possibly repeat early next week) as above Anemia: stable, Hgb improved 12.4 on 07/10- s/p 1 U PRBCs on 07/02- denies lightheadedness, dizziness and fatigue. - baseline hgb seems to be around 12 Left humerus fracture: occurred prior to last admission - not doing well at home - CM to assist with DC planning for rehab - supposed to see Orthopedic surgery this week Consider repeat Xray once other medical issues improving. - PT/OT on board - she will need rehab at the time of discharge. Severe Albuminemia, Protein calorie malnutrition - 2.1 on labs, encourage increase in nutrition to promote healing. Continue boost breeze BID Pulmonary Fibrosis, chronic hypoxic respiratory failure. - Home O2 of 3 L DVT ppx: SCDs for DVT proph given hematoma Code Status: DNR/DNI Disposition: From home, was living with sister, will need PT/OT and rehab at [facility]. Likely will need [facility] placement. Discharge today. Discussed with the patients daughter at bedside, all their questions and concerns were addressed. Total Time Spent: Greater than 30 minutes This includes examination of the patient, discharge planning, medication reconciliation, and communication with other providers. Discharge Instructions Please refer to the electronic Patient Visit Report (Discharge Instructions) for additional information. Follow-Up Follow up with PCP within 1 week. Follow up with neurosurgery within 1-2 weeks. Additional Copies To Micheal Tucker M.D.
[2017-07-12 14:29] VITALS: BP 149/85; PULSE 99; TEMP 36.6; O2SAT 95
== END 2017-07-12 17:12 | DRG 871 ==
LOC: EDBD 11:53 → C.EDA 11:54 → C.2T 16:51 → ENRESERV 17:21 → C.2T 07-01 22:41 → ENRESERV 07-11 15:21 → C.MS2W 07-11 16:07
PROVIDERS: ADMIT Family Medicine; ATTEND Hospitalist
DX: A41.9 Sepsis, unspecified organism (principal); J96.21 Acute and chronic respiratory failure with hypoxia; E87.1 Hypo-osmolality and hyponatremia; N39.0 Urinary tract infection, site not specified; S06.359A Traumatic hemorrhage of left cerebrum with loss of consciousness of unspecified duration, initial encounter; N17.9 Acute kidney failure, unspecified; B37.0 Candidal stomatitis; G93.41 Metabolic encephalopathy; E43 Unspecified severe protein-calorie malnutrition; E87.3 Alkalosis; I12.9 Hypertensive chronic kidney disease with stage 1 through stage 4 chronic kidney disease, or unspecified chronic kidney disease; Z85.3 Personal history of malignant neoplasm of breast; F39 Unspecified mood [affective] disorder; F32.9 Major depressive disorder, single episode, unspecified; E11.9 Type 2 diabetes mellitus without complications; Z79.4 Long term (current) use of insulin; J84.10 Pulmonary fibrosis, unspecified; Z88.1 Allergy status to other antibiotic agents; E87.5 Hyperkalemia; Z88.8 Allergy status to other drugs, medicaments and biological substances; Z66 Do not resuscitate; I50.9 Heart failure, unspecified; I27.20 Pulmonary hypertension, unspecified; S42.302D Unspecified fracture of shaft of humerus, left arm, subsequent encounter for fracture with routine healing; W19.XXXS Unspecified fall, sequela; N18.3 Chronic kidney disease, stage 3 (moderate); Z86.73 Personal history of transient ischemic attack (TIA), and cerebral infarction without residual deficits